=== PATIENT | male | born 1975 | race Two or more races ===

== ENCOUNTER 2019-06-16 17:48 | Inpatient (IN) | payer OTHER ==
[~2019-06-16] VITALS: Ht 182.9 cm; Wt 106.6 kg
--- NOTE | 2019-06-16 18:00 | NUR ---
RECEIVED PT IN ROOM ER #1, PT ELICEO FROM [facility] FOR [facility] , PT IS ALERT/ NONVERBAL, COFUSED, CONTINUE TO MONITOR
[2019-06-16] MEDS ORDERED: IV NS 0.9% 1,000 ML BAG IV ONE (18:30)
[2019-06-16 18:33] LABS: BASOPHILS % (AUTO) 0.1 % (0.0-2.0); EOSINOPHILS % (AUTO) 3.5 % (0.0-6.0); LYMPHOCYTES # (AUTO) 1.1 /CMM (0.8-4.8); LYMPHOCYTES % (AUTO) 26.6 % (20.0-44.0); MEAN CORPUSCULAR HGB CONC 35 g/dl (31.0-36.0); MEAN CORPUSCULAR VOLUME 85 fL (80-96); MONOCYTES # (AUTO) 0.4 /CMM (0.1-1.30); MONOCYTES % (AUTO) 9.8 % (2.0-12.0); NEUTROPHILS # (AUTO) 2.4 /CMM (1.8-8.9); PLATELET COUNT (AUTO) 92 /CMM (150-450); RED BLOOD CELL COUNT(AUTO) 2.03 MIL/uL (4.5-6.0)
[2019-06-16 18:35] LABS: HEMATOCRIT 17 % (39-51); HEMOGLOBIN 5.9 g/dL (13.5-17.5)
[2019-06-16 18:43] LABS: ALBUMIN 1.9 g/dL (3.4-5.0); BILIRUBIN,DIRECT 0.1 mg/dL (0.0-0.2); BILIRUBIN,TOTAL 0.4 mg/dL (0.2-1.0); CREATININE 3.7 mg/dL (0.6-1.3); POTASSIUM 4.5 mmol/L (3.5-5.1); TOTAL PROTEIN, SERUM 4.6 g/dL (6.4-8.2)
[2019-06-16 18:45] LABS: CALCIUM, SERUM 5.8 mg/dL (8.5-10.1)
[2019-06-16] MEDS ORDERED: BUSP5TAB3 PO (19:05)
[2019-06-16] MEDS ORDERED: CLON0.1T PO (19:05)
[2019-06-16] MEDS ORDERED: GLIM1TAB2 PO (19:06)
[2019-06-16] MEDS ORDERED: ASCO500T10 PO (19:06)
[2019-06-16] MEDS ORDERED: DOCU-141 PO (19:06)
[2019-06-16] MEDS ORDERED: GABA-534 PO (19:06)
[2019-06-16] MEDS ORDERED: MULT-24 PO (19:06)
[2019-06-16] MEDS ORDERED: QUET25TA PO (19:06)
[2019-06-16] MEDS ORDERED: INSU100V7 SQ (19:06)
[2019-06-16] MEDS ORDERED: TERA2CAP4 PO (19:06)
[2019-06-16] MEDS ORDERED: ATOR20TA PO (19:06)
[2019-06-16] MEDS ORDERED: FAMO20TA8 PO (19:06)
[2019-06-16] MEDS ORDERED: LACT1CAP61 PO (19:06)
[2019-06-16] MEDS ORDERED: ESCI5TAB PO (19:06)
[2019-06-16] MEDS ORDERED: LIDOCAINE PATCH (19:06)
[2019-06-16] MEDS ORDERED: TRAZ-182 PO (19:06)
--- NOTE | 2019-06-16 19:11 | NUR ---
REPORT GIVEN TO DANAE SAAVEDRA FOR CONTINUITY OF CARE .
[2019-06-16] MEDS ORDERED: CLONIDINE HCL 0.1 MG TABLET ONE (19:17)
--- NOTE | 2019-06-16 19:19 | NUR ---
PT IN BED AWAKE AND RESPONSIVE. NOTED W/ HIGH BP. MD MADE AWARE WITH NEW ORDER, NOTED AND CARRIED OUT. SWALLOEING TEST DONE PRIOR MED ADMINISTRATION W/ NO DIFFICULTY
--- NOTE | 2019-06-16 19:23 | NUR ---
END TIME FOR NS 1 LITER: 193
[2019-06-16 19:27] LABS: EOSINOPHILS % (MANUAL) 1 % (0-4); LYMPHOCYTES % (MANUAL) 32 % (16-48); MONOCYTES % (MANUAL) 9 % (0-11.0); NEUTROPHILS % (MANUAL) 58 (42-76)
[2019-06-16] MEDS ORDERED: CLONIDINE HCL 0.1 MG TABLET PO ONE (19:30)
[2019-06-16] MEDS ORDERED: MAGNESIUM HYDROXIDE 30 ML UDC PO PRN (20:00)
[2019-06-16] MEDS ORDERED: DEXTROSE 50%-WATER 50 ML DISP.SYRIN IV PRN (20:00)
[2019-06-16] MEDS ORDERED: MAG HYDROX/AL HYDROX/SIMETH 30 ML UDC PO PRN (20:00)
[2019-06-16] MEDS ORDERED: ACETAMINOPHEN 325 MG TABLET PO PRN (20:00)
[2019-06-16] MEDS ORDERED: ONDANSETRON HCL/PF 4 MG/2 ML VIAL IVP PRN (20:00)
--- NOTE | 2019-06-16 20:00 | NUR ---
CALLED [facility], PROCEDURES RN WAS PAGED.
--- NOTE | 2019-06-16 20:05 | NUR ---
PT GOING TO BED 119-2.
--- NOTE | 2019-06-16 20:15 | NUR ---
BLOOD TRANSFUSION PROCESS, RISK AND BENEFITS EXPLAINED TO THE PT. PT AGRRED W/ THE TRTANSFUSION. CONSENT WAS EXPLAINED TO THE PT AND PT SIGNED THE CONSENT. WITHNESSED W/ TWO RNs.
--- NOTE | 2019-06-16 20:55 | NUR ---
BLOOD TRANSFUSION STARTED. PT'S AND BLOOD UNIT INFORMATION WERE VERIFIED BY TWO RNs. VSS.
--- NOTE | 2019-06-16 21:03 | NUR ---
REPORT GIVEN TO LIU AT [facility]
--- NOTE | 2019-06-16 21:22 | NUR ---
PTWAS TRANSFERRED TO [facility] UNDER ACLS
--- NOTE | 2019-06-16 21:45 | NUR ---
AL ADMITTING NOTE, RECEIVED PATIENT FROM ED VIA GURNEY. PATIENT ALERT ORIENTED X2-3, FORGETFUL, DIAGNOSIS OF SEVER ANEMIA. PATIENT IS LEGALLY BLIND IN BOTH EYES. SKIL ASSESSMENT DONE, LEFT BKA, RIGHT TOES WOUND NOTED. PATIENT IS NPO EXCEPT FOR MEDICATION. LF 20 DAISY WITH ONGOING BLOOD TRANSFUSION STARTED FROM ED, NO INFILTRATION NOTED. BED IS IN LOW/ LOCKED POSITION. SIDE RAILS UP X3, CALL LIGHT WITHIN REACH. WAITING ADMITTING ORDERS. WILL CONTINUE MONITOR
[2019-06-16] MEDS: TRAZODONE 50 MG TABLET PO SCH ×3 (22:00→23:02)
[2019-06-16] MEDS: ATORVASTATIN 10 MG TABLET PO SCH ×2 (22:00→23:04)
[2019-06-16] MEDS: TERAZOSIN HCL 5 MG CAPSULE PO SCH ×3 (22:00→23:03)
[2019-06-16] MEDS: ESCITALOPRAM OXALATE (10 MG) 10 MG TABLET PO SCH ×3 (22:00→23:02)
[2019-06-16] MEDS: NEXIUM 40 MG VIAL IV SCH (22:05)
--- NOTE | 2019-06-16 23:30 | NUR ---
AL RN NOTES, MEDICATION WAS DOCUMENTED NOT ADMINISTERED BY MISTAKE, PATIENT IS NPO EXCEPT MEDICATION, CALLED PHARMACY AND WAS TOLD TO UNDO ACTION AND SCAN AND ADMINISTER THE MEDICATION TO THE PATIENT.
[2019-06-17] VITALS (10 sets, daily range): BP systolic 146–198; BP diastolic 88–109
--- NOTE | 2019-06-17 | NUR ---
AL RN NOTES 1ST UNIT PRBC INFUSED. NO ADVERSE REACTIONS NOTED. VSS.
[2019-06-17] MEDS: CLONIDINE HCL 0.1 MG TABLET PO PRN (00:03)
[2019-06-17] MEDS: BLOOD SUGAR DIAGNOSTIC 1 EACH STRIP IN SCH ×5 (00:26→21:48)
[2019-06-17] MEDS: INSULIN REGULAR, HUMAN 100 UNIT/ML 3 ML VIAL SQ PRN ×2 (00:30→06:35)
--- NOTE | 2019-06-17 00:45 | NUR ---
AL RN NOTES 2ND UNIT PRBC TRANSFUSION STARTED. CHECKED & VERIFIED W/ 2ND RN AMINA. WILL MONITOR FOR ANY ADVERSE REACTIONS.
--- NOTE | 2019-06-17 01:20 | NUR ---
FOOD BAGGING MACHINE OPERATOR NOTES INFORMED PRIYANKA GLOVER OF PATIENT'S CONSISTENT HIGH BP IN 180S DESPITE CLONIDINE 0.1MG. RECEIVED NEW ORDER FOR HYDRALAZINE 10MG IV PRN FOR SBP >160. NEW ORDER NOTED & CARRIED OUT.
[2019-06-17] MEDS: hydrALAZINE HCL IV 20 MG VIAL IV PRN (01:37)
--- NOTE | 2019-06-17 03:45 | NUR ---
GUINEA PIG BREEDER NOTES 2ND UNIT PRBC TRANSFUSED W/ NO ADVERSE REACTIONS NOTED. VSS.
--- NOTE | 2019-06-17 06:58 | NUR ---
AL RN CLOSING NOTES, PATIENT IN BED, SLEEPING BUT EASY TO WAKE UP, NO REPARATORY DISTRESS NOTED. LEFT FOREARM IV 20GAGE CLEAN AND DRY, NO INFILTRATION NOTED. 2 UNITS OF BLOOD TRANSFUSED DURING CARGO STATION WORKER. WILL ENDORSE TO UPCOMING SHIFT FOR CONTINUES CARE
--- NOTE | 2019-06-17 07:30 | NUR ---
RN NOTES RECEIVED PATIENT IN HIGH JOE'S POSITION. AWAKE, ALERT AND ORIENTED X2-3, ABLE TO RESPOND APPROPRIATELY AND AND MAKE NEEDS KNOWN. PATIENT IS LEGALLY BLIND IN BOTH EYES. ON ROOM AIR. BREATHING UNLABORED. NO SOB NOTED AT THIS TIME. PATIENT DENIES PAIN OF ANY KIND. "CAN I HAVE JUICE?"- REITERATED ON NPO EXCEPT MEDS STATUS AND INFORMED PATIENT THAT WILL F/U WITH THE MD IF DIET CAN BE ADVANCED. LF 20 G IV ACCESS SITE, IN PLACE AND PATENT: DRESSING IN PLACE AND INTACT. NO INFECTION/INFILTRATION NOTED. PATIENT ENCOURAGE TO CALL FOR HELP/ ASSISTANCE. CALL LIGHT PLACE WITHIN REACH. BED IN LOW AND LOCKED POSITION. SIDE RAILS UP X3, BED ALARM ON. WILL CONTINUE TO MONITOR AND ANTICIPATE PATIENT'S NEEDS
[2019-06-17 07:36] LABS: CALCIUM, SERUM 6.7 mg/dL (8.5-10.1); CREATININE 4.4 mg/dL (0.6-1.3); MAGNESIUM 1.6 mg/dL (1.8-2.4); PHOSPHORUS 4.7 mg/dL (2.5-4.9); POTASSIUM 5.6 mmol/L (3.5-5.1)
[2019-06-17 07:40] LABS: BASOPHILS % (AUTO) 0.4 % (0.0-2.0); EOSINOPHILS % (AUTO) 3.7 % (0.0-6.0); HEMATOCRIT 28 % (39-51); HEMOGLOBIN 9.3 g/dL (13.5-17.5); LYMPHOCYTES # (AUTO) 1.1 /CMM (0.8-4.8); LYMPHOCYTES % (AUTO) 24.9 % (20.0-44.0); MEAN CORPUSCULAR HGB CONC 34 g/dl (31.0-36.0); MEAN CORPUSCULAR VOLUME 85 fL (80-96); MONOCYTES # (AUTO) 0.4 /CMM (0.1-1.30); MONOCYTES % (AUTO) 9.5 % (2.0-12.0); NEUTROPHILS # (AUTO) 2.7 /CMM (1.8-8.9); NEUTROPHILS % (AUTO) 61.5 % (43.0-81.0); PLATELET COUNT (AUTO) 112 /CMM (150-450); RED BLOOD CELL COUNT(AUTO) 3.22 MIL/uL (4.5-6.0); WHITE BLOOD COUNT (AUTO) 4.3 K/uL (4.3-11.0)
[2019-06-17 07:42] LABS: THYROID STIMULATING HORMONE 3.074 uIU/mL (0.358-3.74)
--- NOTE | 2019-06-17 08:14 | NUR ---
WOUND CARE CONSULT: PT PRESENTS WITH SCARRING TO RT KNEE AND LEFT BELOW KNEE AMPUTATION STUMP, DRY WOUNDS TO RT FOOT, PRESENT ON ADMISSION. RECOMMEND DPM CONSULT. DR CORTEZ AWARE OF CONSULT REQUEST. RECOMMENDATIONS MADE FOR SKIN PROTECTION. DISCUSSED WITH NURSING STAFF. WILL SEE PRN. FLORES IN AGREEMENT WITH PLAN OF CARE. Addendum: 06/17/19 at 0816 by FRANK CLAUDIO WNDNU Amended: Links added.
[2019-06-17] MEDS: NEXIUM 40 MG VIAL IV SCH ×2 (08:48→21:00)
[2019-06-17] MEDS: busPIRone 5 MG TABLET PO SCH ×3 (08:48→18:42)
[2019-06-17] MEDS: ASCORBIC ACID 500 MG TABLET PO SCH (08:48)
[2019-06-17] MEDS: QUETIAPINE FUMARATE 25 MG TABLET PO SCH ×3 (08:48→18:42)
[2019-06-17] MEDS: AMLODIPINE BESYLATE 5 MG TABLET PO SCH (08:49)
[2019-06-17] MEDS: Z GUARD REMEDY 2 OZ OINT TP SCH (08:51)
[2019-06-17] MEDS ORDERED: FUROSEMIDE 20 MG/2 ML VIAL IV ONE (09:00)
[2019-06-17] MEDS ORDERED: SODIUM POLYSTYRENE SULFONATE 15 G/60 ML BOTTLE PO ONE (09:00)
[2019-06-17 09:49] LABS: IRON, SERUM 53 ug/dl (50-175); TOTAL IRON BINDING CAPACITY 192 ug/dl (250-450)
[2019-06-17 09:56] LABS: CALCIUM, SERUM 6.7 mg/dL (8.5-10.1); CREATININE 4.4 mg/dL (0.6-1.3); POTASSIUM 5.7 mmol/L (3.5-5.1)
[2019-06-17 10:02] LABS: FERRITIN 193 ng/mL (8-388)
--- NOTE | 2019-06-17 10:37 | NUR ---
RN NOTES PATIENT NOTED WITH EPISODES OF TALKING AND MACEDONIAN, POINTING AND POSTURING TO SOMETHING NOT VISIBLE AT THIS TIME. WHEN APPROACHED AND ASKE IF HE NEEDED SOMETHING. HE CLAIMED THAT HE FEELS OKAY AND IS COMFORTABLE AT THIS TIME.
[2019-06-17] MEDS ORDERED: Magnesium 1GM/D5W 100ML PREMIX 100 ML IV SCH (13:30)
[2019-06-17] MEDS ORDERED: Magnesium 1GM/D5W 100ML PREMIX PIGGYBACK IV ONE (13:30)
[2019-06-17] MEDS ORDERED: DEXTROSE 50%-WATER 50 ML DISP.SYRIN IV PRN (13:30)
[2019-06-17] MEDS ORDERED: IV NS 0.9% 250 ML IV ONE (15:00)
--- NOTE | 2019-06-17 19:00 | NUR ---
RN NOTES PATIENT RIPPED OFF DIAPER AND TELEMONITOR BOX " I DON'T WANT THIS ANYMORE" REFERRING TO THE MONITOR. EXPLAINED RISK AND BENEFITS TO THE PATIENT MULTIPLE TIME BUT PATIENT CONTINUE TO REFUSE. PAGED DR. JIANG THEN TO INFORM ABOUT THE SITUATION BUT TALKED TO GAMMA OPERATOR (DR. MCGUIRE) WHO ORDERED PATIENT TO BE PLACED ON MEDSURG STATUS. ORDER NOTED AND CARRIED OUT
--- NOTE | 2019-06-17 20:00 | NUR ---
TELE/MS/RN NOTES RECEIVED REPORT FOR AGAPITO
--- NOTE | 2019-06-17 21:18 | NUR ---
MS/TELE/RN NOTES NEXIUM ORDER FOR GERD NOT AVAILABLE , SUPERVISORT AND CHARGE NURSE FOLLOW UP AT THE [facility]. TO FOLLOW UP IN AM
[2019-06-18 02:49] VITALS: BP 150/88
[2019-06-18 04:00] VITALS: BP 159/93
[2019-06-18] MEDS: IV NS 0.9% 1,000 ML IV PRN (05:24)
[2019-06-18 06:34] LABS: BASOPHILS % (AUTO) 0.3 % (0.0-2.0); EOSINOPHILS % (AUTO) 3.3 % (0.0-6.0); HEMATOCRIT 29 % (39-51); HEMOGLOBIN 9.8 g/dL (13.5-17.5); LYMPHOCYTES # (AUTO) 1.1 /CMM (0.8-4.8); LYMPHOCYTES % (AUTO) 24.2 % (20.0-44.0); MEAN CORPUSCULAR HGB CONC 34 g/dl (31.0-36.0); MEAN CORPUSCULAR VOLUME 85 fL (80-96); MONOCYTES # (AUTO) 0.3 /CMM (0.1-1.30); MONOCYTES % (AUTO) 7.5 % (2.0-12.0); NEUTROPHILS % (AUTO) 64.7 % (43.0-81.0); PLATELET COUNT (AUTO) 135 /CMM (150-450); RED BLOOD CELL COUNT(AUTO) 3.38 MIL/uL (4.5-6.0); WHITE BLOOD COUNT (AUTO) 4.6 K/uL (4.3-11.0)
[2019-06-18 06:40] LABS: ALBUMIN 2.3 g/dL (3.4-5.0); BILIRUBIN,TOTAL 0.6 mg/dL (0.2-1.0); CREATININE 4.5 mg/dL (0.6-1.3); MAGNESIUM 1.7 mg/dL (1.8-2.4); PHOSPHORUS 5.4 mg/dL (2.5-4.9); POTASSIUM 5.2 mmol/L (3.5-5.1); TOTAL PROTEIN, SERUM 5.9 g/dL (6.4-8.2)
--- NOTE | 2019-06-18 06:56 | NUR ---
MS/RN NOTES' PATIENT RESTING COMFORTABLY IN BED, ABLE TO SLEEP DURING THE NICE, SNACK GIVEN AND OFFERED, IV FLUIDS ORDERED STARTED, BED LOCKED, WILL ENDORSE TO AM RN FOR AGAPITO. REPOSITONED FOR COMFORT. IV SITE ON RIGHT FHAND PATENT.
[2019-06-18 07:47] LABS: OCCULT BLOOD STOOL NEGATIVE (NEGATIVE)
--- NOTE | 2019-06-18 08:05 | NUR ---
MS RN RECEIVE DON BED, AWAKE,ALERT X2, FORGETFUL,NOT IN ANY FORM OF DITRESS, RESPIRATIONS EVEN AND UNLABORED, NO SOB NOED, LUNGS ARE CLEAR,ABDOMEN SOFT,POSITIVE BOWEL SOUNDS,DENIES PAIN AT THIS TIME.WILL MONITOR PATIENT'S CONDITION.
[2019-06-18] MEDS: BLOOD SUGAR DIAGNOSTIC 1 EACH STRIP IN SCH ×4 (08:29→21:48)
[2019-06-18] MEDS: ASCORBIC ACID 500 MG TABLET PO SCH (08:47)
[2019-06-18] MEDS: AMLODIPINE BESYLATE 5 MG TABLET PO SCH (08:47)
[2019-06-18] MEDS: QUETIAPINE FUMARATE 25 MG TABLET PO SCH ×3 (08:47→16:35)
[2019-06-18] MEDS: busPIRone 5 MG TABLET PO SCH ×3 (08:48→16:35)
[2019-06-18] MEDS: NEXIUM 40 MG VIAL IV SCH ×2 (09:00→21:08)
[2019-06-18] MEDS: Z GUARD REMEDY 2 OZ OINT TP SCH (09:00)
--- NOTE | 2019-06-18 09:35 | NUR ---
MS SAAVEDRA BREAKFAST SERVED,DUE MEDS GIVEN,TOLERATED WELL.
--- NOTE | 2019-06-18 10:00 | NUR ---
MS RN PATIENT HAS SOME HALLUCINATIONS, TALKING TO SOMEBODY,CALLED DEIDRE PAGAN FOR PSYCHE EVAL. WILL MONITOR PATIENT.
[2019-06-18 12:00] VITALS: BP 179/102
--- NOTE | 2019-06-18 12:00 | NUR ---
MS RN ACCIDENTALLY PULLED OUT IV, NEW IV SITE INSERTED AT LEFT HAND W/ GOOD VENOUS RETURN.
[2019-06-18] MEDS ORDERED: SODIUM POLYSTYRENE SULFONATE 15 G/60 ML BOTTLE PO ONE (15:30)
[2019-06-18] MEDS: Magnesium 1GM/D5W 100ML PREMIX 100 ML IV SCH ×2 (15:55→17:09)
[2019-06-18 16:00] VITALS: BP 185/100
--- NOTE | 2019-06-18 16:32 | NUR ---
MS RN B/P STILL HIGH AT 185/100. HYDRALAZINE IV GIVEN.
[2019-06-18] MEDS: hydrALAZINE HCL IV 20 MG VIAL IV PRN (16:37)
--- NOTE | 2019-06-18 17:57 | NUR ---
MS SAAVEDRA BS-87 ,NO COVERAGE GIVEN.
[2019-06-18 18:00] VITALS: BP 152/90
--- NOTE | 2019-06-18 18:06 | NUR ---
MS RN ON BED, NO DISTRESS NOTED.
--- NOTE | 2019-06-18 19:15 | NUR ---
MS RN OPENING NOTES RECEIVED BEDSIDE REPORT FROM AM RN. PATIENT RESTING COMFORTABLY IN BED, AWAKE, A/OX2. ON ROOM AIR, NO SOB OR RESPIRATORY AND CARDIAC DISTRESS NOTED. DENIES ANY PAIN. IV SITE LEFT HAND 22G, SITE C/D/I, FLUSHING AND PATENT, NO INFILTRATION NOTED, IV FLUIDS RUNNING ORDERED. URINAL AT BEDSIDE. SAFETY MEASURES IN PLACE; BED LOCKED AND IN LOWEST POSITION, CALL LIGHT WITHIN REACH, SIDE RAILS UP X2. WILL CONT TO MONITOR PT.
[2019-06-18 20:00] VITALS: BP_SYST 127; BP_SYST 144; BP_DIAS 80; BP_DIAS 88
[2019-06-18] MEDS: TRAZODONE 50 MG TABLET PO SCH (21:09)
[2019-06-18] MEDS: ESCITALOPRAM OXALATE (10 MG) 10 MG TABLET PO SCH (21:09)
[2019-06-18] MEDS: ATORVASTATIN 10 MG TABLET PO SCH (21:09)
[2019-06-18] MEDS: TERAZOSIN HCL 5 MG CAPSULE PO SCH (21:09)
[2019-06-19 04:00] VITALS: BP 158/96
[2019-06-19] MEDS: IV NS 0.9% 1,000 ML IV PRN (04:21)
[2019-06-19 06:37] LABS: BASOPHILS % (AUTO) 0.3 % (0.0-2.0); EOSINOPHILS % (AUTO) 3.1 % (0.0-6.0); HEMATOCRIT 29 % (39-51); HEMOGLOBIN 9.9 g/dL (13.5-17.5); LYMPHOCYTES # (AUTO) 1.2 /CMM (0.8-4.8); LYMPHOCYTES % (AUTO) 19.7 % (20.0-44.0); MEAN CORPUSCULAR HGB CONC 34 g/dl (31.0-36.0); MEAN CORPUSCULAR VOLUME 85 fL (80-96); MONOCYTES # (AUTO) 0.5 /CMM (0.1-1.30); MONOCYTES % (AUTO) 8.1 % (2.0-12.0); NEUTROPHILS # (AUTO) 4.2 /CMM (1.8-8.9); NEUTROPHILS % (AUTO) 68.8 % (43.0-81.0); PLATELET COUNT (AUTO) 139 /CMM (150-450); WHITE BLOOD COUNT (AUTO) 6.1 K/uL (4.3-11.0)
[2019-06-19 07:00] LABS: CREATININE, URINE 54.1 MG/DL (30.0-125.0)
--- NOTE | 2019-06-19 07:00 | NUR ---
MS RN CLOSING NOTES PATIENT RESTING COMFORTABLY IN BED, AWAKE, A/OX2-3, WITH EPISODES OF CONFUSION AND HALLUCINATION NOTED THROUGHOUT SHIFT, PSYCH CONSULT PENDING. ON ROOM AIR, NO SOB OR RESPIRATORY AND CARDIAC DISTRESS NOTED. DENIES ANY PAIN. IV SITE LEFT HAND 22G, SITE C/D/I, FLUSHING AND PATENT, NO INFILTRATION NOTED, IV FLUIDS RUNNING ORDERED. URINAL AT BEDSIDE. ALL MD ORDERS ATTENDED. SAFETY MEASURES IN PLACE; BED LOCKED AND IN LOWEST POSITION, CALL LIGHT WITHIN REACH, SIDE RAILS UP X2. WILL ENDORSE TO AM RN FOR AGAPITO.
[2019-06-19 07:06] LABS: ALBUMIN 2.3 g/dL (3.4-5.0); BILIRUBIN,TOTAL 0.5 mg/dL (0.2-1.0); CALCIUM, SERUM 6.8 mg/dL (8.5-10.1); CREATININE 4.4 mg/dL (0.6-1.3); PHOSPHORUS 4.9 mg/dL (2.5-4.9); POTASSIUM 4.7 mmol/L (3.5-5.1); TOTAL PROTEIN, SERUM 5.8 g/dL (6.4-8.2)
[2019-06-19 07:30] LABS: URINE TOTAL PROTEIN 718.9 mg/dL (0-11.9)
--- NOTE | 2019-06-19 07:30 | NUR ---
RN AM NOTE PATIENT IN BED RESPONSIVE BUT CONFUSED. VERY AGITATED AND APPEARS PARANOID. YELLING AND BARKING. IV PATENT AND INTACT. BED IN LOW POSITION, REORIENTATION DONE BY RN . AWATITING PSYCH CONSULT FROM MD TODAY. BED IN LOW POSITION, SIDE RAILS UP, CALL LIGHT WITHIN REACH IV PATENT AND FLUSHING WELL.
[2019-06-19 07:50] LABS: APPEARANCE,URINE CLEAR (CLEAR); COLOR,URINE YELLOW (YELLOW); PROTEIN,URINE 3+ mg/dl (NEGATIVE); UGLUCOSE TRACE mg/dL (NEGATIVE)
[2019-06-19 07:51] LABS: BILIRUBIN,URINE NEGATIVE (NEGATIVE); BLOOD, URINE 2+ Ery/uL (NEGATIVE); KETONES,URINE NEGATIVE (NEGATIVE); UROBILINOGEN,URINE 0.2 EU/dL (0.2)
[2019-06-19 07:52] LABS: LEUKOCYTE ESTERASE ,URINE NEGATIVE (NEGATIVE); NITRITE, URINE NEGATIVE (NEGATIVE)
[2019-06-19] MEDS: busPIRone 5 MG TABLET PO SCH (07:55)
[2019-06-19] MEDS: QUETIAPINE FUMARATE 25 MG TABLET PO SCH (07:56)
[2019-06-19] MEDS: ASCORBIC ACID 500 MG TABLET PO SCH (07:56)
[2019-06-19] MEDS: NEXIUM 40 MG VIAL IV SCH ×2 (07:57→21:07)
[2019-06-19] MEDS: BLOOD SUGAR DIAGNOSTIC 1 EACH STRIP IN SCH ×4 (08:03→21:14)
[2019-06-19] MEDS: Z GUARD REMEDY 2 OZ OINT TP SCH (08:03)
[2019-06-19 08:05] LABS: BACTERIA,URINE None seen /HPF (None Seen); RBC,URINE NONE SEEN /HPF (0-2); SQUAMOUS EPITHELIAL CELL,UR None Seen /HPF (None Seen); URINE AMORPHOUS URATE Rare /HPF (None Seen); WBC,URINE 0-2 /HPF (0-3)
[2019-06-19 08:06] LABS: EOSINOPHIL,URINE None Seen; SPERM,URINE Few /HPF (None Seen)
[2019-06-19] MEDS: AMLODIPINE BESYLATE 5 MG TABLET PO SCH (08:50)
[2019-06-19 11:07] LABS: *SPE A/G RATIO 1.1 (0.7-1.7); *SPE ALBUMIN 2.6 g/dL (2.9-4.4); *SPE ALPHA-1-GLOBULIN 0.2 g/dL (0.0-0.4); *SPE ALPHA-2-GLOBULIN 0.5 g/dL (0.4-1.0); *SPE BETA GLOBULIN 0.9 g/dL (0.7-1.3); *SPE GLOBULIN, TOTAL 2.4 g/dL (2.2-3.9); *SPE M-SPIKE Not Observed g/dL (Not Observed); *SPEGAMMA GLOBULIN 0.8 g/dL (0.4-1.8)
[2019-06-19 12:00] VITALS: BP 144/98
[2019-06-19] MEDS: HALOPERIDOL 5 MG TABLET PO SCH ×2 (12:58→16:27)
[2019-06-19] MEDS: DIVALPROEX SODIUM 250 MG TABLET.DR PO SCH ×2 (12:58→16:27)
[2019-06-19] MEDS: BENZTROPINE MESYLATE (1 MG) 1 MG TABLET PO SCH ×2 (12:58→16:27)
[2019-06-19] MEDS ORDERED: HALOPERIDOL LACTATE INJ 5 MG/ML VIAL IM PRN (13:00)
--- NOTE | 2019-06-19 14:00 | NUR ---
RN NOTE PSYCH CONSULT MD CAME TODAY. NEW ORDERS CARRIED OUT BY RN. PATIENT IS VERY AGGRESSIVE, HITTING HIMSELF IN THE HEAD, IS NOT ORIENTED TO REALITY. IS AGGRESSIVE TOWARDS STAFF, RANDOM BOUTS OF ATTEMPTING TO HIT YELLING CURSING BARKING AND SCREAMING. BED IN LOW POSITION, SIDE RAILS UP, CALL LIGHT WITHIN REACH IV PATENT AND FLUSHING WELL.
[2019-06-19 14:07] LABS: PTH, INTACT 165 pg/mL (15-65)
--- NOTE | 2019-06-19 15:00 | NUR ---
RN NOTE PATIENTS BLOOD PRESSURE WAS ELEVEVATED, RN GAVE PRN IV PUSH OF MEDICATION PER MD ORDER FOR BP >170.
--- NOTE | 2019-06-19 16:00 | NUR ---
RN NOTE PATIENT EXTREMEMLY AGGRESSIVE, HITTING AND KICKING RANDOMLY TO AIR STAFF AND SELF. NO INJURY NOTED, CONT TO MONITOR.BED IN LOW POSITION, SIDE RAILS UP, CALL LIGHT WITHIN REACH IV PATENT AND FLUSHING WELL.
[2019-06-19] MEDS: hydrALAZINE HCL IV 20 MG VIAL IV PRN (16:28)
--- NOTE | 2019-06-19 19:29 | NUR ---
MS RN NOTE: RECEIVED PT ON BED ASLEEP BUT AROUSES EASILY TO VERBAL AND TACTILE STIMULI. NO APPARENT DISTRESS NOTED. DENIES PAIN AND DISCOMFORT AT THIS TIME. ON ROOM AIR, NO SOB NOTED. IV ON LEFT HAND #22 INTACT AND PATENT, IVF INFUSING WELL. KEPT CLEAN, DRY AND COMFORTABLE. CALL LIGHT PLACED WITHIN REACH. ENCOURAGED TO VERBALIZE NEEDS AND CONCERNS AND TO CALL FOR ASSISTANCE IF NEEDED. SAFETY AND FALL PRECAUTIONS OBSERVED AND MAINTAINED. WILL CONTINUE TO MONITOR PT.
[2019-06-19 20:00] VITALS: BP 147/76
[2019-06-19] MEDS: TRAZODONE 50 MG TABLET PO SCH (21:06)
[2019-06-19] MEDS: ATORVASTATIN 10 MG TABLET PO SCH (21:07)
[2019-06-19] MEDS: TERAZOSIN HCL 5 MG CAPSULE PO SCH (21:14)
[2019-06-20 04:00] VITALS: BP 141/69
--- NOTE | 2019-06-20 04:41 | NUR ---
MS RN NOTE: PATIENT REFUSED IVF NS RUNNING AT 75ML/HR. EXPLAINED RISKS AND BENEFITS BUT PT STILL REFUSED, PT GETS AGITATED BECAUSE OF IT. DR. MCGUIRE MADE AWARE. WILL CONTINUE TO MONITOR PT.
--- NOTE | 2019-06-20 06:50 | NUR ---
MS RN NOTE: NO CHANGES NOTED THROUGHOUT THE SHIFT. NO APPARENT DISTRESS NOTED. DENIES PAIN AND DISCOMFORT AT THIS TIME. ON ROOM AIR, SATURATING WELL. NO SOB NOTED. IV ON LEFT HAND #22 INTACT AND FLUSHING WELL. KEPT CLEAN, DRY AND COMFORTABLE. SAFETY AND FALL PRECAUTIONS OBSERVED AND MAINTAINED. WILL ENDORSE TO DAY SHIFT RN FOR CONTINUITY OF CARE.
--- NOTE | 2019-06-20 07:20 | NUR ---
MS RN OPENING NOTES RECEIVED REPORT AT BEDSIDE. PATIENT RESTING COMFORTABLY IN BED. ON ROOM AIR, NO SOB OR RESPIRATORY AND CARDIAC DISTRESS NOTED. NO COMPLAIN OF PAIN AT THIS TIME. IV LEFT HAND SL 22G INTACT, PATENT AND FLUSHED WELL. PER CONTROL MANAGER NURSE PT HAD ORDER TO RUN NS@75 ML/HR BUT HE HAS REFUSED AND MADE AWARE. WILL ASK PT TO RUN THE NS AGAIN. URINAL AT BEDSIDE. SAFETY MEASURES AND FALL PRECAUTION IN PLACE; BED LOCKED AND IN LOWEST POSITION, CALL LIGHT WITHIN REACH, SIDE RAILS UP X2, BED ALARM ON. WILL CONT TO MONITOR PT CLOSELY.
[2019-06-20 08:00] VITALS: BP 151/69
[2019-06-20] MEDS: BLOOD SUGAR DIAGNOSTIC 1 EACH STRIP IN SCH ×4 (08:14→21:12)
[2019-06-20] MEDS: DIVALPROEX SODIUM 250 MG TABLET.DR PO SCH ×3 (09:50→17:13)
[2019-06-20] MEDS: BENZTROPINE MESYLATE (1 MG) 1 MG TABLET PO SCH ×3 (09:51→17:13)
[2019-06-20] MEDS: HALOPERIDOL 5 MG TABLET PO SCH ×3 (09:51→17:13)
[2019-06-20] MEDS: AMLODIPINE BESYLATE 5 MG TABLET PO SCH (09:53)
[2019-06-20] MEDS: ASCORBIC ACID 500 MG TABLET PO SCH (09:53)
[2019-06-20] MEDS: NEXIUM 40 MG VIAL IV SCH ×2 (09:58→21:03)
[2019-06-20] MEDS: Z GUARD REMEDY 2 OZ OINT TP PRN ×2 (10:35→10:46)
[2019-06-20] MEDS: Z GUARD REMEDY 2 OZ OINT TP SCH (10:50)
--- NOTE | 2019-06-20 12:00 | NUR ---
MS RN NOTE PT REFUSED TO START NS IV FLUID. WILL ASK LATER.
[2019-06-20 16:00] VITALS: BP_SYST 157; BP_SYST 169; BP_DIAS 69; BP_DIAS 96
--- NOTE | 2019-06-20 17:22 | NUR ---
RN NOTES PATIENT WAS COMPLAINING HE'S FEELING LIKE SOMETHING IS CRAWLING OVER HIS HEAD. ALSO, HE SAID HIS VISION ON HIS RIGHT EYE WAS BLURRY. CHECKED AND ASSESSED, PATIENT'S RIGHT EYE IS PERRLA. NO FEELING OF ANY PAIN. WILL MONITOR FOR ANY MORE CHANGES
--- NOTE | 2019-06-20 19:22 | NUR ---
MS RN NOTE: RECEIVED PT ON BED ASLEEP BUT AROUSES EASILY TO VERBAL AND TACTILE STIMULI. NO ACUTE DISTRESS NOTED. NO COMPLAINTS OF PAIN OR DISCOMFORT AT THIS TIME. ON ROOM AIR, NO SOB NOTED. IV ON LEFT HAND #22 INTACT AND PATENT, FLUSHING WELL. KEPT CLEAN, DRY AND COMFORTABLE. CALL LIGHT PLACED WITHIN REACH. ENCOURAGED TO VERBALIZE NEEDS AND CONCERNS AND TO CALL FOR ASSISTANCE IF NEEDED. SAFETY AND FALL PRECAUTIONS OBSERVED AND MAINTAINED. WILL CONTINUE TO MONITOR PT.
--- NOTE | 2019-06-20 19:26 | NUR ---
MS RN CLOSING NOTES PATIENT RESTING COMFORTABLY IN BED, AWAKE, A/OX3, WITH EPISODES OF CONFUSION AND HALLUCINATION. ON ROOM AIR, SATURATION WELL. NO SOB OR RESPIRATORY AND CARDIAC DISTRESS NOTED AT THIS TIME. DENIES ANY PAIN. IV SITE LEFT HAND 22G PATENT, INTACT AND FLUSHED WELL. NO INFILTRATION NOTED. CHECKED SEVERAL TIMES TO RUN THE IV FLUID BUT PT REFUSED. URINAL AT BEDSIDE. ALL MD ORDERS ATTENDED. SAFETY MEASURES IN PLACE; BED LOCKED AND IN LOWEST POSITION, CALL LIGHT WITHIN REACH, SIDE RAILS UP X2. BED ALARM ON. WILL ENDORSE TO THE DIRECTOR OPERATING NURSE FOR AGAPITO.
[2019-06-20 20:00] VITALS: BP 175/89
[2019-06-20] MEDS: TERAZOSIN HCL 5 MG CAPSULE PO SCH (21:03)
[2019-06-20] MEDS: TRAZODONE 50 MG TABLET PO SCH (21:03)
[2019-06-20] MEDS: ATORVASTATIN 10 MG TABLET PO SCH (21:03)
--- NOTE | 2019-06-20 22:00 | NUR ---
MS RN NOTE: PT HAS AN ORDER FOR NS TO RUN FOR 75ML/HR, HOWEVER, PT REFUSED IT. TRIED TO OFFER IT IN DIFFERENT TIMES AND EXPLAINED TO HIM THE RISKS AND BENEFITS BUT PT STILL REFUSED.
[2019-06-20] MEDS: hydrALAZINE HCL IV 20 MG VIAL IV PRN (22:20)
[2019-06-20 23:37] VITALS: BP 154/88
[2019-06-21 03:06] LABS: HEPATITIS Be AB Negative (Negative)
[2019-06-21 04:00] VITALS: BP 157/87
--- NOTE | 2019-06-21 07:20 | NUR ---
MS RN OPENING NOTES RECEIVED REPORT FROM PM NURSE AT BEDSIDE. PATIENT RESTING COMFORTABLY IN BED. ON ROOM AIR, NO SOB OR RESPIRATORY AND CARDIAC DISTRESS NOTED. NO COMPLAIN OF PAIN AT THIS TIME. IV LEFT HAND SL 22G INTACT, PATENT . REFUSING IVF.EXPLAINED RISK AND BENEFIT. SAFETY MEASURES AND FALL PRECAUTION IN PLACE; BED LOCKED AND IN LOWEST POSITION, CALL LIGHT WITHIN REACH, SIDE RAILS UPX3. BED ALARM ON. NPO FOR ABDOMINAL ULTRASOUND.WILL CONTINUE TO MONITOR.
[2019-06-21] MEDS: BLOOD SUGAR DIAGNOSTIC 1 EACH STRIP IN SCH ×4 (07:42→22:11)
[2019-06-21 08:00] VITALS: BP 167/84
[2019-06-21] MEDS: AMLODIPINE BESYLATE 5 MG TABLET PO SCH (08:15)
[2019-06-21] MEDS: NEXIUM 40 MG VIAL IV SCH ×2 (08:15→22:05)
[2019-06-21] MEDS: BENZTROPINE MESYLATE (1 MG) 1 MG TABLET PO SCH ×3 (08:15→16:39)
[2019-06-21] MEDS: ASCORBIC ACID 500 MG TABLET PO SCH (08:15)
[2019-06-21] MEDS: DIVALPROEX SODIUM 250 MG TABLET.DR PO SCH ×3 (08:16→16:39)
[2019-06-21] MEDS: HALOPERIDOL 5 MG TABLET PO SCH ×3 (08:16→16:39)
[2019-06-21] MEDS: Z GUARD REMEDY 2 OZ OINT TP SCH (08:16)
[2019-06-21] MEDS: NEOMY SULF/BACITRAC ZN/POLY 15 GM TUBE TP SCH (08:23)
--- NOTE | 2019-06-21 08:30 | NUR ---
MS RN NOTE SEEN BY ,UPDATED ABOUT PATIENT CONDITION,GOT NEW ORDER FOR LABS.NOT DECIDED ABOUT PROCEDURE.WILL CONTINUE TO MONITOR.
[2019-06-21 09:11] LABS: COMPLEMENT C3, SERUM 80 mg/dL (82-167); COMPLEMENT C4, SERUM 31 mg/dL (14-44)
[2019-06-21 10:30] VITALS: BP 156/73
--- NOTE | 2019-06-21 12:36 | NUR ---
MS RN NOTE SEEN BY SINAN SANCHES ,UPDATED ABOUT PATIENT CONDITION WITH US ABDOMEN RESULT.NNO.WILL CONTINUE TO MONITOR.F/U WITH .
[2019-06-21] MEDS: INSULIN REGULAR, HUMAN 100 UNIT/ML 3 ML VIAL SQ PRN ×2 (12:44→22:28)
[2019-06-21] MEDS: IV NS 0.9% 1,000 ML IV PRN (15:08)
[2019-06-21 16:00] VITALS: BP 157/77
--- NOTE | 2019-06-21 19:17 | NUR ---
MS RN RECEIVE PT IN BED A/O X 1, STABLE, RESPIRATIONS EVEN AND UNLABORED, SAFETY MEASURES IN PLACE. WILL CONTINUE TO MONITOR.
--- NOTE | 2019-06-21 19:31 | NUR ---
MS RN CLOSING NOTES PATIENT RESTING COMFORTABLY IN BED. ON ROOM AIR, NO SOB OR RESPIRATORY AND CARDIAC DISTRESS NOTED. NO COMPLAIN OF PAIN AT THIS TIME. IV R WRIST 22G INTACT, PATENT .ONGOING IVF.SAFETY MEASURES AND FALL PRECAUTION IN PLACE; BED LOCKED AND IN LOWEST POSITION, CALL LIGHT WITHIN REACH, SIDE RAILS UPX3. BED ALARM ON. ENDORSED TO PM NURSE FOR AGAPITO.
[2019-06-21 20:01] VITALS: BP 155/80
[2019-06-21] MEDS: TERAZOSIN HCL 5 MG CAPSULE PO SCH (22:05)
[2019-06-21] MEDS: TRAZODONE 50 MG TABLET PO SCH (22:05)
[2019-06-21] MEDS: ATORVASTATIN 10 MG TABLET PO SCH (22:06)
[2019-06-22 04:00] VITALS: BP 147/75
[2019-06-22] MEDS: IV NS 0.9% 1,000 ML IV PRN ×2 (05:05→20:00)
[2019-06-22 06:19] LABS: CREATININE 4.2 mg/dL (0.6-1.3); MAGNESIUM 1.8 mg/dL (1.8-2.4); PHOSPHORUS 4.6 mg/dL (2.5-4.9); POTASSIUM 4.2 mmol/L (3.5-5.1)
--- NOTE | 2019-06-22 06:19 | NUR ---
MS RN ASLEEP AND EASILY AWAKEN, RESPIRATIONS EVEN AND UNLABORED. KEPT CLEAN AND DRY AND COMFORTABLE. NEEDS ATTENDED AND ANTICIPATED. NURSING CARE RENDERED, OFFLOAD HEELS AND ELBOWS AT ALL TIMES. NO C/O OF PAIN. SAFETY MEASURES AT ALL TIMES. ENDORSE TO THE NEXT SHIFT.
[2019-06-22 06:22] LABS: CALCIUM, SERUM 5.8 mg/dL (8.5-10.1)
--- NOTE | 2019-06-22 06:30 | NUR ---
PAGED HOSPITALIST DR. MCGUIRE AND RELAYED LOW CALCIUM 5.8 AWAITING ORDERS
[2019-06-22 06:32] LABS: BASOPHILS % (AUTO) 0.3 % (0.0-2.0); EOSINOPHILS % (AUTO) 2.4 % (0.0-6.0); HEMATOCRIT 28 % (39-51); HEMOGLOBIN 9.5 g/dL (13.5-17.5); LYMPHOCYTES % (AUTO) 17.4 % (20.0-44.0); MEAN CORPUSCULAR HGB CONC 34 g/dl (31.0-36.0); MEAN CORPUSCULAR VOLUME 85 fL (80-96); MONOCYTES # (AUTO) 0.5 /CMM (0.1-1.30); MONOCYTES % (AUTO) 8.3 % (2.0-12.0); NEUTROPHILS # (AUTO) 4.1 /CMM (1.8-8.9); NEUTROPHILS % (AUTO) 71.6 % (43.0-81.0); PLATELET COUNT (AUTO) 146 /CMM (150-450); RED BLOOD CELL COUNT(AUTO) 3.25 MIL/uL (4.5-6.0); WHITE BLOOD COUNT (AUTO) 5.7 K/uL (4.3-11.0)
--- NOTE | 2019-06-22 06:44 | NUR ---
PER DR. MCGUIRE GIVE CALCIUM GLUCONATE 2 GM IV ONE TIME AND REPEAT AM LAB CALCIUM 06/23/2019 READ BACK AND VERIFIED ORDERS NOTED AND CARRIED OUT Addendum: 06/22/19 at 0701 by GAGAN CHEATHAM RN TO GIVE BOLUS WITH 250 ML NS TO RUN 1 HOUR
[2019-06-22] MEDS ORDERED: Calcium Gluconate 1GM/10ML 9.3 MEQ in IV NS 0.9% 250 ML IV ONE ×2 (07:00→08:00)
[2019-06-22] MEDS ORDERED: Calcium Gluconate 0.465 MEQ/ML VIAL IV ONE (07:00)
[2019-06-22 08:00] VITALS: BP_SYST 151; BP_SYST 168; BP_DIAS 82; BP_DIAS 92
[2019-06-22] MEDS: BLOOD SUGAR DIAGNOSTIC 1 EACH STRIP IN SCH ×4 (08:22→21:37)
--- NOTE | 2019-06-22 08:30 | NUR ---
MS/RN NOTES RECEIVED REPORT FOR KERI BARROS. PATIENT IN BED SLEEPING COMFORTABLY. EASILY AROUSABLE. PATIENT IS ALERT AND ORIENTED X1. ABLE TO MAKE NEEDS KNOWN. NO PAIN OR ACUTE DISTRESS AT THIS TIME. RESPIRATION EVEN AND UNLABORED. SKIN IS DRY WARM TO TOUCH. PATIENT NOTED WITH R WRIST #22G. INTACT AND PATENT. FLUSHING WELL. NO S/S OF INFECTION OR INFILTRATION. ALL NEEDS ANTICIPATED. CALL LIGHT WITHIN REACHED. SAFETY MAINTAINED. BED LOCKED AND IN LOWEST POSITION. WILL CONTINUE TO MONITOR CLOSELY.
[2019-06-22] MEDS: AMLODIPINE BESYLATE 5 MG TABLET PO SCH (08:39)
[2019-06-22] MEDS: DIVALPROEX SODIUM 250 MG TABLET.DR PO SCH ×3 (08:39→16:35)
[2019-06-22] MEDS: ASCORBIC ACID 500 MG TABLET PO SCH (08:39)
[2019-06-22] MEDS: BENZTROPINE MESYLATE (1 MG) 1 MG TABLET PO SCH ×3 (08:40→16:35)
[2019-06-22] MEDS: HALOPERIDOL 5 MG TABLET PO SCH ×3 (08:40→16:35)
[2019-06-22] MEDS: NEOMY SULF/BACITRAC ZN/POLY 15 GM TUBE TP SCH (08:41)
[2019-06-22] MEDS: Z GUARD REMEDY 2 OZ OINT TP SCH (08:42)
[2019-06-22] MEDS: NEXIUM 40 MG VIAL IV SCH (08:43)
[2019-06-22 16:00] VITALS: BP_SYST 142; BP_SYST 154; BP_DIAS 86; BP_DIAS 88
--- NOTE | 2019-06-22 18:41 | NUR ---
MS/RN CLOSING NOTES PATIENT CONTINUES TO REMAIN IN STABLE CONDITION. PROVIDED COMFORT AND SAFETY THROUGHOUT THE SHIFT. PATIENT ABLE TO MAKE NEEDS KNOWN. NO PAIN OR ACUTE DISTRESS AT THIS TIME. RESPIRATION EVEN AND UNLABORED. NOTED WITH R WRIST #22G. INTACT AND PATENT. FLUSHING WELL. PATIENT ABLE TO TOLERATE IVF WELL. NO S/S OF INFECTION OR INFILTRATION. ALL NEEDS ANTICIPATED. KEPT CLEAN AND DRY. CALL LIGHT WITHIN REACHED. SAFETY MAINTAINED. BED LOCKED AND IN LOWEST POSITION. ENDORSED TO PM NURSE FOR AGAPITO.
[2019-06-22] MEDS: hydrALAZINE HCL IV 20 MG VIAL IV PRN (19:51)
[2019-06-22 20:00] VITALS: BP 174/101
[2019-06-22] MEDS: TERAZOSIN HCL 5 MG CAPSULE PO SCH (21:34)
[2019-06-22] MEDS: ATORVASTATIN 10 MG TABLET PO SCH (21:35)
[2019-06-22] MEDS: TRAZODONE 50 MG TABLET PO SCH (21:35)
[2019-06-22] MEDS: INSULIN REGULAR, HUMAN 100 UNIT/ML 3 ML VIAL SQ PRN (21:37)
[2019-06-23 04:00] VITALS: BP 177/98
[2019-06-23 06:40] LABS: ALBUMIN 2.1 g/dL (3.4-5.0); BILIRUBIN,TOTAL 0.5 mg/dL (0.2-1.0); CALCIUM, SERUM 6.4 mg/dL (8.5-10.1); MAGNESIUM 1.6 mg/dL (1.8-2.4); PHOSPHORUS 4.8 mg/dL (2.5-4.9); POTASSIUM 4.1 mmol/L (3.5-5.1); TOTAL PROTEIN, SERUM 5.4 g/dL (6.4-8.2)
[2019-06-23 06:41] LABS: BASOPHILS % (AUTO) 0.2 % (0.0-2.0); EOSINOPHILS % (AUTO) 2.6 % (0.0-6.0); HEMATOCRIT 27 % (39-51); HEMOGLOBIN 9.2 g/dL (13.5-17.5); LYMPHOCYTES # (AUTO) 1.2 /CMM (0.8-4.8); LYMPHOCYTES % (AUTO) 21.6 % (20.0-44.0); MEAN CORPUSCULAR HGB CONC 34 g/dl (31.0-36.0); MEAN CORPUSCULAR VOLUME 85 fL (80-96); MONOCYTES # (AUTO) 0.5 /CMM (0.1-1.30); MONOCYTES % (AUTO) 9.3 % (2.0-12.0); NEUTROPHILS # (AUTO) 3.6 /CMM (1.8-8.9); NEUTROPHILS % (AUTO) 66.3 % (43.0-81.0); PLATELET COUNT (AUTO) 164 /CMM (150-450); RED BLOOD CELL COUNT(AUTO) 3.21 MIL/uL (4.5-6.0); WHITE BLOOD COUNT (AUTO) 5.4 K/uL (4.3-11.0)
[2019-06-23] MEDS: BLOOD SUGAR DIAGNOSTIC 1 EACH STRIP IN SCH ×4 (07:56→22:15)
[2019-06-23 08:00] VITALS: BP 166/84
[2019-06-23] MEDS: BENZTROPINE MESYLATE (1 MG) 1 MG TABLET PO SCH ×3 (08:50→17:20)
[2019-06-23] MEDS: HALOPERIDOL 5 MG TABLET PO SCH ×3 (08:50→17:20)
[2019-06-23] MEDS: ASCORBIC ACID 500 MG TABLET PO SCH (08:50)
[2019-06-23] MEDS: DIVALPROEX SODIUM 250 MG TABLET.DR PO SCH ×3 (08:50→17:20)
[2019-06-23] MEDS: IV NS 0.9% 1,000 ML IV PRN (08:53)
[2019-06-23] MEDS: PANTOPRAZOLE 40 MG TABLET.DR PO SCH (08:56)
[2019-06-23] MEDS: AMLODIPINE BESYLATE 5 MG TABLET PO SCH (08:58)
[2019-06-23] MEDS: NEOMY SULF/BACITRAC ZN/POLY 15 GM TUBE TP SCH (09:00)
[2019-06-23] MEDS: Z GUARD REMEDY 2 OZ OINT TP SCH (09:00)
[2019-06-23 12:00] VITALS: BP 166/84
[2019-06-23] MEDS: Magnesium 1GM/D5W 100ML PREMIX 100 ML IV SCH ×2 (12:31→13:26)
[2019-06-23 16:00] VITALS: BP 174/87
--- NOTE | 2019-06-23 19:05 | NUR ---
PATIENT RESTING COMFORTABLY IN BED. ON ROOM AIR, NO SOB OR RESPIRATORY AND CARDIAC DISTRESS NOTED. NO COMPLAIN OF PAIN AT THIS TIME. IV R WRIST 22G INTACT, PATENT .ONGOING IVF.SAFETY MEASURES AND FALL PRECAUTION IN PLACE; BED LOCKED AND IN LOWEST POSITION, CALL LIGHT WITHIN REACH, SIDE RAILS UPX3. BED ALARM ON. ENDORSED TO NEXT SHIFT FOR AGAPITO.
[2019-06-23 20:00] VITALS: BP_SYST 172; BP_SYST 182; BP_DIAS 92; BP_DIAS 95
--- NOTE | 2019-06-23 20:00 | NUR ---
RN NOTES PATIENT'S B/P 172/95 HR-72. WILL ADMINISTER HYDRALAZINE 10MG IVP PRN AND RECHECK B/P IN 20MIN. WILL CONTINUE TO MONITOR PATIENT CLOSELY.
--- NOTE | 2019-06-23 20:00 | NUR ---
AL RN NOTES RECEIVED BEDSIDE REPORT FOR AM RN. PATIENT IN BED RESTING COMFORTABLY. PATIENT IS ALERT AND ORIENTED X1. ABLE TO MAKE NEEDS KNOWN. NO PAIN OR ACUTE DISTRESS AT THIS TIME. RESPIRATION EVEN AND UNLABORED. SKIN IS DRY WARM TO TOUCH. PATIENT NOTED WITH R WRIST #22G. INTACT AND PATENT. FLUSHING WELL. NO S/S OF INFECTION OR INFILTRATION. ALL NEEDS ANTICIPATED. CALL LIGHT WITHIN REACHED. SAFETY MEASURES MAINTAINED. BED LOCKED AND IN LOWEST POSITION. WILL CONTINUE TO MONITOR PATIENT CLOSELY.
--- NOTE | 2019-06-23 20:30 | NUR ---
RN NOTES PATIENT'S B/P RECHECKED 148/72 HR 74. NO COMPLAINT OF PAIN OR ANY DISCOMFORT AT THIS TIME.WILL CONTINUE TO MONITOR PATIENT.
[2019-06-23] MEDS: TRAZODONE 50 MG TABLET PO SCH (21:32)
[2019-06-23] MEDS: ATORVASTATIN 10 MG TABLET PO SCH (21:32)
[2019-06-23] MEDS: TERAZOSIN HCL 5 MG CAPSULE PO SCH (21:32)
[2019-06-23] MEDS: hydrALAZINE HCL IV 20 MG VIAL IV PRN (21:32)
[2019-06-23] MEDS: INSULIN REGULAR, HUMAN 100 UNIT/ML 3 ML VIAL SQ PRN (21:51)
--- NOTE | 2019-06-24 01:30 | NUR ---
RN NOTES PATIENT RESTING COMFORTABLY IN BED. ON ROOM AIR, NO SOB OR RESPIRATORY AND CARDIAC DISTRESS NOTED. NO COMPLAIN OF PAIN AT THIS TIME. IV RITE WRIST 22G INTACT, PATENT .ONGOING IVF ORDERED.SAFETY MEASURES AND FALL PRECAUTION IN PLACE; BED LOCKED AND IN LOWEST POSITION, CALL LIGHT WITHIN REACH, SIDE RAILS UPX2. BED ALARM ON. ENDORSED TO KERI RODRIGUEZ FOR [employer].
[2019-06-24 04:00] VITALS: BP 172/89
[2019-06-24] MEDS: IV NS 0.9% 1,000 ML IV PRN (04:36)
[2019-06-24] MEDS: hydrALAZINE HCL IV 20 MG VIAL IV PRN ×2 (04:37→16:37)
[2019-06-24 05:00] VITALS: BP 152/74
--- NOTE | 2019-06-24 06:55 | NUR ---
RN NOTE NO DISTRESS NOTED, ALL SAFETY MEASURES TAKEN, ONGOING IV FLUIDS, TOLERATES WELL, NO DISTRESS NOTED, NO S/S OF BLEEDING NOTED, VITAL SIGNS WITHIN NORMAL LIMITS, WILL ENDORSE TO AM SHIFT TO CONTINUE CARE
--- NOTE | 2019-06-24 07:30 | NUR ---
MS RN OPENING NOTE RECEIVED REPORT FROM [facility] SHIFT NURSE. PT AWAKE IN BED, ORIENTED X 1, ON ROOM AIR, SATURATING WELL, RESPIRATIONS EASY AND UNLABORED, NO SIGNS OF RESPIRATORY DISTRESS NOTED. NS INFUSING INTO RIGHT WRIST G22 AT 75ML/HR, NO SIGNS OF INFILTRATION NOTED. BED IN LOW POSITION, LOCKED, CALL LIGHT WITHIN REACH.
[2019-06-24] MEDS: PANTOPRAZOLE 40 MG TABLET.DR PO SCH (07:38)
[2019-06-24 07:44] LABS: BASOPHILS % (AUTO) 0.4 % (0.0-2.0); EOSINOPHILS % (AUTO) 2.6 % (0.0-6.0); HEMATOCRIT 26 % (39-51); HEMOGLOBIN 8.8 g/dL (13.5-17.5); LYMPHOCYTES # (AUTO) 1.1 /CMM (0.8-4.8); LYMPHOCYTES % (AUTO) 20.1 % (20.0-44.0); MEAN CORPUSCULAR HGB CONC 34 g/dl (31.0-36.0); MEAN CORPUSCULAR VOLUME 85 fL (80-96); MONOCYTES # (AUTO) 0.5 /CMM (0.1-1.30); MONOCYTES % (AUTO) 8.3 % (2.0-12.0); NEUTROPHILS # (AUTO) 3.8 /CMM (1.8-8.9); NEUTROPHILS % (AUTO) 68.6 % (43.0-81.0); PLATELET COUNT (AUTO) 166 /CMM (150-450); RED BLOOD CELL COUNT(AUTO) 3.05 MIL/uL (4.5-6.0); WHITE BLOOD COUNT (AUTO) 5.5 K/uL (4.3-11.0)
[2019-06-24 08:00] VITALS: BP_SYST 157; BP_SYST 166; BP_DIAS 63; BP_DIAS 87
[2019-06-24] MEDS: BLOOD SUGAR DIAGNOSTIC 1 EACH STRIP IN SCH ×4 (08:16→22:02)
[2019-06-24] MEDS: HALOPERIDOL 5 MG TABLET PO SCH ×3 (08:17→16:43)
[2019-06-24] MEDS: BENZTROPINE MESYLATE (1 MG) 1 MG TABLET PO SCH ×3 (08:17→16:43)
[2019-06-24] MEDS: DIVALPROEX SODIUM 250 MG TABLET.DR PO SCH ×3 (08:17→16:43)
[2019-06-24] MEDS: ASCORBIC ACID 500 MG TABLET PO SCH (08:17)
[2019-06-24] MEDS: AMLODIPINE BESYLATE 5 MG TABLET PO SCH (08:18)
[2019-06-24 08:23] LABS: CALCIUM, SERUM 6.4 mg/dL (8.5-10.1); CREATININE 3.9 mg/dL (0.6-1.3); PHOSPHORUS 4.5 mg/dL (2.5-4.9); POTASSIUM 4.2 mmol/L (3.5-5.1)
[2019-06-24] MEDS: Z GUARD REMEDY 2 OZ OINT TP PRN (09:18)
[2019-06-24] MEDS: NEOMY SULF/BACITRAC ZN/POLY 15 GM TUBE TP SCH (09:18)
[2019-06-24] MEDS: Z GUARD REMEDY 2 OZ OINT TP SCH (09:21)
[2019-06-24] MEDS: INSULIN REGULAR, HUMAN 100 UNIT/ML 3 ML VIAL SQ PRN ×2 (12:25→22:02)
[2019-06-24 16:00] VITALS: BP 168/87
--- NOTE | 2019-06-24 17:38 | NUR ---
IV ON RIGHT WRIST NOT PATENT. REMOVED IV. INSERTED IV ON LEFT FOREARM, G22, FLUSHED, PATENT, SECURED WITH PATENT. SITE IS CLEAN AND DRY. Addendum: 06/24/19 at 1805 by PIO SWANN RN G20
--- NOTE | 2019-06-24 18:32 | NUR ---
MS CLOSING NOTE PT IN BED, ON ROOM AIR, SATURATING WELL, RESPIRATIONS EASY AND UNLABORED, NO SIGNS OF DISTRESS NOTED. NS INFUSING INTO LEFT FOREARM G20 AT 75ML/HR, LINE IS PATENT, BED IN LOW POSITION, LOCKED, CALL LIGHT WITHIN REACH. ALL DUE MEDS GIVEN, SAFETY AND COMFORT PROVIDED TO PT ALL SHIFT. PT STABLE THROUGHOUT ALL SHIFT. WILL ENDORSE TO NOC SHIFT NURSE.
--- NOTE | 2019-06-24 19:35 | NUR ---
MS RN NOTE, ENDORSED PATIENT FROM KERI LYONS FOR CONTINUATION OF CARE, PATIENT A IN BED SLEEPING AT THIS TIME, ON ROOM AIR WITH OPTIMAL O2 SAT, BREATHING EVEN AN UNLABORED, RESPIRATIONS EASY AND UNLABORED, NO SIGNS OF DISTRESS NOTED AT THIS TIME, IV ACCESS IN LEFT FOREARM G20 NORMAL SALINE 0.9% INFUSING WELL AND PATIENT TOLERATED WELL, PATENT AND INTACT, BED LOCKED AND IN LOW POSITION, CALL LIGHT WITHIN REACH, WILL CONTINUE TO MONITOR CLOSELY.
[2019-06-24 20:00] VITALS: BP 168/89
[2019-06-24] MEDS: CLONIDINE HCL 0.1 MG TABLET PO PRN (20:22)
--- NOTE | 2019-06-24 20:22 | NUR ---
RN NOTES, PATIENT NOTED WITH BP 168/89, HR 77, PATIENT SYMPTOMATIC, NO C/O DISCOMFORT, NO ABNORMAL S/S NOTED, CLONIDINE ADMINISTERED ORDERED, WILL CONTINUE TO MONITOR CLOSELY. Addendum: 06/25/19 at 0300 by JOSEPH MORRISON RN PATIENT ASYMPTOMATIC
[2019-06-24] MEDS: ATORVASTATIN 10 MG TABLET PO SCH (21:54)
[2019-06-24] MEDS: TRAZODONE 50 MG TABLET PO SCH (21:54)
[2019-06-24] MEDS: TERAZOSIN HCL 5 MG CAPSULE PO SCH (21:54)
--- NOTE | 2019-06-24 22:50 | NUR ---
RN NOTES, AFTER ASSESSED BLOOD PRESSURE AFTER MEDICATION FOR HIGH BLOOD PRESSURE ADMINISTERED, BLOOD PRESSURE NOTED 152/71, HR 70, WILL CONTINUE TO MONITOR CLOSELY.
[2019-06-25] MEDS: IV NS 0.9% 1,000 ML IV PRN (03:21)
[2019-06-25 04:00] VITALS: BP 161/84
[2019-06-25] MEDS: CLONIDINE HCL 0.1 MG TABLET PO PRN (04:51)
--- NOTE | 2019-06-25 07:00 | NUR ---
RN NOTES, PATIENT SLEEPING AT THIS TIME, BUT EASILY AROUSES TO VERBAL STIMULI, AT ROOM AIR , SATURATED WELL, NO SOB/ACUTE DISTRESS NOTED, WITH ELEVATED SBP DURING THE NIGHT, CLONIDINE GIVEN TWICE DURING THE SHIFT, , BED LOCKED AND IN LOW POSITION, WILL ENDORSE CONTINUITY OF CARE TO ONCOMING NURSE.
[2019-06-25 07:01] LABS: BASOPHILS % (AUTO) 0.5 % (0.0-2.0); EOSINOPHILS % (AUTO) 4.2 % (0.0-6.0); HEMATOCRIT 25 % (39-51); HEMOGLOBIN 8.3 g/dL (13.5-17.5); LYMPHOCYTES # (AUTO) 1.2 /CMM (0.8-4.8); LYMPHOCYTES % (AUTO) 27.8 % (20.0-44.0); MEAN CORPUSCULAR HGB CONC 34 g/dl (31.0-36.0); MEAN CORPUSCULAR VOLUME 85 fL (80-96); MONOCYTES # (AUTO) 0.4 /CMM (0.1-1.30); MONOCYTES % (AUTO) 9.5 % (2.0-12.0); NEUTROPHILS # (AUTO) 2.5 /CMM (1.8-8.9); PLATELET COUNT (AUTO) 160 /CMM (150-450); RED BLOOD CELL COUNT(AUTO) 2.89 MIL/uL (4.5-6.0); WHITE BLOOD COUNT (AUTO) 4.3 K/uL (4.3-11.0)
[2019-06-25 07:15] LABS: CALCIUM, SERUM 6.1 mg/dL (8.5-10.1); CREATININE 3.9 mg/dL (0.6-1.3); MAGNESIUM 1.9 mg/dL (1.8-2.4); PHOSPHORUS 4.6 mg/dL (2.5-4.9); POTASSIUM 4.2 mmol/L (3.5-5.1)
--- NOTE | 2019-06-25 07:21 | NUR ---
MS RN OPENING NOTE PT RECEIVED IN BED, ON ROOM AIR, SATURATING WELL, NO SOB OR ACUTE DISTRESS NOTED. NASAL G-TUBE INTACT AND PATENT INFUSING AT 35 ML/ HR. COY CATHETER INTACT AND PATENT DRAINING CLEAR YELLOW URINE, 1200CC OVERNIGHT. SAFETY MEASURES IN PLACE. BED IN LOW LOCKED POSITION, CALL LIGHT WITHIN REACH. NO SIGNIFICANT CHANGES OVERNIGHT. PATIENT CLEAN AND DRY. WILL CONTINUE TO MONITOR. Addendum: 06/25/19 at 0726 by MIRTA ARRIOLA RN DISREGARD PREVIOUS NOTES. WRONG PATIENT. Addendum: 06/25/19 at 1305 by MIRTA ARRIOLA RN DISREGARD ABOVE NOTE. WRONG PATIENT.
[2019-06-25 08:00] VITALS: BP 171/85
[2019-06-25] MEDS: PANTOPRAZOLE 40 MG TABLET.DR PO SCH (08:02)
[2019-06-25] MEDS: BLOOD SUGAR DIAGNOSTIC 1 EACH STRIP IN SCH ×4 (08:02→22:52)
--- NOTE | 2019-06-25 08:45 | NUR ---
MS RN OPENING NOTE, RECEIVED PATIENT A IN BED SLEEPING AT THIS TIME, A/O X 3, ON ROOM AIR NO SOB OR ACUTE DISTRESS NOTED. BREATHING EVEN AN UNLABORED. LFA #20 INTACT AND PATENT INFUSING NS 0.9% @ 75 ML/HR. SAFETY MEASURES IN PLACE, BED LOCKED AND IN LOW POSITION, CALL LIGHT WITHIN REACH, WILL CONTINUE TO MONITOR.
[2019-06-25] MEDS: BENZTROPINE MESYLATE (1 MG) 1 MG TABLET PO SCH ×3 (09:40→16:37)
[2019-06-25] MEDS: ASCORBIC ACID 500 MG TABLET PO SCH (09:40)
[2019-06-25] MEDS: DIVALPROEX SODIUM 250 MG TABLET.DR PO SCH ×3 (09:40→16:37)
[2019-06-25] MEDS: AMLODIPINE BESYLATE 5 MG TABLET PO SCH (09:40)
[2019-06-25] MEDS: HALOPERIDOL 5 MG TABLET PO SCH ×3 (09:40→16:37)
[2019-06-25] MEDS: hydrALAZINE HCL IV 20 MG VIAL IV PRN ×2 (09:42→15:26)
[2019-06-25] MEDS: NEOMY SULF/BACITRAC ZN/POLY 15 GM TUBE TP SCH (09:52)
[2019-06-25] MEDS: Z GUARD REMEDY 2 OZ OINT TP PRN ×2 (09:52→09:53)
[2019-06-25] MEDS: Z GUARD REMEDY 2 OZ OINT TP SCH (09:53)
--- NOTE | 2019-06-25 15:23 | NUR ---
MS RN NOTE PATIENT BP 170/90 @ 1520. PRN HYDRALAZINE TO BE GIVEN. WILL RECHECK BP AT 1600.
[2019-06-25 16:00] VITALS: BP 145/72
--- NOTE | 2019-06-25 19:39 | NUR ---
MS RN CLOSING NOTE, PATIENT IN BED AND AWAKE AT THIS TIME, A/O X 3, ON ROOM AIR NO SOB OR ACUTE DISTRESS NOTED. BREATHING EVEN AN UNLABORED. LFA #20 INTACT AND PATENT INFUSING NS 0.9% @ 75 ML/HR. NO SIGNIFICANT CHANGES THROUGHOUT SHIFT. SAFETY MEASURES IN PLACE, BED LOCKED AND IN LOW POSITION, CALL LIGHT WITHIN REACH, CARE ENDORSED TO FLOOR WORKER TRANSFER BAY RN. .
[2019-06-25 20:00] VITALS: BP_SYST 152; BP_SYST 160; BP_DIAS 82; BP_DIAS 84
--- NOTE | 2019-06-25 20:00 | NUR ---
AL RN NOTES RECEIVED BEDSIDE REPORT FOR AM RN. PATIENT IN BED RESTING COMFORTABLY. PATIENT IS ALERT AND ORIENTED X2. ABLE TO MAKE NEEDS KNOWN. NO PAIN OR ACUTE DISTRESS AT THIS TIME. ON RA WITH RESPIRATION EVEN AND UNLABORED. SKIN IS DRY WARM TO TOUCH. PATIENT NOTED WITH R WRIST #22G. INTACT AND PATENT. FLUSHING WELL. NO S/S OF INFECTION OR INFILTRATION. ALL NEEDS ANTICIPATED. CALL LIGHT WITHIN REACHED. SAFETY MEASURES MAINTAINED. BED LOCKED AND IN LOWEST POSITION. WILL CONTINUE TO MONITOR PATIENT CLOSELY.
--- NOTE | 2019-06-25 21:00 | NUR ---
RN NOTES PATIENT IS REFUSING IV FLUIDS BY SAYING IT BUDDERS HIM AND HE CAN'T SLEEP. HE ASKED ME TO DISCONNECT IT. ALL BENEFITS HAS BEEN EXPLAINED TO THE PATIENT. STILL REFUSING. WILL CONTINUE TO MONITOR PATIENT CLOSELY.
[2019-06-25] MEDS: TRAZODONE 50 MG TABLET PO SCH (22:49)
[2019-06-25] MEDS: ATORVASTATIN 10 MG TABLET PO SCH (22:51)
[2019-06-25] MEDS: TERAZOSIN HCL 5 MG CAPSULE PO SCH (22:51)
[2019-06-25] MEDS: INSULIN REGULAR, HUMAN 100 UNIT/ML 3 ML VIAL SQ PRN (22:55)
[2019-06-26 04:00] VITALS: BP 151/74
--- NOTE | 2019-06-26 04:14 | NUR ---
RN NOTES PATIENT IS REPORTING NOT BEING ABLE TO SEE ALREADY FOR ONE MONTH. PATIENT STATES THAT DOCTORS ARE AWARE OF IT . WILL ENDORCE THIS INFORMATION TO AM SHIFT RN TO FOLLOW UP WITH MD. WILL CONTINUE TO MONITOR PATIENT CLOSELY.
--- NOTE | 2019-06-26 07:35 | NUR ---
MS/RN NOTE THE PATIENT IS RECEIVED IN BED. ALERT AND ORIENTED X2. IN ROOM AIR AND DENIES SOB. RESPIRATION REGULAR AND UNLABORED. DENIES PAIN. THE PATIENT IN NO APPARENT DISTRESS. RIGHT WRIST G 22 PATENT AND SALINE LOCKED. BED LOW AND LOCKED. SIDE RAILS UP X3. CALL LIGHT WITHIN REACH. WILL CONTINUE TO MONITOR.
--- NOTE | 2019-06-26 07:47 | NUR ---
RN CLOSING NOTE PATIENT IS IN BED AND AWAKE AT THIS TIME, A/O X 3, ON ROOM AIR NO SOB OR ACUTE DISTRESS NOTED. BREATHING EVEN AN UNLABORED. LFA #20 INTACT AND PATENT . NO SIGNIFICANT CHANGES THROUGHOUT SHIFT. SAFETY MEASURES IN PLACE, BED LOCKED AND IN LOW POSITION, CALL LIGHT WITHIN REACH, CARE ENDORSED TO AM SHIFT RN FOR [employer].
[2019-06-26 08:00] VITALS: BP 170/68
[2019-06-26] MEDS: PANTOPRAZOLE 40 MG TABLET.DR PO SCH (08:12)
[2019-06-26] MEDS: DIVALPROEX SODIUM 250 MG TABLET.DR PO SCH ×2 (08:12→12:10)
[2019-06-26] MEDS: ASCORBIC ACID 500 MG TABLET PO SCH (08:12)
[2019-06-26] MEDS: BLOOD SUGAR DIAGNOSTIC 1 EACH STRIP IN SCH ×2 (08:12→12:23)
[2019-06-26] MEDS: HALOPERIDOL 5 MG TABLET PO SCH ×2 (08:13→12:10)
[2019-06-26] MEDS: AMLODIPINE BESYLATE 5 MG TABLET PO SCH (08:13)
[2019-06-26] MEDS: BENZTROPINE MESYLATE (1 MG) 1 MG TABLET PO SCH ×2 (08:13→12:10)
[2019-06-26] MEDS: NEOMY SULF/BACITRAC ZN/POLY 15 GM TUBE TP SCH (08:16)
[2019-06-26] MEDS: Z GUARD REMEDY 2 OZ OINT TP SCH (08:17)
[2019-06-26 09:05] VITALS: BP 145/70
[2019-06-26] MEDS ORDERED: AMLO5TAB9 PO (09:45)
[2019-06-26] MEDS ORDERED: BENZ1TAB7 PO (09:45)
[2019-06-26] MEDS ORDERED: HALO5TAB8 PO (09:45)
[2019-06-26] MEDS ORDERED: DIVA250T4 PO (09:45)
[2019-06-26] MEDS: INSULIN REGULAR, HUMAN 100 UNIT/ML 3 ML VIAL SQ PRN (12:25)
--- NOTE | 2019-06-26 13:00 | NUR ---
MS/RN NOTE THE PATIENT REFSUES IV FLUIDS DESPITE EXPALINING RISKS AND BENETFITS. DR ZELAYA AWARE.
--- NOTE | 2019-06-26 16:30 | NUR ---
MS/RN NOTE THE PATIENT ALERT AND ORIENTED X2. ABLE TO MAKE NEEDS KNOWN VERBALLY. DENIES PAIN. IN ROOM AIR AND SATURATION IS AT 97%. DENIES SOB. THE PATIENT IN NO APPARENT DISTRESS. THE PATIENT IS GIVEN DISCHARGE EDUCATION AND HE VERBALIZED UNDERSTANDING. THE PATIENT PICKED UP BY AMBULANCE. LEFT THE HOSPITAL IN STABLE CONDITION.
== END 2019-06-26 16:30 | DRG 470 ==
LOC: ER 17:48 → TELE-TD 20:11 → TELE1 06-17 14:51 → MEDSG1 06-17 19:26
PROVIDERS: ADMIT Nurse Practitioner Acute Care; ATTEND Nurse Practitioner Acute Care
PROC: 30233P1 Transfusion of Nonautologous Frozen Red Cells into Peripheral Vein, Percutaneous Approach (ICD-10-PCS; principal; 2019-06-16)
DX: I12.0 Hypertensive chronic kidney disease with stage 5 chronic kidney disease or end stage renal disease (principal); N17.0 Acute kidney failure with tubular necrosis; E43 Unspecified severe protein-calorie malnutrition; G93.41 Metabolic encephalopathy; E10.21 Type 1 diabetes mellitus with diabetic nephropathy; D69.6 Thrombocytopenia, unspecified; E10.22 Type 1 diabetes mellitus with diabetic chronic kidney disease; E10.41 Type 1 diabetes mellitus with diabetic mononeuropathy; D50.0 Iron deficiency anemia secondary to blood loss (chronic); F19.10 Other psychoactive substance abuse, uncomplicated; F29 Unspecified psychosis not due to a substance or known physiological condition; M62.81 Muscle weakness (generalized); E78.5 Hyperlipidemia, unspecified; F32.9 Major depressive disorder, single episode, unspecified; N40.0 Benign prostatic hyperplasia without lower urinary tract symptoms; M10.9 Gout, unspecified; E83.51 Hypocalcemia; K21.9 Gastro-esophageal reflux disease without esophagitis; Z89.512 Acquired absence of left leg below knee; Z68.31 Body mass index [BMI] 31.0-31.9, adult; D63.1 Anemia in chronic kidney disease; N18.5 Chronic kidney disease, stage 5; E10.621 Type 1 diabetes mellitus with foot ulcer; L97.519 Non-pressure chronic ulcer of other part of right foot with unspecified severity; E10.42 Type 1 diabetes mellitus with diabetic polyneuropathy; E10.319 Type 1 diabetes mellitus with unspecified diabetic retinopathy without macular edema; E10.51 Type 1 diabetes mellitus with diabetic peripheral angiopathy without gangrene; E10.65 Type 1 diabetes mellitus with hyperglycemia; H54.8 Legal blindness, as defined in USA; E87.5 Hyperkalemia; R59.0 Localized enlarged lymph nodes; F25.9 Schizoaffective disorder, unspecified
CPT/HCPCS: 36415; 70450-TC; 71045-TC; 71250-TC; 76700-TC; 76770-TC; 80048-TC; 80053-TC; 80061-TC; 80076-TC; 81000-TC; 82040-TC; 82164; 82232; 82272-TC; 82550-TC; 82570-TC; 82728-TC; 82962-TC; 83540-TC; 83615-TC; 83690-TC; 83735-TC; 83970; 84100-TC; 84155; 84155-TC; 84165; 84300-TC; 84443-TC; 85025-TC; 85652-TC; 86704; 86705; 86706; 86707; 86803; 86850-TC; 86921-TC; 87081-TC; 87340; 92526; 92611-TC; G0378; J0360; J0610; J1815; J1940; J3475; J7030; J7040; J7050; P9016-BL

== ENCOUNTER 2020-02-02 18:43 | Inpatient (IN) | payer OTHER ==
[~2020-02-02] VITALS: Ht 177.8 cm; Wt 73.0 kg
[~2020-02-02 18:43] MED LIST: AMLO5TAB9 PO; ASCO500T10 PO; ATOR20TA PO; BENZ1TAB7 PO; CLON0.1T PO; DIVA250T4 PO; DOCU-141 PO; FAMO20TA8 PO; GLIM1TAB18 PO; HALO5TAB8 PO; INSU100V7 SQ; LACT1CAP61 PO; LIDOCAINE PATCH; MULT-24 PO; TERA2CAP4 PO; TRAZ-182 PO
[2020-02-02] MEDS ORDERED: ONDANSETRON HCL/PF - ER 4 MG/2 ML VIAL IV ONE (19:00)
[2020-02-02 19:05] LABS: HEMOGLOBIN 9.4 g/dL (13.5-17.5); PLATELET COUNT (AUTO) 123 /CMM (150-450); WHITE BLOOD COUNT (AUTO) 10.2 K/uL (4.3-11.0)
[2020-02-02 19:08] LABS: BASOPHILS % (AUTO) 0.3 % (0.0-2.0); EOSINOPHILS % (AUTO) 0.6 % (0.0-6.0); HEMATOCRIT 28 % (39-51); LYMPHOCYTES # (AUTO) 0.5 /CMM (0.8-4.8); LYMPHOCYTES % (AUTO) 4.8 % (20.0-44.0); MEAN CORPUSCULAR HGB CONC 34 g/dl (31.0-36.0); MEAN CORPUSCULAR VOLUME 103 fL (80-96); MONOCYTES # (AUTO) 1.3 /CMM (0.1-1.30); MONOCYTES % (AUTO) 12.9 % (2.0-12.0); NEUTROPHILS # (AUTO) 8.3 /CMM (1.8-8.9); NEUTROPHILS % (AUTO) 81.4 % (43.0-81.0); RED BLOOD CELL COUNT(AUTO) 2.72 MIL/uL (4.5-6.0)
--- NOTE | 2020-02-02 19:08 | NUR ---
BIB ra c/o low blood pressure during dialysis. Patient awake and alert, no distress noted. On o2 at 4lpm via trache. needs attended. Kept comfortable. Iv line established.
[2020-02-02] MEDS ORDERED: ONDANSETRON HCL/PF 4 MG/2 ML VIAL ONE (19:10)
[2020-02-02 19:26] LABS: ALANINE AMINOTRANSFERASE 14 U/L (12-78); ALBUMIN 2.3 g/dL (3.4-5.0); ALKALINE PHOSPHATASE 138 U/L (46-116); ASPARTATE AMINOTRANSFERASE 27 U/L (15-37); BILIRUBIN,DIRECT 0.1 mg/dL (0.0-0.2); BILIRUBIN,TOTAL 0.4 mg/dL (0.2-1.0); CALCIUM, SERUM 8.9 mg/dL (8.5-10.1); CARBON DIOXIDE 21 mmol/L (21-32); CHLORIDE 101 mmol/L (98-107); CREATININE 4.6 mg/dL (0.6-1.3); GLUCOSE 200 mg/dL (74-106); POTASSIUM 3.5 mmol/L (3.5-5.1); SODIUM SERUM 135 mmol/L (136-145); TOTAL PROTEIN, SERUM 7.8 g/dL (6.4-8.2)
[2020-02-02 19:28] LABS: UREA NITROGEN, BLOOD 90 mg/dL (7-18)
[2020-02-02] MEDS ORDERED: PIPERACILLIN /TAZOBACTAM 2.25 G in IV D5W 50 ML IV ONE (20:00)
[2020-02-02] MEDS ORDERED: VANCOMYCIN 1 GM in IV D5W 250 ML IV ONE (20:00)
[2020-02-02] MEDS ORDERED: VANCOMYCIN 1 GM VIAL ONE (20:05)
[2020-02-02] MEDS ORDERED: ONDANSETRON HCL/PF 4 MG/2 ML VIAL IVP PRN (21:00)
[2020-02-02 21:29] LABS: ABG BASE EXCESS -1.1 mmol/L; ABG OXYGEN SATURATION 98.5 % (92.0-98.5); ABG PCO2 37.8 mmHg (35.0-45.0); ABG PH 7.408 (7.350-7.450); ABG PO2 171.6 mmHg (75.0-100.0); AaDO2 41.2 mmHg; COHb 0.1 % (0.5-1.5); MetHb 0.4 % (0.0-1.5); SITE, ABG Right Radial; VENT MODE, BG 4L T piece
--- NOTE | 2020-02-02 21:29 | NUR ---
REPORT GIVEN TO VIRIDIANA SAAVEDRA FOR [facility].
[2020-02-02] MEDS ORDERED: DEXTROSE 50%-WATER 50 ML DISP.SYRIN IV PRN (21:30)
--- NOTE | 2020-02-02 21:30 | NUR ---
Received report from Mayo SAAVEDRA for AGAPITO.
--- NOTE | 2020-02-02 21:50 | NUR ---
RN OPENING NOTES: Pt transferred to unit via gurney accompanied by ROUTE DELIVERY DRIVER and chemistry quality control technician to room 120. Pt transferred to bed, bathed and pictures taken of wounds. Pt on trach to T-piece w/ no respiratory distress noted at this time. On tele monitor reading SR. Has IV site on right hand #20 flushed and patent. Dressing c/d/i. Pt is a dialysis pt receives dialysis M/W/F w/ port on right upper chest wall. Has left above ankle amputation. Vital signs: BP 112/77, P 70, RR 18, O2 100, T 97.9. No pain or distress noted at this time. Gretta Wing NP aware pt in unit. Safety measures in place. Bed in lowest and locked position, side rails up x2, call light within reach. Will continue to monitor. Addendum: 02/03/20 at 0026 by VIRIDIANA MARTINS RN Has GT site.
[2020-02-02] MEDS: BLOOD SUGAR DIAGNOSTIC 1 EACH STRIP IN SCH (22:45)
[2020-02-02] MEDS: INSULIN REGULAR, HUMAN 100 UNIT/ML 3 ML VIAL SQ PRN (22:52)
--- NOTE | 2020-02-02 23:26 | NUR ---
RN NOTE: Spoke w/ Swapna from [facility] where pt resides to fax over POLST. Awaiting fax.
[2020-02-03] VITALS: BP 104/70
[2020-02-03] MEDS ORDERED: PIPERACILLIN /TAZOBACTAM 3.375 G in IV D5W 50 ML IV SCH ×2
[2020-02-03] MEDS ORDERED: CLONIDINE HCL 0.1 MG TABLET PO PRN
[2020-02-03] MEDS ORDERED: PIPERACILLIN /TAZOBACTAM 2.25 G VIAL IV ONE (01:56)
[2020-02-03] MEDS ORDERED: ZOSYN IVPB 2.25 G in IV D5W 50ml IV ONE (02:15)
[2020-02-03 04:00] VITALS: BP 93/65
[2020-02-03 06:28] LABS: BASOPHILS % (AUTO) 0.1 % (0.0-2.0); EOSINOPHILS % (AUTO) 0.1 % (0.0-6.0); HEMATOCRIT 32 % (39-51); HEMOGLOBIN 10.7 g/dL (13.5-17.5); LYMPHOCYTES # (AUTO) 0.7 /CMM (0.8-4.8); LYMPHOCYTES % (AUTO) 6.8 % (20.0-44.0); MEAN CORPUSCULAR HGB CONC 34 g/dl (31.0-36.0); MEAN CORPUSCULAR VOLUME 102 fL (80-96); MONOCYTES # (AUTO) 1.2 /CMM (0.1-1.30); MONOCYTES % (AUTO) 11.3 % (2.0-12.0); NEUTROPHILS # (AUTO) 8.5 /CMM (1.8-8.9); NEUTROPHILS % (AUTO) 81.7 % (43.0-81.0); PLATELET COUNT (AUTO) 135 /CMM (150-450); RED BLOOD CELL COUNT(AUTO) 3.09 MIL/uL (4.5-6.0); WHITE BLOOD COUNT (AUTO) 10.4 K/uL (4.3-11.0)
[2020-02-03] MEDS ORDERED: FEE PK DOSING 1 MIN EA MC ONE (06:57)
[2020-02-03] MEDS ORDERED: VANCOMYCIN 500 MG in IV D5W 100 ML IV PRN (07:00)
--- NOTE | 2020-02-03 07:02 | NUR ---
RN CLOSING NOTES: Pt resting in bed, A&Ox1-2. On trach to t-piece w/ 4L O2 no respiratory distress noted. No acute changes noted during shift. On tele monitor showing SR. Has IV site on the right hand #20, flushed and patent. Dressing c/d/i. Has dialysis cath on right upper chest wall. Has left above ankle amputation. All meds administered as ordered. Safety measures in place, bed in lowest and locked position, side rails up x2, call light within reach. Will endorse to AM nurse for AGAPITO.
[2020-02-03 07:07] LABS: ALBUMIN 2.1 g/dL (3.4-5.0); BILIRUBIN,TOTAL 0.5 mg/dL (0.2-1.0); CALCIUM, SERUM 8.6 mg/dL (8.5-10.1); CREATININE 6.2 mg/dL (0.6-1.3); MAGNESIUM 2.9 mg/dL (1.8-2.4); PHOSPHORUS 4.7 mg/dL (2.5-4.9); POTASSIUM 3.6 mmol/L (3.5-5.1); TOTAL PROTEIN, SERUM 7.2 g/dL (6.4-8.2)
[2020-02-03 07:08] LABS: THYROID STIMULATING HORMONE 0.809 uIU/mL (0.358-3.74)
--- NOTE | 2020-02-03 07:30 | NUR ---
GROUP SALES REPRESENTATIVE NOTES PT IN BED WITH O2 VIA T-PIECE 4LPM, TRACH IS INTACT AND PATENT. NO SOB. TOLERATING WELL. A/OX1. NON VERBAL. ON TELE MONITOR WITH SR. IV LINE ON R HAND PATENT, FLUSHES WELL, DIALYSIS CATH ON RIGHT CHEST COVERED WITH DRESSING. BEDFAST; INCONTINENT OF BM AND URINE WITH A DIAPER ON. REDNESS NOTED ON BUTTOCK AND PERINEAL AREA. BED LOCKED AND IN LOWEST POSITION. WILL CONT TO MONITOR
[2020-02-03 08:00] VITALS: BP 118/72
--- NOTE | 2020-02-03 08:00 | NUR ---
REGENERATOR OPERATOR NOTES INSULIN NON ADMINISTERED DUE TO PT NPO STATUS ORDERED. AL SAFETY MEASURED IN PLACE WILL CONT TO MONITOR
[2020-02-03] MEDS: BLOOD SUGAR DIAGNOSTIC 1 EACH STRIP IN SCH ×4 (08:51→21:47)
[2020-02-03] MEDS ORDERED: NEPRO 1,000 ML BOTTLE GT PRN (09:00)
[2020-02-03] MEDS: PANTOPRAZOLE 40 MG VIAL IV SCH (09:21)
[2020-02-03] MEDS: GLIMEPIRIDE 1 MG TABLET PO SCH (09:21)
[2020-02-03] MEDS: ASCORBIC ACID 500 MG TABLET PO SCH (09:22)
[2020-02-03] MEDS: DIVALPROEX SODIUM 250 MG TABLET.DR PO SCH ×3 (09:22→16:20)
[2020-02-03] MEDS: BENZTROPINE MESYLATE (1 MG) 1 MG TABLET PO SCH ×3 (09:22→16:21)
[2020-02-03] MEDS: MULTIVITAMINS,THERAGRAN 1 UDTAB TABLET PO SCH (09:22)
[2020-02-03] MEDS: LACTOBACILLUS RHAMNOSUS GG 1 EACH CAP.SPRINK PO SCH ×2 (09:22→16:20)
[2020-02-03] MEDS: HALOPERIDOL 5 MG TABLET PO SCH ×3 (09:23→16:21)
[2020-02-03] MEDS: FAMOTIDINE (20 MG) 20 MG TABLET PO SCH ×2 (09:27→16:20)
[2020-02-03] MEDS: AMLODIPINE BESYLATE 5 MG TABLET PO SCH (09:27)
[2020-02-03 12:00] VITALS: BP 126/80
[2020-02-03] MEDS: PIPERACILLIN /TAZOBACTAM 2.25 G in IV D5W 50 ML IV SCH ×3 (12:34→23:59)
[2020-02-03] MEDS: INSULIN REGULAR, HUMAN 100 UNIT/ML 3 ML VIAL SQ PRN ×3 (12:37→21:49)
[2020-02-03 16:00] VITALS: BP 130/76
[2020-02-03] MEDS ORDERED: VANCOMYCIN 1 GM in IV D5W 250ml IV ONE (17:00)
--- NOTE | 2020-02-03 19:21 | NUR ---
RN OPENING NOTES: Received pt resting in bed A&Ox1, nonverbal. On trach to t-piece w/ 4L O2. No respiratory distress noted. Pt received dialysis today with 0L removed. IV site on right hand #20 patent and flushed. Dressing c/d/i. Has right upper chest wall dialysis cath. GT site flushed and patent, no residual noted. On GT feeding of Nepro at 40cc/hr tolerating well. Safety measures in place. Bed in lowest and locked position, side rails up x3, call light within reach. Will continue to monitor.
[2020-02-03 20:00] VITALS: BP 86/54
--- NOTE | 2020-02-03 21:10 | NUR ---
RN NOTES: PT NOTED W/ LOW BP OF 86/54. Placed pt in trendelenburg position. Charge nurse aware. Will recheck BP Addendum: 02/03/20 at 2136 by VIRIDIANA MARTINS RN [id number]: Rechecked BP now at 95/64. Will continue to monitor.
[2020-02-03] MEDS ORDERED: TERAZOSIN HCL 5 MG CAPSULE PO SCH (22:00)
[2020-02-03] MEDS ORDERED: DOCUSATE SODIUM 100 MG CAPSULE PO SCH (22:00)
[2020-02-03] MEDS ORDERED: ATORVASTATIN 10 MG TABLET PO SCH (22:00)
[2020-02-04 04:00] VITALS: BP 90/61
[2020-02-04] MEDS: PIPERACILLIN /TAZOBACTAM 2.25 G in IV D5W 50 ML IV SCH ×2 (05:37→12:17)
--- NOTE | 2020-02-04 06:56 | NUR ---
RN CLOSING NOTES: Pt resting in bed, A&Ox1-2, nonverbal. On 4L NC on trach to t-piece tolerating well. No respiratory distress noted. No acute changes noted during shift. Pt needing frequent suctioning. GT site flushed and patent with no residual noted. On GT feeding of Nepro at 40cc/hr tolerating well. Has IV site on right hand #20, patent and flushed. Dressing c/d/i. Has right UCW dialysis cath. Safety measures in place. Bed in lowest and locked position, side rails up x3 call light within reach. Will endorse to AM nurse for AGAPITO.
--- NOTE | 2020-02-04 07:15 | NUR ---
RNOPENING NOTE PATIENT RECEIVED IN STABLE CONDITION, RESTING IN BED, A/O X1-2. NONVERBAL. ON TRACH WITH T PIECE ON 4L. PATIENT HAS A G TUBE, INTACT, PATENT AND FLUSHED. NEPRO RUNNING AT 40MLS/HR. SAFETY MEASURES IN PLACE. PATIENT CLEAN AND DRY. CALL LIGHT WITHIN REACH. WILL CONTINUE TO MONITOR.
[2020-02-04 08:00] VITALS: BP 90/60
[2020-02-04] MEDS: BLOOD SUGAR DIAGNOSTIC 1 EACH STRIP IN SCH ×2 (08:07→12:17)
[2020-02-04] MEDS: AMLODIPINE BESYLATE 5 MG TABLET PO SCH (09:00)
[2020-02-04] MEDS: INSULIN REGULAR, HUMAN 100 UNIT/ML 3 ML VIAL SQ PRN ×2 (09:21→12:28)
[2020-02-04] MEDS: PANTOPRAZOLE 40 MG VIAL IV SCH (09:22)
[2020-02-04] MEDS: GLIMEPIRIDE 1 MG TABLET PO SCH (09:23)
[2020-02-04] MEDS: FAMOTIDINE (20 MG) 20 MG TABLET PO SCH (09:23)
[2020-02-04] MEDS: LACTOBACILLUS RHAMNOSUS GG 1 EACH CAP.SPRINK PO SCH (09:23)
[2020-02-04] MEDS: HALOPERIDOL 5 MG TABLET PO SCH ×2 (09:23→12:17)
[2020-02-04] MEDS: MULTIVITAMINS,THERAGRAN 1 UDTAB TABLET PO SCH (09:24)
[2020-02-04] MEDS: DIVALPROEX SODIUM 250 MG TABLET.DR PO SCH ×2 (09:24→12:17)
[2020-02-04] MEDS: BENZTROPINE MESYLATE (1 MG) 1 MG TABLET PO SCH ×2 (09:24→12:17)
[2020-02-04] MEDS: ASCORBIC ACID 500 MG TABLET PO SCH (09:24)
--- NOTE | 2020-02-04 10:02 | NUR ---
WOUND CARE CONSULT: PT PRESENTS WITH SCARRING INCLUDING LEFT BELOW KNEE AMPUTATION AND SACRAL SCARRING, PRESENT ON ADMISSION. RECOMMENDATIONS MADE FOR SKIN PROTECTION. DISCUSSED WITH NURSING STAFF. PT IS INCONTINENT. WILL SEE PRN. FLORES IN AGREEMENT WITH PLAN OF CARE. Addendum: 02/04/20 at 1003 by FRANK CLAUDIO WNDNU Amended: Links added.
[2020-02-04] MEDS ORDERED: AMOX250S68 PO (10:26)
[2020-02-04] MEDS ORDERED: Z GUARD REMEDY 2 OZ OINT TP PRN (10:30)
[2020-02-04] MEDS ORDERED: Z GUARD REMEDY 2 OZ OINT TP SCH (10:30)
--- NOTE | 2020-02-04 11:59 | NUR ---
RN NOTE DISCHARGE PAPERWORK HAS BEEN COMPLETED. REPORT CALLED AND GIVEN TO RENAN AT [facility]. PATIENT IS IN STABLE CONDITION, SCHEDULED DIRECTOR SHOPPER MARKETING TIME AT 1300. PT IS CLEAN AND DRY, PICTURES TAKEN AND PLACED IN THE CHART. SAFETY MAINTAINED, CALL LIGHT WITHIN REACH, WILL CONTINUE TO MONITOR.
[2020-02-04 12:00] VITALS: BP 94/63
--- NOTE | 2020-02-04 13:46 | NUR ---
TRUST MAIL CLERK NOTES PATIENT WAS PICKED UP BY AMBULANCE. IN STABLE CONDITION, IV REMOVED, ID BAND REMOVED, VITAL SIGNS ARE STABLE. PATIENT COOPERATIVE. DISCHARGE PAPERWORK COMPLETE AND SIGNED. PT HAS NO BELONGINGS, BELONGING LIST NEVER DONE ON ADMISSION. ALL SCHEDULED MEDICATIONS WERE GIVEN ON TIME, PATIENT SAFETY WAS MAINTAINED. REPORT GIVEN TO THE FACILITY AND THE AMBULANCE. ALL PAPERWORK SENT WITH AMBULANCE.
== END 2020-02-04 13:27 | DRG 425 ==
LOC: ER 18:45 → TELE-TD 20:50 → TELE1 02-03 13:56 → MEDSG1 02-03 15:33
PROVIDERS: ADMIT Registered Nurse; ATTEND Student in an Organized Health Care Education/Training Program
PROC: 5A1D70Z Performance of Urinary Filtration, Intermittent, Less than 6 Hours Per Day (ICD-10-PCS; principal; 2020-02-03)
DX: E87.8 Other disorders of electrolyte and fluid balance, not elsewhere classified (principal); J96.20 Acute and chronic respiratory failure, unspecified whether with hypoxia or hypercapnia; D69.6 Thrombocytopenia, unspecified; I12.0 Hypertensive chronic kidney disease with stage 5 chronic kidney disease or end stage renal disease; E11.22 Type 2 diabetes mellitus with diabetic chronic kidney disease; E11.41 Type 2 diabetes mellitus with diabetic mononeuropathy; Z93.0 Tracheostomy status; R53.2 Functional quadriplegia; N18.6 End stage renal disease; E78.5 Hyperlipidemia, unspecified; K21.9 Gastro-esophageal reflux disease without esophagitis; N40.0 Benign prostatic hyperplasia without lower urinary tract symptoms; D63.1 Anemia in chronic kidney disease; M10.9 Gout, unspecified; M62.50 Muscle wasting and atrophy, not elsewhere classified, unspecified site; F29 Unspecified psychosis not due to a substance or known physiological condition; H54.8 Legal blindness, as defined in USA; Z99.2 Dependence on renal dialysis; F32.9 Major depressive disorder, single episode, unspecified
CPT/HCPCS: 36415; 36600; 71045-TC; 80048-TC; 80053-TC; 80061-TC; 80076-TC; 80164-TC; 80202-TC; 82803-TC; 82962-TC; 83605-TC; 83735-TC; 84100-TC; 84443-TC; 84484-TC; 85025-TC; 85730-TC; 86706; 87040-TC; 87340; 90935-TC; C9113; G0378; J1815; J2405; J2543; J3370; J7050; J7060

== ENCOUNTER 2020-12-29 18:13 | Inpatient (IN) | payer OTHER ==
[~2020-12-29] VITALS: Ht 165.1 cm; Wt 81.4 kg
[~2020-12-29 18:13] MED LIST changes: +AMLO-212 PO; -AMLO5TAB9 PO; +AMOX250S68 PO
--- NOTE | 2020-12-29 18:23 | NUR ---
BOB FROM [facility]. TO ER BED 5. AAOX4. NOT IN RESP DISTRESS, TRACH DEPENDENT BUT NOT ON VENT. BED BOUND. BROUGHT IN FOR HD CATH MALFUNCTION ON HIS RIGHT UPPER CHEST. PT WAS 2 HR IN HIS HD WHEN IT GOT CLOGGED. HD DAYS ARE M/W/F. PT NOTED L MEAGAN AMPUTEE. AWAITING MD FOR EVAL.
[2020-12-29 19:03] LABS: BASOPHILS % (AUTO) 0.2 % (0.0-2.0); EOSINOPHILS % (AUTO) 0.7 % (0.0-6.0); HEMATOCRIT 29 % (39-51); HEMOGLOBIN 9.9 g/dL (13.5-17.5); LYMPHOCYTES # (AUTO) 0.7 /CMM (0.8-4.8); LYMPHOCYTES % (AUTO) 8.4 % (20.0-44.0); MEAN CORPUSCULAR HGB CONC 35 g/dl (31.0-36.0); MEAN CORPUSCULAR VOLUME 96 fL (80-96); MONOCYTES # (AUTO) 0.5 /CMM (0.1-1.30); MONOCYTES % (AUTO) 5.8 % (2.0-12.0); NEUTROPHILS # (AUTO) 6.9 /CMM (1.8-8.9); NEUTROPHILS % (AUTO) 84.9 % (43.0-81.0); PLATELET COUNT (AUTO) 133 /CMM (150-450); RED BLOOD CELL COUNT(AUTO) 2.96 MIL/uL (4.5-6.0); WHITE BLOOD COUNT (AUTO) 8.1 K/uL (4.3-11.0)
[2020-12-29 19:22] LABS: CALCIUM, SERUM 8.7 mg/dL (8.5-10.1); CREATININE 4.8 mg/dL (0.6-1.3); POTASSIUM 3.1 mmol/L (3.5-5.1)
--- NOTE | 2020-12-29 21:24 | NUR ---
lab called regarding negative covid result.
[2020-12-29] MEDS ORDERED: INSULIN REGULAR, HUMAN 100 UNIT/ML 3 ML VIAL SQ PRN (21:30)
[2020-12-29] MEDS ORDERED: CLONIDINE HCL 0.1 MG TABLET PO PRN (21:30)
[2020-12-29] MEDS ORDERED: ACETAMINOPHEN 325 MG TABLET PO PRN (21:30)
[2020-12-29] MEDS ORDERED: HYDROCODONE/APAP 5/325MG TABLET PO PRN (21:30)
[2020-12-29] MEDS ORDERED: ONDANSETRON HCL/PF 4 MG/2 ML VIAL IVP PRN (21:30)
[2020-12-29] MEDS ORDERED: DEXTROSE 50%-WATER 50 ML DISP.SYRIN IV PRN (21:30)
[2020-12-29] MEDS ORDERED: MAGNESIUM HYDROXIDE 30 ML UDC PO PRN (21:30)
[2020-12-29] MEDS ORDERED: Z GUARD REMEDY 2 OZ OINT TP PRN (21:30)
[2020-12-29] MEDS ORDERED: *INSULIN REGULAR(HUMULIN R)HUM 100 UNIT/ML VIAL SQ PRN (21:30)
[2020-12-29] MEDS ORDERED: MAG HYDROX/AL HYDROX/SIMETH 30 ML UDC PO PRN (21:30)
--- NOTE | 2020-12-29 23:40 | NUR ---
TOOK OVER PT CARE. PT PALCED ON ASSOCIATE DENTIST AND PULSE OX. REPORT RECIEVED FROM AMINA SAAVEDRA FOR AGAPITO.
[2020-12-30] MEDS: BLOOD SUGAR DIAGNOSTIC 1 EACH STRIP VI SCH ×5 (01:02→23:03)
[2020-12-30] MEDS ORDERED: DOCUSATE SODIUM 100 MG CAPSULE PO ONE (01:09)
[2020-12-30] MEDS: DOCUSATE SODIUM 100 MG CAPSULE PO SCH ×2 (01:10→23:02)
--- NOTE | 2020-12-30 02:32 | NUR ---
PT PROVIDED WITH MORE BLANKETS, VSS.
[2020-12-30 04:41] LABS: BASOPHILS % (AUTO) 0.2 % (0.0-2.0); EOSINOPHILS % (AUTO) 2.3 % (0.0-6.0); HEMATOCRIT 27 % (39-51); HEMOGLOBIN 9.3 g/dL (13.5-17.5); LYMPHOCYTES % (AUTO) 14.9 % (20.0-44.0); MEAN CORPUSCULAR HGB CONC 35 g/dl (31.0-36.0); MEAN CORPUSCULAR VOLUME 96 fL (80-96); MONOCYTES # (AUTO) 0.4 /CMM (0.1-1.30); MONOCYTES % (AUTO) 6.5 % (2.0-12.0); NEUTROPHILS % (AUTO) 76.1 % (43.0-81.0); PLATELET COUNT (AUTO) 112 /CMM (150-450); RED BLOOD CELL COUNT(AUTO) 2.76 MIL/uL (4.5-6.0); WHITE BLOOD COUNT (AUTO) 6.5 K/uL (4.3-11.0)
--- NOTE | 2020-12-30 06:49 | NUR ---
PT IN BED AWAKE, NON VERBAL. BREATHING EVENLY. TRACH IN PLACE ON O2 AT 4LPM VIA TRACH MASK. NO S/S OF PAIN OR DISCOMFORT NOTED. VSS. WILL CONT TO MONITOR ,
[2020-12-30 07:05] LABS: CALCIUM, SERUM 8.8 mg/dL (8.5-10.1); CREATININE 5.8 mg/dL (0.6-1.3); MAGNESIUM 2.4 mg/dL (1.8-2.4); PHOSPHORUS 2.5 mg/dL (2.5-4.9); POTASSIUM 3.9 mmol/L (3.5-5.1)
--- NOTE | 2020-12-30 07:21 | NUR ---
attemped to give report to the floor nurse, nurse not available
--- NOTE | 2020-12-30 07:34 | NUR ---
ASSESSED PT ON BED ASLEEP EASILY AROUSABLE, NOT IN RESPIRATORY DISTRESS, V/S STABLE, KEPT RESTED AND COMFORTABLE. WILL CONTINUE TO MONITOR.
--- NOTE | 2020-12-30 07:45 | NUR ---
REPORT GIVEN TO KERI WONG FOR AGAPITO.
--- NOTE | 2020-12-30 08:00 | NUR ---
PATIENT RECEIVED FROM ER AT 0800. PATIENT ON TRACH COLLAR VIA T-PIECE AT 3 LP SATTING 100%. G-TUBE PRESENT AND INTACT. LEFT BKA NOTED, RIGHT UPPER CHEST HD CATHETER NOTED, AND RIGHT HAND #22 G NOTED INTACT AND FLUSHING WELL. PATIENT NPO. PORTEX 7. SAFETY PRECAUTIONS IMPLEMENTED, BED LOCKED IN LOWEST POSITION, SIDE RAILS UP X2, CALL LIGHT WITHIN REACH. WILL CONTINUE TO MONITOR CLIENT AND PROVIDE CARE THROUGHOUT SHIFT.
[2020-12-30 09:00] VITALS: BP 155/84
[2020-12-30] MEDS: MULTIVITAMINS,THERAGRAN 1 UDTAB TABLET PO SCH (09:50)
[2020-12-30] MEDS: HALOPERIDOL 5 MG TABLET PO SCH ×3 (09:51→17:27)
[2020-12-30] MEDS: AMLODIPINE BESYLATE 5 MG TABLET PO SCH (09:51)
[2020-12-30] MEDS: DIVALPROEX SODIUM 250 MG TABLET.DR PO SCH ×3 (09:51→17:27)
[2020-12-30] MEDS: FAMOTIDINE (20 MG) 20 MG TABLET PO SCH ×2 (09:52→17:28)
[2020-12-30] MEDS: BENZTROPINE MESYLATE (1 MG) 1 MG TABLET PO SCH ×3 (09:52→17:27)
[2020-12-30] MEDS: ASCORBIC ACID 500 MG TABLET PO SCH (09:52)
[2020-12-30] MEDS ORDERED: ALTEPLASE CATHFLO 2 MG/VIAL XX ONE ×2 (11:30)
[2020-12-30 12:00] VITALS: BP 147/89
[2020-12-30 13:00] VITALS: BP 147/89
[2020-12-30 17:00] VITALS: BP 140/88
[2020-12-30] MEDS ORDERED: NEPRO 1,000 ML BOTTLE GT PRN ×2 (17:00→18:00)
--- NOTE | 2020-12-30 18:58 | NUR ---
RN CLOSING NOTE PATIENT RESTING COMFORTABLY IN SEMI-FOWLERS POSITION. PATIENT ON TRACH COLLAR VIA T-PIECE AT 3 LP SATTING 100%. PATIENT TOLERATING WELL. G-TUBE PRESENT AND INTACT. ONLY 15 ML OF RESIDUAL NOTED. TUBE FEEDING STARTED AT 25 ML/HR AT 6:00 PM. PATIENT WILL BE NPO FOR HD CATHETER REPLACEMENT TOMORROW AT 0700. LEFT BKA NOTED, RIGHT UPPER CHEST HD CATHETER NOTED, AND RIGHT HAND #22 G NOTED INTACT AND FLUSHING WELL. PATIENT NPO. PORTEX 7. SAFETY PRECAUTIONS IMPLEMENTED, BED LOCKED IN LOWEST POSITION, SIDE RAILS UP X2, CALL LIGHT WITHIN REACH. WILL ENDORSE CARE TO UPCOMING SHIFT FOR CONTINUATION OF CARE.
--- NOTE | 2020-12-30 19:43 | NUR ---
MS RN OPENING NOTES PATIENT RESTING IN BED A/OX4; ABLE TO MAKE NEEDS KNOWN. ON O2 3LPM VIA TRACH COLLAR PORTEX 7, TACH TO T PIECE; TOLERATING WELL. NO C/O PAIN OR S/S OF DISTRESS AT THIS TIME. IV TO RIGHT WRIST #22G; PATENT AND INTACT. R UPPER CHEST HD PORTACATH PATENT AND INTACT. GTUBE PEG PATENT AND INTACT; NEPHRO @ 25 ML/HR; TOLERATING WELL. ALL NEEDS MET AT THIS TIME. SAFETY MEASURES IN PLACE; BED IN LOWEST LOCKED POSITION; SIDE RAILS UP X2, BED ALARM ON, CALL LIGHT WITHIN EASY REACH. WILL CONTINUE PLAN OF CARE.
[2020-12-30 20:00] VITALS: BP 142/84
[2020-12-30 21:00] VITALS: BP 142/84
[2020-12-30] MEDS: ATORVASTATIN 10 MG TABLET PO SCH (23:03)
[2020-12-30] MEDS: TERAZOSIN HCL 5 MG CAPSULE PO SCH (23:03)
[2020-12-31] VITALS: BP 129/78
--- NOTE | 2020-12-31 05:51 | NUR ---
MS RN CLOSING NOTES PATIENT RESTING IN BED A/OX2; ABLE TO FOLLOW DIRECTIONS. ON O2 3LPM VIA TRACH COLLAR PORTEX 7, TACH TO T PIECE; TOLERATING WELL. IV TO RIGHT WRIST #22G; PATENT AND INTACT. R UPPER CHEST HD PORTACATH PATENT AND INTACT. GTUBE PEG PATENT AND INTACT; GTUBE FEEDINGS ON HOLD SINCE 12/31/2020 AT 0000 FOR HD CATH REPLACEMENT PROCEDURE. ALL NEEDS MET AT THIS TIME. SAFETY MEASURES IN PLACE; BED IN LOWEST LOCKED POSITION; SIDE RAILS UP X2, BED ALARM ON, CALL LIGHT WITHIN EASY REACH. WILL CONTINUE PLAN OF CARE.
--- NOTE | 2020-12-31 06:35 | NUR ---
MS NOTES PATIENT NPO AND GT FEEDINGS HELD. CHECKED BLOOD SUGAR - 1ST READING WAS 66. RECHECKED - 2ND READING WAS 62. NOTIFIED CHARGE NURSE. NO S/S OF HYPOGLYCEMIA NOTED. ADMINISTERED D50 AND WILL RECHECK BLOOD SUGAR ACCORDINGLY.
[2020-12-31] MEDS: BLOOD SUGAR DIAGNOSTIC 1 EACH STRIP VI SCH ×4 (06:36→22:28)
[2020-12-31] MEDS ORDERED: FAMOTIDINE/PF INJ 20 MG/2 ML VIAL IV ONE (06:40)
[2020-12-31] MEDS ORDERED: FENTANYL PF 250MCG/5ML AMPUL ONE (06:40)
[2020-12-31 07:04] LABS: BASOPHILS % (AUTO) 0.4 % (0.0-2.0); HEMATOCRIT 25 % (39-51); HEMOGLOBIN 8.7 g/dL (13.5-17.5); LYMPHOCYTES # (AUTO) 1.1 /CMM (0.8-4.8); LYMPHOCYTES % (AUTO) 18.1 % (20.0-44.0); MEAN CORPUSCULAR HGB CONC 35 g/dl (31.0-36.0); MEAN CORPUSCULAR VOLUME 96 fL (80-96); MONOCYTES # (AUTO) 0.5 /CMM (0.1-1.30); MONOCYTES % (AUTO) 7.9 % (2.0-12.0); NEUTROPHILS # (AUTO) 4.1 /CMM (1.8-8.9); NEUTROPHILS % (AUTO) 68.6 % (43.0-81.0); PLATELET COUNT (AUTO) 117 /CMM (150-450); RED BLOOD CELL COUNT(AUTO) 2.59 MIL/uL (4.5-6.0)
[2020-12-31 07:19] LABS: CALCIUM, SERUM 8.3 mg/dL (8.5-10.1); POTASSIUM 3.6 mmol/L (3.5-5.1)
[2020-12-31 07:22] LABS: CREATININE 7.8 mg/dL (0.6-1.3)
[2020-12-31] MEDS ORDERED: ANESTHESIA TRAY IN PYXIS 1 EA TRAY MC ONE (09:06)
[2020-12-31] MEDS ORDERED: LIDOCAINE HCL/MPF 1% 30 ML VIAL IJ ONE (10:18)
[2020-12-31] MEDS ORDERED: HEPARIN SODIUM, PORCINE 1,000 UNIT/ML VIAL ONE (10:19)
[2020-12-31] MEDS ORDERED: IOHEXOL 240MG/ML 0 ML IV ONE (11:28)
--- NOTE | 2020-12-31 11:46 | NUR ---
OPENING NOTE PATIENT RESTING WITH NO S/S OF DISTRESS OR DISCOMFORT. PATIENT A/O X 2 PATIENT CURRENTLY NPO WITH GT FEEDING ON FOR PROCEDURE SCHEDULED FOR TODAY. PT CURRENTLY ON ROOM AIR WITH NO S/S OF LABORED BREATHING. BED LOCKED AND IN LOWEST POSITION. CALL LIGHT WITHIN REACH OF PATIENT IV LINES PATENT AND INSERTION SIGHT WITHOUT ANY S/S INFILTRATION. END OPENING NOTE. BN Addendum: 12/31/20 at 1158 by KEITH GOMEZ RN NOTE TIME OF 0402
[2020-12-31] MEDS ORDERED: DEXTROSE 50%-WATER 50 ML DISP.SYRIN ONE (12:24)
[2020-12-31] MEDS: HALOPERIDOL 5 MG TABLET PO SCH ×3 (13:00→17:17)
[2020-12-31] MEDS: BENZTROPINE MESYLATE (1 MG) 1 MG TABLET PO SCH ×3 (13:00→17:17)
[2020-12-31] MEDS: DIVALPROEX SODIUM 250 MG TABLET.DR PO SCH ×3 (13:00→17:16)
[2020-12-31] MEDS: MULTIVITAMINS,THERAGRAN 1 UDTAB TABLET PO SCH (13:23)
[2020-12-31] MEDS: ASCORBIC ACID 500 MG TABLET PO SCH (13:24)
[2020-12-31] MEDS: AMLODIPINE BESYLATE 5 MG TABLET PO SCH (13:25)
[2020-12-31] MEDS: FAMOTIDINE (20 MG) 20 MG TABLET PO SCH ×2 (13:28→17:17)
--- NOTE | 2020-12-31 13:40 | NUR ---
BRASS CUTTER NOTE RESUMED PATIENT'S AM MEDS POST SURGERY. NON ADMINISTERED DUPLICATE MEDICATIONS 0900/1300.
[2020-12-31] MEDS: MUPIROCIN OINT 2% 22 GM TUBE NS SCH (16:22)
--- NOTE | 2020-12-31 16:40 | NUR ---
PORTAL DEVELOPER NOTE GAVE REPORT TO KERI RUIZ FOR CONTINUUM OF CARE. PATIENT IS STABLE ON 3L VIA TPIECE. GTUBE IS IN PLACE. CHEST WALL PERMACATH IS IN PLACE. ENDORSED FOR CONTINUUM OF CARE.
--- NOTE | 2020-12-31 16:51 | NUR ---
RECEIVED PT FROM AL TRANSFER.ON O2 AT 3LPM WITH T PIECE. PT SLEEPING BUT AROUSABLE. O2 SAT 100%. WITH LT BKA RT KNEE AND ANKLE DISCOLORATION. ON NEPRO AT 25 ML/HR WITH ASPIRATION PRECAUTIONS.HOB ELEVATED. WITH RT WRIST HEPLOCK AND RT UPPER CHEST WALL HD PORT A CATH.BS CHECKED AT 1514 :86.FOR HD TODAY.WILL CONTINUE TO MONITOR.
[2020-12-31] MEDS ORDERED: LIDOCAINE HCL/PF 2 % 5ML SDV 5 ML VIAL IV ONE (17:40)
[2020-12-31] MEDS ORDERED: ONDANSETRON HCL/PF 4 MG/2 ML VIAL IVP ONE (17:40)
[2020-12-31] MEDS ORDERED: PROPOFOL 200 MG/20 ML VIAL IV ONE (17:40)
[2020-12-31] MEDS ORDERED: CEFAZOLIN 1 GM VIAL IV ONE (17:40)
--- NOTE | 2020-12-31 18:00 | NUR ---
PT RESTING IN BED DENYING ANY SOB,PAIN OR DISTRESS.WITH ONGOING HEMODIALYSIS PROCEDURE AT THIS TIME. ABLE TO TURN BY HIMSELF IN BED. CALL LIGHT PLACED WITHIN REACH.
--- NOTE | 2020-12-31 19:30 | NUR ---
TELE/RN OPENING NOTE S RECEIVED PATIENT IN BED RESTING. PATIENT IS ALERT AND ORIENTED X 2. PATIENT BREATHING IS EVEN AND UNLABORED. PATIENT IN NO SIGNS OF RESPIRATORY DISTRESS OR SOB NOTED. PATIENT HAS IV ACCESS INTACT FLUSHING WELL. PATIENT IN NO ACUTE DISTRESS. PATIENT CURRENTLY RECEIVING HD AT THIS TIME. SAFETY MEASURES ARE IN PLACE, BED IS LOCKED AND PLACED IN THE LOW POSITION, SIDE RAILS UP X 2, CALL LIGHT WITHIN REACH. WILL CONTINUE TO MONITOR.
[2020-12-31 20:00] VITALS: BP 106/78
[2020-12-31] MEDS: TERAZOSIN HCL 5 MG CAPSULE PO SCH (22:00)
[2020-12-31] MEDS: ATORVASTATIN 10 MG TABLET PO SCH (22:12)
[2020-12-31] MEDS: DOCUSATE SODIUM 100 MG CAPSULE PO SCH (22:12)
[2021-01-01] VITALS: BP 157/88
[2021-01-01 04:00] VITALS: BP 137/79
[2021-01-01] MEDS: BLOOD SUGAR DIAGNOSTIC 1 EACH STRIP VI SCH ×3 (06:27→17:48)
--- NOTE | 2021-01-01 06:55 | NUR ---
TELE/RN CLOSING NOTES PATIENT IN BED RESTING. PATIENT IS ALERT AND ORIENTED X 2. PATIENT BREATHING IS EVEN AND UNLABORED. PATIENT IN NO SIGNS OF RESPIRATORY DISTRESS OR SOB NOTED, T PIECE IN PLACE 3LPM. PATIENT HAS IV ACCESS INTACT FLUSHING WELL. PATIENT IN NO ACUTE DISTRESS. SAFETY MEASURES ARE IN PLACE, BED IS LOCKED AND PLACED IN THE LOW POSITION, SIDE RAILS UP X 2, CALL LIGHT WITHIN REACH. WILL ENDORSE TO DAY SHIFT NURSE.
[2021-01-01 07:04] LABS: BASOPHILS % (AUTO) 0.2 % (0.0-2.0); EOSINOPHILS % (AUTO) 2.9 % (0.0-6.0); HEMATOCRIT 26 % (39-51); HEMOGLOBIN 9.1 g/dL (13.5-17.5); LYMPHOCYTES # (AUTO) 0.4 /CMM (0.8-4.8); LYMPHOCYTES % (AUTO) 7.2 % (20.0-44.0); MEAN CORPUSCULAR HGB CONC 35 g/dl (31.0-36.0); MEAN CORPUSCULAR VOLUME 96 fL (80-96); MONOCYTES # (AUTO) 0.5 /CMM (0.1-1.30); MONOCYTES % (AUTO) 8.6 % (2.0-12.0); NEUTROPHILS # (AUTO) 4.7 /CMM (1.8-8.9); NEUTROPHILS % (AUTO) 81.1 % (43.0-81.0); PLATELET COUNT (AUTO) 121 /CMM (150-450); RED BLOOD CELL COUNT(AUTO) 2.73 MIL/uL (4.5-6.0); WHITE BLOOD COUNT (AUTO) 5.8 K/uL (4.3-11.0)
[2021-01-01 08:00] VITALS: BP 124/78
--- NOTE | 2021-01-01 08:00 | NUR ---
TELE/RN AM NOTES PATIENT IN BED RESTING. PATIENT IS ALERT AND ORIENTED X 2. PATIENT BREATHING IS EVEN AND UNLABORED. PATIENT IN NO SIGNS OF RESPIRATORY DISTRESS OR SOB NOTED, T PIECE IN PLACE 3LPM. O2 SAT 100%. PATIENT HAS IV ACCESS INTACT FLUSHING WELL. PATIENT IN NO ACUTE DISTRESS. SAFETY MEASURES ARE IN PLACE, BED IS LOCKED AND PLACED IN THE LOW POSITION, SIDE RAILS UP X 2, CALL LIGHT WITHIN REACH.
[2021-01-01 08:19] LABS: CREATININE 6.2 mg/dL (0.6-1.3); POTASSIUM 3.9 mmol/L (3.5-5.1)
[2021-01-01 09:33] VITALS: BP 124/78
[2021-01-01] MEDS: DIVALPROEX SODIUM 250 MG TABLET.DR PO SCH ×3 (09:33→17:48)
[2021-01-01] MEDS: ASCORBIC ACID 500 MG TABLET PO SCH (09:33)
[2021-01-01] MEDS: BENZTROPINE MESYLATE (1 MG) 1 MG TABLET PO SCH ×3 (09:33→17:48)
[2021-01-01] MEDS: AMLODIPINE BESYLATE 5 MG TABLET PO SCH (09:33)
[2021-01-01] MEDS: MULTIVITAMINS,THERAGRAN 1 UDTAB TABLET PO SCH (09:33)
[2021-01-01] MEDS: HALOPERIDOL 5 MG TABLET PO SCH ×3 (09:33→17:48)
[2021-01-01] MEDS: FAMOTIDINE (20 MG) 20 MG TABLET PO SCH ×2 (09:33→17:48)
[2021-01-01] MEDS: MUPIROCIN OINT 2% 22 GM TUBE NS SCH (10:05)
--- NOTE | 2021-01-01 19:00 | NUR ---
DISCHARGED TO [facility] VIA AMBULANCE WITH STABLE V/S.NO SOB.ON T PIECE WITH O2 AT 3LITERS/MIN WITH O2 SAT 100%. NO SOB. IV H/L REMOVED TO RT WRIST WITH NO BLEEDING NOTED. RT UPPER CHEST WALL PERMA CATH REMAINS INTACT.DRESSINGS CLEAN AND DRY.REPORT CALLED IN TO RADHA OF [facility].
--- NOTE | 2021-01-01 19:10 | NUR ---
DISCHARGE INSTRUCTIONS AND TEACHING MATERIALS PROVIDED.
== END 2021-01-01 18:58 | DRG 466 ==
LOC: ER 18:21 → TRANSITION 12-30 00:30 → MEDSG1 12-30 06:34 → TELE 12-31 16:38 → MED 01-01 08:37
PROVIDERS: ADMIT Internal Medicine; ATTEND Nurse Practitioner Family
PROC: 0J2SXYZ Change Other Device in Head and Neck Subcutaneous Tissue and Fascia, External Approach (ICD-10-PCS; principal; 2020-12-31)
PROC: 5A1D70Z Performance of Urinary Filtration, Intermittent, Less than 6 Hours Per Day (ICD-10-PCS; 2020-12-31)
DX: T82.41XA Breakdown (mechanical) of vascular dialysis catheter, initial encounter (principal); Y71.2 Prosthetic and other implants, materials and accessory cardiovascular devices associated with adverse incidents; Z99.2 Dependence on renal dialysis; I12.0 Hypertensive chronic kidney disease with stage 5 chronic kidney disease or end stage renal disease; N18.6 End stage renal disease; H54.8 Legal blindness, as defined in USA; E11.41 Type 2 diabetes mellitus with diabetic mononeuropathy; E11.22 Type 2 diabetes mellitus with diabetic chronic kidney disease; E78.5 Hyperlipidemia, unspecified; E87.6 Hypokalemia; Y92.129 Unspecified place in nursing home as the place of occurrence of the external cause; D68.59 Other primary thrombophilia; D63.1 Anemia in chronic kidney disease; J96.20 Acute and chronic respiratory failure, unspecified whether with hypoxia or hypercapnia; F29 Unspecified psychosis not due to a substance or known physiological condition; R13.10 Dysphagia, unspecified; N40.0 Benign prostatic hyperplasia without lower urinary tract symptoms; M10.9 Gout, unspecified; Z79.4 Long term (current) use of insulin; Z79.899 Other long term (current) drug therapy; R53.2 Functional quadriplegia; Z89.512 Acquired absence of left leg below knee; Z74.09 Other reduced mobility; K21.9 Gastro-esophageal reflux disease without esophagitis
CPT/HCPCS: 31720; 36415; 71045-TC; 80048-TC; 82962-TC; 83735-TC; 84100-TC; 85025-TC; 85730-TC; 87081-TC; 90935-TC; 94799-TC; A4623; C9803; G0378; J0690; J1644; J1815; J2405; J2704; J2765; J2997; J3010; J3490; Q9966; U0003

== ENCOUNTER 2021-03-18 14:39 | Inpatient (IN) | payer OTHER ==
[~2021-03-18] VITALS: Ht 170.2 cm; Wt 86.2 kg
[~2021-03-18 14:39] MED LIST changes: -AMOX250S68 PO; +ATOR20TA GT; -ATOR20TA PO; +CLON0.1T GT; -CLON0.1T PO; +DOCU-141 GT; -DOCU-141 PO; +FAMO20TA8 GT; -FAMO20TA8 PO; +GLIM1TAB18 GT; -GLIM1TAB18 PO; +LACT1CAP61 GT; -LACT1CAP61 PO; -LIDOCAINE PATCH; +LIDOCAINE PATCH TD; +TERA2CAP4 GT; -TERA2CAP4 PO; +TRAZ-182 GT; -TRAZ-182 PO
--- NOTE | 2021-03-18 14:55 | NUR ---
ELICEO Jo From [facility] Was supposed to go to dialysis but started to throw up. Has not been dialzied for 1 week. The patient is alert to his name. The patient has trach, GT, right upper chest HD cath and left lower knee amputation. The patient is attached on a monitor. Warm blanket provided for comfort. Will continue to monitor the patient.
[2021-03-18] MEDS ORDERED: ONDANSETRON HCL/PF 4 MG/2 ML VIAL ONE (14:59)
[2021-03-18] MEDS ORDERED: ONDANSETRON HCL/PF 4 MG/2 ML VIAL IVP ONE (15:00)
[2021-03-18] MEDS: IV NS 0.9% 1,000 ML BAG IV ONE ×2 (15:04→15:41)
[2021-03-18 15:25] LABS: BASOPHILS % (AUTO) 0.2 % (0.0-2.0); EOSINOPHILS % (AUTO) 3.2 % (0.0-6.0); HEMATOCRIT 38 % (39-51); HEMOGLOBIN 12.8 g/dL (13.5-17.5); LYMPHOCYTES # (AUTO) 0.8 /CMM (0.8-4.8); LYMPHOCYTES % (AUTO) 11.7 % (20.0-44.0); MEAN CORPUSCULAR HGB CONC 34 g/dl (31.0-36.0); MEAN CORPUSCULAR VOLUME 97 fL (80-96); MONOCYTES # (AUTO) 0.4 /CMM (0.1-1.30); MONOCYTES % (AUTO) 5.7 % (2.0-12.0); NEUTROPHILS # (AUTO) 5.2 /CMM (1.8-8.9); NEUTROPHILS % (AUTO) 79.2 % (43.0-81.0); PLATELET COUNT (AUTO) 102 /CMM (150-450); RED BLOOD CELL COUNT(AUTO) 3.92 MIL/uL (4.5-6.0); WHITE BLOOD COUNT (AUTO) 6.5 K/uL (4.3-11.0)
[2021-03-18 15:46] LABS: ALANINE AMINOTRANSFERASE 40 U/L (12-78); ALBUMIN 3.7 g/dL (3.4-5.0); ALKALINE PHOSPHATASE 124 U/L (46-116); ASPARTATE AMINOTRANSFERASE 21 U/L (15-37); BILIRUBIN,DIRECT 0.1 mg/dL (0.0-0.2); BILIRUBIN,TOTAL 0.4 mg/dL (0.2-1.0); CALCIUM, SERUM 9.6 mg/dL (8.5-10.1); CARBON DIOXIDE 22 mmol/L (21-32); CHLORIDE 99 mmol/L (98-107); GLUCOSE 150 mg/dL (74-106); LIPASE 87 U/L (73-393); POTASSIUM 4.9 mmol/L (3.5-5.1); SODIUM SERUM 135 mmol/L (136-145); TOTAL PROTEIN, SERUM 7.8 g/dL (6.4-8.2)
[2021-03-18 15:48] LABS: CREATININE 12.1 mg/dL (0.6-1.3); UREA NITROGEN, BLOOD 137 mg/dL (7-18)
[2021-03-18] MEDS ORDERED: ACET325T53 GT (15:55)
[2021-03-18] MEDS ORDERED: VALP250S4 GT (15:55)
[2021-03-18] MEDS ORDERED: AMLO5TAB4 GT (15:55)
[2021-03-18] MEDS ORDERED: NUT.237L67 GT (15:55)
[2021-03-18] MEDS ORDERED: BENZ1TAB7 GT (15:55)
[2021-03-18] MEDS ORDERED: INSU100I34 SQ (15:55)
[2021-03-18] MEDS ORDERED: AMIN887L GT (15:55)
[2021-03-18] MEDS ORDERED: VIT1TABL46 GT (15:55)
[2021-03-18] MEDS ORDERED: HALO5TAB GT (15:55)
--- NOTE | 2021-03-18 15:56 | NUR ---
PAGED [facility].
[2021-03-18] MEDS ORDERED: IOHEXOL-300 100 ML VIAL IV ONE (16:25)
[2021-03-18] MEDS ORDERED: CT SWABBABLE VALVE TRANS SET 1 EA INFUS.SET MC ONE (16:26)
[2021-03-18] MEDS ORDERED: IV NS 0.9% 250 ML IV ONE (16:26)
--- NOTE | 2021-03-18 17:15 | NUR ---
PANEL ON-CALL PAGED
--- NOTE | 2021-03-18 17:18 | NUR ---
THE PATIENT RECEIVED CONTAST 03/18/21
--- NOTE | 2021-03-18 18:17 | NUR ---
Report given to KERI Beckford, made aware that the patient had contrast 03/18/21 and Metformin should be hold per policy. Patient is transfered in stable condition and per ACLS policy to [facility].
[2021-03-18 18:30] VITALS: BP 136/90
--- NOTE | 2021-03-18 18:30 | NUR ---
RN NOTE PT REPORT RECEIVED BY KERI BEDOLLA, AT BEDSIDE. PT IN STABLE CONDITION. PER REPORT, PT HAS NOT RECEIVED HEMODIALYSIS IN [address] WITH CONTRAST OF ABD/PELVIS DONE, NO METFORMIN FOR 2 DAYS. PT HAS LT WRIST #18 FLUSHED INTACT AND PATENT, NO SIGNS OF INFILTRATION OR INFECTION. PT G-TUBE CLAMPED, NO SIGNS OF INFECTION. PT HAS LT LEG BKA. PT TRACH T-PIECE ON O2 3LPM, SPO2 100%. PT VITALS WNL. PT DENIES PAIN, ALL PT SAFETY PRECAUTIONS IN PLACE. WILL CONT TO MONITOR
[2021-03-18] MEDS ORDERED: MAG HYDROX/AL HYDROX/SIMETH 30 ML UDC PO PRN (19:00)
[2021-03-18] MEDS ORDERED: ZOLPIDEM TARTRATE 5 MG TABLET PO PRN (19:00)
[2021-03-18] MEDS ORDERED: HYDROCODONE/APAP 5/325MG TABLET PO PRN (19:00)
[2021-03-18] MEDS ORDERED: MAGNESIUM HYDROXIDE 30 ML UDC PO PRN (19:00)
[2021-03-18] MEDS ORDERED: Z GUARD REMEDY 2 OZ OINT TP PRN (19:00)
[2021-03-18] MEDS ORDERED: ONDANSETRON HCL/PF 4 MG/2 ML VIAL IVP PRN (19:00)
[2021-03-18] MEDS ORDERED: ACETAMINOPHEN 325 MG TABLET PO PRN ×2 (19:00)
[2021-03-18] MEDS ORDERED: NEPRO VAN 237 ML CAN GT SCH (19:00)
--- NOTE | 2021-03-18 19:00 | NUR ---
RN CLOSING NOTE PT STABLE, SPO2 100%. PT CT WITH CONTRAST OF ABD/PELVIS DONE, NO METFORMIN FOR 2 DAYS AND PT AGAPITO ENDORSED TO ONCOMING RN. ALL PT SAFETY PRECAUTIONS IN PLACE
--- NOTE | 2021-03-18 19:30 | NUR ---
MANGLE ROLL OPERATOR OPENING / ADMISSION NOTE RECEIVED PATIENT IN BED. PATIENT IS UNABLE TO TALK D/T TRACH. HE UNDERSTANDS MALTESE AND NODS HEAD. RECEIVING OXYGEN 3L/MIN VIA TRACH COLLAR. RESPIRATIONS ARE EVEN AND UNLABORED. NO S/S SOB NOTED. NO C/O PAIN AT THIS TIME. EXTERNAL TELE MONITOR READS SINUS RHYTHM HR 75. IN NO APPARENT DISTRESS. IV ACCESS IN LEFT WRIST #18 PATENT AND SALINE LOCKED. GTUBE IS PRESENT, NO RESIDUAL, POSITIVE PLACEMENT, CLAMPED AT THIS TIME. BED IS LOW AND LOCKED, HOB ELEVATED IN SEMI FOWLERS, SIDE RAILS UP X2 CALL LIGHT WITHIN REACH. WILL CONTINUE TO MONITOR THROUGHOUT SHIFT.
[2021-03-18 20:00] VITALS: BP 171/91
[2021-03-18 21:30] VITALS: BP 161/100
[2021-03-18] MEDS: TRAZODONE 50 MG TABLET GT SCH (21:31)
[2021-03-18] MEDS: ATORVASTATIN 10 MG TABLET GT SCH (21:32)
[2021-03-18] MEDS: TERAZOSIN HCL 5 MG CAPSULE GT SCH (21:34)
[2021-03-19] VITALS: BP 184/98
[2021-03-19] MEDS: CLONIDINE HCL 0.1 MG TABLET GT PRN ×2 (00:25→20:06)
[2021-03-19 04:00] VITALS: BP 166/93
--- NOTE | 2021-03-19 05:20 | NUR ---
METER INSPECTOR NOTE INFORMED BUILDING MAINTENANCE CUSTODIAN ИВАН PASTOR NP THAT PATIENT BP AT 0000 WAS 181/98, CATAPRESS 0.1MG WAS GIVEN AT 0025. PATIENT BP NOW IS 166/93. BUT CATARESS IS ORDERED FOR Q6HR AND I ALSO INFORMED HER PATIENT HAS NT RECEIVED HD IN ONE WEEK. TELEPHONE NO NEW ORDERS AT THIS TIME, PATIENT NEEDS HD.
[2021-03-19 06:46] LABS: BASOPHILS % (AUTO) 0.1 % (0.0-2.0); EOSINOPHILS % (AUTO) 2.2 % (0.0-6.0); HEMATOCRIT 36 % (39-51); HEMOGLOBIN 12.2 g/dL (13.5-17.5); LYMPHOCYTES # (AUTO) 1.1 /CMM (0.8-4.8); LYMPHOCYTES % (AUTO) 19.9 % (20.0-44.0); MEAN CORPUSCULAR HGB CONC 34 g/dl (31.0-36.0); MEAN CORPUSCULAR VOLUME 97 fL (80-96); MONOCYTES # (AUTO) 0.5 /CMM (0.1-1.30); MONOCYTES % (AUTO) 8.4 % (2.0-12.0); NEUTROPHILS # (AUTO) 3.8 /CMM (1.8-8.9); NEUTROPHILS % (AUTO) 69.4 % (43.0-81.0); PLATELET COUNT (AUTO) 91 /CMM (150-450); WHITE BLOOD COUNT (AUTO) 5.5 K/uL (4.3-11.0)
--- NOTE | 2021-03-19 07:28 | NUR ---
PUBLIC INFORMATION RELATIONS MANAGER CLOSING NOTE PATIENT RESTING IN BED. STILL RECEIVING OXYGEN 3L/MIN VIA TRACH COLLAR. NO RESP DISTRESS. NO PAIN. TELE MONITOR READS SINUS RHYTHM. NO DISTRESS. IV ACCESS MAINTAINED IN LEFT WRIST #18. GTUBE IS MAINTAINED RUNNING NEPRO @60ML/HR. BED REMAINS LOW AND LOCKED, HOB ELEVATED IN SEMI FOWLERS, SIDE RAILS UP X2 CALL LIGHT WITHIN REACH. WILL ENDORSE TO ONCOMING SHIFT.
--- NOTE | 2021-03-19 07:30 | NUR ---
RN OPENING NOTE Received patient asleep in bed appears calm and relaxed no signs of distress. On trach collar 3L non verbal but understands kazakh but only nods. Tele monitor reading 76. Left BKA, dry skin and has BLE scabs. On GT feeding Nepro @60ml/hr to be turned off at 1630. Has L wrist #18 flushes well. Safety measures reinforced. Call light within reach. Will continue to monitor.
[2021-03-19 07:32] LABS: MAGNESIUM 3.5 mg/dL (1.8-2.4); PHOSPHORUS 4.7 mg/dL (2.5-4.9); POTASSIUM 4.5 mmol/L (3.5-5.1)
[2021-03-19 08:06] LABS: CREATININE 12.9 mg/dL (0.6-1.3)
[2021-03-19] MEDS ORDERED: DOCUSATE SODIUM 100 MG CAPSULE PO SCH (09:00)
[2021-03-19] MEDS ORDERED: INSULIN LISPRO/ASPART 100 UNIT/ML CARTRIDGE SQ SCH ×2 (09:00→17:00)
[2021-03-19] MEDS: ACIDOPHILUS/BULGARICUS 1 EACH GRAN.PACK GT SCH ×2 (09:00→17:49)
[2021-03-19] MEDS: FAMOTIDINE (20 MG) 20 MG TABLET GT SCH ×2 (09:32→17:49)
[2021-03-19] MEDS: GLIMEPIRIDE 1 MG TABLET GT SCH (09:32)
[2021-03-19] MEDS: VALPROIC ACID 250 MG/5 ML UDC GT SCH ×3 (09:32→17:49)
[2021-03-19] MEDS: AMLODIPINE BESYLATE 5 MG TABLET GT SCH (09:33)
[2021-03-19] MEDS: BENZTROPINE MESYLATE (1 MG) 1 MG TABLET GT SCH ×3 (09:33→17:49)
[2021-03-19] MEDS: VIT B CMPLX 3/FA/VIT C/BIOTIN 1 TAB TABLET GT SCH (09:36)
[2021-03-19] MEDS: PROSOURCE / PROSTAT (PYXIS) 30 ML UDC GT SCH ×2 (09:49→17:50)
[2021-03-19] MEDS: LIDOCAINE 5% (PATCH) 1 EA PATCH TP SCH (09:50)
[2021-03-19] MEDS: HALOPERIDOL 5 MG TABLET GT SCH ×2 (09:50→17:49)
[2021-03-19] MEDS ORDERED: DEXTROSE 50%-WATER 50 ML DISP.SYRIN IV PRN (10:00)
[2021-03-19] MEDS: BLOOD SUGAR DIAGNOSTIC 1 EACH STRIP IN SCH ×3 (11:53→23:39)
[2021-03-19] MEDS: INSULIN REGULAR, HUMAN 100 UNIT/ML 3 ML VIAL SQ PRN (11:55)
--- NOTE | 2021-03-19 14:00 | NUR ---
Dialysis done 2L taken out.
[2021-03-19] MEDS ORDERED: NEPRO 1,000 ML BOTTLE GT PRN (15:00)
--- NOTE | 2021-03-19 19:20 | NUR ---
RN CLOSING NOTE Patient in bed awake appears calm and relaxed. GT feeding paused until 2230. No residual. Flushed water and checked placement before medication. All due meds given. Vital signs within normal limits. Safety measures reinforced. Endorsed to fast food shift supervisor nurse for zachariah.
--- NOTE | 2021-03-19 19:30 | NUR ---
MS RN OPENING NOTE RECEIVED PATIENT IN BED. NONVERBAL, UNDERSTANDS PORTUGUESE. HAS PORTEX#8 RECEIVED OXYGEN VIA TRACH COLLAR 5L/MIN. RESPIRATIONS ARE EVEN AND UNLABORED. INFORMED RT PATIENT WOULD LIKE TO BE SUCTIONED, RT SET UP TRACH SUCTION. NO S/S PAIN, NO C/O PAIN. IN NO APPARENT DISTRESS. IV ACCESS IN LEFT WRIST #18 PATENT AND SALINE LOCKED. GTUBE PRESENT, NO RESIDUAL, CURRENTLY CLAMPED, WILL BEGIN FEEDING AT 2230. HOB ELEVATED IN SEMI FOWLERS, SIDE RAILS UP X3, CALL LIGHT WITHIN REACH. WILL CONTINUE TO MONITOR THROUGHOUT SHIFT.
[2021-03-19 20:00] VITALS: BP 182/89
[2021-03-19 21:54] VITALS: BP 154/87
[2021-03-19] MEDS: ATORVASTATIN 10 MG TABLET GT SCH (21:58)
[2021-03-19] MEDS: TERAZOSIN HCL 5 MG CAPSULE GT SCH (21:58)
[2021-03-19] MEDS: TRAZODONE 50 MG TABLET GT SCH (21:58)
[2021-03-19] MEDS: NEPRO 1,000 ML BOTTLE GT PRN (22:52)
[2021-03-20 04:00] VITALS: BP 147/70
[2021-03-20] MEDS: BLOOD SUGAR DIAGNOSTIC 1 EACH STRIP IN SCH ×3 (06:32→17:47)
--- NOTE | 2021-03-20 07:01 | NUR ---
MS RN CLOSING NOTE PATIENT RESTING IN BED. ON OXYGEN 3L/MIN VIA TPIECE. NO RESP DISTRESS. NO PAIN. NO DISTRESS. IV ACCESS MAINTAINED IN LEFT WRIST #18. GTUBE IS MAINTAINED RUNNING NEPRO @60ML/HR. BED REMAINS LOW AND LOCKED, HOB ELEVATED IN SEMI FOWLERS, SIDE RAILS UP X2 CALL LIGHT WITHIN REACH. WILL ENDORSE TO ONCOMING SHIFT.
--- NOTE | 2021-03-20 07:30 | NUR ---
RN OPENING NOTES Patient is alert and responsive to verbal and physical stimuli. Patient is breathing even and unlabored. No c/o pain or discomfort. On nepro 60 cc/hour running well, patent. Patient will be monitored call light with in reach. HOB elevated to prevent aspiration. Patient will be monitored. Call light within reach.
[2021-03-20 08:00] VITALS: BP 152/86
[2021-03-20 08:15] LABS: BASOPHILS % (AUTO) 0.2 % (0.0-2.0); HEMATOCRIT 33 % (39-51); HEMOGLOBIN 11.2 g/dL (13.5-17.5); LYMPHOCYTES # (AUTO) 1.6 /CMM (0.8-4.8); LYMPHOCYTES % (AUTO) 26.6 % (20.0-44.0); MEAN CORPUSCULAR HGB CONC 34 g/dl (31.0-36.0); MEAN CORPUSCULAR VOLUME 98 fL (80-96); MONOCYTES # (AUTO) 0.6 /CMM (0.1-1.30); MONOCYTES % (AUTO) 9.6 % (2.0-12.0); NEUTROPHILS # (AUTO) 3.6 /CMM (1.8-8.9); NEUTROPHILS % (AUTO) 60.6 % (43.0-81.0); PLATELET COUNT (AUTO) 91 /CMM (150-450); RED BLOOD CELL COUNT(AUTO) 3.39 MIL/uL (4.5-6.0); WHITE BLOOD COUNT (AUTO) 5.9 K/uL (4.3-11.0)
[2021-03-20 08:22] LABS: CALCIUM, SERUM 9.4 mg/dL (8.5-10.1); POTASSIUM 4.2 mmol/L (3.5-5.1)
[2021-03-20 08:24] LABS: CREATININE 10.9 mg/dL (0.6-1.3)
[2021-03-20] MEDS: LIDOCAINE 5% (PATCH) 1 EA PATCH TP SCH ×2 (09:00→09:11)
[2021-03-20] MEDS: ACIDOPHILUS/BULGARICUS 1 EACH GRAN.PACK GT SCH (09:10)
[2021-03-20] MEDS: HALOPERIDOL 5 MG TABLET GT SCH ×2 (09:10→17:34)
[2021-03-20] MEDS: GLIMEPIRIDE 1 MG TABLET GT SCH (09:10)
[2021-03-20] MEDS: BENZTROPINE MESYLATE (1 MG) 1 MG TABLET GT SCH ×3 (09:10→17:34)
[2021-03-20] MEDS: VIT B CMPLX 3/FA/VIT C/BIOTIN 1 TAB TABLET GT SCH (09:10)
[2021-03-20] MEDS: AMLODIPINE BESYLATE 5 MG TABLET GT SCH (09:11)
[2021-03-20] MEDS: FAMOTIDINE (20 MG) 20 MG TABLET GT SCH ×2 (09:11→17:35)
[2021-03-20] MEDS: VALPROIC ACID 250 MG/5 ML UDC GT SCH ×3 (09:12→17:34)
[2021-03-20] MEDS ORDERED: ZOLPIDEM TARTRATE 5 MG TABLET GT PRN (09:15)
[2021-03-20] MEDS ORDERED: MAG HYDROX/AL HYDROX/SIMETH 30 ML UDC GT PRN (09:15)
[2021-03-20] MEDS ORDERED: MAGNESIUM HYDROXIDE 30 ML UDC GT PRN (09:16)
[2021-03-20] MEDS ORDERED: G GT PRN (09:30)
[2021-03-20] MEDS: PROSOURCE / PROSTAT (PYXIS) 30 ML UDC GT SCH ×2 (10:13→17:46)
[2021-03-20] MEDS: DOCUSATE SODIUM LIQ 100 MG/10 ML UDC GT SCH (10:14)
[2021-03-20] MEDS: INSULIN REGULAR, HUMAN 100 UNIT/ML 3 ML VIAL SQ PRN ×2 (12:17→17:47)
[2021-03-20] MEDS: NEPRO 1,000 ML BOTTLE GT PRN (13:58)
[2021-03-20 16:00] VITALS: BP 128/70
[2021-03-20] MEDS: ACIDOPHILUS/BULGARICUS 1 EACH TAB.CHEW GT SCH (17:35)
--- NOTE | 2021-03-20 19:13 | NUR ---
RN CLOSING NOTES Patient is alert and responsive to verbal and physical stimuli. Patient is breathing even and unlabored. No c/o pain or discomfort. On nepro 60 cc/hour running well, patent. Patient will be monitored call light with in reach. HOB elevated to prevent aspiration. Patient had HD done with output of 1000 ml. Endorsed to next shift for AGAPITO.
[2021-03-20 20:00] VITALS: BP 151/81
--- NOTE | 2021-03-20 20:00 | NUR ---
RN NOTE RECEIVED PT IN BED , PT IS NON VERBAL BUT IS ABLE TO COMMUNICATE HIS NEEDS, PT IS ON 3L VIA TRACH SATING 98%. WILL CONTINUE WITH PLAN OF CARE.
[2021-03-20] MEDS: TRAZODONE 50 MG TABLET GT SCH (21:42)
[2021-03-20] MEDS: ATORVASTATIN 10 MG TABLET GT SCH (21:42)
[2021-03-20] MEDS: TERAZOSIN HCL 5 MG CAPSULE GT SCH (21:43)
[2021-03-21] MEDS: BLOOD SUGAR DIAGNOSTIC 1 EACH STRIP IN SCH ×4 (00:07→17:51)
[2021-03-21 04:00] VITALS: BP 158/72
[2021-03-21 06:33] LABS: BASOPHILS % (AUTO) 0.4 % (0.0-2.0); EOSINOPHILS % (AUTO) 3.4 % (0.0-6.0); HEMATOCRIT 31 % (39-51); HEMOGLOBIN 10.8 g/dL (13.5-17.5); LYMPHOCYTES # (AUTO) 1.5 /CMM (0.8-4.8); LYMPHOCYTES % (AUTO) 25.3 % (20.0-44.0); MEAN CORPUSCULAR HGB CONC 34 g/dl (31.0-36.0); MEAN CORPUSCULAR VOLUME 98 fL (80-96); MONOCYTES # (AUTO) 0.6 /CMM (0.1-1.30); MONOCYTES % (AUTO) 10.7 % (2.0-12.0); NEUTROPHILS # (AUTO) 3.5 /CMM (1.8-8.9); NEUTROPHILS % (AUTO) 60.2 % (43.0-81.0); PLATELET COUNT (AUTO) 89 /CMM (150-450); RED BLOOD CELL COUNT(AUTO) 3.21 MIL/uL (4.5-6.0); WHITE BLOOD COUNT (AUTO) 5.8 K/uL (4.3-11.0)
[2021-03-21 07:11] LABS: POTASSIUM 4.2 mmol/L (3.5-5.1)
[2021-03-21 07:16] LABS: CREATININE 9.8 mg/dL (0.6-1.3)
--- NOTE | 2021-03-21 07:16 | NUR ---
RN NOTE REPORT GIVEN TO ONCOMING SHIDFT FOR AGAPITO.
--- NOTE | 2021-03-21 07:55 | NUR ---
RN OPENING NOTE PATIENT IS IN BED WITH HOB AT SEMI FOWLERS POSITION. PATIENT IS ON 3L VIA TPIECE WITH NO SIGNS OF LABORED BREATHING. GTUBE IS IN PLACE. LWRIST #18 IS PATENT AND INTACT. BED IS LOCKED IN THE LOWEST POSITION, 3 GUARD RAILS RAISED, CALL SANCHEZ WITHIN REACH, AND ALL HOSPITAL SAFETY PRECAUTIONS ARE BEING FOLLOWED. WILL CONTINUE TO MONITOR THROUGHOUT SHIFT.
--- NOTE | 2021-03-21 07:57 | NUR ---
RT Pt received trached on T-piece with adequate SpO2. Spare trach and BVM by bedside. No SOB or respiratory distress noted. Addendum: 03/21/21 at 0844 by JASPER CHAPMAN RT Amended: Links added.
[2021-03-21 08:00] VITALS: BP 113/59
[2021-03-21] MEDS: LIDOCAINE 5% (PATCH) 1 EA PATCH TP SCH (08:53)
[2021-03-21] MEDS: VALPROIC ACID 250 MG/5 ML UDC GT SCH ×3 (08:54→16:07)
[2021-03-21] MEDS: VIT B CMPLX 3/FA/VIT C/BIOTIN 1 TAB TABLET GT SCH (08:54)
[2021-03-21] MEDS: GLIMEPIRIDE 1 MG TABLET GT SCH (08:54)
[2021-03-21] MEDS: BENZTROPINE MESYLATE (1 MG) 1 MG TABLET GT SCH ×3 (08:54→16:07)
[2021-03-21] MEDS: ACIDOPHILUS/BULGARICUS 1 EACH TAB.CHEW GT SCH ×2 (08:54→16:07)
[2021-03-21] MEDS: FAMOTIDINE (20 MG) 20 MG TABLET GT SCH ×2 (08:54→16:07)
[2021-03-21] MEDS: AMLODIPINE BESYLATE 5 MG TABLET GT SCH (08:54)
[2021-03-21] MEDS: HALOPERIDOL 5 MG TABLET GT SCH ×2 (08:54→16:07)
[2021-03-21] MEDS: DOCUSATE SODIUM LIQ 100 MG/10 ML UDC GT SCH (08:54)
[2021-03-21] MEDS: PROSOURCE / PROSTAT (PYXIS) 30 ML UDC GT SCH ×2 (09:19→16:08)
--- NOTE | 2021-03-21 10:17 | NUR ---
RN NOTE NOTIFIED DR. MANE OF NEGATIVE PCR RESULT. PATIENT OKAY FOR DC.
[2021-03-21] MEDS: NEPRO 1,000 ML BOTTLE GT PRN (14:13)
[2021-03-21 16:00] VITALS: BP 140/82
--- NOTE | 2021-03-21 18:24 | NUR ---
RN NOTE REPORT GIVEN TO EMT FOR AGAPITO. IV REMOVED. PATIENT IN STABLE CONDITION AT TIME OF DC.
== END 2021-03-21 18:38 | DRG 470 ==
LOC: ER 14:45 → TELE1 17:56 → MEDSG1 03-19 10:07
PROVIDERS: ADMIT Family Medicine; ATTEND Family Medicine
PROC: 5A1D70Z Performance of Urinary Filtration, Intermittent, Less than 6 Hours Per Day (ICD-10-PCS; principal; 2021-03-19)
DX: I12.0 Hypertensive chronic kidney disease with stage 5 chronic kidney disease or end stage renal disease (principal); J96.10 Chronic respiratory failure, unspecified whether with hypoxia or hypercapnia; E11.22 Type 2 diabetes mellitus with diabetic chronic kidney disease; Z93.0 Tracheostomy status; E11.42 Type 2 diabetes mellitus with diabetic polyneuropathy; R13.10 Dysphagia, unspecified; N25.0 Renal osteodystrophy; N18.6 End stage renal disease; Z20.822 Contact with and (suspected) exposure to COVID-19; D63.1 Anemia in chronic kidney disease; J98.11 Atelectasis; K21.9 Gastro-esophageal reflux disease without esophagitis; E11.41 Type 2 diabetes mellitus with diabetic mononeuropathy; H54.8 Legal blindness, as defined in USA; E78.5 Hyperlipidemia, unspecified; E11.65 Type 2 diabetes mellitus with hyperglycemia; Z79.4 Long term (current) use of insulin; Z99.2 Dependence on renal dialysis; Z89.512 Acquired absence of left leg below knee; Z93.1 Gastrostomy status; M62.562 Muscle wasting and atrophy, not elsewhere classified, left lower leg; M62.561 Muscle wasting and atrophy, not elsewhere classified, right lower leg; M10.9 Gout, unspecified; N40.0 Benign prostatic hyperplasia without lower urinary tract symptoms; M51.36 Other intervertebral disc degeneration, lumbar region; Z79.899 Other long term (current) drug therapy; Z91.15 Patient's noncompliance with renal dialysis; R74.8 Abnormal levels of other serum enzymes
CPT/HCPCS: 31720; 36415; 71045-TC; 80048-TC; 80061-TC; 80076-TC; 82962-TC; 83605-TC; 83690-TC; 83735-TC; 84100-TC; 84484-TC; 85025-TC; 85730-TC; 87040-TC; 87081-TC; 90935-TC; 94640-TC; 94664-TC; 94799-TC; A4623; C9803; G0378; J1815; J2405; J7030; J7050; Q9967; U0003

== ENCOUNTER 2021-04-29 17:55 | Emergency (ER) | payer OTHER ==
[~2021-04-29] VITALS: Ht 170.2 cm; Wt 83.9 kg
[~2021-04-29 17:55] MED LIST changes: +ACET325T53 GT; +AMIN887L GT; -AMLO-212 PO; +AMLO5TAB4 GT; -ASCO500T10 PO; +BENZ1TAB7 GT; -BENZ1TAB7 PO; -DIVA250T4 PO; +HALO5TAB GT; -HALO5TAB8 PO; +INSU100I34 SQ; -INSU100V7 SQ; -MULT-24 PO; +NUT.237L67 GT; +VALP250S4 GT; +VIT1TABL46 GT
--- NOTE | 2021-04-29 18:15 | NUR ---
BOB, FOR LOW BP 80/42 S/P HEMODIALYSIS, 800CC FLUID REMOVED. PATIENT A/OX3, BREATHING EVEN AND UNLABORED, DENIES ANY PAIN OR DISCOMFORT. BP UPON ARRIVAL HAS NORMALIZED. 108/68. DR. REZA AT BEDSIDE FOR EVAL.
--- NOTE | 2021-04-29 18:22 | NUR ---
BP IMPROVED, PER MD, CONTINUE TO MONITOR AT THIS TIME. BP 115/73
--- NOTE | 2021-04-29 18:50 | NUR ---
CALLED [facility] FOR TRANSPORT BACK TO FACILITY. ETA IS 90 MIN.
--- NOTE | 2021-04-29 19:27 | NUR ---
RECEIVED REPORT FOR AGAPITO, PATIENT IN BED RESTING, VSS.
--- NOTE | 2021-04-29 19:36 | NUR ---
AWAITING NUCLEAR FUEL PROCESSING TECHNICIAN.
--- NOTE | 2021-04-29 19:44 | NUR ---
REPORT GIVEN TO DAGOBERTO MONSON AT [facility]
--- NOTE | 2021-04-29 21:30 | NUR ---
Patient discharged to facility in stable condition. Written and verbal after care instructions given. Patient verbalizes understanding of instruction. Ambulance transporting patient.
[2021-04-29 21:31] VITALS: BP 118/76
== END 2021-04-29 21:32 | disposition home or self-care (01) ==
LOC: ER 17:57
DX: I95.9 Hypotension, unspecified (principal); I12.0 Hypertensive chronic kidney disease with stage 5 chronic kidney disease or end stage renal disease; E11.22 Type 2 diabetes mellitus with diabetic chronic kidney disease; N18.6 End stage renal disease; Z99.2 Dependence on renal dialysis; E78.5 Hyperlipidemia, unspecified; M10.9 Gout, unspecified; Z79.899 Other long term (current) drug therapy

== ENCOUNTER 2021-05-29 07:52 | Inpatient (IN) | payer OTHER ==
[~2021-05-29] VITALS: Ht 167.6 cm; Wt 81.2 kg
--- NOTE | 2021-05-29 07:52 | NUR ---
PT BOB FROM [facility] FOR G TUBE REPLACEMENT. PT IS AAOX3 NON VERBAL, NOT IN RESPIRATORY DISTRESS, V/S STABLE, KEPT RESTED AND COMFORTABLE. WILL CONTINUE TO MONITOR.
--- NOTE | 2021-05-29 09:04 | NUR ---
CALLED [employer] MULTIPLE TIMES TO BRING UP G TUBE
[2021-05-29] MEDS ORDERED: LIDO30AD10 TP (09:25)
[2021-05-29] MEDS ORDERED: LANS30CA56 GT (09:25)
[2021-05-29] MEDS ORDERED: ERYT400S8 GT (09:25)
[2021-05-29] MEDS ORDERED: ALBU8.5H8 IH ×2 (09:25)
[2021-05-29] MEDS ORDERED: GLUC1KIT IM (09:25)
--- NOTE | 2021-05-29 10:00 | NUR ---
AT BEDSIDE FOR G TUBE REPLACEMENT.
--- NOTE | 2021-05-29 10:16 | NUR ---
LEFT VM FOR GI LICENSED MORTGAGE LOAN OFFICER
--- NOTE | 2021-05-29 10:30 | NUR ---
IV LINE ESTABLISHED BLOOD DRAWN AND SENT TO LAB.
[2021-05-29 10:41] LABS: BASOPHILS % (AUTO) 0.4 % (0.0-2.0); EOSINOPHILS % (AUTO) 3.9 % (0.0-6.0); HEMATOCRIT 42 % (39-51); HEMOGLOBIN 14.1 g/dL (13.5-17.5); LYMPHOCYTES % (AUTO) 18.7 % (20.0-44.0); MEAN CORPUSCULAR HGB CONC 34 g/dl (31.0-36.0); MEAN CORPUSCULAR VOLUME 98 fL (80-96); MONOCYTES # (AUTO) 0.6 K/uL (0.1-1.30); MONOCYTES % (AUTO) 10.9 % (2.0-12.0); NEUTROPHILS # (AUTO) 3.7 K/uL (1.8-8.9); NEUTROPHILS % (AUTO) 66.1 % (43.0-81.0); PLATELET COUNT (AUTO) 174 K/uL (150-450); WHITE BLOOD COUNT (AUTO) 5.6 K/uL (4.3-11.0)
--- NOTE | 2021-05-29 10:50 | NUR ---
CONCRETE VIBRATOR OPERATOR AT BEDSIDE FOR XRAY.
[2021-05-29 10:52] LABS: CALCIUM, SERUM 8.7 mg/dL (8.5-10.1); CREATININE 7.2 mg/dL (0.6-1.3); POTASSIUM 3.7 mmol/L (3.5-5.1)
--- NOTE | 2021-05-29 10:52 | NUR ---
CALLED NURSING SUP
[2021-05-29 10:57] LABS: BILIRUBIN,TOTAL 0.7 mg/dL (0.2-1.0)
[2021-05-29 10:58] LABS: ALBUMIN 3.6 g/dL (3.4-5.0); TOTAL PROTEIN, SERUM 7.5 g/dL (6.4-8.2)
--- NOTE | 2021-05-29 11:38 | NUR ---
LEFT VM FOR GI SUPERVISOR CONTINGENTS
--- NOTE | 2021-05-29 11:45 | NUR ---
GI OCEAN RESCUE LIEUTENANT AND ER MD CONSULT
--- NOTE | 2021-05-29 11:50 | NUR ---
LVM FOR GI CONSULT
--- NOTE | 2021-05-29 12:00 | NUR ---
LVM FOR GI ON CONSULT
[2021-05-29] MEDS ORDERED: DIATR MEGLU/DIATRIZOATE SODIUM 30 ML BOTTLE (GASTROGRAPHIN) ONE (12:09)
[2021-05-29] MEDS ORDERED: Z GUARD REMEDY 2 OZ OINT TP PRN (13:00)
[2021-05-29] MEDS ORDERED: ACETAMINOPHEN 325 MG TABLET PO PRN (13:00)
[2021-05-29] MEDS ORDERED: MAGNESIUM HYDROXIDE 30 ML UDC PO PRN (13:00)
[2021-05-29] MEDS ORDERED: CLONIDINE HCL 0.1 MG TABLET GT PRN (13:00)
[2021-05-29] MEDS ORDERED: HYDROCODONE/APAP 5/325MG TABLET PO PRN (13:00)
[2021-05-29] MEDS ORDERED: MAG HYDROX/AL HYDROX/SIMETH 30 ML UDC PO PRN (13:00)
[2021-05-29] MEDS ORDERED: ONDANSETRON HCL/PF 4 MG/2 ML VIAL IVP PRN (13:00)
[2021-05-29] MEDS ORDERED: VALPROIC ACID 250 MG/5 ML UDC ONE ×2 (13:21→17:03)
[2021-05-29] MEDS ORDERED: BENZTROPINE MESYLATE (1 MG) 1 MG TABLET ONE ×2 (13:21→17:04)
[2021-05-29] MEDS ORDERED: ALBUTEROL FS 2.5 MG/3 ML VIAL.NEB NEB PRN (13:30)
[2021-05-29] MEDS ORDERED: ALBUTEROL FS 2.5 MG/3 ML VIAL.NEB ONE ×2 (13:48→20:19)
[2021-05-29] MEDS: ALBUTEROL FS 2.5 MG/3 ML VIAL.NEB NEB SCH ×2 (13:52→20:35)
--- NOTE | 2021-05-29 13:55 | NUR ---
RT AT BEDSIDE FOR BREATHING TX.
[2021-05-29] MEDS: ERYTHROMYCIN ETHYLSUCCINATE 200 MG/5 ML SUSPENSION PO SCH ×2 (13:57→21:00)
[2021-05-29] MEDS: VALPROIC ACID 250 MG/5 ML UDC GT SCH ×2 (13:57→17:13)
[2021-05-29] MEDS: BENZTROPINE MESYLATE (1 MG) 1 MG TABLET GT SCH ×2 (13:57→17:13)
[2021-05-29] MEDS ORDERED: FAMOTIDINE (20 MG) 20 MG TABLET ONE (17:04)
[2021-05-29] MEDS: FAMOTIDINE (20 MG) 20 MG TABLET GT SCH (17:13)
--- NOTE | 2021-05-29 20:11 | NUR ---
RT AT BEDSIDE FOR SUCTIONING. PT ON MONITOR AND PULSE OX. VSS. PT RESTING COMFORTABLY.
[2021-05-29] MEDS: ATORVASTATIN 10 MG TABLET PO SCH (22:00)
[2021-05-29] MEDS: TRAZODONE 50 MG TABLET GT SCH (22:00)
[2021-05-29] MEDS: TERAZOSIN HCL 1 MG CAPSULE PO SCH (22:00)
--- NOTE | 2021-05-29 22:32 | NUR ---
AWAITING G TUBE INSERTION. UNABLE TO GIVE MEDS.
[2021-05-30] MEDS ORDERED: ALBUTEROL FS 2.5 MG/3 ML VIAL.NEB ONE (02:17)
[2021-05-30] MEDS: ALBUTEROL FS 2.5 MG/3 ML VIAL.NEB NEB SCH ×4 (02:25→20:19)
[2021-05-30 04:53] LABS: BASOPHILS % (AUTO) 0.3 % (0.0-2.0); EOSINOPHILS % (AUTO) 1.8 % (0.0-6.0); HEMATOCRIT 41 % (39-51); HEMOGLOBIN 13.6 g/dL (13.5-17.5); LYMPHOCYTES # (AUTO) 0.9 K/uL (0.8-4.8); LYMPHOCYTES % (AUTO) 15.3 % (20.0-44.0); MEAN CORPUSCULAR HGB CONC 33 g/dl (31.0-36.0); MEAN CORPUSCULAR VOLUME 98 fL (80-96); MONOCYTES # (AUTO) 0.6 K/uL (0.1-1.30); MONOCYTES % (AUTO) 10.1 % (2.0-12.0); NEUTROPHILS # (AUTO) 4.4 K/uL (1.8-8.9); NEUTROPHILS % (AUTO) 72.5 % (43.0-81.0); PLATELET COUNT (AUTO) 180 K/uL (150-450); RED BLOOD CELL COUNT(AUTO) 4.17 MIL/uL (4.5-6.0)
[2021-05-30] MEDS: ERYTHROMYCIN ETHYLSUCCINATE 200 MG/5 ML SUSPENSION PO SCH ×3 (05:00→21:25)
[2021-05-30 05:07] LABS: CALCIUM, SERUM 8.8 mg/dL (8.5-10.1); PHOSPHORUS 5.8 mg/dL (2.5-4.9); POTASSIUM 3.4 mmol/L (3.5-5.1)
[2021-05-30 05:15] LABS: THYROID STIMULATING HORMONE 0.941 uIU/mL (0.358-3.74)
[2021-05-30 05:31] LABS: CREATININE 8.8 mg/dL (0.6-1.3)
--- NOTE | 2021-05-30 06:07 | NUR ---
M/S [id number]
--- NOTE | 2021-05-30 06:37 | NUR ---
PT REPOSITIONED IN BED
--- NOTE | 2021-05-30 07:24 | NUR ---
RECEIVED REPORT FROM KERI TELLO FOR AGAPITO. PT IS ASLEEP ON BED EASILY AROUSABLE, NOT IN RESPIRATORY DISTRESS, V/S STABLE, KEPT RESTED AND COMFORTABLE. WILL CONTINUE TO MONITOR.
--- NOTE | 2021-05-30 07:29 | NUR ---
REPORT GIVEN TO KERI ALY FOR AGAPITO.
[2021-05-30] MEDS ORDERED: IV D5/ 0.9% NACL 1,000 ML IV ONE (07:30)
[2021-05-30 08:15] VITALS: BP 130/75
[2021-05-30 08:20] VITALS: BP 130/70
[2021-05-30] MEDS: FAMOTIDINE (20 MG) 20 MG TABLET GT SCH ×2 (08:57→16:22)
[2021-05-30] MEDS: VALPROIC ACID 250 MG/5 ML UDC GT SCH ×3 (08:57→16:23)
[2021-05-30] MEDS: LIDOCAINE 5% (PATCH) 1 EA PATCH TP SCH (08:59)
[2021-05-30] MEDS: VIT B CMPLX 3/FA/VIT C/BIOTIN 1 TAB TABLET GT SCH (08:59)
[2021-05-30] MEDS: BENZTROPINE MESYLATE (1 MG) 1 MG TABLET GT SCH ×3 (08:59→16:22)
[2021-05-30] MEDS: AMLODIPINE BESYLATE 5 MG TABLET GT SCH (08:59)
[2021-05-30] MEDS ORDERED: DOCUSATE SODIUM 100 MG CAPSULE PO SCH (09:00)
--- NOTE | 2021-05-30 09:31 | NUR ---
MS RN ADMITTING NOTES ADMITTED PT TO UNIT AT 0815 VIA GURNEY ACCOMPANIED BY RN ARIC MACARIO. PT IS AWAKE. ALERT, NON-VERBAL BUT USES GESTURES TO ANSWERS QUESTIONS. PT ORIENTED TO STAFF AND ROOM. PT WITH TRACH PORTEX #7 ON TRACH MASK AT 5LPM, TOLERATING WELL WITH SP02 OF 97% NOTED. PT WITH PIV'S NOTED ON RIGHT WRIST G#22 AND LFA G#20, BOTH INTACT, PATENT AND FLUSHES WELL, IVF OF D5 NS @ 65ML/HR STARTED. G-TUBE IN PLACE FR #20, NO DRAINAGE OR LEAKING NOTED AT G-TUBE STOMA WITH DRESSING C/D/I. ABDOMEN SOFT, NON-TENDER AND NON-DISTENDED. B/L LUNGS CLEAR ON AUSCULTATION. PERMA CATH ON R-UPPER CHEST WALL IN PLACE FOR HEMODIALYSIS. SAFETY MEASURES INITIATED: BED PLACED IN LOWEST LOCKED POSITION WITH SIDE-RAILS UP X2. CALL LIGHT PLACED W/IN REACH. WILL CONTINUE TO MONITOR PT.
--- NOTE | 2021-05-30 09:57 | NUR ---
RN NOTES HEMODIALYSIS VIA UPPER RCW HD CATH JUST STARTED BY HD NURSE TETE.
[2021-05-30] MEDS: NEPRO 1,000 ML BOTTLE GT PRN (11:30)
--- NOTE | 2021-05-30 13:04 | NUR ---
RN NOTES HEMODIALYSIS JUST FINISHED AND TOLERATED PROCEDURE. HD OUTPUT WAS 1,500ML. PERMA CATH DRESSING ON UPPER RCW CHANGED BY HD NURSE BILL, NO ACTIVE BLEEDING NOTED AT SITE. WILL CONTINUE TO MONITOR.
--- NOTE | 2021-05-30 14:18 | NUR ---
RN NOTES PT PLACED ON RESPIRATORY THERAPIST ON COOL AEROSOL T-PIECE AT 5LPM, PT TOLERATING WELL AT THIS TIME WITH SP02 >92%. NO SOB NOTED. WILL CONTINUE TO MONITOR.
[2021-05-30 15:54] VITALS: BP 155/93
[2021-05-30] MEDS: PROSOURCE / PROSTAT (PYXIS) 30 ML UDC GT SCH (16:23)
--- NOTE | 2021-05-30 18:49 | NUR ---
MS RN CLOSING NOTES PT IN BED AWAKE AT THIS TIME AND LYING AT MODERATE HIGH BACKREST POSITION. ALERT, NON-VERBAL BUT USES GESTURES TO ANSWERS QUESTIONS. PT IS LEGALLY BLIND AND FOLLOWS VERBAL COMMANDS. ON COOL AEROSOL T-PIECE PORTEX #7 AT 5LPM, TOLERATING WELL WITH NO SOB NOTED. PIV'S ON RIGHT WRIST G#22 AND LFA G#20 BOTH INTACT, PATENT AND FLUSHES WELL, IVF OF D5 NS @ 65ML/HR INFUSING WELL, NO S/S OF INFILTRATIONS NOTED. G-TUBE IN PLACE AND PATENT, NEPRO FEEDING AT 45ML/HR IN PROGRESS AND TOLERATING WELL. ASPIRATION PRECAUTIONS MAINTAINED. PERMA CATH ON R-UPPER CHEST WALL IN PLACE WITH DRESSING C/D/I. PT ABLE TO TURN FROM SIDE TO SIDE IN BED. ALL NEEDS AND CARE PROVIDED WELL. SAFETY MEASURES MAINTAINED: BED IN LOWEST LOCKED POSITION WITH SIDE-RAILS UP X2. CALL LIGHT W/IN REACH. WILL ENDORSE AGAPITO TO EXERCISE MANAGER NURSE.
--- NOTE | 2021-05-30 19:45 | NUR ---
MS RN NOTES PT IN BED AWAKE AT THIS TIME AND LYING AT MODERATE HIGH BACKREST POSITION. ALERT, NON-VERBAL BUT USES GESTURES TO ANSWERS QUESTIONS. PT IS LEGALLY BLIND AND FOLLOWS VERBAL COMMANDS. ON COOL AEROSOL T-PIECE PORTEX #7 AT 5LPM, TOLERATING WELL WITH NO SOB NOTED. IV'S ON RIGHT WRIST G#22 AND LFA G#20 BOTH INTACT, PATENT AND FLUSHES WELL, IVF OF D5 NS @ 65ML/HR INFUSING WELL, NO S/S OF INFILTRATIONS NOTED. G-TUBE IN PLACE AND PATENT, NEPRO FEEDING AT 45ML/HR IN PROGRESS AND TOLERATING WELL. ASPIRATION PRECAUTIONS MAINTAINED. PERMA CATH ON R-UPPER CHEST WALL IN PLACE WITH DRESSING . PT ABLE TO TURN FROM SIDE TO SIDE IN BED. ALL NEEDS AND CARE PROVIDED WELL. SAFETY MEASURES MAINTAINED: BED IN LOWEST LOCKED POSITION WITH SIDE-RAILS UP X2. CALL LIGHT WITHIN REACH. WILL CONTINUE TO MONITOR.
[2021-05-30 20:00] VITALS: BP 156/90
[2021-05-30] MEDS: TRAZODONE 50 MG TABLET GT SCH (21:22)
[2021-05-30] MEDS: TERAZOSIN HCL 1 MG CAPSULE PO SCH (21:22)
[2021-05-30] MEDS: ATORVASTATIN 10 MG TABLET PO SCH (21:23)
[2021-05-31] MEDS: ALBUTEROL FS 2.5 MG/3 ML VIAL.NEB NEB SCH ×4 (01:55→19:55)
[2021-05-31] MEDS: ERYTHROMYCIN ETHYLSUCCINATE 200 MG/5 ML SUSPENSION PO SCH (05:05)
[2021-05-31 06:19] LABS: BASOPHILS % (AUTO) 0.4 % (0.0-2.0); EOSINOPHILS % (AUTO) 2.5 % (0.0-6.0); HEMATOCRIT 40 % (39-51); HEMOGLOBIN 13.3 g/dL (13.5-17.5); LYMPHOCYTES % (AUTO) 19.4 % (20.0-44.0); MEAN CORPUSCULAR HGB CONC 33 g/dl (31.0-36.0); MEAN CORPUSCULAR VOLUME 98 fL (80-96); MONOCYTES # (AUTO) 0.7 K/uL (0.1-1.30); MONOCYTES % (AUTO) 12.3 % (2.0-12.0); NEUTROPHILS # (AUTO) 3.5 K/uL (1.8-8.9); NEUTROPHILS % (AUTO) 65.4 % (43.0-81.0); PLATELET COUNT (AUTO) 164 K/uL (150-450); RED BLOOD CELL COUNT(AUTO) 4.06 MIL/uL (4.5-6.0); WHITE BLOOD COUNT (AUTO) 5.3 K/uL (4.3-11.0)
--- NOTE | 2021-05-31 06:42 | NUR ---
MS RN NOTES PT IN BED AWAKE AT THIS TIME AND LYING AT MODERATE HIGH BACKREST POSITION. ALERT, NON-VERBAL BUT USES GESTURES TO ANSWERS QUESTIONS. PT IS LEGALLY BLIND AND FOLLOWS VERBAL COMMANDS. ON COOL AEROSOL T-PIECE PORTEX #7 AT 5LPM, TOLERATING WELL WITH NO SOB NOTED. IV'S ON RIGHT WRIST G#22 AND LFA G#20 BOTH INTACT, PATENT AND FLUSHES WELL, G-TUBE IN PLACE AND PATENT, NEPRO FEEDING AT 45ML/HR IN PROGRESS AND TOLERATING WELL. ASPIRATION PRECAUTIONS MAINTAINED. ALL NEEDS AND CARE PROVIDED WELL. SAFETY MEASURES MAINTAINED: BED IN LOWEST LOCKED POSITION WITH SIDE-RAILS UP X2. CALL LIGHT WITHIN REACH. WILL ENDORSE CARE TO DAY SHIFT NURSE.
[2021-05-31 06:49] LABS: ALBUMIN 3.3 g/dL (3.4-5.0); BILIRUBIN,TOTAL 0.9 mg/dL (0.2-1.0); CALCIUM, SERUM 8.6 mg/dL (8.5-10.1); MAGNESIUM 2.7 mg/dL (1.8-2.4); POTASSIUM 3.3 mmol/L (3.5-5.1); TOTAL PROTEIN, SERUM 7.2 g/dL (6.4-8.2)
[2021-05-31 06:56] LABS: CREATININE 7.7 mg/dL (0.6-1.3)
--- NOTE | 2021-05-31 07:47 | NUR ---
MS/RN OPENING NOTES RECEIVED PT IN BED AWAKE AT THIS TIME AND LYING AT MODERATE HIGH BACKREST POSITION. ALERT, NON-VERBAL BUT USES GESTURES TO ANSWERS QUESTIONS. PT IS LEGALLY BLIND AND FOLLOWS VERBAL COMMANDS. ON COOL AEROSOL T-PIECE PORTEX #7 AT 5LPM, TOLERATING WELL WITH NO SOB NOTED. IV'S ON RIGHT WRIST G#22 AND LFA G#20 BOTH INTACT, PATENT AND FLUSHES WELL, G-TUBE IN PLACE AND PATENT, NEPRO FEEDING AT 45ML/HR IN PROGRESS AND TOLERATING WELL. ASPIRATION PRECAUTIONS MAINTAINED. SAFETY PRECAUTIONS IN PLACED: BED IN LOWEST LOCKED POSITION WITH SIDE-RAILS UP X2. CALL LIGHT WITHIN REACH. WILL CONTINUE TO MONITOR PATIENT.
[2021-05-31 08:00] VITALS: BP 145/82
[2021-05-31] MEDS ORDERED: POTASSIUM CHLORIDE 20 MEQ POWDER PACKET GT ONE (08:30)
[2021-05-31] MEDS ORDERED: TERAZOSIN HCL 1 MG CAPSULE GT SCH (08:39)
--- NOTE | 2021-05-31 08:39 | NUR ---
MS/RN NOTES- DOCUSATE SODIUM CALLED PHARMACY AND REQUESTED FOR THEM TO CHANGE DOCUSATE SODIUM 100MG FROM GEL CAPSULE TO LIQUID FORM DUE TO PATIENT ON G-TUBE. PHARMACIST AGREED.
[2021-05-31] MEDS ORDERED: ATORVASTATIN 10 MG TABLET GT SCH (08:40)
[2021-05-31] MEDS ORDERED: ERYTHROMYCIN ETHYLSUCCINATE 200 MG/5 ML SUSPENSION GT SCH (08:40)
[2021-05-31] MEDS ORDERED: MAG HYDROX/AL HYDROX/SIMETH 30 ML UDC GT PRN (08:40)
[2021-05-31] MEDS ORDERED: HYDROCODONE/APAP 5/325MG TABLET GT PRN (08:41)
[2021-05-31] MEDS: VALPROIC ACID 250 MG/5 ML UDC GT SCH ×3 (08:44→16:15)
[2021-05-31] MEDS: DOCUSATE SODIUM LIQ 100 MG/10 ML UDC GT SCH (08:44)
[2021-05-31] MEDS: VIT B CMPLX 3/FA/VIT C/BIOTIN 1 TAB TABLET GT SCH (08:44)
[2021-05-31] MEDS: BENZTROPINE MESYLATE (1 MG) 1 MG TABLET GT SCH ×3 (08:44→16:15)
[2021-05-31] MEDS: AMLODIPINE BESYLATE 5 MG TABLET GT SCH (08:44)
[2021-05-31] MEDS: LIDOCAINE 5% (PATCH) 1 EA PATCH TP SCH (08:45)
[2021-05-31] MEDS: FAMOTIDINE (20 MG) 20 MG TABLET GT SCH ×2 (08:45→16:16)
[2021-05-31] MEDS: PROSOURCE / PROSTAT (PYXIS) 30 ML UDC GT SCH ×3 (08:45→16:16)
[2021-05-31] MEDS: ERYTHROMYCIN ETHYLSUCCINATE 200 MG/5 ML SUSPENSION GT SCH ×2 (14:08→22:05)
[2021-05-31] MEDS ORDERED: DIATR MEGLU/DIATRIZOATE SODIUM 30 ML BOTTLE (GASTROGRAPHIN) ONE (15:27)
--- NOTE | 2021-05-31 15:40 | NUR ---
MS/RN NOTES- J-TUBE PLACEMENT J-TUBE PLACEMENT DONE BY SINAN SOLORIO AT PATIENT'S BEDSIDE.
[2021-05-31 16:04] VITALS: BP 124/89
--- NOTE | 2021-05-31 19:27 | NUR ---
MS RN NOTES RECEIVED PT IN BED AWAKE AT THIS TIME AND LYING AT MODERATE HIGH BACKREST POSITION. ALERT, NON-VERBAL BUT USES GESTURES TO ANSWERS QUESTIONS. PT IS LEGALLY BLIND AND FOLLOWS VERBAL COMMANDS. ON COOL AEROSOL T-PIECE PORTEX #7 AT 5LPM, TOLERATING WELL WITH NO SOB NOTED. IV'S ON RIGHT WRIST G#22 AND LFA G#20 BOTH INTACT, PATENT AND FLUSHES WELL, J-TUBE IN PLACE AND PATENT, NEPRO FEEDING AT 45ML/HR IN PROGRESS AND TOLERATING WELL. ASPIRATION PRECAUTIONS MAINTAINED. SAFETY PRECAUTIONS IN PLACED: BED IN LOWEST LOCKED POSITION WITH SIDE-RAILS UP X2. CALL LIGHT WITHIN REACH. WILL CONTINUE TO MONITOR.
--- NOTE | 2021-05-31 19:31 | NUR ---
MS/RN CLOSING NOTES PT IN BED AWAKE AT THIS TIME AND LYING AT MODERATE HIGH BACKREST POSITION. ALERT, NON-VERBAL BUT USES GESTURES TO ANSWERS QUESTIONS. PT IS LEGALLY BLIND AND FOLLOWS VERBAL COMMANDS. ON COOL AEROSOL T-PIECE PORTEX #7 AT 5LPM, TOLERATING WELL WITH NO SOB NOTED. IV'S ON RIGHT WRIST G#22 AND LFA G#20 BOTH INTACT, PATENT AND FLUSHES WELL, G-TUBE IN PLACE AND PATENT, NEPRO FEEDING AT 45ML/HR IN PROGRESS AND TOLERATING WELL. ASPIRATION PRECAUTIONS MAINTAINED. SAFETY PRECAUTIONS IN PLACED: BED IN LOWEST LOCKED POSITION WITH SIDE-RAILS UP X2. CALL LIGHT WITHIN REACH. WILL ENDORSE TO THE NEXT SHIFT
[2021-05-31 20:00] VITALS: BP 148/86
[2021-05-31] MEDS: TRAZODONE 50 MG TABLET GT SCH (22:03)
[2021-06-01] MEDS: ALBUTEROL FS 2.5 MG/3 ML VIAL.NEB NEB SCH ×4 (01:56→19:20)
[2021-06-01] MEDS: NEPRO 1,000 ML BOTTLE GT PRN (03:11)
[2021-06-01] MEDS: ERYTHROMYCIN ETHYLSUCCINATE 200 MG/5 ML SUSPENSION GT SCH ×2 (05:05→14:58)
[2021-06-01 06:29] LABS: BASOPHILS % (AUTO) 0.5 % (0.0-2.0); EOSINOPHILS % (AUTO) 4.1 % (0.0-6.0); HEMATOCRIT 39 % (39-51); LYMPHOCYTES # (AUTO) 1.2 K/uL (0.8-4.8); LYMPHOCYTES % (AUTO) 24.8 % (20.0-44.0); MEAN CORPUSCULAR HGB CONC 33 g/dl (31.0-36.0); MEAN CORPUSCULAR VOLUME 98 fL (80-96); MONOCYTES # (AUTO) 0.5 K/uL (0.1-1.30); MONOCYTES % (AUTO) 10.4 % (2.0-12.0); NEUTROPHILS # (AUTO) 2.9 K/uL (1.8-8.9); NEUTROPHILS % (AUTO) 60.2 % (43.0-81.0); PLATELET COUNT (AUTO) 157 K/uL (150-450); RED BLOOD CELL COUNT(AUTO) 4.01 MIL/uL (4.5-6.0); WHITE BLOOD COUNT (AUTO) 4.7 K/uL (4.3-11.0)
--- NOTE | 2021-06-01 06:52 | NUR ---
MS RN NOTES PT IN BED AWAKE AT THIS TIME AND LYING AT MODERATE HIGH BACKREST POSITION. ALERT, NON-VERBAL BUT USES GESTURES TO ANSWERS QUESTIONS. PT IS LEGALLY BLIND AND FOLLOWS VERBAL COMMANDS. ON COOL AEROSOL T-PIECE PORTEX #7 AT 5LPM, TOLERATING WELL WITH NO SOB NOTED. NEPRO FEEDING AT 45ML/HR IN PROGRESS AND TOLERATING WELL. ASPIRATION PRECAUTIONS MAINTAINED. ALL NURSING NEEDS MET. ALL DUE MEDS GIVEN AND TOLERATED WELL. SAFETY PRECAUTIONS IN PLACED: BED IN LOWEST LOCKED POSITION WITH SIDE-RAILS UP X2. CALL LIGHT WITHIN REACH. WILL ENDORSE CARE.
[2021-06-01 07:24] LABS: CALCIUM, SERUM 8.6 mg/dL (8.5-10.1); POTASSIUM 3.6 mmol/L (3.5-5.1)
--- NOTE | 2021-06-01 07:25 | NUR ---
WOUND CARE CONSULT: PT PRESENTS WITH RT GREAT TOE WOUND, PRESENT ON ADMISSION. PT ALSO NOTED TO HAVE LEFT BELOW KNEE AMPUTATION AND SACRAL SCARRING, PRESENT ON ADMISSION. DPM CONSULT TO BE MADE TO DR QUINN. RECOMMENDATIONS MADE FOR SKIN PROTECTION. DISCUSSED WITH NURSING STAFF. MD IN AGREEMENT WITH PLAN OF CARE.
[2021-06-01 07:30] LABS: CREATININE 9.1 mg/dL (0.6-1.3)
[2021-06-01 08:00] VITALS: BP 145/88
[2021-06-01] MEDS: LIDOCAINE 5% (PATCH) 1 EA PATCH TP SCH (08:38)
[2021-06-01] MEDS: VALPROIC ACID 250 MG/5 ML UDC GT SCH ×3 (08:39→17:07)
[2021-06-01] MEDS: VIT B CMPLX 3/FA/VIT C/BIOTIN 1 TAB TABLET GT SCH (08:39)
[2021-06-01] MEDS: AMLODIPINE BESYLATE 5 MG TABLET GT SCH (08:39)
[2021-06-01] MEDS: BENZTROPINE MESYLATE (1 MG) 1 MG TABLET GT SCH ×3 (08:39→17:07)
[2021-06-01] MEDS: FAMOTIDINE (20 MG) 20 MG TABLET GT SCH ×2 (08:39→17:08)
[2021-06-01] MEDS: DOCUSATE SODIUM LIQ 100 MG/10 ML UDC GT SCH (08:40)
[2021-06-01] MEDS: PROSOURCE / PROSTAT (PYXIS) 30 ML UDC GT SCH ×3 (08:40→17:08)
--- NOTE | 2021-06-01 09:30 | NUR ---
MS/RN NOTES- DIALYSIS DIALYSIS NURSE CAME AND STARTED HEMODIALYSIS WITH THE PATIENT.
--- NOTE | 2021-06-01 14:06 | NUR ---
MS/RN NOTES-ERYTHROMYCIN ETHYLSUCCINATE CALLED AND FOLLOWED UP WITH THE PHARMACY REGARDING ERYTHROMYCIN ETHYLSUCCINATE MEDICATION. PER PHARMACIST THEY ARE MIXING THE MEDS RIGHT NOW. WILL SEND IT UP WHEN IT'S READY.
[2021-06-01 16:00] VITALS: BP 145/91
--- NOTE | 2021-06-01 19:13 | NUR ---
MS/RN CLOSING NOTES PATIENT IS MEDICALLY STABLE AND MD ORDERED DISCHARGE BACK TO SNF. ALL DISCHARGE INSTRUCTIONS GIVEN TO KERI URRUTIA AT [facility]. INSIDE PLANT SUPERVISOR TIME WILL BE AT 1930. PATIENT IN BED AWAKE AT THIS TIME AND LYING AT MODERATE HIGH BACKREST POSITION. ALERT, NON-VERBAL BUT USES GESTURES TO ANSWERS QUESTIONS. PT IS LEGALLY BLIND AND FOLLOWS VERBAL COMMANDS. ON COOL AEROSOL T-PIECE PORTEX #7 AT 5LPM, TOLERATING WELL WITH NO SOB NOTED. IV'S ON RIGHT WRIST G#22 AND LFA G#20 BOTH INTACT, PATENT AND FLUSHES WELL, G-TUBE IN PLACE AND PATENT, NEPRO FEEDING AT 45ML/HR IN PROGRESS AND TOLERATING WELL. ASPIRATION PRECAUTIONS MAINTAINED. SAFETY PRECAUTIONS IN PLACED: BED IN LOWEST LOCKED POSITION WITH SIDE-RAILS UP X2. CALL LIGHT WITHIN REACH. PATIENT ENDORSED TO THE NEXT SHIFT. INSIDE PLANT SUPERVISOR TRANSPORTATION ARRIVING SOON.
--- NOTE | 2021-06-01 20:00 | NUR ---
MS RN OPENING /DISCHARGE NOTE NOTES: RECEIVED PATIENT IN BED A/OX1 NO COMPLAIN OF PAIN AND DISCOMFORT, BED IN LOW POSITION, CALL LIGHTS WITHIN REACH, PATIENT WAS DUE FOR D/C TO FACILITY AWAITING FOR TRANSPORTATION, V/S ARE WNR, ON G TUBE FEEDING INFUSING WELL, ON TRACHEOSTOMY TUBE, NO SOB NOTED, O2 SAT 96-97, TRANSPORTATION CAME IN, ALL NEEDS MET, KEPT CLEAN AND DRY, REMOVED ID BADGE, ENDORSE DOCUMENT PATIENT LEFT AT 1955 ON STABLE CONDITION VIA [facility].
== END 2021-06-01 19:55 | DRG 252 ==
LOC: ER 07:57 → TRANSITION 14:09 → MED 05-30 06:14
PROVIDERS: ATTEND Hospitalist
PROC: 5A1D70Z Performance of Urinary Filtration, Intermittent, Less than 6 Hours Per Day (ICD-10-PCS; 2021-05-30)
PROC: 0D2DXUZ Change Feeding Device in Lower Intestinal Tract, External Approach (ICD-10-PCS; principal; 2021-05-31)
PROC: 5A1D70Z Performance of Urinary Filtration, Intermittent, Less than 6 Hours Per Day (ICD-10-PCS; 2021-06-01)
DX: K94.13 Enterostomy malfunction (principal); G93.1 Anoxic brain damage, not elsewhere classified; G93.49 Other encephalopathy; J96.10 Chronic respiratory failure, unspecified whether with hypoxia or hypercapnia; Z93.0 Tracheostomy status; E11.22 Type 2 diabetes mellitus with diabetic chronic kidney disease; R13.10 Dysphagia, unspecified; E11.41 Type 2 diabetes mellitus with diabetic mononeuropathy; I12.0 Hypertensive chronic kidney disease with stage 5 chronic kidney disease or end stage renal disease; D63.8 Anemia in other chronic diseases classified elsewhere; K21.9 Gastro-esophageal reflux disease without esophagitis; Z20.822 Contact with and (suspected) exposure to COVID-19; Z99.2 Dependence on renal dialysis; N18.6 End stage renal disease; Z89.512 Acquired absence of left leg below knee; E11.621 Type 2 diabetes mellitus with foot ulcer; L97.519 Non-pressure chronic ulcer of other part of right foot with unspecified severity; H54.8 Legal blindness, as defined in USA; E78.5 Hyperlipidemia, unspecified; E87.6 Hypokalemia; M20.41 Other hammer toe(s) (acquired), right foot; M10.9 Gout, unspecified; N40.0 Benign prostatic hyperplasia without lower urinary tract symptoms; Z79.899 Other long term (current) drug therapy; M19.90 Unspecified osteoarthritis, unspecified site; Z91.018 Allergy to other foods
CPT/HCPCS: 31720; 36415; 71045-TC; 74018; 80048-TC; 80053-TC; 80061-TC; 80164-TC; 83735-TC; 84100-TC; 84443-TC; 85025-TC; 85730-TC; 86706; 87081-TC; 87340; 90935-TC; 94640-TC; 94664-TC; 94761-TC; 94799-TC; A4623; C9803; G0378; J7042; Q9963

== ENCOUNTER 2021-10-26 18:17 | Emergency (ER) | payer OTHER ==
[~2021-10-26] VITALS: Ht 167.6 cm; Wt 67.1 kg
[~2021-10-26 18:17] MED LIST changes: -ACET325T53 GT; +ALBU8.5H8 IH; +ERYT400S8 GT; -GLIM1TAB18 GT; +GLUC1KIT IM; -HALO5TAB GT; -INSU100I34 SQ; +LANS30CA56 GT; +LIDO30AD10 TP; -LIDOCAINE PATCH TD
--- NOTE | 2021-10-26 18:43 | NUR ---
To ER bed 2, mirlande [facility] center for noted high blood pressure systolic over 200, non verbal, connected to monitor, awaiting md orders
[2021-10-26] MEDS ORDERED: hydrALAZINE HCL IV 20 MG VIAL ONE ×2 (19:14→20:30)
--- NOTE | 2021-10-26 19:23 | NUR ---
RFA #20G S/L; PATENT AND INTACT. BLOOD COLLECTED AND GIVEN TO LAB
[2021-10-26] MEDS: hydrALAZINE HCL IV 20 MG VIAL IV ONE ×2 (19:28→20:51)
[2021-10-26 19:43] LABS: CALCIUM, SERUM 8.8 mg/dL (8.5-10.1); CARBON DIOXIDE 25 mmol/L (21-32); CHLORIDE 99 mmol/L (98-107); CREATININE 4.2 mg/dL (0.6-1.3); GLUCOSE 115 mg/dL (74-106); POTASSIUM 3.4 mmol/L (3.5-5.1); SODIUM SERUM 134 mmol/L (136-145); UREA NITROGEN, BLOOD 29 mg/dL (7-18)
[2021-10-26 20:11] LABS: BASOPHILS % (AUTO) 0.5 % (0.0-2.0); EOSINOPHILS % (AUTO) 3.6 % (0.0-6.0); HEMATOCRIT 41 % (39-51); HEMOGLOBIN 13.8 g/dL (13.5-17.5); LYMPHOCYTES # (AUTO) 0.5 K/uL (0.8-4.8); LYMPHOCYTES % (AUTO) 10.3 % (20.0-44.0); MEAN CORPUSCULAR HGB CONC 34 g/dl (31.0-36.0); MEAN CORPUSCULAR VOLUME 96 fL (80-96); MONOCYTES # (AUTO) 0.3 K/uL (0.1-1.30); MONOCYTES % (AUTO) 6.7 % (2.0-12.0); NEUTROPHILS # (AUTO) 3.9 K/uL (1.8-8.9); NEUTROPHILS % (AUTO) 78.9 % (43.0-81.0); PLATELET COUNT (AUTO) 112 K/uL (150-450); RED BLOOD CELL COUNT(AUTO) 4.24 MIL/uL (4.5-6.0)
--- NOTE | 2021-10-26 21:28 | NUR ---
CALLED KARIN AT [facility] AT [phone] AND GAVE REPORT TO KARIN DORANTES, PT'S D/C. [facility] ETA: 90-120MIN
--- NOTE | 2021-10-26 23:24 | NUR ---
[facility] [address] AT BEDSIDE FOR PICKUP. ALL V/S STABLE BREATJING EVEN AND UNLABORED.
--- NOTE | 2021-10-26 23:45 | NUR ---
PT TRANSPORTED BY [facility] WITHOUT INCIDENT. ALL V/S STABLE AT TIME OF TRANSFER.
[2021-10-26 23:51] VITALS: BP 160/87
== END 2021-10-26 23:52 ==
LOC: ER 18:19
DX: I12.0 Hypertensive chronic kidney disease with stage 5 chronic kidney disease or end stage renal disease (principal); N18.6 End stage renal disease; Z99.2 Dependence on renal dialysis; Z91.018 Allergy to other foods; Z79.899 Other long term (current) drug therapy
CPT/HCPCS: 36415; 71045; 80048; 84484; 85025; 93005; 96374; 96376; 99285; J0360 ×2

== ENCOUNTER 2021-11-11 20:52 | Emergency (ER) | payer OTHER ==
[~2021-11-11] VITALS: Ht 182.9 cm; Wt 83.5 kg
--- NOTE | 2021-11-11 21:00 | NUR ---
PT BIBPA C/O HIGH BLOOD PRESSURE S/P COMPLETED DIALYSIS TODAY. PT NONVERBAL, PER EMS, PT AT BASELINE. PT ATTACHED TO MONITOR AND POX. UPON ASSESSMENT, PT HAS T COLLAR AT 3L O2 AND LT BKA. FLORES AT BEDSIDE. PT GIVEN BLANKET AND CALL LIGHT WITHIN REACH
[2021-11-11] MEDS ORDERED: AMLODIPINE BESYLATE 5 MG TABLET ONE (21:23)
[2021-11-11] MEDS ORDERED: CLONIDINE HCL 0.1 MG TABLET ONE (21:24)
[2021-11-11] MEDS ORDERED: CLONIDINE HCL 0.1 MG TABLET PO ONE (21:30)
[2021-11-11] MEDS ORDERED: AMLODIPINE BESYLATE 5 MG TABLET PO ONE (21:30)
--- NOTE | 2021-11-11 22:53 | NUR ---
CALLED [facility] FOR BLS TRANSPORT. ETA 2.5 HOURS
--- NOTE | 2021-11-12 00:11 | NUR ---
GAVE REPORT TO EMS
--- NOTE | 2021-11-12 00:11 | NUR ---
Patient discharged to home in stable condition. Written and verbal after care instructions given. Patient verbalizes understanding of instruction. Pt awaiting ride from em[facility]
--- NOTE | 2021-11-12 00:12 | NUR ---
ATTEMPTED TO GIVE REPORT TO [facility], KEPT ON HOLD
--- NOTE | 2021-11-12 00:12 | NUR ---
Laurie chan in [facility] - 11/12/21 at 0032 by RUT ATTEMPTED TO GIVE REPORT, KEPT ON HOLD
--- NOTE | 2021-11-12 00:31 | NUR ---
ATTEMPTED TO GIVE REPORT TO [facility]
[2021-11-12 01:03] VITALS: BP 190/99
== END 2021-11-12 00:30 | disposition home or self-care (01) ==
LOC: ER 20:56
DX: I12.0 Hypertensive chronic kidney disease with stage 5 chronic kidney disease or end stage renal disease (principal); E11.22 Type 2 diabetes mellitus with diabetic chronic kidney disease; N18.6 End stage renal disease; D63.1 Anemia in chronic kidney disease; J96.10 Chronic respiratory failure, unspecified whether with hypoxia or hypercapnia; Z93.0 Tracheostomy status; E78.5 Hyperlipidemia, unspecified; M19.90 Unspecified osteoarthritis, unspecified site; M10.9 Gout, unspecified; F32.9 Major depressive disorder, single episode, unspecified; F25.9 Schizoaffective disorder, unspecified; Z98.890 Other specified postprocedural states; Z99.2 Dependence on renal dialysis; Z91.018 Allergy to other foods; Z79.899 Other long term (current) drug therapy

== ENCOUNTER 2021-12-02 18:20 | Emergency (ER) | payer OTHER ==
[~2021-12-02] VITALS: Ht 182.9 cm; Wt 81.6 kg
--- NOTE | 2021-12-02 19:40 | NUR ---
PT BIBPA [facility] C/O HIGH BP S/P HD Tx NOTED TO BE 202/107. PATIENT IS A/O, RR EVEN UNLABORED, NO SOB NOTED. PATIENT CONNECTED TO CARDIAC AND POX MONITORS. VSS.
--- NOTE | 2021-12-02 19:43 | NUR ---
V/S BP: 169/67 RR18 02: 99% 5L
--- NOTE | 2021-12-02 19:52 | NUR ---
CALLED [facility] ETA [phone]
--- NOTE | 2021-12-02 20:26 | NUR ---
CLONIDINE 0.2 MG MD VERBAL ORDER
[2021-12-02] MEDS ORDERED: CLONIDINE HCL 0.1 MG TABLET ONE (20:28)
[2021-12-02] MEDS ORDERED: CLONIDINE HCL 0.1 MG TABLET GT ONE (21:00)
--- NOTE | 2021-12-02 21:15 | NUR ---
CALLED FACILITY FOR REPORT. NO FULL STACK WEB DEVELOPER.
--- NOTE | 2021-12-02 21:17 | NUR ---
REPORT GIVEN TO [facility] FOR TRANSPORT BACK TO FACILITY
[2021-12-03] MEDS ORDERED: LORAZEPAM INJ 2 MG/ML VIAL ONE (05:41)
[2021-12-03] MEDS ORDERED: LORAZEPAM INJ 2 MG/ML VIAL IM ONE (06:00)
--- NOTE | 2021-12-03 09:07 | NUR ---
CALLED [facility] ETA IS 60 MINS.
[2021-12-03] MEDS ORDERED: CLONIDINE HCL 0.1 MG TABLET ONE (10:26)
[2021-12-03] MEDS ORDERED: CLONIDINE HCL 0.1 MG TABLET PO ONE (10:30)
--- NOTE | 2021-12-03 10:40 | NUR ---
REPORT GIVEN TO EMT FOR PT TRANSFER BACK TO FACILITY.
[2021-12-03] MEDS ORDERED: NITROGLYCERIN PACKET 1 GM PACKET ONE (11:58)
[2021-12-03] MEDS ORDERED: NITROGLYCERIN PACKET 1 GM PACKET TOP ONE (12:00)
--- NOTE | 2021-12-03 12:10 | NUR ---
CALLED [facility] FOR TRANSPORT AGAIN. ETA 45 MINS PER GERALD.
[2021-12-03 12:43] VITALS: BP 167/86
--- NOTE | 2021-12-03 12:46 | NUR ---
REPORT GIVEN TO EMT FOR PT TRANSFER BACK TO FACILITY.
[2021-12-03] MEDS ORDERED: GLIM1TAB18 GT (16:15)
[2021-12-03] MEDS ORDERED: INSU100V36 SQ (16:15)
== END 2021-12-03 12:53 | disposition hospice, inpatient (51) ==
LOC: ER 18:45
DX: I12.0 Hypertensive chronic kidney disease with stage 5 chronic kidney disease or end stage renal disease (principal); E11.22 Type 2 diabetes mellitus with diabetic chronic kidney disease; N18.6 End stage renal disease; D63.1 Anemia in chronic kidney disease; E78.5 Hyperlipidemia, unspecified; M19.90 Unspecified osteoarthritis, unspecified site; M10.9 Gout, unspecified; F32.9 Major depressive disorder, single episode, unspecified; F25.9 Schizoaffective disorder, unspecified; Z99.2 Dependence on renal dialysis; Z98.890 Other specified postprocedural states; Z91.018 Allergy to other foods; Z79.899 Other long term (current) drug therapy
CPT/HCPCS: 96372; 99285; J2060

== ENCOUNTER 2021-12-03 14:33 | Inpatient (IN) | payer OTHER ==
[~2021-12-03] VITALS: Ht 182.9 cm; Wt 72.6 kg
--- NOTE | 2021-12-03 14:36 | NUR ---
TO ER BED 11, BOB FROM [facility] C/O HIGH BP 210 SYSTOLIC, WAS SENT TWICE BACK TO FACILITY BUT SENT BACK TWICE TO ER FOR SAME REASONS, CONNECTED TO MONITOR, SYSTOLIC BP 188, MADE COMFORTABLE, AWAITING MD ORDERS
[2021-12-03] MEDS ORDERED: LABETALOL 20 MG/4 ML VIAL IV ONE (15:00)
[2021-12-03] MEDS ORDERED: LABETALOL HCL IV 100MG VIAL ONE (15:04)
[2021-12-03 15:20] LABS: BASOPHILS # (AUTO) 0.1 K/uL (0.0-0.2); BASOPHILS % (AUTO) 1.1 % (0.0-2.0); EOSINOPHILS % (AUTO) 0.4 % (0.0-6.0); HEMATOCRIT 32 % (39-51); HEMOGLOBIN 10.7 g/dL (13.5-17.5); LYMPHOCYTES # (AUTO) 0.7 K/uL (0.8-4.8); LYMPHOCYTES % (AUTO) 13.9 % (20.0-44.0); MEAN CORPUSCULAR HGB CONC 34 g/dl (31.0-36.0); MEAN CORPUSCULAR VOLUME 93 fL (80-96); MONOCYTES # (AUTO) 0.4 K/uL (0.1-1.30); MONOCYTES % (AUTO) 7.3 % (2.0-12.0); NEUTROPHILS # (AUTO) 3.9 K/uL (1.8-8.9); NEUTROPHILS % (AUTO) 77.3 % (43.0-81.0); PLATELET COUNT (AUTO) 328 K/uL (150-450); RED BLOOD CELL COUNT(AUTO) 3.43 MIL/uL (4.5-6.0); WHITE BLOOD COUNT (AUTO) 5.1 K/uL (4.3-11.0)
[2021-12-03 15:30] LABS: CALCIUM, SERUM 9.6 mg/dL (8.5-10.1); CREATININE 5.7 mg/dL (0.6-1.3); POTASSIUM 3.8 mmol/L (3.5-5.1)
--- NOTE | 2021-12-03 15:44 | NUR ---
DR. RODRIGUEZ ON PHONE CALL WITH DR. QUINTERO
[2021-12-03] MEDS ORDERED: GLIM1TAB18 GT (16:15)
[2021-12-03] MEDS ORDERED: INSU100V36 SQ (16:15)
--- NOTE | 2021-12-03 18:50 | NUR ---
BED ASSIGNED, 119-2, AFTER 1999
--- NOTE | 2021-12-03 19:02 | NUR ---
MIRTA BLANCAS [facility] NURSE AT PT'S BEDSIDE
[2021-12-03] MEDS ORDERED: NEPRO VAN 237 ML CAN GT SCH (19:30)
[2021-12-03] MEDS ORDERED: ALBUTEROL FS 2.5 MG/3 ML VIAL.NEB IH PRN (20:00)
--- NOTE | 2021-12-03 20:01 | NUR ---
REPORT GIVEN TO KELLE
[2021-12-03] MEDS ORDERED: CLONIDINE HCL 0.1 MG TABLET ONE (20:25)
[2021-12-03] MEDS: CLONIDINE HCL 0.1 MG TABLET GT PRN (20:30)
--- NOTE | 2021-12-03 20:47 | NUR ---
PT TRANSPORTED TO ROOM 119-2 ON GYM TEACHER PER ACLS PROTOCOL WITHOUT INCIDENT.
[2021-12-03 20:50] VITALS: BP 188/106
--- NOTE | 2021-12-03 21:00 | NUR ---
RN NOTES: AT AROUND 2029 RECEIVED ENDORSEMENT FROM BLADIMIR/RN/ER PATIENT WAS BROUGHT YESTERDAY AFTER DIALYSIS, HE WAS DISCHARGE 2X DUE TO UNCONTROLLED BP, PATIENT IS KNOWN CASE OF ESRD ON HD Q --, HE HAS TRACH-TO T-PIECE WITH O2 AT 5L/MIN, HE HAS LEFT BELOW KNEE AMPUTATION, LEGALLY BLIND, A/OX0, NON VERBAL, AGITATED AND RESTLESS, HE CAME FROM [facility], SKIN IS INTACT, HE RECEIVED LABETALOL 20 MG IV IN ER, IV SITE:[facility] G#20 HD SITE:C.
--- NOTE | 2021-12-03 21:05 | NUR ---
RN NOTES: -NEW ADMIT 46 Y.O., MALE FROM [facility], BROUGHT IN VIA GURNEY, ACCOMPANIED BY 2 ER STAFF NURSE ON BAND MASTER WITH DX:UNCONTROLLED HTN JNY=338, ALSO KNOWN CASE OF HTN, HYPERLIPIDEMIA, RESPIRATORY FAILURE, ON TRACT T-PIECE WITH O2 AT 5L/MIN, DYSPHAGIA-ON NPO,HE HAS PEG TUBE, DRESSING IS INTACT, HD SITE: RUC-QUANTUM CATH(23CM), HD Q --, HE HAS BPH, DM, MAJOR DEPRESSIVE DISORDER, SCHIZOAFFECTIVE OA, GOUT ANEMIA, MUSCLE WASTING ATROPHY.NO SOB , NOTED WITH ON AND OFF COUGH. - V/S CHECKED BP -188/106, A LITTLE BIT LOWER THAN IN ER SBP-210, ORIENTED TO UNIT AND STAFF, HE IS LISTENING TO INSTRUCTION AND FOLLOWING ONCE COMPLETE INSTRUCTION IS GIVEN. -BODY ASSESSMENT DONE: 1)LEFT BELOW THE KNEE AMPUTATION 2)IV SITE: RFA G#20 3)PEG SITE PATENT AND DRESSING CHANGE 4)QUANTUM CATH DRESSING IN RUC --DRESSING CHANGE. 5)SACRAL AREA HAS PRESSURE SORE SCAR- SKIN IS INTACT NO OPENING 6)RIGHT FOOT DRYNESS WITH SKIN DESQUAMATION. Addendum: 12/04/21 at 0315 by KELLE OCONNELL RN ADDITIONAL NOTES: -PATIENT HAS NO RELATIVE OR ANY FRIEND CONTACT.
[2021-12-03] MEDS: ATORVASTATIN 10 MG TABLET GT SCH (22:07)
[2021-12-03] MEDS: TRAZODONE 50 MG TABLET GT SCH (22:07)
[2021-12-03] MEDS: TERAZOSIN HCL 5 MG CAPSULE GT SCH (22:07)
--- NOTE | 2021-12-03 22:44 | NUR ---
RN NOTES: -AROUND 2229 PATIENT VOMITED ONCE AFTER ROUTINE MEDICATION GIVEN VIA PEG-TUBE, HE VOMITED FLUIDS ONLY COLORLESS,BP REMAINS 180/100, CALLED DR. QUINTERO, NOTIFIED REGARDING PATIENT PROJECTILE VOMITING AND BP, HE RECEIVED CATAPRES FROM ER, HE SAID JUST CONTINUE WITH THE PRN MEDICATION FOR BP AND ADDED ZOFRAN PRN FOR VOMITING.
[2021-12-03] MEDS: ALBUTEROL FS 2.5 MG/3 ML VIAL.NEB IH SCH (23:00)
[2021-12-03] MEDS ORDERED: ONDANSETRON HCL/PF 4 MG/2 ML VIAL IV PRN (23:00)
[2021-12-03] MEDS ORDERED: ALBUTEROL SULFATE INH 18 GM HFA.AER.AD ONE (23:42)
--- NOTE | 2021-12-03 23:59 | NUR ---
RN NOTES: -AROUND 2230 F/U WITH [facility] REHABILITATION CLERK IF ALBUTEROL INHALER IS AVAILABLE,SHE WILL BRING TO AL. -INHALER HANDED TO RN, CALLED [facility] AND REQUESTED TO BRING ADAPTOR, PATIENT GIVEN INHALATION WITH THE HELP OF RT.
[2021-12-04] VITALS: BP 168/100
--- NOTE | 2021-12-04 00:04 | NUR ---
RN NOTES: -STILL WITH ON AND OFF COUGH, BUT THIS TIME HE WAS ABLE TO SLEEP AND REST, HE LOOKS MORE RELAX AND NOT RESTLESS IN BED, HE WAS ABLE TO TAKE A NAP, NO SOB OR SIGN OF RESPIRATORY DISTRESS ON CLOSE WATCH.
[2021-12-04] MEDS: CLONIDINE HCL 0.1 MG TABLET GT PRN (01:24)
--- NOTE | 2021-12-04 01:24 | NUR ---
KERI NOTES: LATEST BP-168/100,RG FRANKLIN GIVEN. Addendum: 12/04/21 at 0453 by KELLE OCONNELL RN ADDED NOTES: AT 0230 BP RECHECKED BP-160/98
[2021-12-04 04:00] VITALS: BP 161/103
[2021-12-04] MEDS ORDERED: NEPRO 1,000 ML BOTTLE GT PRN (04:00)
--- NOTE | 2021-12-04 07:00 | NUR ---
RN NOTES: AWAKE IN BETWEEN, NO SIGN OF SOB, HE LOOKS MORE RELAX, HE IS STARTING TO GET RESTLESS IF BP IS CHECKED, NEED TO EXPLAIN IT TO HIM THOROUGHLY SO THAT HE WILL NOT GET ANXIOUS, FOR BLOOD TEST THIS MORNING, REMAINS IN SINUS RHYTHM- RATE=90, NEPHRO IS NOT AVAILABLE LAST NIGHT, TO BE FOLLOWED UP THIS MORNING,TO F/U BLOOD SUGAR CHECK AND SLIDING SCALE WITH ATTENDING DOCTOR, FOR HD TODAY. ENDORSED FOR CONTINUITY OF CARE.
[2021-12-04 07:34] LABS: BASOPHILS % (AUTO) 0.3 % (0.0-2.0); EOSINOPHILS % (AUTO) 1.7 % (0.0-6.0); HEMATOCRIT 28 % (39-51); HEMOGLOBIN 9.2 g/dL (13.5-17.5); LYMPHOCYTES # (AUTO) 0.6 K/uL (0.8-4.8); LYMPHOCYTES % (AUTO) 12.5 % (20.0-44.0); MEAN CORPUSCULAR HGB CONC 33 g/dl (31.0-36.0); MEAN CORPUSCULAR VOLUME 94 fL (80-96); MONOCYTES # (AUTO) 0.5 K/uL (0.1-1.30); MONOCYTES % (AUTO) 11.2 % (2.0-12.0); NEUTROPHILS # (AUTO) 3.3 K/uL (1.8-8.9); NEUTROPHILS % (AUTO) 74.3 % (43.0-81.0); PLATELET COUNT (AUTO) 152 K/uL (150-450); RED BLOOD CELL COUNT(AUTO) 2.99 MIL/uL (4.5-6.0); WHITE BLOOD COUNT (AUTO) 4.4 K/uL (4.3-11.0)
[2021-12-04 07:56] LABS: CALCIUM, SERUM 8.6 mg/dL (8.5-10.1); CREATININE 6.4 mg/dL (0.6-1.3); MAGNESIUM 2.8 mg/dL (1.8-2.4); PHOSPHORUS 4.5 mg/dL (2.5-4.9); POTASSIUM 3.8 mmol/L (3.5-5.1)
[2021-12-04 08:00] VITALS: BP 194/95
[2021-12-04] MEDS: LIDOCAINE 5% (PATCH) 1 EA PATCH TP SCH (08:48)
[2021-12-04] MEDS: AMLODIPINE BESYLATE 5 MG TABLET GT SCH (08:49)
[2021-12-04] MEDS: LACTOBACILLUS RHAMNOSUS GG 1 EACH CAP.SPRINK GT SCH (08:49)
[2021-12-04] MEDS: VALPROIC ACID 250 MG/5 ML UDC GT SCH ×3 (08:49→17:10)
[2021-12-04] MEDS: LOSARTAN POTASSIUM 50 MG TABLET PO SCH (08:49)
[2021-12-04] MEDS: DOCUSATE SODIUM 100 MG CAPSULE PO SCH (08:49)
[2021-12-04] MEDS: BENZTROPINE MESYLATE (1 MG) 1 MG TABLET GT SCH ×3 (08:50→17:10)
[2021-12-04] MEDS: FAMOTIDINE (20 MG) 20 MG TABLET GT SCH ×2 (08:50→23:26)
[2021-12-04] MEDS ORDERED: AMLODIPINE BESYLATE 5 MG TABLET GT SCH (09:00)
[2021-12-04] MEDS: GLIMEPIRIDE 1 MG TABLET GT SCH (09:25)
[2021-12-04] MEDS: ALBUTEROL FS 2.5 MG/3 ML VIAL.NEB IH SCH ×3 (09:25→17:10)
[2021-12-04 12:00] VITALS: BP 194/95
[2021-12-04] MEDS ORDERED: EPOETIN ALFA-EPBX 10,000 UNIT/ML VIAL IV ONE (15:00)
[2021-12-04 16:00] VITALS: BP 174/83
--- NOTE | 2021-12-04 17:39 | NUR ---
telecommunications switch technician note agitated and not allowed to do tx not has broken nail on rt d foot and bleeding , called to dr galaviz with order Ativan 1 mg ivp q6 hour , order carried out
[2021-12-04] MEDS ORDERED: LORAZEPAM INJ 2 MG/ML VIAL IV PRN (18:00)
--- NOTE | 2021-12-04 19:20 | NUR ---
RN NOTE PT AWAKE IN BED, VERBAL WITH CONFUSION. REORIENTATION PROVIDED. RESPIRATIONS EVEN/UNLABORED. ON O2 @5LPM VIA T-PIECE. IV SITE: RFA #20G INTACT/PATENT/FLUSHES WELL. HD ACCESS: R-SUBCLAVIAN INTACT, DRESSING C/D/I. PT STARTING DIALYSIS NOW WITH HD NURSE AT BEDSIDE. GT IN PLACE/PATENT, 5CC RESIDUAL. GTF NEPRO @30ML/HR AND PAPI WELL. PT IN NO ACUTE DISTRESS. SAFETY MEASURES IN PLACE. WILL CONT TO MONITOR.
--- NOTE | 2021-12-04 19:47 | NUR ---
RN CLOSING NOTES PT ON 4L T-PIECE ASLEEP. RUNNING NEPHRO 30CC WITH GOAL OF 60CC. PT RESTLESS AND THRASHING. ATIVAN GIVEN. DUE TO TRASHING PT KICKED BED AND R TOE NAIL BED CAME OFF. PICTURES TAKEN. PRESSURE WOUND PLACED. PT CURRENTLY GETTING HD. Addendum: 12/04/21 at 1957 by SRI DAVILA RN BILATERAL LEG AND WRIST RESTRAINTS PLACED.
--- NOTE | 2021-12-04 20:00 | NUR ---
RN NOTE CLARIFIED RESTRAINTS ORDER FOR YELENA.SOFT WRIST RESTRAINTS ONLY. PT THRASHING, PULLING ON LINES/TUBES. WILL CONT FREQUENT VISUAL CHECK Q15MIN.
--- NOTE | 2021-12-04 21:52 | NUR ---
RN NOTE ONGOING DIALYSIS AT THIS TIME. WILL GIVE MEDS AFTER DIALYSIS
[2021-12-04 22:00] VITALS: BP 147/89
--- NOTE | 2021-12-04 22:15 | NUR ---
RN NOTE PT QUIET/RELAXED. RELEASED YELENA.SOFT WRIST RESTRAINTS. WILL CONT TO MONITOR
--- NOTE | 2021-12-04 23:14 | NUR ---
RN NOTE DIALYSIS DONE. REPORT PER HD NURSECARISSA, TOTAL OUTPUT 3L Addendum: 12/05/21 at 0040 by GARY SORTO RN PT QUIET AND RELAXED. RELEASED SOFT WRIST RESTRAINTS. WILL CONT FREQUENT VISUAL CHECK
[2021-12-04] MEDS: TRAZODONE 50 MG TABLET GT SCH (23:26)
[2021-12-04] MEDS: ATORVASTATIN 10 MG TABLET GT SCH (23:26)
[2021-12-04] MEDS: TERAZOSIN HCL 5 MG CAPSULE GT SCH (23:28)
[2021-12-05] VITALS (7 sets, daily range): BP systolic 143–180; BP diastolic 85–99
[2021-12-05] MEDS: ALBUTEROL FS 2.5 MG/3 ML VIAL.NEB IH SCH ×5 (00:47→21:00)
[2021-12-05] MEDS: CLONIDINE HCL 0.1 MG TABLET GT PRN (06:29)
--- NOTE | 2021-12-05 06:30 | NUR ---
RN NOTE PT RESTING IN BED, EASILY AROUSABLE, PT IS VERBAL BUT WITH CONFUSION. REORIENTATION PROVIDED. PT TOLERATING GTF WELL WITH NO N/V NOTED. INCREASED GTF TO 40ML/HR. PT HAS BEEN CALM AND QUIET. WRIST RESTRAINTS NOT APPLIED. SAFETY MEASURES MAINTAINED.
[2021-12-05 07:23] LABS: BASOPHILS % (AUTO) 0.3 % (0.0-2.0); EOSINOPHILS % (AUTO) 2.3 % (0.0-6.0); HEMATOCRIT 30 % (39-51); HEMOGLOBIN 10.4 g/dL (13.5-17.5); LYMPHOCYTES # (AUTO) 0.7 K/uL (0.8-4.8); LYMPHOCYTES % (AUTO) 12.2 % (20.0-44.0); MEAN CORPUSCULAR HGB CONC 34 g/dl (31.0-36.0); MEAN CORPUSCULAR VOLUME 92 fL (80-96); MONOCYTES # (AUTO) 0.5 K/uL (0.1-1.30); MONOCYTES % (AUTO) 8.8 % (2.0-12.0); NEUTROPHILS # (AUTO) 4.2 K/uL (1.8-8.9); NEUTROPHILS % (AUTO) 76.4 % (43.0-81.0); PLATELET COUNT (AUTO) 162 K/uL (150-450); WHITE BLOOD COUNT (AUTO) 5.5 K/uL (4.3-11.0)
[2021-12-05 07:43] LABS: CREATININE 4.7 mg/dL (0.6-1.3); MAGNESIUM 2.5 mg/dL (1.8-2.4); POTASSIUM 3.8 mmol/L (3.5-5.1)
--- NOTE | 2021-12-05 07:46 | NUR ---
RN NOTES RECEIVED PATIENT AWAKE IN BED AO X1 WITH PERIOD OF CONFUSION, LEGALLY BLIND, NO COMPLAINTS OF PAIN, WITH T-PIECE @ 5LMP, GT WITH NEPRO RUNNING AT 40CC/HR NOT IN RESPIRATORY DISTRESS KEPT HOB ELEVATED. IV ACCESS RIGHT FOREARM G20 SALINE LOCK, HAD HD LAST NIGHT WITH 3L OUTPUT RIGHT SUBCLAVIAN. WOUND CONSULT FOR RIGHT TOENAIL. BED TO LOWEST POSITION AND LOCKED, CALL LIGHT WITHIN REACH
[2021-12-05] MEDS ORDERED: EPOETIN ALFA (10,000 UNIT) 10,000 UNIT/ML VIAL IV ONE (08:00)
[2021-12-05] MEDS: DOCUSATE SODIUM 100 MG CAPSULE PO SCH (09:04)
[2021-12-05] MEDS: FAMOTIDINE (20 MG) 20 MG TABLET GT SCH ×2 (09:04→21:53)
[2021-12-05] MEDS: LACTOBACILLUS RHAMNOSUS GG 1 EACH CAP.SPRINK GT SCH (09:04)
[2021-12-05] MEDS: VALPROIC ACID 250 MG/5 ML UDC GT SCH ×3 (09:04→17:30)
[2021-12-05] MEDS: GLIMEPIRIDE 1 MG TABLET GT SCH (09:04)
[2021-12-05] MEDS: LIDOCAINE 5% (PATCH) 1 EA PATCH TP SCH (09:05)
[2021-12-05] MEDS: AMLODIPINE BESYLATE 5 MG TABLET GT SCH (09:05)
[2021-12-05] MEDS: LOSARTAN POTASSIUM 50 MG TABLET PO SCH (09:06)
[2021-12-05] MEDS: BENZTROPINE MESYLATE (1 MG) 1 MG TABLET GT SCH ×3 (09:06→17:30)
--- NOTE | 2021-12-05 09:07 | NUR ---
WOUND CARE CONSULT: REVIEWED CHART, NURSING DOCUMENTATION AND PHOTOS WHICH INDICATE TOENAIL AVULSIONS. DR QUINN NOTIFIED OF DPM CONSULT REQUEST. PER NURSING STAFF, PT WAS PREVIOUSLY AGITATED. RECOMMENDATIONS MADE FOR SKIN PROTECTION. DISCUSSED WITH NURSING STAFF. MD IN AGREEMENT WITH PLAN OF CARE.
--- NOTE | 2021-12-05 09:19 | NUR ---
TREATMENT NOT GIVEN DUE TO PENDING COVID RESULT. KERI AWARED. Addendum: 12/05/21 at 0922 by JUDE AMAYA RT Amended: Links added.
[2021-12-05] MEDS ORDERED: DOXAZOSIN MESYLATE (4 MG) 4 MG TABLET PO SCH (11:00)
[2021-12-05] MEDS ORDERED: LABETALOL HCL (100MG) 100 MG TABLET PO SCH (11:00)
[2021-12-05] MEDS ORDERED: PHARMACY TO CHANGE PO MEDS TO GT/NG XX PRN (11:30)
[2021-12-05] MEDS: VITAMINS A AND D 56.7 GM TUBE TP SCH (17:30)
[2021-12-05] MEDS: DOXAZOSIN MESYLATE (4 MG) 4 MG TABLET GT SCH (17:30)
--- NOTE | 2021-12-05 18:54 | NUR ---
RN CLOSING NOTE PATIENT AWAKE IN BED AO X1 LEGALLY BLIND, NO COMPLAINTS OF PAIN, WITH T-PIECE @ 5LMP, GT WITH NEPRO RUNNING AT 50 CC/HR NOT IN RESPIRATORY DISTRESS KEPT HOB ELEVATED. IV ACCESS RIGHT FOREARM G20 SALINE LOCK, HAD HD LAST NIGHT WITH 3L OUTPUT RIGHT SUBCLAVIAN. SAFETY MEASURE IN PLACE . BED TO LOWEST POSITION AND LOCKED, CALL LIGHT WITHIN REACH WILL ENDORSE TO NIGHT NURSE FOR AGAPITO
--- NOTE | 2021-12-05 19:50 | NUR ---
RN NOTES RECEIVED PATIENT AWAKE IN BED AO X1, CONFUSED AT TIME. LEGALLY BLIND, NO COMPLAINTS OF PAIN, WITH T-PIECE @ 5LMP, GT WITH NEPRO RUNNING AT 50CC/HR NOT IN RESPIRATORY DISTRESS KEPT HOB ELEVATED. IV ACCESS RIGHT FOREARM G20 SALINE LOCK. PATIENT ON TELE MONITOR HR 74 SINUS RYTHM. BED TO LOWEST POSITION AND LOCKED, CALL LIGHT WITHIN REACH
--- NOTE | 2021-12-05 21:10 | NUR ---
TREATMENT NOT GIVEN DUE TO PENDING PCR RESULT. Addendum: 12/05/21 at 2111 by JUDE AMAYA RT Amended: Links added.
[2021-12-05] MEDS: TERAZOSIN HCL 5 MG CAPSULE GT SCH (21:52)
[2021-12-05] MEDS: LABETALOL HCL (100MG) 100 MG TABLET GT SCH (21:55)
[2021-12-05] MEDS: TRAZODONE 50 MG TABLET GT SCH (21:56)
[2021-12-05] MEDS: ATORVASTATIN 10 MG TABLET GT SCH (21:56)
[2021-12-06] VITALS: BP 140/89
[2021-12-06 04:00] VITALS: BP 131/81
--- NOTE | 2021-12-06 07:15 | NUR ---
RANCH HAND LIVESTOCK OPENING NOTES RECEIVED PATIENT AWAKE IN BED AO X1, CONFUSED AT TIME. LEGALLY BLIND, NO COMPLAINTS OF PAIN, WITH T-PIECE @ 5LMP, GT WITH NEPRO RUNNING AT 50CC/HR NOT IN RESPIRATORY DISTRESS KEPT HOB ELEVATED. IV ACCESS RIGHT FOREARM G20 SALINE LOCK. PATIENT ON TELE MONITOR HR 74 SINUS RYTHM. BED TO LOWEST POSITION AND LOCKED, CALL LIGHT WITHIN REACH. WILL CONTINUE TO MONITOR.
--- NOTE | 2021-12-06 07:31 | NUR ---
RN CLOSING NOTE NO CHANGES THROUGHOUT THE NIGHT, PATIENT REMAINS ON 5L T- PIECE SAT 100%. RESTING IN BED. WILL ENDORSE PLAN OF CARE TO AM NURSE.
[2021-12-06 08:00] VITALS: BP 124/81
[2021-12-06] MEDS: ALBUTEROL FS 2.5 MG/3 ML VIAL.NEB IH SCH ×4 (08:10→21:35)
[2021-12-06] MEDS: LACTOBACILLUS RHAMNOSUS GG 1 EACH CAP.SPRINK GT SCH (09:38)
[2021-12-06] MEDS: VALPROIC ACID 250 MG/5 ML UDC GT SCH ×3 (09:38→17:06)
[2021-12-06] MEDS: BENZTROPINE MESYLATE (1 MG) 1 MG TABLET GT SCH ×3 (09:38→17:06)
[2021-12-06] MEDS: AMLODIPINE BESYLATE 5 MG TABLET GT SCH (09:40)
[2021-12-06] MEDS: LOSARTAN POTASSIUM 50 MG TABLET GT SCH (09:40)
[2021-12-06] MEDS: LABETALOL HCL (100MG) 100 MG TABLET GT SCH ×2 (09:40→21:00)
[2021-12-06] MEDS: GLIMEPIRIDE 1 MG TABLET GT SCH (09:41)
[2021-12-06] MEDS: FAMOTIDINE (20 MG) 20 MG TABLET GT SCH ×2 (09:41→21:33)
[2021-12-06] MEDS: DOCUSATE SODIUM LIQ 100 MG/10 ML UDC GT SCH (09:42)
[2021-12-06] MEDS: LIDOCAINE 5% (PATCH) 1 EA PATCH TP SCH (09:43)
[2021-12-06] MEDS: VITAMINS A AND D 56.7 GM TUBE TP SCH ×2 (09:50→17:07)
[2021-12-06] MEDS: DOXAZOSIN MESYLATE (4 MG) 4 MG TABLET GT SCH ×2 (09:50→17:06)
[2021-12-06 12:00] VITALS: BP 134/78
[2021-12-06 16:00] VITALS: BP 106/68
--- NOTE | 2021-12-06 18:48 | NUR ---
RN NOTES REMAIN PT AWAKE IN BED AO X1, CONFUSED , NO COMPLAINTS OF PAIN, WITH T-PIECE @ 5LMP, HOB ELEVATED NO SOB AND DISTRESS NOTED. GT WITH NEPRO RUNNING AT 50CC/HR. IV ACCESS RIGHT FOREARM #20 SALINE LOCK. CHANGED THE WOUND DRESSING ON R FOOT PER ORDER. BED TO LOWEST POSITION AND LOCKED, CALL LIGHT WITHIN REACH. WILL CONTINUE TO MONITOR AND ENDORSE TO NOC SHIFT.
--- NOTE | 2021-12-06 19:52 | NUR ---
RN NOTES PT AWAKE IN BED AO X1, CONFUSED , NO COMPLAINTS OF PAIN, WITH T-PIECE @ 5LMP, HOB ELEVATED NO SOB AND DISTRESS NOTED. GT WITH NEPRO RUNNING AT 50CC/HR. IV ACCESS RIGHT FOREARM #20 SALINE LOCK. CHANGED THE WOUND DRESSING ON R FOOT PER ORDER. BED TO LOWEST POSITION AND LOCKED, CALL LIGHT WITHIN REACH. WILL CONTINUE TO MONITOR TO MONITOR.
[2021-12-06 20:00] VITALS: BP 100/70
[2021-12-06] MEDS: TRAZODONE 50 MG TABLET GT SCH (21:33)
[2021-12-06] MEDS: ATORVASTATIN 10 MG TABLET GT SCH (21:33)
[2021-12-06] MEDS: TERAZOSIN HCL 5 MG CAPSULE GT SCH (21:34)
[2021-12-07 01:04] VITALS: BP 112/71
[2021-12-07 04:00] VITALS: BP 135/80
--- NOTE | 2021-12-07 06:46 | NUR ---
RN NOTES PT AWAKE IN BED AO X1, CONFUSED , NO COMPLAINTS OF PAIN, WITH T-PIECE @ 4LMP, HOB ELEVATED NO SOB AND DISTRESS NOTED. GT WITH NEPRO RUNNING AT 50CC/HR. IV ACCESS RIGHT FOREARM #20 SALINE LOCK. BED TO LOWEST POSITION AND LOCKED, CALL LIGHT WITHIN REACH. WILL ENDORSE CARE TO DAY SHIFT NURSE.
[2021-12-07 07:37] LABS: BASOPHILS % (AUTO) 0.4 % (0.0-2.0); EOSINOPHILS % (AUTO) 6.2 % (0.0-6.0); HEMATOCRIT 35 % (39-51); HEMOGLOBIN 11.4 g/dL (13.5-17.5); LYMPHOCYTES # (AUTO) 0.9 K/uL (0.8-4.8); LYMPHOCYTES % (AUTO) 14.5 % (20.0-44.0); MEAN CORPUSCULAR HGB CONC 33 g/dl (31.0-36.0); MEAN CORPUSCULAR VOLUME 93 fL (80-96); MONOCYTES # (AUTO) 0.5 K/uL (0.1-1.30); MONOCYTES % (AUTO) 8.6 % (2.0-12.0); NEUTROPHILS # (AUTO) 4.1 K/uL (1.8-8.9); NEUTROPHILS % (AUTO) 70.3 % (43.0-81.0); PLATELET COUNT (AUTO) 204 K/uL (150-450); RED BLOOD CELL COUNT(AUTO) 3.78 MIL/uL (4.5-6.0); WHITE BLOOD COUNT (AUTO) 5.9 K/uL (4.3-11.0)
[2021-12-07 08:35] LABS: CALCIUM, SERUM 9.6 mg/dL (8.5-10.1); CREATININE 6.6 mg/dL (0.6-1.3); MAGNESIUM 2.8 mg/dL (1.8-2.4); PHOSPHORUS 4.1 mg/dL (2.5-4.9); POTASSIUM 4.1 mmol/L (3.5-5.1)
[2021-12-07] MEDS: LOSARTAN POTASSIUM 50 MG TABLET GT SCH (09:00)
[2021-12-07] MEDS: DOXAZOSIN MESYLATE (4 MG) 4 MG TABLET GT SCH (09:00)
[2021-12-07] MEDS: VITAMINS A AND D 56.7 GM TUBE TP SCH (09:07)
[2021-12-07] MEDS: LIDOCAINE 5% (PATCH) 1 EA PATCH TP SCH (09:07)
[2021-12-07] MEDS: GLIMEPIRIDE 1 MG TABLET GT SCH (09:09)
[2021-12-07] MEDS: ALBUTEROL FS 2.5 MG/3 ML VIAL.NEB IH SCH ×2 (09:09→12:55)
[2021-12-07] MEDS: BENZTROPINE MESYLATE (1 MG) 1 MG TABLET GT SCH ×2 (09:09→12:55)
[2021-12-07] MEDS: LABETALOL HCL (100MG) 100 MG TABLET GT SCH (09:09)
[2021-12-07] MEDS: DOCUSATE SODIUM LIQ 100 MG/10 ML UDC GT SCH (09:10)
[2021-12-07] MEDS: AMLODIPINE BESYLATE 5 MG TABLET GT SCH (09:11)
[2021-12-07] MEDS: FAMOTIDINE (20 MG) 20 MG TABLET GT SCH (09:11)
[2021-12-07] MEDS: VALPROIC ACID 250 MG/5 ML UDC GT SCH ×2 (09:11→12:55)
[2021-12-07] MEDS: LACTOBACILLUS RHAMNOSUS GG 1 EACH CAP.SPRINK GT SCH (09:11)
[2021-12-07 10:44] VITALS: BP 111/73
--- NOTE | 2021-12-07 11:06 | NUR ---
TRAY LINE WORKER OPENING NOTES RECEIVED PATIENT IN BED, AWAKE, A/O X1, CONFUSED. PATIENT WITH T-PIECE AT 5 LPM SATURATING WELL. TELE MONITOR WITH A CURRENT READING OF SR 75. IV ACCESS RFA G # 20 PRESENT AND INTACT. HD CATH AT R SUBCLAVIAN. NO COMPLAINS OF PAIN. G-TUBE PRESENT RUNNING NEPRO @ 50 MLS/HR. SAFETY PRECAUTIONS IN PLACE; BED IN LOW POSITION AND LOCKED, RAILS UP X2, CALL LIGHT WITHIN REACH. WILL CONTINUE TO MONITOR PATIENT.
[2021-12-07 12:10] VITALS: BP 120/70
--- NOTE | 2021-12-07 16:20 | NUR ---
ESTATE PLANNER NOTES HD FINISHED. VS WITHIN NORMAL LIMITS. BP 101/63 HR 78 900 MLS REMOVED
--- NOTE | 2021-12-07 16:40 | NUR ---
PLANNING AIDESWITCH TECHNICIAN NOTES PATIENT DISCHARGED BACK TO FACILITY. PATIENT A/O X1, CONFUSED. ALL PAPERWORK READY AND SIGNED BY 2 RNs; PATIENT UNABLE TO SIGN. PATIENT HAD NO BELONGINGS. PRIOR TO LEAVING THE UNIT IV LINE WAS REMOVED. PICTURE TAKEN. FACILITY CALLED AND REPORT GIVEN TO CLIFF. PATIENT LEFT THE UNIT VIA GURNEY ACCOMPANIED BY 2 floor coverer apprentice AT [id number]
== END 2021-12-07 16:48 | DRG 470 ==
LOC: ER 14:37 → TELE1 19:36
PROVIDERS: ADMIT Internal Medicine Nephrology; ATTEND Internal Medicine Nephrology
PROC: 5A1D70Z Performance of Urinary Filtration, Intermittent, Less than 6 Hours Per Day (ICD-10-PCS; principal; 2021-12-03)
DX: I12.0 Hypertensive chronic kidney disease with stage 5 chronic kidney disease or end stage renal disease (principal); G93.49 Other encephalopathy; J96.10 Chronic respiratory failure, unspecified whether with hypoxia or hypercapnia; E11.41 Type 2 diabetes mellitus with diabetic mononeuropathy; E87.1 Hypo-osmolality and hyponatremia; E11.22 Type 2 diabetes mellitus with diabetic chronic kidney disease; D64.9 Anemia, unspecified; I16.1 Hypertensive emergency; E87.70 Fluid overload, unspecified; E78.5 Hyperlipidemia, unspecified; N18.6 End stage renal disease; Z20.822 Contact with and (suspected) exposure to COVID-19; R56.9 Unspecified convulsions; R13.10 Dysphagia, unspecified; Z93.1 Gastrostomy status; N40.0 Benign prostatic hyperplasia without lower urinary tract symptoms; M19.90 Unspecified osteoarthritis, unspecified site; Z99.2 Dependence on renal dialysis; M10.9 Gout, unspecified; M62.50 Muscle wasting and atrophy, not elsewhere classified, unspecified site; F32.9 Major depressive disorder, single episode, unspecified; F25.9 Schizoaffective disorder, unspecified; H54.8 Legal blindness, as defined in USA; Z91.018 Allergy to other foods; Z79.51 Long term (current) use of inhaled steroids; Z79.899 Other long term (current) drug therapy; Z79.4 Long term (current) use of insulin; E11.51 Type 2 diabetes mellitus with diabetic peripheral angiopathy without gangrene; L85.3 Xerosis cutis; M20.42 Other hammer toe(s) (acquired), left foot; M20.41 Other hammer toe(s) (acquired), right foot
CPT/HCPCS: 31720; 36415; 80048-TC; 83735-TC; 84100-TC; 85025-TC; 86706; 87081-TC; 87340; 90935-TC; 94640-TC; 94760-TC; 94799-TC; A4623; C9803; G0378; J0885; J2060; J2405; J3490; J7030; U0003

== ENCOUNTER 2022-02-15 13:42 | Inpatient (IN) | payer OTHER ==
[~2022-02-15] VITALS: Ht 182.9 cm; Wt 87.5 kg
[~2022-02-15 13:42] MED LIST changes: -ERYT400S8 GT; +GLIM1TAB18 GT; +INSU100V36 SQ; -LANS30CA56 GT
--- NOTE | 2022-02-15 13:45 | NUR ---
[facility] [phone] XAVI MALAVE.
--- NOTE | 2022-02-15 13:46 | NUR ---
SALINE LOCK ESTABLISHED, BLOOD DRAWN AND SENT TO LAB
--- NOTE | 2022-02-15 13:46 | NUR ---
[facility] MORE ALTERED THAN USUAL. UNKNOWN LKW TIME, MISSED DIALYSIS, NON VERBAL, TRACH COLLAR CONNECTED TO 2LPM, CONNECTED TO MONITOR
--- NOTE | 2022-02-15 14:03 | NUR ---
MOVE SHEET SUBMITTED AND CALLED FOR TELE BED.
[2022-02-15 14:06] LABS: BASOPHILS % (AUTO) 0.5 % (0.0-2.0); EOSINOPHILS % (AUTO) 4.7 % (0.0-6.0); HEMATOCRIT 33 % (39-51); HEMOGLOBIN 10.5 g/dL (13.5-17.5); LYMPHOCYTES # (AUTO) 0.6 K/uL (0.8-4.8); LYMPHOCYTES % (AUTO) 10.9 % (20.0-44.0); MEAN CORPUSCULAR HGB CONC 32 g/dl (31.0-36.0); MEAN CORPUSCULAR VOLUME 96 fL (80-96); MONOCYTES # (AUTO) 0.6 K/uL (0.1-1.30); NEUTROPHILS # (AUTO) 4.1 K/uL (1.8-8.9); NEUTROPHILS % (AUTO) 72.9 % (43.0-81.0); PLATELET COUNT (AUTO) 141 K/uL (150-450); RED BLOOD CELL COUNT(AUTO) 3.39 MIL/uL (4.5-6.0); WHITE BLOOD COUNT (AUTO) 5.6 K/uL (4.3-11.0)
--- NOTE | 2022-02-15 14:11 | NUR ---
COVID SWAB DONE AND SENT TO LAB
--- NOTE | 2022-02-15 14:12 | NUR ---
TAKEN TO CT
[2022-02-15 14:31] LABS: ALANINE AMINOTRANSFERASE 24 U/L (12-78); ALBUMIN 3.6 g/dL (3.4-5.0); ALKALINE PHOSPHATASE 111 U/L (46-116); ASPARTATE AMINOTRANSFERASE 26 U/L (15-37); BILIRUBIN,DIRECT 0.2 mg/dL (0.0-0.2); BILIRUBIN,TOTAL 0.6 mg/dL (0.2-1.0); CALCIUM, SERUM 8.9 mg/dL (8.5-10.1); CARBON DIOXIDE 25 mmol/L (21-32); CHLORIDE 101 mmol/L (98-107); POTASSIUM 5.2 mmol/L (3.5-5.1); SODIUM SERUM 137 mmol/L (136-145); TOTAL PROTEIN, SERUM 6.8 g/dL (6.4-8.2); UREA NITROGEN, BLOOD 58 mg/dL (7-18)
[2022-02-15 14:34] LABS: GLUCOSE 24 mg/dL (74-106)
[2022-02-15] MEDS ORDERED: DEXTROSE 50%-WATER 50 ML DISP.SYRIN ONE (14:35)
[2022-02-15] MEDS ORDERED: LABE100T5 GT (14:37)
[2022-02-15] MEDS ORDERED: DOXA4TAB19 GT (14:37)
[2022-02-15] MEDS ORDERED: LOSA100T31 GT (14:37)
[2022-02-15] MEDS ORDERED: ONDA4TAB5 GT (14:37)
[2022-02-15] MEDS ORDERED: CHLO473M5 MM (14:37)
--- NOTE | 2022-02-15 14:47 | NUR ---
BUILD AND RELEASE MANAGER AT BEDSIDE
--- NOTE | 2022-02-15 15:09 | NUR ---
BLOOD SUGAR 83, DR COLEY AWARE
--- NOTE | 2022-02-15 15:10 | NUR ---
PATIENT MORE AWAKE NOW AFTER D50 INJ
--- NOTE | 2022-02-15 15:49 | NUR ---
[facility] CALLED ELEMENTARY SUBSTITUTE TEACHER PAGED.
[2022-02-15] MEDS ORDERED: MAGNESIUM HYDROXIDE 30 ML UDC PO PRN (17:00)
[2022-02-15] MEDS ORDERED: ACETAMINOPHEN 325 MG TABLET PO PRN (17:00)
[2022-02-15] MEDS ORDERED: MAG HYDROX/AL HYDROX/SIMETH 30 ML UDC PO PRN (17:00)
[2022-02-15] MEDS ORDERED: ONDANSETRON HCL/PF 4 MG/2 ML VIAL IVP PRN (17:00)
[2022-02-15] MEDS ORDERED: Z GUARD REMEDY 4 OZ OINT TP PRN (17:00)
--- NOTE | 2022-02-15 17:23 | NUR ---
GOT BED 310-1
[2022-02-15] MEDS: BLOOD SUGAR DIAGNOSTIC 1 EACH STRIP VI SCH ×2 (17:30→22:15)
[2022-02-15] MEDS ORDERED: DEXTROSE 50%-WATER 50 ML DISP.SYRIN IVP ONE (17:30)
--- NOTE | 2022-02-15 17:30 | NUR ---
REPORT GIVEN TO MAVIS SAAVEDRA FOR AGAPITO
[2022-02-15] MEDS: DOXAZOSIN MESYLATE (4 MG) 4 MG TABLET GT SCH (17:50)
[2022-02-15] MEDS ORDERED: VALPROIC ACID 250 MG/5 ML UDC ONE (17:54)
[2022-02-15] MEDS ORDERED: BENZTROPINE MESYLATE (1 MG) 1 MG TABLET ONE (17:54)
[2022-02-15] MEDS: BENZTROPINE MESYLATE (1 MG) 1 MG TABLET GT SCH (17:55)
[2022-02-15] MEDS: VALPROIC ACID 250 MG/5 ML UDC GT SCH (17:55)
[2022-02-15] MEDS ORDERED: NEPRO 1,000 ML BOTTLE GT PRN (18:00)
[2022-02-15] MEDS ORDERED: ONDANSETRON 4 MG TAB.RAPDIS GT PRN (18:00)
[2022-02-15] MEDS ORDERED: ALBUTEROL FS 2.5 MG/0.5 ML VIAL.NEB HHN PRN (18:00)
--- NOTE | 2022-02-15 18:20 | NUR ---
RN NOTES RECEIVED PATIENT FROM ER ENDORSED BY KERI DAVIS VIA RIGO. PATIENT IS AWAKE AND A/O X3. ON O2 AT 2LPM VIA TRACH TOLERATING WELL. NO SOB NOTED. NOT IN DISTRESS. WITH NO COMPLAINTS OF PAIN OR DISCOMFORT AT THIS TIME. WITH IV ACCESS AT LEFT AC G20 AND AT RIGHT AC G20 SALINE LOCKED, PATENT AND INTACT. ON TELE MONITOR CURRENTLY READING SINUS RHYTHM AT 70BPM. SAFETY MEASURES IN PLACED. CALL LIGHT WITHIN REACH. BED ON LOWEST LOCKED POSITION, SIDE RAILS UP X2. WILL ENDORSE TO NEXT SHIFT FOR AGAPITO.
[2022-02-15 19:30] VITALS: BP 142/73
--- NOTE | 2022-02-15 19:30 | NUR ---
RN NOTES RECEIVED PATIENT SLEEPING BUT AROUSABLE, TRACH PATIENT, SR ON TELE MONITOR, ADMISSION ASSESSMENT DONE, A/OX1, SKIN ASSESSMENT DONE, SIDERAILSUPX2, WILL CONTINUE TO MONITOR
[2022-02-15 20:00] VITALS: BP 156/85
--- NOTE | 2022-02-15 20:10 | NUR ---
VIDEO MACHINES MECHANIC NOTES CALLED [facility] AND SPOKE WITH RN MANAGER ENTERPRISE CONTENT MANAGEMENT. SHE WAS UNABLE TO PROVIDE VACCINATION STATUS, N/A IN CHART. I WAS ADVISED TO FOLLOW-UP IN THE AM TO SPEAK WITH MEDICAL RECORDS.
[2022-02-15] MEDS: DEXTROSE 50%-WATER 50 ML DISP.SYRIN IV PRN ×2 (21:38→23:24)
[2022-02-15] MEDS: CHLORHEXIDINE GLUCONATE 15 ML UDC MM SCH (21:52)
[2022-02-15] MEDS: FAMOTIDINE (20 MG) 20 MG TABLET GT SCH (21:53)
[2022-02-15] MEDS: LABETALOL HCL (100MG) 100 MG TABLET GT SCH (21:53)
[2022-02-15] MEDS: TERAZOSIN HCL 5 MG CAPSULE GT SCH (22:15)
[2022-02-15] MEDS: ATORVASTATIN 10 MG TABLET GT SCH (22:15)
[2022-02-15] MEDS: NEPRO 1,000 ML BOTTLE GT PRN (22:36)
[2022-02-15 23:09] LABS: THYROID STIMULATING HORMONE 1.923 uIU/mL (0.358-3.74)
--- NOTE | 2022-02-15 23:15 | NUR ---
RN NOTES AFTER GIVING D50 BLOOD SUGAR IS -51, INFORMED VERÓNICA NORRIS-SINAN AND GOT AN ORDER TO GIVEN ANOTHER D50, ORDER NOTED AND CARRIED OUT
[2022-02-16] VITALS: BP 169/89
--- NOTE | 2022-02-16 01:05 | NUR ---
RN NOTES INFORMED VERÓNICA NORRIS-RIBBON CLEANER THAT PATIENT BLOOD SUGAR IS 46, AFTER GIVING 2ND DOSE OF D50, GOT AN ORDER TO START IV FLUID OF D5 1/2 NS @ 60ML/HR, ORDER NOTED AND CARRIED OUT
[2022-02-16] MEDS ORDERED: IV D5/0.45 NACL 1,000 ML IV PRN (01:30)
[2022-02-16 05:00] VITALS: BP 107/84
[2022-02-16] MEDS ORDERED: DEXTROSE 50%-WATER 50 ML DISP.SYRIN ONE (05:45)
[2022-02-16] MEDS: DEXTROSE 50%-WATER 50 ML DISP.SYRIN IV PRN ×2 (06:16→12:17)
--- NOTE | 2022-02-16 06:18 | NUR ---
RN NOTES CALLED VERÓNICA BENOIT AND INFORMED HIM THAT PATIENT BLOOD SUGAR IS 19, VERÓNICA BENOIT ORDERED TO START D10 IV, ORDER NOTED AND CARRIED OUT
[2022-02-16] MEDS: BLOOD SUGAR DIAGNOSTIC 1 EACH STRIP VI SCH ×4 (06:22→21:58)
[2022-02-16] MEDS: Sodium Chloride 154 MEQ in IV 10% DEXTROSE 1,000 ML IV PRN ×2 (06:22→21:36)
[2022-02-16 06:23] LABS: CREATININE 6.8 mg/dL (0.6-1.3); MAGNESIUM 2.8 mg/dL (1.8-2.4); POTASSIUM 5.3 mmol/L (3.5-5.1)
[2022-02-16 06:32] LABS: BASOPHILS % (AUTO) 0.4 % (0.0-2.0); EOSINOPHILS % (AUTO) 2.5 % (0.0-6.0); HEMATOCRIT 33 % (39-51); HEMOGLOBIN 10.7 g/dL (13.5-17.5); LYMPHOCYTES # (AUTO) 0.4 K/uL (0.8-4.8); LYMPHOCYTES % (AUTO) 8.5 % (20.0-44.0); MEAN CORPUSCULAR HGB CONC 33 g/dl (31.0-36.0); MEAN CORPUSCULAR VOLUME 96 fL (80-96); MONOCYTES # (AUTO) 0.4 K/uL (0.1-1.30); MONOCYTES % (AUTO) 7.3 % (2.0-12.0); NEUTROPHILS # (AUTO) 4.2 K/uL (1.8-8.9); NEUTROPHILS % (AUTO) 81.3 % (43.0-81.0); PLATELET COUNT (AUTO) 140 K/uL (150-450); RED BLOOD CELL COUNT(AUTO) 3.43 MIL/uL (4.5-6.0); WHITE BLOOD COUNT (AUTO) 5.2 K/uL (4.3-11.0)
--- NOTE | 2022-02-16 06:55 | NUR ---
RN NOTES AFTER GIVING D50 AND PATIENT IS ALREADY IN D10 IV FLUID, LATEST BLOOD SUGAR-73, MORNING CARE RENDERED, PT. NEEDS ATTENDED
--- NOTE | 2022-02-16 07:58 | NUR ---
MS RN OPENING NOTE RECEIVED PATIENT AWAKE IN BED. A/O X 1- 2. S/SX OF DISTRESS NOTED. NO SOB. NO C/O PAIN. BREATHING IS EVEN AND UNLABORED. PT ON 02 5L COOL AEROSOL MIST VIA TRACH COLLAR SATURATING AT 97%. IV ACCESS LFA#20 PATENT AND INTACT WITH D10 RUNNING AT 75MLS/HR. PT WITH SOFT BILATERAL WRIST RESTRAINTS; SKIN AND CIRCULATION CHECK DONE. SAFETY MEASURES IN PLACE WITH BED LOCKED IN LOW POSITION. SIDE RAILS UP X2. CALL LIGHT IS WITHIN REACH. WILL CONTINUE TO MONITOR PATIENT THROUGHOUT SHIFT.
[2022-02-16 08:00] VITALS: BP 185/90
[2022-02-16] MEDS: DOXAZOSIN MESYLATE (4 MG) 4 MG TABLET GT SCH ×2 (08:21→17:05)
[2022-02-16] MEDS: ACIDOPHILUS/BULGARICUS 1 EACH TAB.CHEW GT SCH (08:21)
[2022-02-16] MEDS: CHLORHEXIDINE GLUCONATE 15 ML UDC MM SCH ×2 (08:21→21:34)
[2022-02-16] MEDS: VALPROIC ACID 250 MG/5 ML UDC GT SCH ×3 (08:21→17:05)
[2022-02-16] MEDS: FAMOTIDINE (20 MG) 20 MG TABLET GT SCH ×2 (08:22→21:33)
[2022-02-16] MEDS: DOCUSATE SODIUM 100 MG CAPSULE PO SCH (08:22)
[2022-02-16] MEDS: BENZTROPINE MESYLATE (1 MG) 1 MG TABLET GT SCH ×3 (08:22→17:05)
[2022-02-16] MEDS: AMLODIPINE BESYLATE 5 MG TABLET GT SCH (08:23)
[2022-02-16] MEDS: LOSARTAN POTASSIUM 50 MG TABLET GT SCH (08:23)
[2022-02-16] MEDS: LIDOCAINE 5% (PATCH) 1 EA PATCH TP SCH (08:24)
[2022-02-16] MEDS: LABETALOL HCL (100MG) 100 MG TABLET GT SCH ×2 (08:28→21:34)
--- NOTE | 2022-02-16 09:39 | NUR ---
RN NOTE PT AGITATED AND RESTLESS. PT REFUSING SUCTIONING. OBIEE REPORT DEVELOPER CALLED TO HELP SUCTION PATIENT. CALLED DR. QUINTERO'S OFFICE TO INFORM. SPOKE WITH JENNI.
--- NOTE | 2022-02-16 10:28 | NUR ---
RN NOTE RECEIVED ORDERS DR. FIORELLA QUINTERO ATIVAN 1MG IV PRN ONCE AND SEROQUEL 12.5MG TID G-TUBE; ORDERS READ BACK AND CARRIED OUT.
[2022-02-16] MEDS ORDERED: LORAZEPAM INJ 2 MG/ML VIAL IV ONE (10:30)
[2022-02-16] MEDS ORDERED: LEVOFLOXACIN 250 MG /D5W 50 ML 250 MG in PREMIX 1 EA IV SCH (10:30)
[2022-02-16 10:54] VITALS: BP 166/85
[2022-02-16] MEDS: QUETIAPINE FUMARATE 25 MG TABLET GT SCH ×3 (11:06→17:05)
[2022-02-16] MEDS ORDERED: ALBUTEROL FS 2.5 MG/0.5 ML VIAL.NEB HHN PRN (11:21)
[2022-02-16] MEDS: ACETYLCYSTEINE 10% SOLN 400 MG/4 ML VIAL NEB SCH ×3 (11:42→23:52)
[2022-02-16] MEDS: IPRATROPIUM NEB FS 0.5 MG/2.5 ML AMPUL.NEB NEB SCH ×4 (11:42→23:53)
[2022-02-16] MEDS: ALBUTEROL HALF STRENGTH 1.25 MG/3 ML VIAL.NEB NEB SCH ×4 (11:43→23:52)
[2022-02-16] MEDS: CEFEPIME 1 GM in IV D5W 50 ML IV SCH (11:53)
--- NOTE | 2022-02-16 12:24 | NUR ---
RN NOTE PT BS CHECK 45 WITH REPEAT BS CHECK 40. ADMINISTERED D50 IV PRN; WILL RECHECK BS IN 30 MINS.
[2022-02-16] MEDS: CLONIDINE HCL 0.1 MG TABLET GT PRN ×2 (14:08→18:30)
--- NOTE | 2022-02-16 14:32 | NUR ---
RN NOTE BS 56 AFTER D50. ADMINISTERED ORANGE JUICE AND SUGAR PACKET. WILL RECHECK BS IN 1 HOUR.
--- NOTE | 2022-02-16 15:17 | NUR ---
RN NOTE CALLED AND LEFT MESSAGE WITH DR. FIORELLA QUINTERO TO CALL ME BACK REGARDING TRENDING LOW BLOOD SUGARS.
[2022-02-16] MEDS ORDERED: methylPREDNISolone SOD SUCC 125 MG/2ML VIAL IV ONE (15:30)
[2022-02-16] MEDS ORDERED: GLUCAGON,HUMAN RECOMBINANT 1 MG/VIAL VIAL IV ONE (15:30)
--- NOTE | 2022-02-16 15:30 | NUR ---
RN NOTE DR. QUINTERO HERE ON FLOOR AT THIS TIME. INFORMED DR. AUGUTS IS 65 AT THIS TIME WITH NEW ORDERS FOR SOLU-MEDROL. ORDERS READ BACK AND CARRIED OUT.
[2022-02-16 16:00] VITALS: BP 187/92
--- NOTE | 2022-02-16 17:48 | NUR ---
RN NOTE PATIENT EXTREMELY AGITATED, PULLED IV LINE, BROKE ARM RESTRAINT, MD NOTIFIED GAVE NEW ORDERS SEROQUEL 25MG TID AND HALDOL 2MG Q6HRS IV OR IM.
[2022-02-16] MEDS ORDERED: HALOPERIDOL LACTATE INJ 5 MG/ML VIAL IM PRN (18:00)
[2022-02-16] MEDS ORDERED: HALOPERIDOL LACTATE INJ 5 MG/ML VIAL IV PRN (18:00)
--- NOTE | 2022-02-16 18:00 | NUR ---
RN NOTE ADMINISTERED HALDOL 2MG PM PRN FOR AGITATION
[2022-02-16] MEDS: NEPRO 1,000 ML BOTTLE GT PRN (18:14)
--- NOTE | 2022-02-16 18:55 | NUR ---
RN NOTE PT BS 67 AT 1800. ADMINISTERED 8 oz APPLE JUICE WITH 2 PACKETS OF SUGAR. WILL ENDORSE TO NEXT SHIFT FOR RECHECK.
--- NOTE | 2022-02-16 18:57 | NUR ---
MS RN OPENING NOTE PATIENT AWAKE IN BED. A/O X 1- 2. S/SX OF DISTRESS NOTED. NO SOB. NO C/O PAIN. BREATHING IS EVEN AND UNLABORED. PT ON 02 5L COOL AEROSOL MIST VIA TRACH COLLAR SATURATING AT 97%. IV ACCESS LFA#20 PATENT AND INTACT WITH D10 RUNNING AT 75MLS/HR. PT WITH SOFT BILATERAL WRIST RESTRAINTS; SKIN AND CIRCULATION CHECK DONE. SAFETY MEASURES IN PLACE WITH BED LOCKED IN LOW POSITION. SIDE RAILS UP X2. CALL LIGHT IS WITHIN REACH. WILL ENDORSE CONTINUITY OF CARE TO ONCOMING SHIFT. Addendum: 02/16/22 at 1858 by MARIO ALBERTO BECKFORD RN ERROR
--- NOTE | 2022-02-16 19:30 | NUR ---
MS RN OPENING NOTES RECEIVED PATIENT LYING IN BED, EYES CLOSED. EASY TO AROUSE. A/O X2. NO ACUTE DISTRESS NOTED. ON O2 AT 5 LPM COOL AEROSOL MIST VIA TRACH COLLAR. HAS LEFT FOREARM IV ACCESS #20G WITH D10 RUNNING AT 75 ML/HR. DRESSING INTACT, NO LEAKING NOTED. ON NEPRO G-TUBE FEEDING AT 70 ML/HR. BILATERAL WRIST SOFT RESTRAINTS ON. SKIN COLOR WNL. SAFETY MEASURES IN PLACE. WILL CONTINUE PLAN OF CARE.
[2022-02-16 20:00] VITALS: BP 143/87
[2022-02-16] MEDS: ATORVASTATIN 10 MG TABLET GT SCH (21:33)
[2022-02-16] MEDS: TERAZOSIN HCL 5 MG CAPSULE GT SCH (21:33)
[2022-02-16] MEDS: MUPIROCIN OINT 2% 22 GM TUBE NS SCH (21:50)
--- NOTE | 2022-02-16 22:00 | NUR ---
MS RN NOTES NO INSULIN COVERAGE GIVEN SINCE PATIENT HAS BEEN HYPOGLYCEMIC EVEN AFTER ADMINISTERING D50 AND D10 IVF. WILL MONITOR TREND.
[2022-02-17] MEDS: ALBUTEROL HALF STRENGTH 1.25 MG/3 ML VIAL.NEB NEB SCH ×6 (03:28→23:52)
[2022-02-17] MEDS: IPRATROPIUM NEB FS 0.5 MG/2.5 ML AMPUL.NEB NEB SCH ×6 (03:28→23:50)
--- NOTE | 2022-02-17 06:10 | NUR ---
MS RN NOTES CALLED [facility] TWICE, STILL AWAITING FOR MD ORDER. PATIENT BS 454.
--- NOTE | 2022-02-17 06:13 | NUR ---
MS RN CLOSING NOTES PATIENT LYING IN BED, ASLEEP. A/O X2. RESPONSIVE TO VERBAL AND TACTILE STIMULI. BREATHING EVEN AND UNLABORED. ON O2 AT 5 LPM COOL AEROSOL MIST VIA TRACH COLLAR. HAS LEFT FOREARM IV ACCESS #20G PATENT, INTACT AND FLUSHING. HOLD D10 RUNNING AT 75 ML/HR SINCE BLOOD SUGAR IS 454, AWAITING FOR MD ORDER. ON NEPRO G-TUBE FEEDING AT 70 ML/HR. G-TUBE IN PLACE AND FLUSHING WELL. BILATERAL SOFT WRIST RESTRAINTS ON. ATTEMPTED TO RELEASE RESTRAINTS BUT PATIENT TRIED TO REMOVE HIS TRACH COLLAR AGAIN. SKIN COLOR AND CIRCULATION WNL. ALL MEDS GIVEN AND NEEDS ATTENDED. OCCASIONAL BACK ITCHING NOTED. SPONGE BATH RENDERED. SAFETY MEASURES IN PLACE: BED LOCKED, LOW AND ALARM ON, SIDE RAILS UP X3, CALL LIGHT WITHIN REACH.
[2022-02-17] MEDS: BLOOD SUGAR DIAGNOSTIC 1 EACH STRIP VI SCH ×4 (06:22→22:02)
[2022-02-17] MEDS: INSULIN REGULAR, HUMAN 100 UNIT/ML 3 ML VIAL SQ PRN ×2 (06:26→12:46)
[2022-02-17 06:48] LABS: BASOPHILS % (AUTO) 0.1 % (0.0-2.0); HEMATOCRIT 35 % (39-51); HEMOGLOBIN 11.1 g/dL (13.5-17.5); LYMPHOCYTES # (AUTO) 0.2 K/uL (0.8-4.8); LYMPHOCYTES % (AUTO) 3.4 % (20.0-44.0); MEAN CORPUSCULAR HGB CONC 32 g/dl (31.0-36.0); MEAN CORPUSCULAR VOLUME 97 fL (80-96); MONOCYTES # (AUTO) 0.2 K/uL (0.1-1.30); MONOCYTES % (AUTO) 3.7 % (2.0-12.0); NEUTROPHILS # (AUTO) 4.5 K/uL (1.8-8.9); NEUTROPHILS % (AUTO) 92.8 % (43.0-81.0); PLATELET COUNT (AUTO) 135 K/uL (150-450); RED BLOOD CELL COUNT(AUTO) 3.56 MIL/uL (4.5-6.0); WHITE BLOOD COUNT (AUTO) 4.9 K/uL (4.3-11.0)
--- NOTE | 2022-02-17 07:02 | NUR ---
MS RN NOTES AWAITING CALLBACK FROM [facility]. ADMINISTERED COVERAGE 15 UNITS OF REGULAR INSULIN. WILL ENDORSE TO NEXT SHIFT RN.
--- NOTE | 2022-02-17 07:15 | NUR ---
MS RN OPENING NOTES PATIENT LYING IN BED,ALERT ORIENTED X2. RESPONSIVE TO VERBAL AND TACTILE STIMULI. BREATHING EVEN AND UNLABORED. ON O2 AT 5 LPM COOL AEROSOL MIST VIA TRACH COLLAR. IV ACCESS #20G PATENT, INTACT, NO REDNESS, NO SWELLING NOTED. ON NEPRO G-TUBE FEEDING AT 70 ML/HR. G-TUBE IN PLACE AND FLUSHING WELL. BILATERAL SOFT WRIST RESTRAINTS ON. ATTEMPTED TO RELEASE RESTRAINTS BUT PATIENT TRIED TO REMOVE HIS TRACH COLLAR AGAIN. SKIN COLOR AND CIRCULATION WITHIN NORMAL LIMITS. SAFETY MEASURES IN PLACE. BED LOCKED, LOW AND ALARM ON, SIDE RAILS UP X3, CALL LIGHT WITHIN REACH.WILL CONTINUE TO MONITOR ACCORDINGLY
[2022-02-17 07:21] LABS: CALCIUM, SERUM 9.5 mg/dL (8.5-10.1); CREATININE 5.5 mg/dL (0.6-1.3); MAGNESIUM 2.6 mg/dL (1.8-2.4); PHOSPHORUS 3.1 mg/dL (2.5-4.9); POTASSIUM 5.7 mmol/L (3.5-5.1)
--- NOTE | 2022-02-17 07:45 | NUR ---
MS RN NOTES PATIENT SEEN AND EVALUATED BY DR DAGMAR LUCAS MADE AWARE OF BLOOD SURE ELEVATED, INSULIN GIVEN BY CORPORATE LAWYER NURSE EARLIER, NO NEW ORDER MADE AT THIS ANDREINA, WILL CONTINUE TO MONITOR PATIENT. PATIENT ASYMPTOMATIC
[2022-02-17 08:00] VITALS: BP 195/106
--- NOTE | 2022-02-17 08:01 | NUR ---
WOUND CARE CONSULT: PT PRESENTS WITH DRY WOUNDS TO RT TOES WELL SACRAL SCAR, PRESENT ON ADMISSION. PT MOVES HIS LEGS IN THE BED FREQUENTLY. DR QUINN NOTIFIED OF DPM CONSULT REQUEST. DISCUSSED SKIN PROTECTION WITH NURSING STAFF. IN AGREEMENT WITH PLAN OF CARE.
[2022-02-17] MEDS: ACETYLCYSTEINE 10% SOLN 400 MG/4 ML VIAL NEB SCH ×2 (08:05→15:02)
[2022-02-17] MEDS: LIDOCAINE 5% (PATCH) 1 EA PATCH TP SCH (08:18)
[2022-02-17] MEDS: VALPROIC ACID 250 MG/5 ML UDC GT SCH ×3 (08:18→16:45)
[2022-02-17] MEDS: BENZTROPINE MESYLATE (1 MG) 1 MG TABLET GT SCH ×3 (08:19→16:45)
[2022-02-17] MEDS: CHLORHEXIDINE GLUCONATE 15 ML UDC MM SCH ×2 (08:19→21:15)
[2022-02-17] MEDS: FAMOTIDINE (20 MG) 20 MG TABLET GT SCH ×2 (08:19→21:16)
[2022-02-17] MEDS: ACIDOPHILUS/BULGARICUS 1 EACH TAB.CHEW GT SCH (08:19)
[2022-02-17] MEDS: QUETIAPINE FUMARATE 25 MG TABLET GT SCH ×3 (08:19→16:45)
[2022-02-17] MEDS: MUPIROCIN OINT 2% 22 GM TUBE NS SCH ×2 (08:21→21:17)
[2022-02-17] MEDS: LABETALOL HCL (100MG) 100 MG TABLET GT SCH ×2 (08:22→21:16)
[2022-02-17] MEDS: LOSARTAN POTASSIUM 50 MG TABLET GT SCH (08:23)
[2022-02-17] MEDS: DOXAZOSIN MESYLATE (4 MG) 4 MG TABLET GT SCH ×2 (08:23→16:45)
[2022-02-17] MEDS: AMLODIPINE BESYLATE 5 MG TABLET GT SCH (08:26)
[2022-02-17] MEDS: DOCUSATE SODIUM 100 MG CAPSULE PO SCH (08:31)
[2022-02-17 09:30] VITALS: BP 154/86
[2022-02-17] MEDS: CEFEPIME 1 GM in IV D5W 50 ML IV SCH (11:54)
[2022-02-17] MEDS: NEPRO 1,000 ML BOTTLE GT PRN (15:01)
[2022-02-17 16:00] VITALS: BP 180/89
[2022-02-17] MEDS: CLONIDINE HCL 0.1 MG TABLET GT PRN (16:45)
[2022-02-17] MEDS: *INSULIN REGULAR(HUMULIN R)HUM 100 UNIT/ML VIAL SQ PRN ×2 (17:36→22:04)
[2022-02-17 17:45] VITALS: BP 150/82
--- NOTE | 2022-02-17 18:46 | NUR ---
MS RN CLOSING NOTES PATIENT LYING IN BED,ALERT ORIENTED X2. RESPONSIVE TO VERBAL AND TACTILE STIMULI. BREATHING EVEN AND UNLABORED. ON O2 AT 5 LPM COOL AEROSOL MIST VIA TRACH COLLAR. IV ACCESS #20G PATENT, INTACT, NO REDNESS, NO SWELLING NOTED. ON NEPRO G-TUBE FEEDING AT 70 ML/HR. G-TUBE IN PLACE AND FLUSHING WELL. BILATERAL SOFT WRIST RESTRAINTS ON. ATTEMPTED TO RELEASE RESTRAINTS BUT PATIENT TRIED TO REMOVE HIS TRACH COLLAR AGAIN. SKIN COLOR AND CIRCULATION WITHIN NORMAL LIMITS. NEEDS ATTENDED AND ANTICIPATED. TURNED AND REPOSITION EVERY 2 HOURS AND NEEDED. SAFETY MEASURES IN PLACE. BED LOCKED, LOW AND ALARM ON, SIDE RAILS UP X3, CALL LIGHT WITHIN REACH.WILL ENDORSE TO NIGHT NURSE FOR CONTINUITY OF CARE.
--- NOTE | 2022-02-17 20:17 | NUR ---
RN OPENING NOTES RECEIVED PT IN BED, AWAKE. AOx2. ON AEROSOLIZED TRACH @ 5LPM AND TOLERATING WELL. NO SOB NOTED. NO S/SX OF RESPIRATORY DISTRESS NOTED. IV ACCESS IN L FA #20G AND R CHEST WALL PORTACATH. SAFETY PRECAUTIONS IN PLACE: BED IN LOWEST, LOCKED POSITION, SIDERAILS UPx2, AND BRAKES ON. TABLE AND CALL LIGHT WITHIN REACH. WILL CONTINUE TO MONITOR.
[2022-02-17] MEDS: TERAZOSIN HCL 5 MG CAPSULE GT SCH (21:16)
[2022-02-17] MEDS: ATORVASTATIN 10 MG TABLET GT SCH (21:16)
[2022-02-18] MEDS: ACETYLCYSTEINE 10% SOLN 400 MG/4 ML VIAL NEB SCH ×3 (00:03→14:51)
[2022-02-18] MEDS: IPRATROPIUM NEB FS 0.5 MG/2.5 ML AMPUL.NEB NEB SCH ×4 (03:17→14:51)
[2022-02-18] MEDS: ALBUTEROL HALF STRENGTH 1.25 MG/3 ML VIAL.NEB NEB SCH ×4 (03:17→14:51)
[2022-02-18] MEDS: CLONIDINE HCL 0.1 MG TABLET GT PRN ×2 (03:48→16:19)
--- NOTE | 2022-02-18 03:49 | NUR ---
ADMINISTERED CLONIDINE FOR BP OF 174/90. WILL CONTINUE TO MONITOR.
[2022-02-18 06:14] LABS: BASOPHILS % (AUTO) 0.6 % (0.0-2.0); EOSINOPHILS % (AUTO) 2.8 % (0.0-6.0); HEMATOCRIT 32 % (39-51); HEMOGLOBIN 10.6 g/dL (13.5-17.5); LYMPHOCYTES # (AUTO) 0.9 K/uL (0.8-4.8); LYMPHOCYTES % (AUTO) 15.5 % (20.0-44.0); MEAN CORPUSCULAR HGB CONC 33 g/dl (31.0-36.0); MEAN CORPUSCULAR VOLUME 96 fL (80-96); MONOCYTES # (AUTO) 0.6 K/uL (0.1-1.30); MONOCYTES % (AUTO) 10.6 % (2.0-12.0); NEUTROPHILS # (AUTO) 3.9 K/uL (1.8-8.9); NEUTROPHILS % (AUTO) 70.5 % (43.0-81.0); PLATELET COUNT (AUTO) 133 K/uL (150-450); RED BLOOD CELL COUNT(AUTO) 3.37 MIL/uL (4.5-6.0); WHITE BLOOD COUNT (AUTO) 5.5 K/uL (4.3-11.0)
[2022-02-18] MEDS: BLOOD SUGAR DIAGNOSTIC 1 EACH STRIP VI SCH ×2 (06:32→12:57)
[2022-02-18] MEDS: INSULIN REGULAR, HUMAN 100 UNIT/ML 3 ML VIAL SQ PRN (06:33)
--- NOTE | 2022-02-18 06:33 | NUR ---
HELD INSULIN BECAUSE BLOOD SUGAR IS WNL (102 MG/DL) PER SLIDING SCALE.
--- NOTE | 2022-02-18 06:37 | NUR ---
RN CLOSING NOTES PT IN BED, AWAKE. AOx2. ON AEROSOLIZED TRACH @ 5LPM AND TOLERATING WELL. NO SOB NOTED. NO S/SX OF RESPIRATORY DISTRESS NOTED. IV ACCESS IN L WRIST #20G AND R CHEST WALL PORTACATH. ALL NEEDS MET. PT KEPT CLEAN AND DRY. SAFETY PRECAUTIONS IN PLACE: BED IN LOWEST, LOCKED POSITION, SIDERAILS UPx2, AND BRAKES ON. TABLE AND CALL LIGHT WITHIN REACH. WILL ENDORSE TO ONCOMING SHIFT FOR AGAPITO.
[2022-02-18 07:09] LABS: CALCIUM, SERUM 9.1 mg/dL (8.5-10.1); CREATININE 6.6 mg/dL (0.6-1.3); MAGNESIUM 2.8 mg/dL (1.8-2.4); PHOSPHORUS 3.4 mg/dL (2.5-4.9); POTASSIUM 5.6 mmol/L (3.5-5.1)
--- NOTE | 2022-02-18 07:20 | NUR ---
ms rn received on bed,awake,non verbal patient, w/ trach connected to aerosol, bilateral soft wrist restraint,g tube intact w/ feeding on at 70ml/hour, tolerating well w/o residual, will monitor patient.
[2022-02-18 08:00] VITALS: BP 177/91
[2022-02-18] MEDS: DOCUSATE SODIUM 100 MG CAPSULE PO SCH (09:00)
--- NOTE | 2022-02-18 09:20 | NUR ---
ms rn due meds given,tolerated well.
[2022-02-18] MEDS: VALPROIC ACID 250 MG/5 ML UDC GT SCH ×3 (09:57→16:18)
[2022-02-18] MEDS ORDERED: *INS REG SQ (09:57)
[2022-02-18] MEDS: LOSARTAN POTASSIUM 50 MG TABLET GT SCH (09:58)
[2022-02-18] MEDS: BENZTROPINE MESYLATE (1 MG) 1 MG TABLET GT SCH ×3 (09:58→16:18)
[2022-02-18] MEDS: LABETALOL HCL (100MG) 100 MG TABLET GT SCH (09:58)
[2022-02-18] MEDS: AMLODIPINE BESYLATE 5 MG TABLET GT SCH (09:58)
[2022-02-18] MEDS: ACIDOPHILUS/BULGARICUS 1 EACH TAB.CHEW GT SCH (09:58)
[2022-02-18] MEDS: QUETIAPINE FUMARATE 25 MG TABLET GT SCH ×3 (09:59→16:19)
[2022-02-18] MEDS: FAMOTIDINE (20 MG) 20 MG TABLET GT SCH (09:59)
[2022-02-18] MEDS: LIDOCAINE 5% (PATCH) 1 EA PATCH TP SCH (09:59)
[2022-02-18] MEDS: DOXAZOSIN MESYLATE (4 MG) 4 MG TABLET GT SCH ×2 (09:59→16:19)
--- NOTE | 2022-02-18 13:00 | NUR ---
ms sainz hd done w/ 2 liters out.tolerated well.
[2022-02-18] MEDS: MUPIROCIN OINT 2% 22 GM TUBE NS SCH (13:08)
[2022-02-18] MEDS: CHLORHEXIDINE GLUCONATE 15 ML UDC MM SCH (13:08)
[2022-02-18] MEDS: CEFEPIME 1 GM in IV D5W 50 ML IV SCH (13:08)
[2022-02-18 16:00] VITALS: BP 138/77
--- NOTE | 2022-02-18 16:00 | NUR ---
ms rn patient transferred to snf, report given to benjamin sainz,all needs attended.
[2022-02-18 16:19] VITALS: BP 187/92
== END 2022-02-18 17:00 | DRG 380 ==
LOC: ER 13:49 → TRANSITION 17:22 → TELE 17:40 → MED 02-16 06:51
PROVIDERS: ADMIT Internal Medicine Nephrology; ATTEND Internal Medicine
PROC: 5A1D70Z Performance of Urinary Filtration, Intermittent, Less than 6 Hours Per Day (ICD-10-PCS; principal; 2022-02-16)
DX: E11.649 Type 2 diabetes mellitus with hypoglycemia without coma (principal); L97.519 Non-pressure chronic ulcer of other part of right foot with unspecified severity; G92.8 Other toxic encephalopathy; I13.2 Hypertensive heart and chronic kidney disease with heart failure and with stage 5 chronic kidney disease, or end stage renal disease; J96.10 Chronic respiratory failure, unspecified whether with hypoxia or hypercapnia; F29 Unspecified psychosis not due to a substance or known physiological condition; E11.22 Type 2 diabetes mellitus with diabetic chronic kidney disease; D64.9 Anemia, unspecified; N18.6 End stage renal disease; Z93.0 Tracheostomy status; E11.41 Type 2 diabetes mellitus with diabetic mononeuropathy; E78.5 Hyperlipidemia, unspecified; H54.8 Legal blindness, as defined in USA; N40.0 Benign prostatic hyperplasia without lower urinary tract symptoms; I50.9 Heart failure, unspecified; E11.51 Type 2 diabetes mellitus with diabetic peripheral angiopathy without gangrene; R13.10 Dysphagia, unspecified; M19.90 Unspecified osteoarthritis, unspecified site; M62.562 Muscle wasting and atrophy, not elsewhere classified, left lower leg; F32.9 Major depressive disorder, single episode, unspecified; M20.41 Other hammer toe(s) (acquired), right foot; Z89.512 Acquired absence of left leg below knee; Z93.1 Gastrostomy status; Z91.018 Allergy to other foods; Z79.84 Long term (current) use of oral hypoglycemic drugs; Z79.51 Long term (current) use of inhaled steroids; E11.43 Type 2 diabetes mellitus with diabetic autonomic (poly)neuropathy; K31.84 Gastroparesis; Z79.899 Other long term (current) drug therapy; Z99.2 Dependence on renal dialysis; E11.621 Type 2 diabetes mellitus with foot ulcer
CPT/HCPCS: 31720; 36415; 70450-TC; 71045-TC; 80048-TC; 80076-TC; 82962-TC; 83605-TC; 83735-TC; 83880; 84100-TC; 84443-TC; 84484-TC; 85025-TC; 85730-TC; 87040-TC; 87081-TC; 90935-TC; 94640-TC; 94799-TC; A4623; C9803; G0378; J0692; J1610; J1630; J1815; J2060; J2930; J3490; J7060

== ENCOUNTER 2022-07-24 19:15 | Emergency (ER) | payer OTHER ==
[~2022-07-24] VITALS: Ht 172.7 cm; Wt 72.6 kg
[~2022-07-24 19:15] MED LIST changes: +*INS REG SQ; +CHLO473M5 MM; +DOXA4TAB19 GT; -GLIM1TAB18 GT; -INSU100V36 SQ; +LABE100T5 GT; +LOSA100T31 GT; +ONDA4TAB5 GT
--- NOTE | 2022-07-24 19:45 | NUR ---
TO ER BED 13. BIBPA FROM [facility] FOR HIGH BP AFTER HD. PT IS ALERT. NON AMBULATORY. RR EVEN AND NON LABORED. CONNECTED TO MONITOR. AWAITING MD ORDERS
[2022-07-24] MEDS ORDERED: hydrALAZINE HCL IV 20 MG VIAL ONE (20:15)
--- NOTE | 2022-07-24 20:30 | NUR ---
ACCUCHECK 65
[2022-07-24] MEDS: hydrALAZINE HCL IV 20 MG VIAL IV ONE ×4 (20:32→23:09)
[2022-07-24 20:47] LABS: BASOPHILS % (AUTO) 0.3 % (0.0-2.0); EOSINOPHILS % (AUTO) 7.4 % (0.0-6.0); HEMATOCRIT 34 % (39-51); HEMOGLOBIN 11.2 g/dL (13.5-17.5); LYMPHOCYTES # (AUTO) 0.5 K/uL (0.8-4.8); LYMPHOCYTES % (AUTO) 11.7 % (20.0-44.0); MEAN CORPUSCULAR HGB CONC 33 g/dl (31.0-36.0); MEAN CORPUSCULAR VOLUME 95 fL (80-96); MONOCYTES # (AUTO) 0.3 K/uL (0.1-1.30); MONOCYTES % (AUTO) 6.7 % (2.0-12.0); NEUTROPHILS # (AUTO) 2.9 K/uL (1.8-8.9); NEUTROPHILS % (AUTO) 73.9 % (43.0-81.0); PLATELET COUNT (AUTO) 153 K/uL (150-450); RED BLOOD CELL COUNT(AUTO) 3.63 MIL/uL (4.5-6.0); WHITE BLOOD COUNT (AUTO) 3.9 K/uL (4.3-11.0)
[2022-07-24 21:10] LABS: CALCIUM, SERUM 9.2 mg/dL (8.5-10.1); CREATININE 3.6 mg/dL (0.6-1.3); POTASSIUM 3.2 mmol/L (3.5-5.1)
--- NOTE | 2022-07-24 21:38 | NUR ---
FOOD AND DRINK PROVIDED
--- NOTE | 2022-07-24 21:49 | NUR ---
JACKIE Pena MD AWARE
[2022-07-24] MEDS ORDERED: DEXTROSE 50%-WATER 50 ML DISP.SYRIN ONE (21:54)
--- NOTE | 2022-07-24 22:00 | NUR ---
RECEIVED VERBAL ORDER FOR DEXTROSE 50% 25ML VIA IV
[2022-07-24] MEDS ORDERED: DEXTROSE 50%-WATER 50 ML DISP.SYRIN IVP ONE (22:30)
--- NOTE | 2022-07-24 22:51 | NUR ---
JACKIE Stauffer MD AWARE
--- NOTE | 2022-07-24 23:10 | NUR ---
[facility] WILL TRANSPORT PT BACK TO FACILITY IN 5 MINUTES.
--- NOTE | 2022-07-24 23:21 | NUR ---
S/W [facility] [phone] TO NOTIFY OF PT RETURNING TO FACILITY
--- NOTE | 2022-07-25 00:41 | NUR ---
[facility] ETA WITHIN 1 HOUR
--- NOTE | 2022-07-25 01:00 | NUR ---
[facility] AT BEDSIDE FOR REPORT AND TRANSPORTATION
--- NOTE | 2022-07-25 01:30 | NUR ---
S/W [facility] FROM [facility], THEY UNABLE TO RECIEVE PT BACK TO FACILITY DUE TO ELEVATED BP
[2022-07-25] MEDS ORDERED: AMLODIPINE BESYLATE 5 MG TABLET ONE (08:47)
--- NOTE | 2022-07-25 08:55 | NUR ---
[facility] CALLED FOR TRANSPORT ASKED FOR ETA OF 1000
[2022-07-25] MEDS ORDERED: AMLODIPINE BESYLATE 5 MG TABLET GT ONE (09:00)
[2022-07-25] MEDS ORDERED: CLONIDINE HCL 0.1 MG TABLET ONE (09:47)
[2022-07-25] MEDS ORDERED: CLONIDINE HCL 0.1 MG TABLET GT ONE (10:00)
--- NOTE | 2022-07-25 10:30 | NUR ---
Transportation arrived, report given. Patient discharged to home in stable condition. Written and verbal after care instructions given. Patient verbalizes understanding of instruction. IV removed. Catheter intact and site benign. Pressure and 4x4 applied to site. No bleeding noted.
[2022-07-25 10:31] VITALS: BP 163/91
== END 2022-07-25 10:31 | disposition home or self-care (01) ==
LOC: ER 19:18
DX: E11.22 Type 2 diabetes mellitus with diabetic chronic kidney disease (principal); I12.0 Hypertensive chronic kidney disease with stage 5 chronic kidney disease or end stage renal disease; N18.6 End stage renal disease; E16.2 Hypoglycemia, unspecified; Z99.2 Dependence on renal dialysis; Z91.018 Allergy to other foods; Z79.899 Other long term (current) drug therapy
CPT/HCPCS: 99284; 96374; 96375; 93005; 96376; 85025; 80048; 36415; 82962 ×2; J0360

== ENCOUNTER 2022-10-25 13:26 | Inpatient (IN) | payer OTHER ==
[~2022-10-25] VITALS: Ht 177.8 cm; Wt 64.9 kg
--- NOTE | 2022-10-25 13:30 | NUR ---
RECEIVED PT 47 YRS MALE TRANSFER FROM [facility] FOR LOW BP BP 77/44MMHG WITH TRACH CONECTED FIO2 TACH MASK
--- NOTE | 2022-10-25 13:55 | NUR ---
C XRAY DONE AT BED SIDE
--- NOTE | 2022-10-25 14:00 | NUR ---
INSERTED ANGO CATHETER G 18 ON RT HAND BLOOD DROW AND BL X 2 SENT TO LAB
[2022-10-25 15:00] LABS: BASOPHILS % (AUTO) 0.2 % (0.0-2.0); EOSINOPHILS % (AUTO) 0.8 % (0.0-6.0); HEMATOCRIT 27 % (39-51); HEMOGLOBIN 8.4 g/dL (13.5-17.5); LYMPHOCYTES # (AUTO) 0.2 K/uL (0.8-4.8); MEAN CORPUSCULAR HGB CONC 31 g/dl (31.0-36.0); MEAN CORPUSCULAR VOLUME 105 fL (80-96); MONOCYTES # (AUTO) 0.8 K/uL (0.1-1.30); NEUTROPHILS # (AUTO) 6.6 K/uL (1.8-8.9); PLATELET COUNT (AUTO) 230 K/uL (150-450); RED BLOOD CELL COUNT(AUTO) 2.53 MIL/uL (4.5-6.0); WHITE BLOOD COUNT (AUTO) 7.7 K/uL (4.3-11.0)
[2022-10-25 15:12] LABS: CALCIUM, SERUM 8.2 mg/dL (8.5-10.1); CARBON DIOXIDE 28 mmol/L (21-32); CHLORIDE 101 mmol/L (98-107); CREATININE 3.6 mg/dL (0.6-1.3); GLUCOSE 177 mg/dL (74-106); POTASSIUM 3.3 mmol/L (3.5-5.1); SODIUM SERUM 131 mmol/L (136-145); UREA NITROGEN, BLOOD 62 mg/dL (7-18)
--- NOTE | 2022-10-25 16:10 | NUR ---
BRITNI DOVER SENT TO LAB
--- NOTE | 2022-10-25 17:09 | NUR ---
RESTING AND ASLEEPY CONTENUE MONITER BP
--- NOTE | 2022-10-25 18:10 | NUR ---
AWAITING DIPOSITION OF PATIENT BY .
--- NOTE | 2022-10-25 19:11 | NUR ---
CONTENUE AND MONITER BP AND VS
--- NOTE | 2022-10-25 19:45 | NUR ---
HAND OFF ADAM SAAVEDRA
--- NOTE | 2022-10-25 20:55 | NUR ---
TRACH COLLAR DISLODGED BY PT. RT AT PT'S BEDSIDE & INSERTED SHILEY 8 AND INTACT. SUCTIONED. PT SATTING 98% ON 5LPM TRACH COLLAR
--- NOTE | 2022-10-25 21:02 | NUR ---
RT NOTE RT called to ER bed #9 and pt trach decannulated. Emergency spare trach tube Shiley XLT distal sz #8 placed. Trach tube insertion successful and pt able to maintain adequate O2 saturation. Clear bilateral breath sounds heard on auscultation. Slight bleeding noted from trach tube insertion. Trach is patent and secured. RN at bedside. Pt sx'd post trach tube insertion for small amount of blood tinged secretions. Ambu bag at bedside. Addendum: 10/25/22 at 2117 by JENNA DAWN RT Amended: Links added.
--- NOTE | 2022-10-25 21:16 | NUR ---
ENTERPRISE MANAGER AT PT'S BEDSIDE
[2022-10-25] MEDS ORDERED: ALBUTEROL FS 2.5 MG/3 ML VIAL.NEB NEB PRN (21:30)
[2022-10-25] MEDS ORDERED: IPRATROPIUM NEB FS 0.5 MG/2.5 ML AMPUL.NEB NEB PRN (21:30)
[2022-10-25] MEDS ORDERED: NEPRO VAN 237 ML CAN GT SCH (21:30)
[2022-10-25] MEDS ORDERED: ONDANSETRON HCL/PF 4 MG/2 ML VIAL IVP PRN (21:30)
--- NOTE | 2022-10-25 21:38 | NUR ---
REPORT GIVEN TO FABIOLA Sy RN FOR AGAPITO
--- NOTE | 2022-10-25 21:39 | NUR ---
US TECH AT PT'S BEDSIDE FOR ECG
[2022-10-25 21:56] LABS: BAND % (MANUAL) 7 % (0.0-5.0); EOSINOPHILS % (MANUAL) 1 % (0-4); LYMPHOCYTES % (MANUAL) 6 % (16-48); MONOCYTES % (MANUAL) 6 % (0-11.0); NEUTROPHILS % (MANUAL) 80 (42-76)
[2022-10-25] MEDS ORDERED: TERAZOSIN HCL 5 MG CAPSULE GT SCH (22:00)
--- NOTE | 2022-10-25 22:16 | NUR ---
PT TRANSFERRED TO [facility]-2 VIA ACLS PROTOCOL. VSS.
[2022-10-25 22:30] VITALS: BP 93/48
[2022-10-25] MEDS ORDERED: CEFEPIME 1 GM in IV D5W 50 ML IV ONE (22:30)
--- NOTE | 2022-10-25 22:30 | NUR ---
RN NOTE pt received a/o x1-2 pt able to mouth out words he is able to make his needs know. pt not on any distress or pain. pt noted with trach on to cool aerosol fio2 28% tolerating well. pt noted with generalized scratches and scabs all over body and a sacrum wound wound consult ordered and photos taken. pt noted with permacath to the right chests wall. iv access on the lac # 18g s/l. pt on nepro @70ml/hr x18hrs through gtube tolerating well. aspiration precautions maintained. hob elevated bed in low locked position. bed alarm on.
--- NOTE | 2022-10-25 23:00 | NUR ---
RN NOTE PT COMBATIVE TRYING TO TAKE OFF TRACH AND HIT NURSING STAFF PT WAS PLACE DON BILATERAL SOFT WRIST RESTRAINT.
[2022-10-25] MEDS: TRAZODONE 50 MG TABLET GT SCH (23:16)
[2022-10-25] MEDS ORDERED: CEFEPIME 1 GM VIAL ONE (23:29)
--- NOTE | 2022-10-25 23:44 | NUR ---
PLACED PT ON COOL AEROSOL 28% 5L. NO RESPIRATORY DISTRESS NOTED AT THIS TIME. WILL CONTINUE TO MONITOR T/O SHIFT
[2022-10-26] VITALS: BP 101/59
[2022-10-26] MEDS: NEPRO 1,000 ML BOTTLE GT PRN (00:42)
[2022-10-26 04:00] VITALS: BP 100/66
[2022-10-26 06:27] LABS: BASOPHILS % (AUTO) 0.1 % (0.0-2.0); EOSINOPHILS % (AUTO) 0.2 % (0.0-6.0); HEMATOCRIT 28 % (39-51); HEMOGLOBIN 8.7 g/dL (13.5-17.5); LYMPHOCYTES # (AUTO) 0.2 K/uL (0.8-4.8); LYMPHOCYTES % (AUTO) 2.5 % (20.0-44.0); MEAN CORPUSCULAR HGB CONC 31 g/dl (31.0-36.0); MEAN CORPUSCULAR VOLUME 106 fL (80-96); MONOCYTES # (AUTO) 0.8 K/uL (0.1-1.30); MONOCYTES % (AUTO) 8.5 % (2.0-12.0); NEUTROPHILS # (AUTO) 8.3 K/uL (1.8-8.9); NEUTROPHILS % (AUTO) 88.7 % (43.0-81.0); PLATELET COUNT (AUTO) 247 K/uL (150-450); RED BLOOD CELL COUNT(AUTO) 2.61 MIL/uL (4.5-6.0); WHITE BLOOD COUNT (AUTO) 9.3 K/uL (4.3-11.0)
[2022-10-26 06:32] LABS: CALCIUM, SERUM 8.7 mg/dL (8.5-10.1); CREATININE 3.9 mg/dL (0.6-1.3); MAGNESIUM 2.5 mg/dL (1.8-2.4); PHOSPHORUS 2.4 mg/dL (2.5-4.9); POTASSIUM 3.3 mmol/L (3.5-5.1)
--- NOTE | 2022-10-26 06:40 | NUR ---
CLOSING NOTE RN NOTE pt a/o x1-2 pt able to mouth out words he is able to make his needs know. pt not on any distress or pain. pt noted with trach on to cool aerosol 5L fio2 28% tolerating well.pt noted with permacath to the right chests wall. iv access on the lac #18g s/l. pt on nepro @70ml/hr x18hrs through gtube tolerating well. aspiration precautions maintained. hob elevated bed in low locked position. bed alarm on.will endorse zachariah to day shift nurse.
--- NOTE | 2022-10-26 07:20 | NUR ---
MS RN RECEIVED ON BED, AWAKE,ALERT,ORIENTED X1,TRACH PATIENT CONNECTED TO AIROSOL, W/ ADEQUATE SATURATION,G TUBE INTACT AT 70ML/HOUR TOLERATED WELL W/O RESIDUAL,ALL NEEDS ATTENDED.
[2022-10-26 08:00] VITALS: BP 140/72
--- NOTE | 2022-10-26 09:20 | NUR ---
WOUND CARE CONSULT: PT PRESENTS WITH SACRAL STAGE 3 ULCER AND WOUND TO RT ANKLE, GENERALIZED SKIN CONDITION WITH DRY SCABS AND SCRATCH GAO AND LEFT BELOW KNEE AMPUTATION STUMP, ALL PRESENT ON ADMISSION. DEFER TO PMD FOR GENERALIZED SKIN CONDITION. RECOMMENDATIONS MADE FOR SKIN PROTECTION AND SACRAL WOUND CARE. DISCUSSED WITH NURSING STAFF. SURGICAL AND DPM CONSULTS CALLED TO DR SALEH AND DR SCHACHTER. FLORES IN AGREEMENT WITH PLAN OF CARE. PT IS ON SALEM ISOFLEX LOW AIRLOSS BED. PT IS COMBATIVE AND UNCOOPERATIVE AT TIMES. TRACH NOTED. Addendum: 10/26/22 at 0922 by FRANK CLAUDIO WNDNU Amended: Links added.
[2022-10-26] MEDS: VALPROIC ACID 250 MG/5 ML UDC GT SCH ×3 (09:48→17:14)
[2022-10-26] MEDS: CHLORHEXIDINE GLUCONATE 15 ML UDC MM SCH ×2 (09:48→21:10)
[2022-10-26] MEDS: VIT B CMPLX 3/FA/VIT C/BIOTIN 1 TAB TABLET GT SCH (09:49)
[2022-10-26] MEDS: BENZTROPINE MESYLATE (1 MG) 1 MG TABLET GT SCH ×3 (09:49→17:15)
[2022-10-26] MEDS: FAMOTIDINE (20 MG) 20 MG TABLET GT SCH (09:49)
[2022-10-26] MEDS: DOXAZOSIN MESYLATE (4 MG) 4 MG TABLET GT SCH ×2 (09:49→17:15)
[2022-10-26] MEDS: DOCUSATE SODIUM 100 MG CAPSULE PO SCH (09:49)
[2022-10-26] MEDS: ACIDOPHILUS/BULGARICUS 1 EACH TAB.CHEW GT SCH (09:49)
[2022-10-26] MEDS: LIDOCAINE 5% (PATCH) 1 EA PATCH TP SCH (09:50)
[2022-10-26] MEDS: PROSOURCE / PROSTAT (PYXIS) 30 ML UDC GT SCH (09:50)
[2022-10-26] MEDS: CEFEPIME 1 GM in IV D5W 50 ML IV SCH ×2 (09:56→21:10)
[2022-10-26 12:00] VITALS: BP 130/99
--- NOTE | 2022-10-26 12:00 | NUR ---
ms rn due meds given.tolerated well via g tube, repositioned for comfort.
[2022-10-26 16:00] VITALS: BP 140/67
[2022-10-26] MEDS: THERAHONEY GEL 1.5 OZ TUBE TP SCH (17:57)
--- NOTE | 2022-10-26 18:12 | NUR ---
ms rn on bed, all needs attended.
--- NOTE | 2022-10-26 20:02 | NUR ---
DIGITAL PRINTER OPENING NOTE PATIENT SLEEPING IN BED, EASILY AWAKENED, ALERT/ORIENTED X 1-2, PT ABLE TO MOUTH WORDS. PT WITH TRACH ON COOL AEROSOL ON 5 L. PATIENT ON EXTERNAL CHAPTER RELATIONS ADMINISTRATOR READING SINUS RHYTHM, HR: 80. PATIENT NOTED WITH BILATERAL SOFT WRIST RESTRAINTS. IV ON LAC #18G INTACT AND SALINE LOCKED. PATIENT NOTED WITH LEFT HD PERMACATH, DRESSING CLEAN, DRY AND INTACT. SAFETY MEASURES IN PLACE: CALL LIGHT WITHIN REACH, SIDE RAILS UP X 3, BED LOCKED IN LOWEST POSITION, HOB ELEVATED, BED ALARM ON. WILL CONTINUE TO MONITOR PATIENT
[2022-10-26 21:00] VITALS: BP 117/68
[2022-10-26] MEDS: TRAZODONE 50 MG TABLET GT SCH (21:11)
[2022-10-26] MEDS: ATORVASTATIN 10 MG TABLET GT SCH (21:11)
--- NOTE | 2022-10-26 23:50 | NUR ---
SENIOR LINUX UNIX ENGINEER NOTE PATIENT DIABETIC AND ON GTF, NO ORDERS FOR ACCU CHECK OR SLIDING SCALE INSULIN. PAGED DR. QUINTERO REGARDING THIS, PER MD NOT AN URGENT MATTER AND WAIT TO ADDRESS TILL AM. NO NEW ORDERS AT THIS TIME
[2022-10-27 01:11] VITALS: BP 149/67
[2022-10-27 05:51] VITALS: BP 118/55
[2022-10-27 06:19] LABS: BASOPHILS % (AUTO) 0.4 % (0.0-2.0); EOSINOPHILS % (AUTO) 1.5 % (0.0-6.0); HEMATOCRIT 25 % (39-51); HEMOGLOBIN 7.9 g/dL (13.5-17.5); LYMPHOCYTES # (AUTO) 0.5 K/uL (0.8-4.8); LYMPHOCYTES % (AUTO) 5.9 % (20.0-44.0); MEAN CORPUSCULAR HGB CONC 32 g/dl (31.0-36.0); MEAN CORPUSCULAR VOLUME 105 fL (80-96); MONOCYTES % (AUTO) 11.2 % (2.0-12.0); NEUTROPHILS # (AUTO) 7.3 K/uL (1.8-8.9); PLATELET COUNT (AUTO) 216 K/uL (150-450); RED BLOOD CELL COUNT(AUTO) 2.37 MIL/uL (4.5-6.0)
[2022-10-27 06:43] LABS: CALCIUM, SERUM 8.9 mg/dL (8.5-10.1); CREATININE 4.6 mg/dL (0.6-1.3); POTASSIUM 3.3 mmol/L (3.5-5.1)
--- NOTE | 2022-10-27 06:58 | NUR ---
CUPOLA MELTER HELPER CLOSING NOTE PATIENT SLEEPING IN BED, EASILY AWAKENED, ALERT/ORIENTED X 1, PT ATTEMPTS TO MOUTH WORDS. PT WITH TRACH AND T PIECE ON COOL AEROSOL 5 L. PATIENT ON EXTERNAL SAND OPERATOR READING SINUS RHYTHM, HR: 73. PATIENT WITH BILATERAL SOFT WRIST RESTRAINTS D/T SCRATCHING AND PULLING OF LINES. IV ON LAC #18G INTACT AND SALINE LOCKED. MEDICATIONS GIVEN ORDERED, PT NEEDS MET THROUGHOUT SHIFT, PT TURNED AND REPOSITIONED Q2H. PATIENT ON GT FEEDING NEPRO @ 70 ML/HR X 18 HR, TURNED OFF FROM MIDNIGHT TO 6 AM[address] S[address]ETY MEASURES IN PLACE: CALL LIGHT WITHIN REACH, SIDE RAILS UP X 3, BED LOCKED IN LOWEST POSITION, HOB ELEVATED, BED ALARM ON. WILL ENDORSE TO DAYSHIFT RN FOR CONTINUITY OF CARE
--- NOTE | 2022-10-27 07:15 | NUR ---
MS RN RECEIVED ON BED, AWAKE,ALERT,ORIENTED X 3,NOT IN ANY FORM OF DISTRESS, RESPIRATIONS EVEN AND UNLABORED, GTUBE INTACT W/ FEEDING AT 70ML/HOUR, TOLERATING WELL W/O RESIDUAL, TRACH CONNECTED TO AIROSOL,SATURATING 96%, DENIES PAIN AT THIS TIME,BKA AT LEFT LEG,NOTED TO HAVE SACRAL WOUND W/ DRESSING,ALL NEEDS ATTENDED.
[2022-10-27 08:25] VITALS: BP 134/79
--- NOTE | 2022-10-27 09:10 | NUR ---
ms rn due meds given, via g tube, tolerated well w/o residual.
[2022-10-27] MEDS ORDERED: EPOETIN ALFA (10,000 UNIT) 10,000 UNIT/ML VIAL IV ONE (10:00)
[2022-10-27] MEDS: DOCUSATE SODIUM 100 MG CAPSULE PO SCH (10:06)
[2022-10-27] MEDS: DOXAZOSIN MESYLATE (4 MG) 4 MG TABLET GT SCH ×2 (10:06→18:58)
[2022-10-27] MEDS: VALPROIC ACID 250 MG/5 ML UDC GT SCH ×3 (10:06→18:57)
[2022-10-27] MEDS: CHLORHEXIDINE GLUCONATE 15 ML UDC MM SCH ×2 (10:06→21:03)
[2022-10-27] MEDS: VIT B CMPLX 3/FA/VIT C/BIOTIN 1 TAB TABLET GT SCH (10:07)
[2022-10-27] MEDS: ACIDOPHILUS/BULGARICUS 1 EACH TAB.CHEW GT SCH (10:07)
[2022-10-27] MEDS: BENZTROPINE MESYLATE (1 MG) 1 MG TABLET GT SCH ×3 (10:07→18:58)
[2022-10-27] MEDS: LIDOCAINE 5% (PATCH) 1 EA PATCH TP SCH (10:07)
[2022-10-27] MEDS: PROSOURCE / PROSTAT (PYXIS) 30 ML UDC GT SCH (10:17)
[2022-10-27] MEDS: CEFEPIME 1 GM in IV D5W 50 ML IV SCH ×2 (10:17→21:00)
[2022-10-27 11:58] VITALS: BP 147/69
[2022-10-27] MEDS ORDERED: LORAZEPAM INJ 2 MG/ML VIAL IV ONE (13:30)
--- NOTE | 2022-10-27 14:00 | NUR ---
ms rn u/s guided thoracentesis done w/ 2100ml output, specimen sent to lab for pathology studies.
[2022-10-27 15:52] VITALS: BP 108/61
--- NOTE | 2022-10-27 17:30 | NUR ---
ms furnace combustion tester just started,tolerating well, all needs attended.
[2022-10-27] MEDS ORDERED: EPOETIN ALFA-EPBX 10,000 UNIT/ML VIAL IV ONE (18:00)
[2022-10-27] MEDS: THERAHONEY GEL 1.5 OZ TUBE TP SCH (19:09)
--- NOTE | 2022-10-27 20:24 | NUR ---
CONFIDENTIAL INVESTIGATOR OPENING NOTE PATIENT SLEEPING IN BED, EASILY AWAKENED, ALERT/ORIENTED X 1-2, PT ATTEMPTS TO MOUTH WORDS. PT WITH TRACH AND T PIECE ON COOL AEROSOL 5 L. PATIENT ON EXTERNAL OFFICE ASSISTANT READING SINUS RHYTHM PATIENT WITH BILATERAL SOFT WRIST RESTRAINTS D/T SCRATCHING AND PULLING OF LINES. IV ON LAC #18G INTACT AND SALINE LOCKED. PATIENT ON GT FEEDING NEPRO @ 70 ML/HR X 18 HR, TURNED OFF AT THIS TIME. SAFETY MEASURES IN PLACE: CALL LIGHT WITHIN REACH, SIDE RAILS UP X 3, BED LOCKED IN LOWEST POSITION, HOB ELEVATED, BED ALARM ON. PT S/P HD 2L OUT AND THORACENTESES 2L OUTPUT
[2022-10-27] MEDS: TRAZODONE 50 MG TABLET GT SCH (21:02)
[2022-10-27] MEDS: ATORVASTATIN 10 MG TABLET GT SCH (21:02)
[2022-10-28 00:03] VITALS: BP 163/79
[2022-10-28 04:14] VITALS: BP 135/63
--- NOTE | 2022-10-28 06:58 | NUR ---
FISH HOUSEKEEPER CLOSING NOTE PATIENT SLEEPING IN BED, EASILY AWAKENED, ALERT/ORIENTED X 1-2, PT ATTEMPTS TO MOUTH WORDS. PT WITH TRACH AND T PIECE ON COOL AEROSOL 5 L. PATIENT ON EXTERNAL PAPER SALES REPRESENTATIVE READING SINUS RHYTHM PATIENT WITH BILATERAL SOFT WRIST RESTRAINTS D/T SCRATCHING AND PULLING OF LINES. IV ON LAC #18G INTACT AND SALINE LOCKED. PATIENT ON GT FEEDING NEPRO @ 70 ML/HR X 18 HR, TURNED OFF AT THIS TIME. SAFETY MEASURES IN PLACE: CALL LIGHT WITHIN REACH, SIDE RAILS UP X 3, BED LOCKED IN LOWEST POSITION, HOB ELEVATED, BED ALARM ON. WILL ENDORSE CARE TO DAY SHIFT NURSE.
[2022-10-28 07:08] LABS: BASOPHILS # (AUTO) 0.2 K/uL (0.0-0.2); BASOPHILS % (AUTO) 1.7 % (0.0-2.0); EOSINOPHILS % (AUTO) 0.6 % (0.0-6.0); HEMATOCRIT 26 % (39-51); HEMOGLOBIN 8.8 g/dL (13.5-17.5); LYMPHOCYTES # (AUTO) 0.4 K/uL (0.8-4.8); LYMPHOCYTES % (AUTO) 3.8 % (20.0-44.0); MEAN CORPUSCULAR HGB CONC 34 g/dl (31.0-36.0); MEAN CORPUSCULAR VOLUME 103 fL (80-96); MONOCYTES # (AUTO) 0.9 K/uL (0.1-1.30); MONOCYTES % (AUTO) 9.2 % (2.0-12.0); NEUTROPHILS # (AUTO) 7.9 K/uL (1.8-8.9); NEUTROPHILS % (AUTO) 84.7 % (43.0-81.0); PLATELET COUNT (AUTO) 139 K/uL (150-450); RED BLOOD CELL COUNT(AUTO) 2.53 MIL/uL (4.5-6.0); WHITE BLOOD COUNT (AUTO) 9.3 K/uL (4.3-11.0)
--- NOTE | 2022-10-28 07:25 | NUR ---
ms rn received on bed, sleeping, not in any form of distress, respirations even and unlabored,no sob noted, trach connected to aerosol, w/ adequate saturation, g tube intact at 70ml/ hour, tolerated well, w/o residual,will monitor patient.
[2022-10-28 07:26] LABS: CALCIUM, SERUM 8.8 mg/dL (8.5-10.1); CREATININE 3.5 mg/dL (0.6-1.3); MAGNESIUM 2.8 mg/dL (1.8-2.4); PHOSPHORUS 1.3 mg/dL (2.5-4.9); POTASSIUM 3.6 mmol/L (3.5-5.1)
[2022-10-28 08:00] VITALS: BP 136/63
[2022-10-28] MEDS: VIT B CMPLX 3/FA/VIT C/BIOTIN 1 TAB TABLET GT SCH (09:00)
[2022-10-28] MEDS: BENZTROPINE MESYLATE (1 MG) 1 MG TABLET GT SCH ×3 (09:00→18:21)
[2022-10-28] MEDS: ACIDOPHILUS/BULGARICUS 1 EACH TAB.CHEW GT SCH (09:02)
[2022-10-28] MEDS: CHLORHEXIDINE GLUCONATE 15 ML UDC MM SCH ×2 (09:02→21:21)
[2022-10-28] MEDS: DOCUSATE SODIUM 100 MG CAPSULE PO SCH (09:02)
[2022-10-28] MEDS: VALPROIC ACID 250 MG/5 ML UDC GT SCH ×3 (09:02→18:21)
[2022-10-28] MEDS: FAMOTIDINE (20 MG) 20 MG TABLET GT SCH (09:02)
[2022-10-28] MEDS: LIDOCAINE 5% (PATCH) 1 EA PATCH TP SCH (09:02)
[2022-10-28] MEDS: DOXAZOSIN MESYLATE (4 MG) 4 MG TABLET GT SCH ×2 (09:03→18:22)
[2022-10-28] MEDS: PROSOURCE / PROSTAT (PYXIS) 30 ML UDC GT SCH (09:05)
[2022-10-28] MEDS: THERAHONEY GEL 1.5 OZ TUBE TP SCH (09:06)
[2022-10-28] MEDS: CEFEPIME 1 GM in IV D5W 50 ML IV SCH ×2 (09:12→21:21)
--- NOTE | 2022-10-28 09:45 | NUR ---
ms rn was seen by dr. galaviz, was aware w/ lab result, no order at this time.
[2022-10-28 12:00] VITALS: BP 165/73
[2022-10-28] MEDS ORDERED: K PHOS NEUTRAL 250 MG TABLET GT ONE (12:00)
[2022-10-28] MEDS: CLONIDINE HCL 0.1 MG TABLET GT PRN ×2 (13:13→18:22)
--- NOTE | 2022-10-28 14:00 | NUR ---
ms rn pm care done, sacral dressing done w/ rate analyst, repositioned patient,all needs attended.
[2022-10-28 16:00] VITALS: BP 165/76
--- NOTE | 2022-10-28 19:14 | NUR ---
ms rn on bed, awake, no distress noted,all needs attended.
[2022-10-28 20:00] VITALS: BP 168/76
--- NOTE | 2022-10-28 20:05 | NUR ---
FLOOR FRAMER OPENING NOTE PATIENT SLEEPING IN BED, EASILY AWAKENED, ALERT/ORIENTED X 2-3, PT MOUTHS WORDS. PT WITH TRACH AND T PIECE ON COOL AEROSOL 5 L. PATIENT ON EXTERNAL CURING MACHINE OPERATOR READING SINUS RHYTHM PATIENT WITH BILATERAL SOFT WRIST RESTRAINTS D/T SCRATCHING AND PULLING OF LINES. IV ON LAC #18G INTACT AND SALINE LOCKED. PATIENT ON GT FEEDING NEPRO@ 70 ML/HR X 18 HR,TURNED OFF AT THIS TIME. SAFETY MEASURES IN PLACE: CALL LIGHT WITHIN REACH, SIDE RAILS UP X 3, BED LOCKED IN LOWEST POSITION, HOB ELEVATED, BED ALARM ON.
[2022-10-28] MEDS: ATORVASTATIN 10 MG TABLET GT SCH (21:20)
[2022-10-28] MEDS: TRAZODONE 50 MG TABLET GT SCH (21:20)
[2022-10-29] VITALS: BP 159/71
[2022-10-29 04:00] VITALS: BP 147/93
[2022-10-29 06:27] LABS: BASOPHILS % (AUTO) 0.1 % (0.0-2.0); EOSINOPHILS % (AUTO) 1.4 % (0.0-6.0); HEMATOCRIT 23 % (39-51); HEMOGLOBIN 7.7 g/dL (13.5-17.5); LYMPHOCYTES # (AUTO) 0.5 K/uL (0.8-4.8); LYMPHOCYTES % (AUTO) 4.6 % (20.0-44.0); MEAN CORPUSCULAR HGB CONC 33 g/dl (31.0-36.0); MEAN CORPUSCULAR VOLUME 102 fL (80-96); MONOCYTES # (AUTO) 1.3 K/uL (0.1-1.30); MONOCYTES % (AUTO) 12.9 % (2.0-12.0); NEUTROPHILS # (AUTO) 8.1 K/uL (1.8-8.9); PLATELET COUNT (AUTO) 197 K/uL (150-450); RED BLOOD CELL COUNT(AUTO) 2.28 MIL/uL (4.5-6.0)
[2022-10-29 06:43] LABS: CALCIUM, SERUM 8.8 mg/dL (8.5-10.1); CREATININE 4.2 mg/dL (0.6-1.3); MAGNESIUM 2.7 mg/dL (1.8-2.4); PHOSPHORUS 1.2 mg/dL (2.5-4.9); POTASSIUM 3.4 mmol/L (3.5-5.1)
--- NOTE | 2022-10-29 06:58 | NUR ---
OXYACETYLENE TORCH OPERATOR CLOSING NOTE PATIENT SLEEPING IN BED, EASILY AWAKENED, ALERT/ORIENTED X 2-3, PT MOUTHS WORDS. PT WITH TRACH AND T PIECE ON COOL AEROSOL 5 L. PATIENT ON EXTERNAL ARABIC LINGUIST READING SINUS RHYTHM PATIENT WITH BILATERAL SOFT WRIST RESTRAINTS D/T SCRATCHING AND PULLING OF LINES. IV ON LAC #18G INTACT AND SALINE LOCKED. PATIENT ON GT FEEDING NEPRO@ 70 ML/HR X 18 HR,TURNED ON AT THIS TIME. SAFETY MEASURES IN PLACE: CALL LIGHT WITHIN REACH, SIDE RAILS UP X 3, BED LOCKED IN LOWEST POSITION, HOB ELEVATED, BED ALARM ON. WILL ENDORSE AGAPITO TO DAY SHIFT.
--- NOTE | 2022-10-29 07:45 | NUR ---
RN OPENING NOTE PATIENT AWAKE IN BED RESTING AT THE MOMENT A/O X 2-3. NO S/S OF PAIN NOTED AT THIS TIME. ON TRACH T-PIECE, NO DISTRESS OR SHORTNESS OF BREATH NOTED. IV ACCESS LAC #18G, INTACT, PATENT AND FLUSHING WELL. PATIENT WITH EXTERNAL HOOP DRIVING MACHINE OPERATOR HELPER WITH CURRENT READING OF SR AND HR OF 74, NO CARDIAC DISTRESS NOTED. FALL AND SAFETY MEASURES IN PLACE, BED ALARM ON, BED IN LOW AND LOCK POSITION, CALL LIGHT AND TABLE WITHIN EASY REACH, SIDE RAILS UP X2. WILL CONTINUE TO MONITOR.
[2022-10-29] MEDS: CEFEPIME 1 GM in IV D5W 50 ML IV SCH ×2 (09:45→21:05)
[2022-10-29] MEDS: DOXAZOSIN MESYLATE (4 MG) 4 MG TABLET GT SCH ×2 (09:46→16:51)
[2022-10-29] MEDS: DOCUSATE SODIUM 100 MG CAPSULE PO SCH (09:46)
[2022-10-29] MEDS: VALPROIC ACID 250 MG/5 ML UDC GT SCH ×3 (09:46→16:51)
[2022-10-29] MEDS: ACIDOPHILUS/BULGARICUS 1 EACH TAB.CHEW GT SCH (09:46)
[2022-10-29] MEDS: PROSOURCE / PROSTAT (PYXIS) 30 ML UDC GT SCH (09:46)
[2022-10-29] MEDS: BENZTROPINE MESYLATE (1 MG) 1 MG TABLET GT SCH ×3 (09:47→16:52)
[2022-10-29] MEDS: LIDOCAINE 5% (PATCH) 1 EA PATCH TP SCH (09:47)
[2022-10-29] MEDS: CHLORHEXIDINE GLUCONATE 15 ML UDC MM SCH ×2 (09:48→21:05)
[2022-10-29] MEDS: VIT B CMPLX 3/FA/VIT C/BIOTIN 1 TAB TABLET GT SCH (09:48)
[2022-10-29] MEDS: THERAHONEY GEL 1.5 OZ TUBE TP SCH (09:50)
--- NOTE | 2022-10-29 18:57 | NUR ---
RN CLOSING NOTE PATIENT AWAKE IN BED RESTING AT THE MOMENT A/O X 2-3. NO S/S OF PAIN NOTED AT THIS TIME. ON TRACH T-PIECE, NO DISTRESS OR SHORTNESS OF BREATH NOTED. IV ACCESS LAC #18G, INTACT, PATENT AND FLUSHING WELL. PATIENT WITH EXTERNAL BLOW MOLD OPERATOR WITH CURRENT READING OF SR AND HR OF 74, NO CARDIAC DISTRESS NOTED. SCHEDULE MEDICATIONS ADMINISTERED. WOUND CARE IMPLEMENTED. PATIENT WAS TURNED AND REPOSITIONED PER PROTOCOL. FALL AND SAFETY MEASURES IN PLACE, BED ALARM ON, BED IN LOW AND LOCK POSITION, CALL LIGHT AND TABLE WITHIN EASY REACH, SIDE RAILS UP X2. WILL ENDORSE TO FIRER LOCOMOTIVE.
--- NOTE | 2022-10-29 20:13 | NUR ---
RESTAURANT HOSPITALITY MANAGER OPENING NOTE PATIENT AWAKE IN BED RESTING AT THE MOMENT A/O X 2-3. NO S/S OF PAIN NOTED AT THIS TIME. ON TRACH T-PIECE, NO DISTRESS OR SHORTNESS OF BREATH NOTED. IV ACCESS LAC #18G, INTACT, PATENT AND FLUSHING WELL. PATIENT WITH EXTERNAL TAX MAP TECHNICIAN WITH CURRENT READING OF SR AND HR OF 74, NO CARDIAC DISTRESS NOTED. ON SOFT RESTRAINTS AT BILATERAL HAND. CIRCULATION CHECKED. FALL AND SAFETY MEASURES IN PLACE, BED ALARM ON, BED IN LOW AND LOCK POSITION, CALL LIGHT AND TABLE WITHIN EASY REACH, SIDE RAILS UP X2. WILL CONTINUE TO MONITOR.
[2022-10-29 20:48] VITALS: BP 163/77
[2022-10-29] MEDS: ATORVASTATIN 10 MG TABLET GT SCH (21:06)
[2022-10-29] MEDS: TRAZODONE 50 MG TABLET GT SCH (21:06)
[2022-10-29] MEDS: CLONIDINE HCL 0.1 MG TABLET GT PRN (21:06)
[2022-10-30 00:46] VITALS: BP 166/76
[2022-10-30 06:05] LABS: BASOPHILS % (AUTO) 0.3 % (0.0-2.0); HEMATOCRIT 24 % (39-51); HEMOGLOBIN 7.7 g/dL (13.5-17.5); LYMPHOCYTES # (AUTO) 0.5 K/uL (0.8-4.8); LYMPHOCYTES % (AUTO) 4.4 % (20.0-44.0); MEAN CORPUSCULAR HGB CONC 32 g/dl (31.0-36.0); MEAN CORPUSCULAR VOLUME 101 fL (80-96); MONOCYTES # (AUTO) 1.5 K/uL (0.1-1.30); MONOCYTES % (AUTO) 12.6 % (2.0-12.0); NEUTROPHILS # (AUTO) 9.4 K/uL (1.8-8.9); NEUTROPHILS % (AUTO) 81.7 % (43.0-81.0); PLATELET COUNT (AUTO) 165 K/uL (150-450); RED BLOOD CELL COUNT(AUTO) 2.33 MIL/uL (4.5-6.0); WHITE BLOOD COUNT (AUTO) 11.5 K/uL (4.3-11.0)
[2022-10-30 06:42] LABS: MAGNESIUM 2.8 mg/dL (1.8-2.4); PHOSPHORUS 1.7 mg/dL (2.5-4.9)
[2022-10-30 08:00] VITALS: BP 164/84
--- NOTE | 2022-10-30 08:04 | NUR ---
RN OPENING NOTE- PT ASLEEP, EASILY AWAKENED. NO S/S OF PAIN NOTED AT THIS TIME. ON TRACH T-PIECE, REPOSITIONED IT CAME LOOSE, NO DISTRESS OR SHORTNESS OF BREATH NOTED. IV ACCESS LAC #18G, INTACT, PATENT AND FLUSHING WELL. PATIENT WITH TELE READING OF SR / 72, NO CARDIAC DISTRESS NOTED. FALL AND SAFETY MEASURES IN PLACE, BED ALARM ON, BED IN LOW AND LOCK POSITION, CALL LIGHT AND TABLE WITHIN EASY REACH, SIDE RAILS UP X2. WILL CONTINUE TO MONITOR / ASSIST
[2022-10-30] MEDS: DOCUSATE SODIUM 100 MG CAPSULE PO SCH (08:40)
[2022-10-30] MEDS: CHLORHEXIDINE GLUCONATE 15 ML UDC MM SCH ×2 (08:40→20:59)
[2022-10-30] MEDS: VIT B CMPLX 3/FA/VIT C/BIOTIN 1 TAB TABLET GT SCH (08:40)
[2022-10-30] MEDS: ACIDOPHILUS/BULGARICUS 1 EACH TAB.CHEW GT SCH (08:40)
[2022-10-30] MEDS: VALPROIC ACID 250 MG/5 ML UDC GT SCH ×3 (08:42→17:21)
[2022-10-30] MEDS: FAMOTIDINE (20 MG) 20 MG TABLET GT SCH (08:42)
[2022-10-30] MEDS: BENZTROPINE MESYLATE (1 MG) 1 MG TABLET GT SCH ×3 (08:42→17:21)
[2022-10-30] MEDS: DOXAZOSIN MESYLATE (4 MG) 4 MG TABLET GT SCH ×2 (08:43→17:21)
[2022-10-30] MEDS: PROSOURCE / PROSTAT (PYXIS) 30 ML UDC GT SCH (08:47)
[2022-10-30] MEDS: Z GUARD REMEDY 4 OZ OINT TP PRN (08:48)
[2022-10-30] MEDS: CEFEPIME 1 GM in IV D5W 50 ML IV SCH (08:50)
[2022-10-30 08:53] LABS: CALCIUM, SERUM 9.2 mg/dL (8.5-10.1); CREATININE 5.1 mg/dL (0.6-1.3); POTASSIUM 3.7 mmol/L (3.5-5.1)
[2022-10-30] MEDS: LIDOCAINE 5% (PATCH) 1 EA PATCH TP SCH (08:53)
[2022-10-30] MEDS: THERAHONEY GEL 1.5 OZ TUBE TP SCH (08:54)
[2022-10-30 09:29] LABS: BAND % (MANUAL) 4 % (0.0-5.0); EOSINOPHILS % (MANUAL) 2 % (0-4); LYMPHOCYTES % (MANUAL) 4 % (16-48); MONOCYTES % (MANUAL) 8 % (0-11.0); MYELOCYTES % 1 % (0-0); NEUTROPHILS % (MANUAL) 81 (42-76)
[2022-10-30] MEDS ORDERED: K PHOS NEUTRAL 250 MG TABLET PO ONE (10:00)
[2022-10-30 12:00] VITALS: BP 130/76
[2022-10-30 16:00] VITALS: BP 144/84
[2022-10-30] MEDS: MEROPENEM 500 MG in IV NS 0.9% 50 ML IV SCH (17:11)
[2022-10-30] MEDS ORDERED: VANCOMYCIN 1 GM in IV D5W 250ml IV ONE (18:00)
--- NOTE | 2022-10-30 18:49 | NUR ---
RN CLOSING NOTE- PT AWAKE IN BED, NO S/S OF PAIN NOTED AT THIS TIME. NO DISTRESS OR SHORTNESS OF BREATH NOTED. IV ACCESS LAC #18G, INTACT, PATENT AND FLUSHING WELL. PATIENT WITH TELE READING OF SR , NO CARDIAC DISTRESS NOTED. FALL AND SAFETY MEASURES IN PLACE, BED ALARM ON, BED IN LOW AND LOCK POSITION, CALL LIGHT AND TABLE WITHIN EASY REACH, SIDE RAILS UP X2. WILL CONTINUE TO MONITOR / ASSIST
[2022-10-30 20:00] VITALS: BP 163/92
[2022-10-30] MEDS: NEPRO 1,000 ML BOTTLE GT PRN (20:41)
[2022-10-30] MEDS: TRAZODONE 50 MG TABLET GT SCH (21:40)
[2022-10-30] MEDS: ATORVASTATIN 10 MG TABLET GT SCH (21:41)
--- NOTE | 2022-10-30 22:00 | NUR ---
Patient in bed noted restraints on mitten on the right hand removed and PEG TUBE out placed a #16 rodriges tube to keep the opening open taped to the ABD Placed a call to MD Benito Montague [phone] orders for GI CONSULT to replace the peg tube and start D5NS at 50 ml hr
[2022-10-30] MEDS: IV D5/ 0.9% NACL 1,000 ML IV PRN (23:58)
[2022-10-31] VITALS: BP 187/82
[2022-10-31 04:00] VITALS: BP 150/71
[2022-10-31] MEDS: MEROPENEM 500 MG in IV NS 0.9% 50 ML IV SCH ×2 (04:37→16:20)
--- NOTE | 2022-10-31 05:07 | NUR ---
closing notes: alert and orientated X@ spit on the wall and the floor removed his PEG MD made aware and ordered GI consult to replace the peg Alanis cath #!^ placed in the opening and the MD made aware manda wrist restraints an and mittens asp precautions thru the night
[2022-10-31 05:38] LABS: BASOPHILS % (AUTO) 0.1 % (0.0-2.0); EOSINOPHILS % (AUTO) 1.2 % (0.0-6.0); HEMATOCRIT 25 % (39-51); HEMOGLOBIN 7.9 g/dL (13.5-17.5); LYMPHOCYTES # (AUTO) 0.4 K/uL (0.8-4.8); LYMPHOCYTES % (AUTO) 4.4 % (20.0-44.0); MEAN CORPUSCULAR HGB CONC 32 g/dl (31.0-36.0); MEAN CORPUSCULAR VOLUME 103 fL (80-96); MONOCYTES # (AUTO) 1.1 K/uL (0.1-1.30); MONOCYTES % (AUTO) 10.8 % (2.0-12.0); NEUTROPHILS # (AUTO) 8.4 K/uL (1.8-8.9); NEUTROPHILS % (AUTO) 83.5 % (43.0-81.0); PLATELET COUNT (AUTO) 146 K/uL (150-450)
[2022-10-31 05:55] LABS: CALCIUM, SERUM 9.5 mg/dL (8.5-10.1); CREATININE 3.5 mg/dL (0.6-1.3); MAGNESIUM 2.4 mg/dL (1.8-2.4); PHOSPHORUS 1.5 mg/dL (2.5-4.9); POTASSIUM 3.3 mmol/L (3.5-5.1)
[2022-10-31 08:00] VITALS: BP 164/74
[2022-10-31] MEDS: DOCUSATE SODIUM 100 MG CAPSULE PO SCH (08:01)
[2022-10-31] MEDS: BENZTROPINE MESYLATE (1 MG) 1 MG TABLET GT SCH ×3 (08:01→16:21)
[2022-10-31] MEDS: VIT B CMPLX 3/FA/VIT C/BIOTIN 1 TAB TABLET GT SCH (08:01)
[2022-10-31] MEDS: PROSOURCE / PROSTAT (PYXIS) 30 ML UDC GT SCH (08:01)
[2022-10-31] MEDS: DOXAZOSIN MESYLATE (4 MG) 4 MG TABLET GT SCH ×2 (08:01→16:23)
[2022-10-31] MEDS: VALPROIC ACID 250 MG/5 ML UDC GT SCH ×3 (08:01→16:21)
[2022-10-31] MEDS: ACIDOPHILUS/BULGARICUS 1 EACH TAB.CHEW GT SCH (08:01)
--- NOTE | 2022-10-31 08:02 | NUR ---
RN NOTE PT PULLED OUT G TUBE LAST NIGHT. MEDS HELD. GI WAS CONSULTED
[2022-10-31] MEDS: LIDOCAINE 5% (PATCH) 1 EA PATCH TP SCH (08:32)
[2022-10-31] MEDS: THERAHONEY GEL 1.5 OZ TUBE TP SCH (08:32)
[2022-10-31] MEDS: CHLORHEXIDINE GLUCONATE 15 ML UDC MM SCH ×2 (08:32→20:25)
[2022-10-31] MEDS ORDERED: DIATR MEGLU/DIATRIZOATE SODIUM 30 ML BOTTLE (GASTROGRAPHIN) ONE (12:23)
[2022-10-31 12:37] VITALS: BP 163/72
--- NOTE | 2022-10-31 12:37 | NUR ---
OLIVER ZELAYA INFORMED ABOUT LOW PHOS AND POTASSIUM
[2022-10-31 16:00] VITALS: BP 168/77
[2022-10-31] MEDS ORDERED: VANCOMYCIN POST DIALYSIS 500MG IV PRN ×2 (16:00)
[2022-10-31] MEDS: IV D5/ 0.9% NACL 1,000 ML IV PRN (16:23)
--- NOTE | 2022-10-31 17:48 | NUR ---
END OF SHIFT SUMMARY PATIENT IS A/O X1, ON TRACH AT 5 LPM. FREQUENT SUCTIONING NEEDED. SR ON TELEMONITOR. IV ACCESS ON L WRIST #22G, D5NS RUNNING AT 50 ML/HR. LEFT CHEST WALL PERMACATH, DRESSING C/D/I. NEW G TUBE INSERTED BY OLIVER ZELAYA, ABD X RAY SHOWED G TUBE IS IN PLACE. NEPRO RESTARTED AT 70 ML/HR, TOLERATING FEEDING WELL. YELENA SOFT WRIST RESTRAINTS ON, ASSESSED PER PROTOCOL. INCONTINENCE CARE PROVIDED. SAFETY MEASURES MAINTAINED. BED IN LOWEST POSITION, BRAKES LOCKED. SIDE RAILS UP X2. CALL LIGHT WITHIN REACH. WILL ENDORSE CONTINUITY OF CARE TO ONCOMING SHIFT.
[2022-10-31 20:00] VITALS: BP 170/92
--- NOTE | 2022-10-31 20:13 | NUR ---
RECEIVED ALERT AND ORIENTATED x1 GOOD EYE CONTACT PEG FLUSHED W/O DIFFICULTY ASP PRECAUTIONS ORDERED PEG FEEDING AT 70ML HR WRIST RESTRAINTS ON D/T WHEN RELEASED I OBSERVED HIM REACH FOR HIS TRACH MASK BED ALARM ON
[2022-10-31] MEDS: CLONIDINE HCL 0.1 MG TABLET GT PRN (20:28)
[2022-10-31] MEDS: ATORVASTATIN 10 MG TABLET GT SCH (21:39)
[2022-10-31] MEDS: TRAZODONE 50 MG TABLET GT SCH (21:39)
[2022-11-01] VITALS: BP 179/86
[2022-11-01] MEDS: CLONIDINE HCL 0.1 MG TABLET GT PRN ×3 (00:14→21:19)
--- NOTE | 2022-11-01 00:22 | NUR ---
Blood pressure 179/86 right arm PRN catapres ordered for b/p grt than 160 GIVEN VIA PEG
[2022-11-01 04:00] VITALS: BP_SYST 144; BP_SYST 176; BP_DIAS 76; BP_DIAS 83
[2022-11-01] MEDS: MEROPENEM 500 MG in IV NS 0.9% 50 ML IV SCH ×2 (04:38→17:18)
--- NOTE | 2022-11-01 04:51 | NUR ---
CLOSING NOTES; ALERT ORIENTATED X2 ABLE TO MAKE HIS SIMPLE NEEDS KNOWN WRIST RESTRAINT AND MITTENS d/t HE PULLS OUT TRACH THE TRACH MASK AND 10/31 HE REMOVED HIS PEG . IT WAS REPLACED AND IS WORKING. HE IS TO HAVE HDTODAY ORDERED AND A VANCO TROUGH AT 0600 HE WAS CALM AND SLEPT THRU MOST OF THE NIGHT BED ALARM ON FOR SAFETY NOTED 8pm b/p 170/92 CATAPRERS 0.1 MG GIVEN OPRDERED 2400 B/P 179/86 CATAPRS 0.1 MG GIVEN ORDERED q 4 HRS PRN 04:00 B/P 176/83 CATAPRES 0.1MG GIVEN HE IS EASILY AGITATED WHEN REPOSITIONED OR CLEANED D/T INCONTINENCE
[2022-11-01 06:26] LABS: BASOPHILS % (AUTO) 0.3 % (0.0-2.0); EOSINOPHILS % (AUTO) 2.4 % (0.0-6.0); HEMATOCRIT 23 % (39-51); HEMOGLOBIN 7.3 g/dL (13.5-17.5); LYMPHOCYTES # (AUTO) 0.6 K/uL (0.8-4.8); LYMPHOCYTES % (AUTO) 6.4 % (20.0-44.0); MEAN CORPUSCULAR HGB CONC 32 g/dl (31.0-36.0); MEAN CORPUSCULAR VOLUME 103 fL (80-96); MONOCYTES # (AUTO) 0.9 K/uL (0.1-1.30); MONOCYTES % (AUTO) 9.7 % (2.0-12.0); NEUTROPHILS # (AUTO) 7.3 K/uL (1.8-8.9); NEUTROPHILS % (AUTO) 81.2 % (43.0-81.0); PLATELET COUNT (AUTO) 138 K/uL (150-450); RED BLOOD CELL COUNT(AUTO) 2.19 MIL/uL (4.5-6.0)
[2022-11-01 07:03] LABS: CREATININE 4.1 mg/dL (0.6-1.3); MAGNESIUM 2.5 mg/dL (1.8-2.4); PHOSPHORUS 1.8 mg/dL (2.5-4.9); POTASSIUM 3.7 mmol/L (3.5-5.1)
--- NOTE | 2022-11-01 07:30 | NUR ---
RN Opening Note Patient AOx3, not able to express his concerns. PAtient able to mumble some words and signal needs. Patient signals that he is comfortable. No signs of distress or discomfort, no signs of respiratory distress. All safety precautions taken, call light and table within reach. Discussed plan of care with patient, patient signals agreement.
[2022-11-01] MEDS: LIDOCAINE 5% (PATCH) 1 EA PATCH TP SCH (08:16)
[2022-11-01] MEDS: DOXAZOSIN MESYLATE (4 MG) 4 MG TABLET GT SCH ×2 (08:16→17:19)
[2022-11-01] MEDS: CHLORHEXIDINE GLUCONATE 15 ML UDC MM SCH ×2 (08:16→21:18)
[2022-11-01] MEDS: VALPROIC ACID 250 MG/5 ML UDC GT SCH ×3 (08:16→17:19)
[2022-11-01] MEDS: DOCUSATE SODIUM 100 MG CAPSULE PO SCH (08:16)
[2022-11-01] MEDS: PROSOURCE / PROSTAT (PYXIS) 30 ML UDC GT SCH (08:17)
[2022-11-01] MEDS: BENZTROPINE MESYLATE (1 MG) 1 MG TABLET GT SCH ×3 (08:17→17:19)
[2022-11-01] MEDS: THERAHONEY GEL 1.5 OZ TUBE TP SCH (08:17)
[2022-11-01] MEDS: VIT B CMPLX 3/FA/VIT C/BIOTIN 1 TAB TABLET GT SCH (08:17)
[2022-11-01] MEDS: FAMOTIDINE (20 MG) 20 MG TABLET GT SCH (08:17)
[2022-11-01] MEDS: ACIDOPHILUS/BULGARICUS 1 EACH TAB.CHEW GT SCH (08:17)
[2022-11-01] MEDS ORDERED: NEUTRA PHOS 1 POWD.PACKET GT ONE (10:00)
[2022-11-01] MEDS: DOCUSATE SODIUM LIQ 100 MG/10 ML UDC GT SCH (10:43)
[2022-11-01] MEDS ORDERED: VANCOMYCIN 1 GM in IV D5W 250 ML IV ONE (12:00)
[2022-11-01] MEDS ORDERED: MERO500V23 IV (13:24)
[2022-11-01] MEDS ORDERED: COLL30OI TP (13:24)
[2022-11-01] MEDS ORDERED: VANC500F2 IV (13:24)
[2022-11-01] MEDS: Z GUARD REMEDY 4 OZ OINT TP SCH ×2 (13:31→21:19)
--- NOTE | 2022-11-01 19:43 | NUR ---
RN OPENING NOTES RECEIVED PT IN BED, ASLEEP, AWAKENS TO VERBAL STIMULI. AOx3. ON COOL AEROSOLIZED TRACH AND TOLERATING WELL. NO SOB NOTED. NO S/SX OF RESPIRATORY DISTRESS NOTED. TELE MONITOR DETECTS SINUS RHYTHM WITH RATE OF 83. IV ACCESS IN CHRISTA #20G. IV IS INTACT, PATENT, AND FLUSHING WELL. SAFETY PRECAUTIONS IN PLACE: BED IN LOWEST, LOCKED POSITION, SIDERAILS UPx2, AND BRAKES ON. TABLE AND CALL LIGHT WITHIN REACH. ALL NEEDS MET AT THIS TIME.
[2022-11-01 20:00] VITALS: BP 178/104
--- NOTE | 2022-11-01 20:30 | NUR ---
RT Pt recvd awake on 28% CA via trach mask. trach is patent and secured. pt refused suction, there was blood on what i was able to initial suction from trach. I changed inner cannula at this time. No SOB or respiratory distress noted at this time. Spare trach and ambu bag at bedside. RN informed of suction refusal by pt.
--- NOTE | 2022-11-01 21:10 | NUR ---
RN NOTES PATIENT HAVING EPISODES OF HEMOPTYSIS. REFUSES TO BE SUCTIONED. ALSO HAD EPISODE OF FEVER. PLACED ICE PACKS. HAD EPISODE OF HYPERTENSION 178/104. ADMINISTERED CLONIDINE VIA G-TUBE.
[2022-11-01] MEDS: ATORVASTATIN 10 MG TABLET GT SCH (21:18)
[2022-11-01] MEDS: TRAZODONE 50 MG TABLET GT SCH (21:19)
[2022-11-02] VITALS: BP 161/78
[2022-11-02 04:00] VITALS: BP 106/78
[2022-11-02] MEDS: MEROPENEM 500 MG in IV NS 0.9% 50 ML IV SCH ×2 (04:00→16:18)
--- NOTE | 2022-11-02 06:05 | NUR ---
Attempted to suction pt with cold saline and patient refused and began to thrash around. Inner cannula, trach dressing and trach mask changed. Bloody secretions noted. RN is aware.
--- NOTE | 2022-11-02 06:50 | NUR ---
RN CLOSING NOTES PT IN BED, ASLEEP, AWAKENS TO VERBAL STIMULI. AOx3. ON COOL AEROSOLIZED TRACH AND TOLERATING WELL. NO SOB NOTED. NO S/SX OF RESPIRATORY DISTRESS NOTED. TELE MONITOR DETECTS SINUS RHYTHM WITH RATE OF 83. IV ACCESS IN CHRISTA #20G. IV IS INTACT, PATENT, AND FLUSHING WELL. ALL ORDERS CARRIED OUT. ALL NEEDS MET. PT KEPT CLEAN AND DRY. SAFETY PRECAUTIONS IN PLACE: BED IN LOWEST, LOCKED POSITION, SIDERAILS UPx2, AND BRAKES ON. TABLE AND CALL LIGHT WITHIN REACH. WILL ENDORSE TO ONCOMING SHIFT FOR AGAPITO.
[2022-11-02 07:33] LABS: BASOPHILS % (AUTO) 0.1 % (0.0-2.0); EOSINOPHILS % (AUTO) 1.4 % (0.0-6.0); HEMATOCRIT 23 % (39-51); HEMOGLOBIN 7.4 g/dL (13.5-17.5); LYMPHOCYTES # (AUTO) 0.7 K/uL (0.8-4.8); LYMPHOCYTES % (AUTO) 6.2 % (20.0-44.0); MEAN CORPUSCULAR HGB CONC 32 g/dl (31.0-36.0); MEAN CORPUSCULAR VOLUME 103 fL (80-96); MONOCYTES # (AUTO) 1.1 K/uL (0.1-1.30); MONOCYTES % (AUTO) 9.6 % (2.0-12.0); NEUTROPHILS # (AUTO) 9.2 K/uL (1.8-8.9); NEUTROPHILS % (AUTO) 82.7 % (43.0-81.0); PLATELET COUNT (AUTO) 151 K/uL (150-450); RED BLOOD CELL COUNT(AUTO) 2.27 MIL/uL (4.5-6.0); WHITE BLOOD COUNT (AUTO) 11.1 K/uL (4.3-11.0)
[2022-11-02 07:50] LABS: CALCIUM, SERUM 9.4 mg/dL (8.5-10.1); CREATININE 3.7 mg/dL (0.6-1.3); MAGNESIUM 2.3 mg/dL (1.8-2.4); PHOSPHORUS 1.2 mg/dL (2.5-4.9); POTASSIUM 4.1 mmol/L (3.5-5.1)
--- NOTE | 2022-11-02 07:55 | NUR ---
RN Opening Note Patient AOx3, not able to express his concerns. Patient able to mumble some words and signal needs. Patient is restless pulling on restraints loosening dressing on HD permacath. Applied new sterile dressing to HD catheter to left upper chest wall. Coughing up profuse amounts of blood from his tracheostomy. Respiratory therapist consulted. Patient has slight fever of 100.9 F oral. Phone call paging primary MD manager relationship made to request PRNs for agitation, pruritis, and fever and to inquire about order for CXR. Soft wrist restraints secured more tightly to prevent patient from removing tubes / self injury. Patient is very itchy and tends to scratch himself. All safety precautions taken, call light and table within reach. Discussed plan of care with patient, patient signals agreement.
[2022-11-02 08:00] VITALS: BP 170/87
[2022-11-02] MEDS: PROSOURCE / PROSTAT (PYXIS) 30 ML UDC GT SCH (08:20)
[2022-11-02] MEDS: LIDOCAINE 5% (PATCH) 1 EA PATCH TP SCH (08:21)
[2022-11-02] MEDS: Z GUARD REMEDY 4 OZ OINT TP SCH ×2 (08:21→21:04)
[2022-11-02] MEDS: ACIDOPHILUS/BULGARICUS 1 EACH TAB.CHEW GT SCH (08:22)
[2022-11-02] MEDS: DOXAZOSIN MESYLATE (4 MG) 4 MG TABLET GT SCH ×2 (08:24→16:18)
[2022-11-02] MEDS: DOCUSATE SODIUM LIQ 100 MG/10 ML UDC GT SCH (08:25)
[2022-11-02] MEDS: VIT B CMPLX 3/FA/VIT C/BIOTIN 1 TAB TABLET GT SCH (08:25)
[2022-11-02] MEDS: VALPROIC ACID 250 MG/5 ML UDC GT SCH ×3 (08:25→16:17)
[2022-11-02] MEDS: BENZTROPINE MESYLATE (1 MG) 1 MG TABLET GT SCH ×3 (08:25→16:17)
[2022-11-02] MEDS: CHLORHEXIDINE GLUCONATE 15 ML UDC MM SCH ×2 (08:26→21:06)
[2022-11-02] MEDS: THERAHONEY GEL 1.5 OZ TUBE TP SCH (09:00)
--- NOTE | 2022-11-02 09:42 | NUR ---
RN NOTE- DR QUINTERO OFFICE PHONED BACK. REQUESTED CXR, TYLENOL, LABS. DR ORDERED PROCALCITONIN, LACTIC ACID, CXR, TYLENOL 650 X ONE DOSE STAT. COMPLIED
[2022-11-02] MEDS ORDERED: Sodium Phosphate 30 MMOL in IV NS 0.9% 250 ML IV SCH (10:00)
[2022-11-02] MEDS: ACETAMINOPHEN 650 MG/20.3 ML UDC GT PRN (10:07)
[2022-11-02 12:00] VITALS: BP 158/76
--- NOTE | 2022-11-02 12:00 | NUR ---
RN NOTE- PROCALCITONIN 2.61. DR OLIVER ZELAYA NOTIFIED. HOLDING UP DC AT THIS TIME
[2022-11-02] MEDS: NEPRO 1,000 ML BOTTLE GT PRN (13:00)
[2022-11-02 16:00] VITALS: BP 168/82
--- NOTE | 2022-11-02 17:33 | NUR ---
RN NOTE -RIGHT FOOT OUTER MALLEOLUS OBSERVED TO HAVE ABRASION WITH MINIMAL BLEEDING . PHOTO TAKEN AND PLACED IN PATIENT'S CHART. OPTIFOAM DRESSING APPLIED TO ABRASION.
--- NOTE | 2022-11-02 18:47 | NUR ---
TRANSPORTATION SOLUTIONS MANAGER CLOSING NOTE PT IN BED, ASLEEP, AWAKENS TO VERBAL STIMULI. A & O x 3. ON COOL AEROSOLIZED TRACH AND TOLERATING WELL. NO SOB NOTED. NO S/SX OF RESPIRATORY DISTRESS NOTED. TELE MONITOR DETECTS SINUS RHYTHM WITH RATE OF 67 BPM. IV ACCESS IN CHRISTA #20G. IV IS INTACT, PATENT, AND FLUSHING WELL. ALL ORDERS CARRIED OUT. ALL NEEDS MET. PT KEPT CLEAN AND DRY. SAFETY PRECAUTIONS IN PLACE: BED IN LOWEST, LOCKED POSITION, SIDERAILS UPx2, AND BRAKES ON. TABLE AND CALL LIGHT WITHIN REACH. WILL ENDORSE TO ONCOMING SHIFT FOR AGAPITO.
--- NOTE | 2022-11-02 19:57 | NUR ---
ERADICATOR OPENING NOTE PT IN BED, ASLEEP, AWAKENS TO VERBAL STIMULI. A & O x 3. ON COOL AEROSOLIZED TRACH AND TOLERATING WELL. NO SOB NOTED. NO S/SX OF RESPIRATORY DISTRESS NOTED. TELE MONITOR DETECTS SINUS RHYTHM WITH RATE OF 67 BPM. IV ACCESS IN CHRISTA #20G. IV IS INTACT, PATENT, AND FLUSHING WELL. ALL NEEDS MET. ON BILATERAL SOFT WRIST RESTRAINTS WILL CHECK CIRCULATION Q2HRS. PT KEPT CLEAN AND DRY. SAFETY PRECAUTIONS IN PLACE: BED IN LOWEST, LOCKED POSITION, SIDERAILS UPx2, AND BRAKES ON. TABLE AND CALL LIGHT WITHIN REACH.
[2022-11-02 20:01] VITALS: BP 164/82
[2022-11-02] MEDS: ATORVASTATIN 10 MG TABLET GT SCH (21:05)
[2022-11-02] MEDS: TRAZODONE 50 MG TABLET GT SCH (21:05)
[2022-11-03] VITALS: BP 161/82
[2022-11-03 04:00] VITALS: BP 176/80
[2022-11-03] MEDS: MEROPENEM 500 MG in IV NS 0.9% 50 ML IV SCH ×2 (04:54→16:58)
[2022-11-03] MEDS: CLONIDINE HCL 0.1 MG TABLET GT PRN ×3 (04:55→16:55)
[2022-11-03 06:03] LABS: BASOPHILS % (AUTO) 0.1 % (0.0-2.0); EOSINOPHILS % (AUTO) 2.5 % (0.0-6.0); HEMATOCRIT 22 % (39-51); LYMPHOCYTES # (AUTO) 0.6 K/uL (0.8-4.8); LYMPHOCYTES % (AUTO) 5.2 % (20.0-44.0); MEAN CORPUSCULAR HGB CONC 32 g/dl (31.0-36.0); MEAN CORPUSCULAR VOLUME 102 fL (80-96); MONOCYTES # (AUTO) 0.6 K/uL (0.1-1.30); MONOCYTES % (AUTO) 5.4 % (2.0-12.0); NEUTROPHILS # (AUTO) 9.6 K/uL (1.8-8.9); NEUTROPHILS % (AUTO) 86.8 % (43.0-81.0); PLATELET COUNT (AUTO) 142 K/uL (150-450); RED BLOOD CELL COUNT(AUTO) 2.17 MIL/uL (4.5-6.0)
[2022-11-03 06:15] LABS: CALCIUM, SERUM 7.7 mg/dL (8.5-10.1); CREATININE 3.8 mg/dL (0.6-1.3); PHOSPHORUS 2.6 mg/dL (2.5-4.9); POTASSIUM 3.9 mmol/L (3.5-5.1)
--- NOTE | 2022-11-03 06:37 | NUR ---
NURSE RECRUITER CLOSING NOTE PT IN BED, ASLEEP, AWAKENS TO VERBAL STIMULI. A & O x 3. ON COOL AEROSOLIZED TRACH AND TOLERATING WELL. NO SOB NOTED. NO S/SX OF RESPIRATORY DISTRESS NOTED. TELE MONITOR DETECTS SINUS RHYTHM. IV ACCESS IN CHRISTA #20G. IV IS INTACT, PATENT, AND FLUSHING WELL. ALL NEEDS MET. ON BILATERAL SOFT WRIST RESTRAINTS WILL CHECK CIRCULATION Q2HRS. PT KEPT CLEAN AND DRY. SAFETY PRECAUTIONS IN PLACE: BED IN LOWEST, LOCKED POSITION, SIDERAILS UPx2, AND BRAKES ON. TABLE AND CALL LIGHT WITHIN REACH. ALL DUE MEDS GIVEN WILL ENDORSE CARE TO DAY SHIFT NURSE.
--- NOTE | 2022-11-03 06:57 | NUR ---
RN NOTE PER CHARGE NURSE RECEIVED A CALL FOR HGB OF 7.0 WILL ENDORSE TO DAY SHIFT NURSE.
--- NOTE | 2022-11-03 08:11 | NUR ---
RN Opening Note Patient AOx3. Patient able to mumble some words and signal needs. Patient is calm, sleeping peacefully and easily aroused without distress. No signs of pain. Sterile dressing to HD catheter to left upper chest wall is intact No coughing, breathing even and regular,. Lung sounds clear to auscultation. Afebrile. Systolic BP elevated will medicate with PRN anti-hypertensive as MD ordered. Soft wrist restraints secure. Positive bilateral radial pulses. Positive pedal pulse to right foot. All safety precautions taken, call light and table within reach. Will contoinue to monitor.
--- NOTE | 2022-11-03 08:15 | NUR ---
RN NOTE- PT TF HELD AT THIS TIME. NPO STATUS FOR PERMACATH REPLACEMENT
[2022-11-03] MEDS: ACIDOPHILUS/BULGARICUS 1 EACH TAB.CHEW GT SCH (08:37)
[2022-11-03 08:38] VITALS: BP 183/87
[2022-11-03] MEDS: DOCUSATE SODIUM LIQ 100 MG/10 ML UDC GT SCH (08:38)
[2022-11-03] MEDS: BENZTROPINE MESYLATE (1 MG) 1 MG TABLET GT SCH ×3 (08:38→16:54)
[2022-11-03] MEDS: VALPROIC ACID 250 MG/5 ML UDC GT SCH ×3 (08:38→16:55)
[2022-11-03] MEDS: VIT B CMPLX 3/FA/VIT C/BIOTIN 1 TAB TABLET GT SCH (08:38)
[2022-11-03] MEDS: CHLORHEXIDINE GLUCONATE 15 ML UDC MM SCH ×2 (08:39→21:31)
[2022-11-03] MEDS: LIDOCAINE 5% (PATCH) 1 EA PATCH TP SCH (08:39)
[2022-11-03] MEDS: DOXAZOSIN MESYLATE (4 MG) 4 MG TABLET GT SCH ×2 (08:39→16:54)
[2022-11-03] MEDS: Z GUARD REMEDY 4 OZ OINT TP SCH ×2 (08:40→21:32)
[2022-11-03] MEDS: PROSOURCE / PROSTAT (PYXIS) 30 ML UDC GT SCH (08:42)
[2022-11-03] MEDS: FAMOTIDINE (20 MG) 20 MG TABLET GT SCH (08:46)
[2022-11-03] MEDS: THERAHONEY GEL 1.5 OZ TUBE TP SCH (09:23)
[2022-11-03] MEDS ORDERED: LIDOCAINE HCL/MPF 1% 30 ML VIAL IJ ONE (11:00)
[2022-11-03] MEDS ORDERED: IOHEXOL 240MG/ML 0 ML IV ONE (11:00)
[2022-11-03] MEDS ORDERED: HEPARIN SODIUM, PORCINE 1,000 UNIT/ML VIAL ONE (11:01)
[2022-11-03] MEDS ORDERED: BUPIVACAINE 0.5 % PF 150 MG/30 ML VIAL ONE (11:01)
--- NOTE | 2022-11-03 14:42 | NUR ---
RT NOTE: PATIENT'S TRACH INNER CANNULA REPLACED DUE TO DARK BLOODY MUCUS PLUG. PATIENT DEEP SUCTIONED AND REMAINS ON COOL AEROSOL 28% @5LPM. PATIENT'S HB93=094% AND RESPIRATION ARE EVEN AND UNLABORED.
--- NOTE | 2022-11-03 14:45 | NUR ---
RN NOTE- PT RETURNED FROM SURGICAL SUITE FROM PERMACATH REMOVAL. NO NEW ACCESS PLACED. VS- BP- 153/82, HR- 82, RR-20, T- 98.0 TRACH/O2/ PT CALM, COMFORTABLE, STABLE
[2022-11-03 16:37] VITALS: BP 167/83
--- NOTE | 2022-11-03 17:15 | NUR ---
RN NOTE- PT REPOSITIONED IN BED, MADE COMFORTABLE, ADJUSTED TRACH AND TUBING, DRESSING TO LCW / OPSITE INTACT W SEROUS DRAINAGE NOTED TO OLD PERMACATH SITE.
--- NOTE | 2022-11-03 18:42 | NUR ---
RN CLOSING NOTE- PT IN BED, A & O x 3. ON COOL AEROSOLIZED TRACH AND TOLERATING WELL. NO SOB NOTED. NO S/SX OF RESPIRATORY DISTRESS NOTED. TELE MONITOR DETECTS SINUS RHYTHM WITH RATE OF 70 BPM. IV ACCESS IN CHRISTA #20G. IV IS INTACT, PATENT, AND FLUSHING WELL. DRESSING INTACT LCW W SEROUS DRAINAGE, ALL NEEDS MET. ON BILATERAL SOFT WRIST RESTRAINTS WILL CHECK CIRCULATION Q2HRS. PT KEPT CLEAN AND DRY. SAFETY PRECAUTIONS IN PLACE: BED IN LOWEST, LOCKED POSITION, SIDERAILS UPx2, AND BRAKES ON. TABLE AND CALL LIGHT WITHIN REACH.
--- NOTE | 2022-11-03 19:40 | NUR ---
PRODUCTION TECHNOLOGIST OPENING NOTE PATIENT SLEEPING IN BED, EASILY AWAKENED, PT NON-VERBAL BUT ATTEMPTS TO MOUTH WORDS IN [place]. PT STABLE ON 5 LPM 02 VIA T-PIECE, COOL AEROSOL, NO S/S OF DISTRESS OR SOB NOTED, BREATHING EVEN AND UNLABORED, SPO2: 100%. PATIENT ON TELE MONITORING READING SINUS RHYTHM, HR: 73. PATIENT NOTED WITH GT FEEDING INFUSING NEPRO @ 70 ML/HR X 18 HRS, TO BE TURNED OFF AT 2200 AND BACK ON AT 4 AM. PATIENT WITH BILATERAL SOFT WRIST RESTRAINTS D/T PULLING OF LINES AND TRACH. IV ACCESS ON CHRISTA #20G INTACT AND SALINE LOCKED. SAFETY MEASURES IN PLACE: CALL LIGHT WITHIN REACH, SIDE RAILS UP X 2, BED LOCKED IN LOWEST POSITION, HOB ELEVATED, BED ALARM ON. WILL CONTINUE TO MONITOR PATIENT
[2022-11-03 20:00] VITALS: BP 165/85
[2022-11-03] MEDS: TRAZODONE 50 MG TABLET GT SCH (21:33)
[2022-11-03] MEDS: ATORVASTATIN 10 MG TABLET GT SCH (21:33)
[2022-11-04] MEDS: hydrALAZINE HCL 50 MG TABLET GT PRN ×2 (02:42→21:28)
--- NOTE | 2022-11-04 02:50 | NUR ---
CHIEF CATALYST OPERATOR NOTE PATIENT NOTED WITH BP 190/91, HR: 73 AT THIS TIME. PRN HYDRALAZINE 50 MG TABLET FOR SBP > 165 GIVEN VIA GTUBE. WILL CONTINUE TO MONITOR
[2022-11-04] MEDS: NEPRO 1,000 ML BOTTLE GT PRN (03:59)
[2022-11-04] MEDS: MEROPENEM 500 MG in IV NS 0.9% 50 ML IV SCH ×2 (05:31→16:42)
--- NOTE | 2022-11-04 06:23 | NUR ---
FACULTY PHYSICIAN CLOSING NOTE PATIENT SLEEPING IN BED, EASILY AWAKENED, PT NON-VERBAL BUT ATTEMPTS TO MOUTH WORDS IN CITIZEN OF [place]. PT STABLE ON 5 LPM 02 VIA T-PIECE, COOL AEROSOL, NO S/S OF DISTRESS OR SOB NOTED, BREATHING EVEN AND UNLABORED, SPO2: 99%. PATIENT ON TELE MONITORING READING SINUS RHYTHM, HR: 74. PATIENT WITH GT FEEDING INFUSING NEPRO @ 70 ML/HR X 18 HRS, TURNED OFF AT 2200 AND BACK ON AT 4 AM. PATIENT WITH BILATERAL SOFT WRIST RESTRAINTS D/T PULLING OF LINES AND TRACH. IV ACCESS ON CHRISTA #20G INTACT AND SALINE LOCKED. MEDICATIONS GIVEN ORDERED, PT NEEDS MET THROUGHOUT SHIFT, PATIENT TURNED AND RESTRAINTS RELEASED Q2H. SAFETY MEASURES IN PLACE: CALL LIGHT WITHIN REACH, SIDE RAILS UP X 2, BED LOCKED IN LOWEST POSITION, HOB ELEVATED, BED ALARM ON. WILL ENDORSE TO DAYSHIFT RN FOR CONTINUITY OF CARE
[2022-11-04 06:57] LABS: CALCIUM, SERUM 8.7 mg/dL (8.5-10.1); CREATININE 5.1 mg/dL (0.6-1.3); MAGNESIUM 2.7 mg/dL (1.8-2.4); PHOSPHORUS 4.1 mg/dL (2.5-4.9)
[2022-11-04 07:00] VITALS: BP 170/85
[2022-11-04 07:00] LABS: BASOPHILS % (AUTO) 0.3 % (0.0-2.0); EOSINOPHILS % (AUTO) 3.9 % (0.0-6.0); HEMATOCRIT 22 % (39-51); HEMOGLOBIN 7.2 g/dL (13.5-17.5); LYMPHOCYTES # (AUTO) 0.6 K/uL (0.8-4.8); LYMPHOCYTES % (AUTO) 5.6 % (20.0-44.0); MEAN CORPUSCULAR HGB CONC 33 g/dl (31.0-36.0); MEAN CORPUSCULAR VOLUME 102 fL (80-96); MONOCYTES # (AUTO) 0.6 K/uL (0.1-1.30); MONOCYTES % (AUTO) 5.3 % (2.0-12.0); NEUTROPHILS # (AUTO) 9.2 K/uL (1.8-8.9); NEUTROPHILS % (AUTO) 84.9 % (43.0-81.0); PLATELET COUNT (AUTO) 165 K/uL (150-450); RED BLOOD CELL COUNT(AUTO) 2.15 MIL/uL (4.5-6.0); WHITE BLOOD COUNT (AUTO) 10.8 K/uL (4.3-11.0)
--- NOTE | 2022-11-04 08:07 | NUR ---
RN OPENING NOTE RECEIVED PATIENT IN BED, AO X 3. ABLE TO RESPONDS ALL PHYSICAL STIMULI. RESPIRATORY EVEN AND UNLABORED WITH COOL AIR AEROSOL/TRACH. IN NO ACUTE DISTRESS OBSERVED. SKIN IS WARM TO TOUCH, KEEP CLEAN/DRY. KEPT ELEVATED HOB FOR ASPIRATION PRECAUTION/ENSURE AIRWAY, AND LOWEST BED POSITIONED. BED ALARM IS ON AT ALL THE TIME FOR SAFETY. CALL LIGHT WITHIN REACH, WILL CONTINUE TO MONITOR
[2022-11-04] MEDS: CHLORHEXIDINE GLUCONATE 15 ML UDC MM SCH ×2 (09:44→21:19)
[2022-11-04] MEDS: DOCUSATE SODIUM LIQ 100 MG/10 ML UDC GT SCH (09:44)
[2022-11-04] MEDS: LIDOCAINE 5% (PATCH) 1 EA PATCH TP SCH (09:45)
[2022-11-04] MEDS: Z GUARD REMEDY 4 OZ OINT TP SCH ×2 (09:45→21:21)
[2022-11-04] MEDS: THERAHONEY GEL 1.5 OZ TUBE TP SCH (09:45)
[2022-11-04] MEDS: VIT B CMPLX 3/FA/VIT C/BIOTIN 1 TAB TABLET GT SCH (09:47)
[2022-11-04] MEDS: BENZTROPINE MESYLATE (1 MG) 1 MG TABLET GT SCH ×3 (09:47→16:38)
[2022-11-04] MEDS: ACIDOPHILUS/BULGARICUS 1 EACH TAB.CHEW GT SCH (09:47)
[2022-11-04] MEDS: DOXAZOSIN MESYLATE (4 MG) 4 MG TABLET GT SCH ×2 (09:47→16:40)
[2022-11-04] MEDS: PROSOURCE / PROSTAT (PYXIS) 30 ML UDC GT SCH (09:48)
[2022-11-04] MEDS: VALPROIC ACID 250 MG/5 ML UDC GT SCH ×3 (09:48→16:40)
[2022-11-04 12:00] VITALS: BP 183/91
[2022-11-04 16:00] VITALS: BP 148/97
--- NOTE | 2022-11-04 17:43 | NUR ---
RN CLOSING NOTE PATIENT RESTING IN BED. IN NO ACUTE DISTRESS OBSERVED. PATIENT IS ON T PIECE, RESPIRATORY EVEN AND UNLABORED ON COOL AEROSOL AT 5Ls. SKIN IS WARM TO TOUCH KEEP CLEAN/DRY. PROVIDED SKI CARE. KEPT ELEVATED HOB FOR ENSURE AIRWAY/ASPIRATION PRECAUTION, AND LOWEST BED POSITION. BED ALARM IS ON AT ALL THE TIME FOR SAFETY. CALL LIGHT WITHIN REACH, WILL ENDORSE BOILERMAKER SHIP.
--- NOTE | 2022-11-04 19:15 | NUR ---
FREELANCE WEB DESIGNER OPENING NOTE RECEIVED PATIENT AWAKE, IN BED. PT NON-VERBAL BUT ATTEMPTS TO MOUTH WORDS IN [place]. PT STABLE ON 5 LPM 02 VIA T-PIECE, COOL AEROSOL, NO S/S OF DISTRESS OR SOB NOTED, BREATHING EVEN AND UNLABORED, SPO2: 100%. PATIENT ON TELE MONITORING READING SINUS RHYTHM, HR: 84. PATIENT NOTED WITH GT FEEDING INFUSING NEPRO @ 70 ML/HR X 18 HRS, TO BE TURNED OFF AT 2200 AND BACK ON AT 4 AM. PATIENT WITH BILATERAL SOFT WRIST RESTRAINTS . BUT PT JUST PULLED HIS TRACH. RT CALLED TO REPLACE TRACH. NEW TRACH INSERTED, AND PT SUCTIONED. IV ACCESS TO LEFT UA #20G INTACT AND SALINE LOCKED. SAFETY MEASURES IN PLACE: CALL LIGHT WITHIN REACH, SIDE RAILS UP X 2, BED LOCKED IN LOWEST POSITION, HOB ELEVATED, BED ALARM ON. WILL CONTINUE TO MONITOR PATIENT.
[2022-11-04 20:00] VITALS: BP 173/73
[2022-11-04] MEDS: ATORVASTATIN 10 MG TABLET GT SCH (21:20)
[2022-11-04] MEDS: TRAZODONE 50 MG TABLET GT SCH (21:20)
--- NOTE | 2022-11-04 21:30 | NUR ---
BUSINESS ANALYTICS INTERN NOTE PT'S BP IS HIGH, 173/73. HYDRALAZINE IS ADMINISTERED TO PT.
[2022-11-05] VITALS: BP 178/90
[2022-11-05 04:00] VITALS: BP 178/92
[2022-11-05] MEDS: MEROPENEM 500 MG in IV NS 0.9% 50 ML IV SCH ×2 (04:59→16:22)
[2022-11-05] MEDS: hydrALAZINE HCL 50 MG TABLET GT PRN ×2 (06:30→20:47)
--- NOTE | 2022-11-05 06:30 | NUR ---
VICTORIAN LITERATURE PROFESSOR NOTE PT'S BP IS 178/90. HYDRALAZINE ADMINISTERED TO PT FOR HIGH BP.
--- NOTE | 2022-11-05 07:09 | NUR ---
USER EXPERIENCE RESEARCHER CLOSING NOTE PATIENT RESTING IN BED. NO ACUTE DISTRESS OBSERVED. PATIENT IS ON T PIECE, RESPIRATORY, WITH EVEN AND UNLABORED ON COOL AEROSOL AT 5Ls. SKIN IS WARM TO TOUCH KEEP CLEAN/DRY. PROVIDED SKI CARE. KEPT ELEVATED HOB FOR ENSURE AIRWAY/ASPIRATION PRECAUTION, AND LOWEST BED POSITION. BED ALARM IS ON AT ALL THE TIME FOR SAFETY. CALL LIGHT WITHIN REACH, WILL ENDORSE AM SHIFT FOR AGAPITO.
--- NOTE | 2022-11-05 07:28 | NUR ---
ALTERNATIVE MEDICINE PRACTITIONER OPENING NOTE RECEIVED PT AWAKE AND RESTING IN BED. PT IS NON-VERBAL BUT ATTEMPTS TO MOUTH WORDS IN [place]. PT IS AT 5LPM VIA T-PIECE, COOL AEROSOLON ROOM AIR, TOLERATING WELL. NO SOB NOTED. PT IS NOT IN ANY SIGN OF RESPIRATORY DISTRESS. PT ON TELE GRAPE CRUSHER WITH CURRENT READING OF SINUS RHYTHM, HR 73. NO SIGNS OF CARDIAC DISTRESS NOTED AT THIS TIME. GTUBE IN PLACE AND PATENT WITH NEPHRO FEEDING RUNNING AT 70ML/HR, TOLERATING WELL. KEPT HOB ELEVATED AT ALL TIMES. PT'S IV ACCESS ON CHRISTA G#20 INTACT AND PATENT. PT NOTED WITH BILATERAL SOFT WRIST RESTRAINTS. NO CIRCULATION PROBLEM NOTED. SAFETY MEASURES IN PLACE: BED IN LOWEST AND LOCKED POSITION, SIDE RAILS UP X2, BED ALARM ON, AND CALL LIGHT WITHIN REACH. WILL CONTINUE TO MONITOR PT. Addendum: 11/05/22 at 0805 by RAMESH CHRISTENSEN RN DELETE ENTRY
--- NOTE | 2022-11-05 07:29 | NUR ---
SENIOR APPLICATIONS ARCHITECT OPENING NOTE RECEIVED PT AWAKE AND RESTING IN BED. PT IS NON-VERBAL BUT ATTEMPTS TO MOUTH WORDS IN [place]. PT IS AT 5LPM VIA T-PIECE, COOL AEROSOL, TOLERATING WELL. NO SOB NOTED. PT IS NOT IN ANY SIGN OF RESPIRATORY DISTRESS. PT ON TELE MAINSPRING WINDER WITH CURRENT READING OF SINUS RHYTHM, HR 73. NO SIGNS OF CARDIAC DISTRESS NOTED AT THIS TIME. GTUBE IN PLACE AND PATENT WITH NEPHRO FEEDING RUNNING AT 70ML/HR, TOLERATING WELL. KEPT HOB ELEVATED AT ALL TIMES. PT'S IV ACCESS ON CHRISTA G#20 INTACT AND PATENT. PT NOTED WITH BILATERAL SOFT WRIST RESTRAINTS. NO CIRCULATION PROBLEM NOTED. SAFETY MEASURES IN PLACE: BED IN LOWEST AND LOCKED POSITION, SIDE RAILS UP X2, BED ALARM ON, AND CALL LIGHT WITHIN REACH. WILL CONTINUE TO MONITOR PT.
[2022-11-05 08:24] VITALS: BP 176/93
[2022-11-05] MEDS: CHLORHEXIDINE GLUCONATE 15 ML UDC MM SCH ×2 (09:10→21:47)
[2022-11-05] MEDS: BENZTROPINE MESYLATE (1 MG) 1 MG TABLET GT SCH ×3 (09:10→16:17)
[2022-11-05] MEDS: LIDOCAINE 5% (PATCH) 1 EA PATCH TP SCH (09:10)
[2022-11-05] MEDS: VIT B CMPLX 3/FA/VIT C/BIOTIN 1 TAB TABLET GT SCH (09:10)
[2022-11-05] MEDS: VALPROIC ACID 250 MG/5 ML UDC GT SCH ×3 (09:10→16:17)
[2022-11-05] MEDS: DOCUSATE SODIUM LIQ 100 MG/10 ML UDC GT SCH (09:10)
[2022-11-05] MEDS: ACIDOPHILUS/BULGARICUS 1 EACH TAB.CHEW GT SCH (09:10)
[2022-11-05] MEDS: THERAHONEY GEL 1.5 OZ TUBE TP SCH (09:11)
[2022-11-05] MEDS: Z GUARD REMEDY 4 OZ OINT TP SCH ×2 (09:11→21:47)
[2022-11-05] MEDS: DOXAZOSIN MESYLATE (4 MG) 4 MG TABLET GT SCH ×2 (09:12→16:18)
[2022-11-05] MEDS: FAMOTIDINE (20 MG) 20 MG TABLET GT SCH (09:15)
[2022-11-05] MEDS: PROSOURCE / PROSTAT (PYXIS) 30 ML UDC GT SCH (09:15)
[2022-11-05 09:19] LABS: BASOPHILS % (AUTO) 0.2 % (0.0-2.0); EOSINOPHILS % (AUTO) 2.2 % (0.0-6.0); HEMATOCRIT 24 % (39-51); HEMOGLOBIN 7.6 g/dL (13.5-17.5); LYMPHOCYTES # (AUTO) 0.6 K/uL (0.8-4.8); LYMPHOCYTES % (AUTO) 5.4 % (20.0-44.0); MEAN CORPUSCULAR HGB CONC 32 g/dl (31.0-36.0); MEAN CORPUSCULAR VOLUME 101 fL (80-96); MONOCYTES # (AUTO) 0.6 K/uL (0.1-1.30); MONOCYTES % (AUTO) 5.8 % (2.0-12.0); NEUTROPHILS % (AUTO) 86.4 % (43.0-81.0); PLATELET COUNT (AUTO) 207 K/uL (150-450); RED BLOOD CELL COUNT(AUTO) 2.34 MIL/uL (4.5-6.0); WHITE BLOOD COUNT (AUTO) 10.4 K/uL (4.3-11.0)
[2022-11-05 10:14] VITALS: BP_SYST 139; BP_SYST 142; BP_DIAS 87; BP_DIAS 95
[2022-11-05 10:23] LABS: CALCIUM, SERUM 8.3 mg/dL (8.5-10.1); CREATININE 5.9 mg/dL (0.6-1.3); MAGNESIUM 2.6 mg/dL (1.8-2.4); PHOSPHORUS 4.2 mg/dL (2.5-4.9); POTASSIUM 5.1 mmol/L (3.5-5.1)
--- NOTE | 2022-11-05 11:30 | NUR ---
KERI HILL RECEIVED A CALL FROM [email or web address] REPORTING CRITICAL LAB RESULT OF BUN 111 AND CREATININE 5.9. CALLED DR. OLIVER ZELAYA AND MADE HIM AWARE OF THE CRITICAL LAB VALUES WITH NO NEW ORDERS AT THIS TIME.
--- NOTE | 2022-11-05 15:35 | NUR ---
RN NOTE PT NOTED WITH EPISODES OF RESTLESSNESS AND GRIMACING FACE. ASKED PT IF HE IS IN PAIN AND PT NODDED. CALLED DR. OLIVER ZELAYA AND MADE HIM AWARE OF PT'S CONDITION AND THAT PT HAS NO PRN PAIN MEDICATION. DR. ZELAYA ORDERED TYLENOL 650MG Q6HRS PRN VIA GTUBE FOR PAIN AND FEVER. ORDERS CARRIED OUT.
[2022-11-05] MEDS: ACETAMINOPHEN 650 MG/20.3 ML UDC GT PRN (16:18)
--- NOTE | 2022-11-05 16:18 | NUR ---
RN NOTE TYLENOL 650MG GIVEN ORDERED PRN Q6HRS VIA GTUBE FOR PAIN. WILL MONITOR AND REASSESS PT.
[2022-11-05 16:29] VITALS: BP 165/70
--- NOTE | 2022-11-05 18:41 | NUR ---
CERTIFIED DETENTION DEPUTY CLOSING NOTE PT AWAKE AND RESTING IN BED. PT IS NON-VERBAL BUT ATTEMPTS TO MOUTH WORDS IN [place]. PT IS AT 5LPM VIA T-PIECE, COOL AEROSOL, TOLERATING WELL. NO SOB NOTED. PT IS NOT IN ANY SIGN OF RESPIRATORY DISTRESS. PT ON TELE APPLIANCE COUNSELOR WITH CURRENT READING OF SINUS RHYTHM, HR 91. NO SIGNS OF CARDIAC DISTRESS NOTED AT THIS TIME. GTUBE IN PLACE AND PATENT WITH NEPHRO FEEDING RUNNING AT 70ML/HR, TOLERATING WELL. KEPT HOB ELEVATED AT ALL TIMES. PT'S IV ACCESS ON CHRISTA G#20 INTACT AND PATENT. PT REMAINS ON BILATERAL SOFT WRIST RESTRAINTS. NO CIRCULATION PROBLEM NOTED. ALL NEEDS ATTENDED. KEPT CLEAN AND COMFORTABLE AT ALL TIMES. TURNED AND REPOSITIONED Q2HRS AND NEEDED. SAFETY MEASURES IN PLACE: BED IN LOWEST AND LOCKED POSITION, SIDE RAILS UP X2, BED ALARM ON, AND CALL LIGHT WITHIN REACH. WILL ENDORSE TO AIR TRANSPORTATION PROVIDER NURSE FOR AGAPITO.
--- NOTE | 2022-11-05 19:50 | NUR ---
SOFT SUGAR CUTTER OPENING NOTES: RECEIVED PATIENT AWAKE IN BED, BE DIN LOW POSITION, CALL LIGHTS WITHIN REACH, NO COMPLAIN OF PAIN AND DISCOMFORT AT THIS TIME ON T PIECE SATURATING WELL, PATIENT ON TELE MONITOR- SR-70, ON G TUBE FEEDING OF NEPRO @75ML/HR INFUSING WELL, PATIENT IS A/OX1 NONE VERBAL, ON SOFT WRIST RESTRAINT, KEPT CLEAN AND DRY ALL NEEDS MET WILL CONTINUE TO MONITOR.
[2022-11-05 20:00] VITALS: BP 179/88
[2022-11-05] MEDS ORDERED: MUPIROCIN OINT 2% 22 GM TUBE NS SCH (21:00)
[2022-11-05] MEDS: ATORVASTATIN 10 MG TABLET GT SCH (21:47)
[2022-11-05] MEDS: TRAZODONE 50 MG TABLET GT SCH (21:47)
[2022-11-06] VITALS (8 sets, daily range): BP systolic 152–181; BP diastolic 78–101
[2022-11-06] MEDS: hydrALAZINE HCL 50 MG TABLET GT PRN ×2 (04:23→12:33)
[2022-11-06] MEDS: NEPRO 1,000 ML BOTTLE GT PRN (04:23)
--- NOTE | 2022-11-06 06:19 | NUR ---
ENVELOPE SEALER OPERATOR CLOSING NOTES: PATIENT SLEEP IN BED COMFORTABLY, AROUSABLE TO STIMULI, BED IN LOW POSITION CALL LIGHTS WITHIN REACH, NO COMPLAIN OF PAIN AND DISCOMFORT AT THIS TIME, ON TRACHE T-PIECE SATURATING AT 100%, HOB TO REMAIN AT 30- 45 DEGREE, PATIENT ON BILATERAL SOFT RESTRAIN SKIN WAS ASSESSED AND INTACT, ON G TUBE FEEDING OF NEPRO 1.8 @70 ML/HR INFUSING WELL, ON TELE MONITOR- SR-86, WEEKLY ASKIN ASSESSMENT DONE AND DOCUMENTED, PATIENT KEPT CLEAN AND DRY ALL NEEDS MET ENDORSE TO INCOMING SHIFT.
[2022-11-06 06:36] LABS: BASOPHILS % (AUTO) 0.3 % (0.0-2.0); EOSINOPHILS % (AUTO) 4.5 % (0.0-6.0); HEMATOCRIT 23 % (39-51); HEMOGLOBIN 7.3 g/dL (13.5-17.5); LYMPHOCYTES # (AUTO) 0.4 K/uL (0.8-4.8); LYMPHOCYTES % (AUTO) 4.3 % (20.0-44.0); MEAN CORPUSCULAR HGB CONC 32 g/dl (31.0-36.0); MEAN CORPUSCULAR VOLUME 101 fL (80-96); MONOCYTES # (AUTO) 0.5 K/uL (0.1-1.30); MONOCYTES % (AUTO) 5.9 % (2.0-12.0); NEUTROPHILS # (AUTO) 7.8 K/uL (1.8-8.9); PLATELET COUNT (AUTO) 202 K/uL (150-450); RED BLOOD CELL COUNT(AUTO) 2.27 MIL/uL (4.5-6.0); WHITE BLOOD COUNT (AUTO) 9.2 K/uL (4.3-11.0)
[2022-11-06 06:56] LABS: CALCIUM, SERUM 8.8 mg/dL (8.5-10.1); CREATININE 6.4 mg/dL (0.6-1.3); MAGNESIUM 3.1 mg/dL (1.8-2.4); PHOSPHORUS 4.8 mg/dL (2.5-4.9); POTASSIUM 5.7 mmol/L (3.5-5.1)
--- NOTE | 2022-11-06 07:38 | NUR ---
telesales supervisor opening notes Received patient in bed sleeping. On trach t-piece saturating at 100% hob to remain at 30-45 degree. Patient on bilateral soft restraint. On G-tube feeding of nephro 1.8@70ml/hr infusing well. Safety measures given with bed on low position and locked, call light on reach. No pain or discomfort at this time. Will continue with the plan of care.
[2022-11-06] MEDS: Z GUARD REMEDY 4 OZ OINT TP SCH ×2 (09:00→20:47)
[2022-11-06] MEDS: DOCUSATE SODIUM LIQ 100 MG/10 ML UDC GT SCH (09:21)
[2022-11-06] MEDS: VALPROIC ACID 250 MG/5 ML UDC GT SCH ×3 (09:21→17:10)
[2022-11-06] MEDS: CHLORHEXIDINE GLUCONATE 15 ML UDC MM SCH ×2 (09:21→20:47)
[2022-11-06] MEDS: VIT B CMPLX 3/FA/VIT C/BIOTIN 1 TAB TABLET GT SCH (09:21)
[2022-11-06] MEDS: ACIDOPHILUS/BULGARICUS 1 EACH TAB.CHEW GT SCH (09:22)
[2022-11-06] MEDS: LIDOCAINE 5% (PATCH) 1 EA PATCH TP SCH (09:22)
[2022-11-06] MEDS: BENZTROPINE MESYLATE (1 MG) 1 MG TABLET GT SCH ×3 (09:23→17:10)
[2022-11-06] MEDS: DOXAZOSIN MESYLATE (4 MG) 4 MG TABLET GT SCH ×2 (09:24→17:10)
[2022-11-06] MEDS: PROSOURCE / PROSTAT (PYXIS) 30 ML UDC GT SCH (10:31)
[2022-11-06] MEDS: THERAHONEY GEL 1.5 OZ TUBE TP SCH (10:35)
--- NOTE | 2022-11-06 19:05 | NUR ---
R&D ENGINEER CLOSING NOTES: PATIENT ALERT ON BED NO COMPLAIN OF PAIN AND DISCOMFORT AT THIS TIME, PATIENT ABLE TO NOD APPROPRIATELY AND MOUTH HIS NEEDS. ON TRACH TO T-PIECE COOL AEROSOL SATURATING AT 97-100%, ON HIGH BACK REST, PATIENT ON BILATERAL SOFT RESTRAIN WITH NO APPARENT MOTOR AND SENSORY DEFICIT NO BOTH HANDS, ON G TUBE FEEDING OF NEPRO 1.8 @70 ML/HR TOLERATED WELL, ON TELE MONITOR- SR-76, SAFETY MEASURES ENSURED WITH BED ON LOW, LOCKED POSITION, SIDERAILS RAISED AND CALL LIGHT WITHIN REACH AT ALL TIMES. ENDORSED TO NEXT SHIFT FOR CONTINUITY OF CARE.
--- NOTE | 2022-11-06 19:15 | NUR ---
BASKET HAND BRAIDER OPENING NOTES RECEIVED PT AWAKE IN BED. A/O X1-3, ABLE TO MAKES NEEDS KNOWN BY NODDING/SHAKING HEAD AND MOUTHING WORDS. NO C/O PAIN AND DISCOMFORT AT THIS TIME. ON TELE MONITOR READING SR 86. TRACH TO T-PIECE COOL AEROSOL SATURATING AT 97-100%, ON HIGH BACK REST, PATIENT ON BILATERAL SOFT WRIST RESTRAINTS AND MITTENS WITH NO APPARENT MOTOR AND SENSORY DEFICIT NO BOTH HANDS. G TUBE FEEDING OF NEPRO 1.8 @70 ML/HR TOLERATING WELL. SAFETY MEASURES IN PLACE: BED ON LOW, LOCKED POSITION, SIDERAILS UP X3, CALL LIGHT WITHIN REACH. WILL CONTINUE TO MONITOR AND ASSIST.
[2022-11-06] MEDS: ATORVASTATIN 10 MG TABLET GT SCH (21:32)
[2022-11-06] MEDS: TRAZODONE 50 MG TABLET GT SCH (21:32)
[2022-11-07] VITALS: BP 148/78
[2022-11-07 04:00] VITALS: BP 164/63
[2022-11-07 05:49] LABS: BASOPHILS % (AUTO) 0.3 % (0.0-2.0); HEMATOCRIT 21 % (39-51); LYMPHOCYTES # (AUTO) 0.5 K/uL (0.8-4.8); LYMPHOCYTES % (AUTO) 6.1 % (20.0-44.0); MEAN CORPUSCULAR HGB CONC 33 g/dl (31.0-36.0); MEAN CORPUSCULAR VOLUME 99 fL (80-96); MONOCYTES # (AUTO) 0.6 K/uL (0.1-1.30); MONOCYTES % (AUTO) 7.4 % (2.0-12.0); NEUTROPHILS # (AUTO) 6.2 K/uL (1.8-8.9); NEUTROPHILS % (AUTO) 83.2 % (43.0-81.0); PLATELET COUNT (AUTO) 207 K/uL (150-450); RED BLOOD CELL COUNT(AUTO) 2.13 MIL/uL (4.5-6.0); WHITE BLOOD COUNT (AUTO) 7.4 K/uL (4.3-11.0)
[2022-11-07 06:08] LABS: CALCIUM, SERUM 8.6 mg/dL (8.5-10.1); PHOSPHORUS 5.7 mg/dL (2.5-4.9); POTASSIUM 5.9 mmol/L (3.5-5.1)
[2022-11-07 06:21] LABS: HEMOGLOBIN 6.9 g/dL (13.5-17.5)
--- NOTE | 2022-11-07 06:23 | NUR ---
RN NOTES RECEIVED CRITICAL LAB VALUE REPORT FROM PRAKASH AT LAB: HGB 6.9
--- NOTE | 2022-11-07 06:52 | NUR ---
CONSULTING SALES EXECUTIVE CLOSING NOTES PT AWAKE IN BED AT THIS TIME. A/O X1-3, ABLE TO MAKES NEEDS KNOWN BY NODDING/SHAKING HEAD AND MOUTHING WORDS. NO C/O PAIN AND DISCOMFORT AT THIS TIME. ON TELE MONITOR READING SR @ 86 BPM. STABLE ON TRACH TO T-PIECE COOL AEROSOL SATURATING AT 97-100%, ON HIGH BACK REST. CRITICAL LAB VALUE REPORTED: HGB 6.9. DR LEVY BALDERRAMA NOTIFIED, PENDING RESPONSE. WILL ENDORSE TO ONCOMING NURSE. PATIENT ON BILATERAL SOFT WRIST RESTRAINTS AND MITTENS WITH NO APPARENT MOTOR AND SENSORY DEFICIT NO BOTH HANDS. G TUBE FEEDING OF NEPRO 1.8 @70 ML/HR TOLERATING WELL, STOPPED @ 2200 AND RESTARTED @ 0400 PER MD ORDERS. ALL CARE PROVIDED AND MEDICATIONS TOLERATED WELL. SAFETY MEASURES MAINTAINED: BED ON LOW, LOCKED POSITION, SIDERAILS UP X3, CALL LIGHT WITHIN REACH. WILL ENDORSE AGAPITO TO DAY SHIFT NURSE.
--- NOTE | 2022-11-07 07:10 | NUR ---
FINANCIAL ANALYST ACCOUNTANT OPENING NOTES RECEIVED PATIENT AWAKE IN BED, ALERT, ABLE TO RELAY NEEDS AND MOUTH WORDS. NO COMPLAIN OF PAIN AND DISCOMFORT AT THIS TIME. PATIENT ON COOL AEROSOL TRACH WITH OXYGEN @ 5LPM AND WITH G TUBE FEEDING OF NEPRO @75ML/HR TOLERATING WELL. PATIENT ON TELE WITH SINUS RHYTHM @ 82. HAS CHRISTA #20G IV ACCESS PATENT AND INTACT. PATIENT ON SOFT WRIST RESTRAINT WITH GOOD CIRCULATION. SAFETY MEASURES GIVEN WITH BED ON LOCKED AND LOW POSTION. SIDE RAILS UP X2. WILL CONTINUE WITH THE PLAN OF CARE.
[2022-11-07] MEDS: NEPRO 1,000 ML BOTTLE GT PRN (07:53)
[2022-11-07 08:00] VITALS: BP 159/100
--- NOTE | 2022-11-07 08:30 | NUR ---
BLANCHARD GRINDER OPERATOR NOTE MD AWARE OF LATEST HG RESULT. AWAITING ORDERS. PATIENT WITH NO SIGNS AND SYMPTOMS OF ANEMIA OR BLEEDING NOTED.
[2022-11-07] MEDS: VALPROIC ACID 250 MG/5 ML UDC GT SCH ×3 (10:03→17:18)
[2022-11-07] MEDS: CHLORHEXIDINE GLUCONATE 15 ML UDC MM SCH ×2 (10:03→20:14)
[2022-11-07] MEDS: LIDOCAINE 5% (PATCH) 1 EA PATCH TP SCH (10:03)
[2022-11-07] MEDS: DOCUSATE SODIUM LIQ 100 MG/10 ML UDC GT SCH (10:03)
[2022-11-07] MEDS: VIT B CMPLX 3/FA/VIT C/BIOTIN 1 TAB TABLET GT SCH (10:04)
[2022-11-07] MEDS: DOXAZOSIN MESYLATE (4 MG) 4 MG TABLET GT SCH ×2 (10:04→17:18)
[2022-11-07] MEDS: ACIDOPHILUS/BULGARICUS 1 EACH TAB.CHEW GT SCH (10:05)
[2022-11-07] MEDS: BENZTROPINE MESYLATE (1 MG) 1 MG TABLET GT SCH ×3 (10:05→17:17)
[2022-11-07] MEDS: FAMOTIDINE (20 MG) 20 MG TABLET GT SCH (10:05)
[2022-11-07] MEDS: THERAHONEY GEL 1.5 OZ TUBE TP SCH (10:06)
[2022-11-07] MEDS: Z GUARD REMEDY 4 OZ OINT TP SCH ×2 (10:07→20:14)
[2022-11-07] MEDS: PROSOURCE / PROSTAT (PYXIS) 30 ML UDC GT SCH (10:09)
[2022-11-07 12:00] VITALS: BP 164/84
[2022-11-07] MEDS ORDERED: SODIUM POLYSTYRENE SULF. PWD 15 GM UDC PO ONE (12:00)
[2022-11-07 12:33] LABS: BAND % (MANUAL) 4 % (0.0-5.0); EOSINOPHILS % (MANUAL) 3 % (0-4); LYMPHOCYTES % (MANUAL) 7 % (16-48); MONOCYTES % (MANUAL) 6 % (0-11.0); NEUTROPHILS % (MANUAL) 80 (42-76)
--- NOTE | 2022-11-07 13:00 | NUR ---
DATA DELIVERABLES MANAGER NOTE PER MD, HE SPOKE WITH DR. QUINTERO FOR HD ACCESS INSERTION TODAY AND PATIENT WILL HAVE BLOOD TRANSFUSION WHILE HAVING DIALYSIS.
--- NOTE | 2022-11-07 15:14 | NUR ---
PATIENT SIGNED CONSENT AND AGREED ON THE PROCEDURE WITH 2 RN'S SIGNED WITNESS.
[2022-11-07 16:00] VITALS: BP 180/89
--- NOTE | 2022-11-07 17:00 | NUR ---
PLASTIC SURGEON NOTE TANNA SHUKLA PHARMACIST REGARDING PLAN TO HAVE HD TONIGHT AFTER HD CATH INSERTION. WILL LOAD VANCO AFTER HD. WILL ENDORSE ACCORDINGLY.
--- NOTE | 2022-11-07 19:03 | NUR ---
OPTOMECHANICAL ENGINEER CLOSING NOTES PATIENT AWAKE IN BED, ALERT, ABLE TO RELAY NEEDS AND MOUTH WORDS. NO COMPLAIN OF PAIN AND DISCOMFORT AT THIS TIME. PATIENT ON COOL AEROSOL TRACH WITH OXYGEN @ 5LPM AND WITH G TUBE FEEDING OF NEPRO @75ML/HR TOLERATING WELL. PATIENT ON TELE WITH SINUS RHYTHM @ 85. HAS CHRISTA #20G IV ACCESS PATENT AND INTACT. PATIENT FOR CATHETER PLACEMENT. PATIENT ON SOFT WRIST RESTRAINT WITH GOOD CIRCULATION. SAFETY MEASURES GIVEN WITH BED ON LOCKED AND LOW POSITION. SIDE RAILS UP X2. ENDORSED TO NEXT SHIFT FOR CONTINUITY OF CARE.
--- NOTE | 2022-11-07 19:15 | NUR ---
REAL TIME ANALYST OPENING NOTES RECEIVED PT AWAKE IN BED, ALERT, ABLE TO RELAY NEEDS AND MOUTH WORDS. NO C/O PAIN AND DISCOMFORT AT THIS TIME. PATIENT ON COOL AEROSOL TRACH WITH OXYGEN @ 5LPM AND WITH G TUBE FEEDING OF NEPHRO @ 70ML/HR TOLERATING WELL. PATIENT ON TELE WITH SINUS RHYTHM @ 85. IV ACCESS CHRISTA #20G, PATENT AND INTACT. PATIENT ON SOFT WRIST RESTRAINT WITH GOOD CIRCULATION. SAFETY MEASURES IN PLACE: BED ON LOCKED AND LOW POSITION, SIDE RAILS UP X3. WILL CONTINUE TO MONITOR AND ASSIST.
[2022-11-07 20:00] VITALS: BP 141/84
[2022-11-07] MEDS: ATORVASTATIN 10 MG TABLET GT SCH (22:31)
[2022-11-07] MEDS: TRAZODONE 50 MG TABLET GT SCH (22:31)
[2022-11-08] VITALS: BP 176/92
--- NOTE | 2022-11-08 04:05 | NUR ---
RN NOTES UNABLE TO RESTART G-TUBE FEEDING DUE TO PT UNDERGOING HEMODIALYSIS. WILL RESTART FEEDING ON HD FINISH.
--- NOTE | 2022-11-08 05:15 | NUR ---
RN NOTES INFORMED BY LAB THAT BLOOD DRAW WILL BE DELAYED TO 0830 DUE TO ONGOING HEMODIALYSIS PER RECOMMENDATION BY THE DIALYSIS NURSE, KIMBERLEY.
[2022-11-08] MEDS: VANCOMYCIN POST DIALYSIS 500MG IV PRN ×2 (06:35)
--- NOTE | 2022-11-08 07:00 | NUR ---
SALES PROGRAM COORDINATOR CLOSING NOTES PT AWAKE IN BED, ALERT, ABLE TO RELAY NEEDS AND MOUTH WORDS. NO C/O PAIN AND DISCOMFORT AT THIS TIME. PATIENT ON COOL AEROSOL TRACH WITH OXYGEN @ 5LPM. G TUBE FEEDING OF NEPHRO @ 70ML/HR TOLERATING WELL. ON TELE WITH SINUS RHYTHM @ 85. IV ACCESS CHRISTA #20G, PATENT AND INTACT, RUNNING VANCOMYCIN AT THIS TIME. S/P L FEMORAL HD CATHETER PLACEMENT AND HEMODIALYSIS WITH OUTPUT OF 2L. PATIENT ON SOFT WRIST RESTRAINT WITH GOOD CIRCULATION. ALL CARE PROVIDED AND MEDICATIONS TOLERATED WELL. SAFETY MEASURES MAINTAINED: BED ON LOCKED AND LOW POSITION, SIDE RAILS UP X3. WILL ENDORSE [place] TO DAY SHIFT NURSE.
[2022-11-08 08:00] VITALS: BP 191/86
--- NOTE | 2022-11-08 08:06 | NUR ---
RN NOTE- PT AWAKE IN BED, ALERT, PATIENT ON COOL AEROSOL TRACH WITH OXYGEN @ 5LPM. G TUBE FEEDING OF NEPHRO @ 70ML/HR TOLERATING WELL. ON TELE WITH SINUS RHYTHM @ 80. IV ACCESS CHRISTA #20G, PATENT AND INTACT, RUNNING VANCOMYCIN AT THIS TIME. S/P L FEMORAL HD CATHETER PLACEMENT. DRESSING DRY / INTACT/. CLEAN. PATIENT ON SOFT WRIST RESTRAINT WITH GOOD CIRCULATION. ALL CARE PROVIDED AND MEDICATIONS TOLERATED WELL. SAFETY MEASURES MAINTAINED: BED ON LOCKED AND LOW POSITION, SIDE RAILS UP X3. MONITOR / ASSIST
[2022-11-08 08:51] LABS: BASOPHILS % (AUTO) 0.2 % (0.0-2.0); EOSINOPHILS % (AUTO) 4.5 % (0.0-6.0); HEMATOCRIT 23 % (39-51); HEMOGLOBIN 7.7 g/dL (13.5-17.5); LYMPHOCYTES # (AUTO) 0.3 K/uL (0.8-4.8); LYMPHOCYTES % (AUTO) 3.9 % (20.0-44.0); MEAN CORPUSCULAR HGB CONC 34 g/dl (31.0-36.0); MEAN CORPUSCULAR VOLUME 99 fL (80-96); MONOCYTES # (AUTO) 0.5 K/uL (0.1-1.30); MONOCYTES % (AUTO) 6.2 % (2.0-12.0); NEUTROPHILS # (AUTO) 6.4 K/uL (1.8-8.9); NEUTROPHILS % (AUTO) 85.2 % (43.0-81.0); PLATELET COUNT (AUTO) 239 K/uL (150-450); WHITE BLOOD COUNT (AUTO) 7.5 K/uL (4.3-11.0)
[2022-11-08 09:03] LABS: CALCIUM, SERUM 8.1 mg/dL (8.5-10.1); CREATININE 4.1 mg/dL (0.6-1.3); MAGNESIUM 2.4 mg/dL (1.8-2.4); PHOSPHORUS 3.4 mg/dL (2.5-4.9); POTASSIUM 3.9 mmol/L (3.5-5.1)
[2022-11-08] MEDS: CHLORHEXIDINE GLUCONATE 15 ML UDC MM SCH ×2 (09:28→20:55)
[2022-11-08] MEDS: VIT B CMPLX 3/FA/VIT C/BIOTIN 1 TAB TABLET GT SCH (09:28)
[2022-11-08] MEDS: ACIDOPHILUS/BULGARICUS 1 EACH TAB.CHEW GT SCH (09:29)
[2022-11-08] MEDS: DOXAZOSIN MESYLATE (4 MG) 4 MG TABLET GT SCH ×2 (09:29→16:33)
[2022-11-08] MEDS: BENZTROPINE MESYLATE (1 MG) 1 MG TABLET GT SCH ×3 (09:29→16:33)
[2022-11-08] MEDS: VALPROIC ACID 250 MG/5 ML UDC GT SCH ×3 (09:31→16:34)
[2022-11-08] MEDS: LIDOCAINE 5% (PATCH) 1 EA PATCH TP SCH (09:31)
[2022-11-08] MEDS: DOCUSATE SODIUM LIQ 100 MG/10 ML UDC GT SCH (09:31)
[2022-11-08] MEDS: PROSOURCE / PROSTAT (PYXIS) 30 ML UDC GT SCH (09:34)
[2022-11-08] MEDS: THERAHONEY GEL 1.5 OZ TUBE TP SCH (09:34)
[2022-11-08] MEDS: Z GUARD REMEDY 4 OZ OINT TP SCH ×2 (09:34→20:55)
[2022-11-08 12:00] VITALS: BP 155/89
--- NOTE | 2022-11-08 12:29 | NUR ---
RN NOTE PATIENT COMPLAINING FOR PAIN AT HD LEFT FEMORAL SITE. FIRM UPON PALPITATION AND WARM TO TOUCH. DR NOTIFIED.
--- NOTE | 2022-11-08 13:08 | NUR ---
RN NOTE- CONSULTED W HD RN TO ASSESS FEMORAL SITE. AWAITING RN
[2022-11-08] MEDS: NEPRO 1,000 ML BOTTLE GT PRN (14:01)
--- NOTE | 2022-11-08 14:19 | NUR ---
RN NOTE- AWAITING HD RN TO ASSESS PT FEMORAL CATH SITE
--- NOTE | 2022-11-08 14:46 | NUR ---
RN NOTE- HARSHAD PICC LINE RN PHONED, STATED THAT EDEMA OF FEMORAL CATH SITE WAS PRESENT ON INSERTION. MONITOR
--- NOTE | 2022-11-08 18:31 | NUR ---
MOTION STUDY ENGINEER CLOSING NOTE PT AWAKE IN BED, ALERT, ABLE TO RELAY NEEDS AND MOUTH WORDS. NO C/O PAIN AND DISCOMFORT AT THIS TIME. PATIENT ON COOL AEROSOL TRACH WITH OXYGEN @ 5LPM. G TUBE FEEDING OF NEPHRO @ 70ML/HR TOLERATING WELL. ON TELE WITH SINUS RHYTHM @ 76. IV ACCESS CHRISTA #20G, PATENT AND INTACT.L FEMORAL HD CATHETER IN PLACE. PATIENT WITH SOFT WRIST RESTRAINTS AND MITTENS PROVIDING INTERMITTENT BREAKS AND MAINTAINING GOOD CIRCULATION. SAFETY MEASURES MAINTAINED WITH BED ON LOCKED AND IN LOWEST POSITION, SIDE RAILS UP X3. WILL ENDORSE AGAPITO TO MOLD BLOWER NURSE.
[2022-11-08 20:00] VITALS: BP 121/79
--- NOTE | 2022-11-08 20:15 | NUR ---
BRIM RAISER OPENING NOTE PATIENT SLEEPING IN BED, EASILY AWAKENED, PT NON-VERBAL BUT ATTEMPTS TO MOUTH WORDS TO MAKE NEEDS KNOWN. PT WITH T-PIECE ON 5 L COOL AEROSOL. PATIENT ON EXTERNAL ACCOUNT MAINTENANCE REPRESENTATIVE READING SINUS RHYTHM, HR: 87. IV ACCESS ON CHRISTA #20G INTACT AND SALINE LOCKED. PATIENT ON GTUBE FEEDING INFUSING NEPRO @ 70 ML/HR X 18 HR TO BE TURNED OFF AT 2200 AND BACK ON AT 0400. PATIENT WITH BILATERAL SOFT WRIST RESTRAINTS ON. SAFETY MEASURES IN PLACE: CALL LIGHT WITHIN REACH, SIDE RAILS UP X 3, BED LOCKED IN LOWEST POSITION, HOB ELEVATED, BED ALARM ON . WILL CONTINUE TO MONITOR PATIENT
[2022-11-08] MEDS: ATORVASTATIN 10 MG TABLET GT SCH (21:39)
[2022-11-08] MEDS: TRAZODONE 50 MG TABLET GT SCH (21:39)
[2022-11-08] MEDS: ACETAMINOPHEN 650 MG/20.3 ML UDC GT PRN (21:39)
[2022-11-09] VITALS: BP 158/72
[2022-11-09 04:00] VITALS: BP 109/89
[2022-11-09 05:52] LABS: BASOPHILS % (AUTO) 0.3 % (0.0-2.0); HEMATOCRIT 23 % (39-51); HEMOGLOBIN 7.5 g/dL (13.5-17.5); LYMPHOCYTES # (AUTO) 0.6 K/uL (0.8-4.8); LYMPHOCYTES % (AUTO) 8.3 % (20.0-44.0); MEAN CORPUSCULAR HGB CONC 32 g/dl (31.0-36.0); MEAN CORPUSCULAR VOLUME 100 fL (80-96); MONOCYTES # (AUTO) 0.6 K/uL (0.1-1.30); MONOCYTES % (AUTO) 7.9 % (2.0-12.0); NEUTROPHILS # (AUTO) 5.8 K/uL (1.8-8.9); NEUTROPHILS % (AUTO) 79.5 % (43.0-81.0); PLATELET COUNT (AUTO) 242 K/uL (150-450); RED BLOOD CELL COUNT(AUTO) 2.33 MIL/uL (4.5-6.0); WHITE BLOOD COUNT (AUTO) 7.3 K/uL (4.3-11.0)
[2022-11-09 06:15] LABS: CALCIUM, SERUM 7.6 mg/dL (8.5-10.1); CREATININE 4.9 mg/dL (0.6-1.3); MAGNESIUM 2.4 mg/dL (1.8-2.4); PHOSPHORUS 4.8 mg/dL (2.5-4.9); POTASSIUM 4.1 mmol/L (3.5-5.1)
--- NOTE | 2022-11-09 06:21 | NUR ---
GREEN END DEPARTMENT SUPERVISOR CLOSING NOTE PATIENT SLEEPING IN BED, EASILY AWAKENED, PT NON-VERBAL BUT ATTEMPTS TO MOUTH WORDS AND POINT TO MAKE NEEDS KNOWN. PT WITH T-PIECE ON 5 L COOL AEROSOL. PATIENT ON EXTERNAL ENT PHYSICIAN READING SINUS RHYTHM, HR: 75. IV ACCESS ON CHRISTA #20G INTACT AND SALINE LOCKED. PATIENT ON GTUBE FEEDING INFUSING NEPRO @ 70 ML/HR X 18 HR, TURNED OFF AT 2200 AND BACK ON AT 0400. PATIENT WITH BILATERAL MITTENS IN PLACE. RIGHT FEMORAL HD INTACT, DRESSING CLEAN, DRY AND INTACT. NO SIGNIFICANT CHANGES THIS SHIFT, PT SLEPT WELL THROUGH THE NIGHT, MEDICATIONS GIVEN ORDERED, PT NEEDS MET THROUGHOUT SHIFT, PT TURNED Q2H, SACRAL OPTIFOAM IN PLACE. SAFETY MEASURES IN PLACE: CALL LIGHT WITHIN REACH, SIDE RAILS UP X 3, BED LOCKED IN LOWEST POSITION, HOB ELEVATED, BED ALARM ON. WILL ENDORSE TO DAY SHIFT RN FOR CONTINUITY OF CARE
--- NOTE | 2022-11-09 07:10 | NUR ---
ms rn received on bed, awake,alert,oriented x3-4, , trach dependent connected to aerosol, w/ adequate saturation, denies pain at this time, w/ order fo hd today, patient put on npo for placement of permacath hd. respirations even and unolabored, g tube feeding off for procedure later.
[2022-11-09 08:00] VITALS: BP 146/82
[2022-11-09] MEDS: PROSOURCE / PROSTAT (PYXIS) 30 ML UDC GT SCH (09:00)
[2022-11-09] MEDS: DOCUSATE SODIUM LIQ 100 MG/10 ML UDC GT SCH (09:00)
[2022-11-09] MEDS: BENZTROPINE MESYLATE (1 MG) 1 MG TABLET GT SCH ×3 (09:00→18:20)
[2022-11-09] MEDS: FAMOTIDINE (20 MG) 20 MG TABLET GT SCH (09:00)
[2022-11-09] MEDS: VIT B CMPLX 3/FA/VIT C/BIOTIN 1 TAB TABLET GT SCH (09:00)
[2022-11-09] MEDS: DOXAZOSIN MESYLATE (4 MG) 4 MG TABLET GT SCH ×2 (09:00→18:19)
[2022-11-09] MEDS: VALPROIC ACID 250 MG/5 ML UDC GT SCH ×3 (09:00→18:20)
[2022-11-09] MEDS: ACIDOPHILUS/BULGARICUS 1 EACH TAB.CHEW GT SCH (09:00)
[2022-11-09] MEDS: THERAHONEY GEL 1.5 OZ TUBE TP SCH (10:17)
[2022-11-09] MEDS: Z GUARD REMEDY 4 OZ OINT TP SCH ×2 (10:17→21:17)
[2022-11-09] MEDS: LIDOCAINE 5% (PATCH) 1 EA PATCH TP SCH (10:26)
[2022-11-09] MEDS: CHLORHEXIDINE GLUCONATE 15 ML UDC MM SCH ×2 (10:26→21:16)
[2022-11-09] MEDS ORDERED: ANESTHESIA TRAY IN PYXIS 1 EA TRAY MC ONE ×2 (10:38→12:22)
[2022-11-09] MEDS ORDERED: LIDOCAINE HCL/MPF 1% 30 ML VIAL IJ ONE (10:39)
[2022-11-09] MEDS ORDERED: BUPIVACAINE 0.25% 75 MG/30 ML VIAL ONE (10:39)
[2022-11-09] MEDS ORDERED: HEPARIN SODIUM, PORCINE 1,000 UNIT/ML VIAL ONE (10:39)
[2022-11-09] MEDS ORDERED: IOHEXOL 240MG/ML 50 ML IV ONE (10:40)
--- NOTE | 2022-11-09 11:20 | NUR ---
ms rn patient went down to or for procedure w/ dr. chapman.
[2022-11-09] MEDS ORDERED: FENTANYL PF 100MCG/2ML AMPUL ONE (11:35)
[2022-11-09] MEDS ORDERED: FAMOTIDINE/PF INJ 20 MG/2 ML VIAL IV ONE (11:35)
[2022-11-09 14:00] VITALS: BP 144/74
[2022-11-09] MEDS ORDERED: CELLULOSE,OXIDIZED 1 EA PACK MC ONE (14:00)
--- NOTE | 2022-11-09 14:00 | NUR ---
ms emeli felder came back, procedure was not done, w. dressing at left upper chest, bleeding w/ pressure dressing on, will monitor patient.
[2022-11-09 16:00] VITALS: BP 145/80
--- NOTE | 2022-11-09 16:30 | NUR ---
ms rn hd done w/ 2000ml out tolerated well, w/ stable vitals.
--- NOTE | 2022-11-09 18:20 | NUR ---
ms rn changed dressing ,still bleeding w/ a lot of blood lost, charge nurse is aware, patient stable w/ normal vitals,denies pain at this time, put pressure dressing w/ surgicel, will monitor further bleeding.
--- NOTE | 2022-11-09 18:49 | NUR ---
ms rn ms rn on bed, no distress noted,all needs attended, will endorse to night auditor for zachariah.
--- NOTE | 2022-11-09 19:30 | NUR ---
SOCIAL INSURANCE ADVISER OPENING NOTES RECEIVED PATIENT IN BED AWAKE. NON-VERBAL BUT RESPONSIVE TO VERBAL STIMULI. BREATHING EVEN AND NON-LABORED, ON O2 AT 5LPM 28% COOL AEROSOL VIA T-PIECE. NOT IN APPARENT DISTRESS. NO S/S OF PAIN NOTED AT THIS TIME. PATIENT KEPT SCRATCHING HIS BODY, BILATERAL MITTENS IN PLACE. TELE MONITOR ON STAND BY. HAS LEFT FOREARM IV ACCESS #22G AND SALINE LOCKED. NO S/S OF INFILTRATION NOTED. HAS G-TUBE FEEDING OF NEPRO RUNNING AT 70 ML/HR. SAFETY PRECAUTIONS IN PLACE: BED LOCKED AND IN LOW POSITION, SIDE RAILS UP X3, CALL LIGHT WITHIN REACH. WILL CONTINUE POC.
[2022-11-09 20:00] VITALS: BP 154/85
--- NOTE | 2022-11-09 20:22 | NUR ---
GEAR TESTER NOTES RE-STARTED TELE MONITOR SHOWING SINUS RHYTHM AT 80 BPM. LEFT CHEST DRESSING IN PLACE, NO ACTIVE BLEEDING NOTED.
[2022-11-09] MEDS: VANCOMYCIN POST DIALYSIS 500MG IV PRN ×2 (21:06)
[2022-11-09] MEDS: TRAZODONE 50 MG TABLET GT SCH (22:08)
[2022-11-09] MEDS: ATORVASTATIN 10 MG TABLET GT SCH (22:08)
[2022-11-10] VITALS (8 sets, daily range): BP systolic 113–180; BP diastolic 40–95
[2022-11-10] MEDS: hydrALAZINE HCL 50 MG TABLET GT PRN ×3 (01:23→22:16)
--- NOTE | 2022-11-10 01:23 | NUR ---
C D AREA SUPERVISOR NOTES BP 168/70, ADMINISTERED PRN HYDRALAZINE 50MG VIA G-TUBE.
--- NOTE | 2022-11-10 05:48 | NUR ---
BOX SPRING MAKER NOTES PER ANNEL FINN, DO NOT GIVE CLONIDINE SINCE PATIENT HAD RECEIVED HYDRALAZINE 50MG AT 0123. PATIENT IS SLEEPING AND QUIET. WILL CONTINUE TO MONITOR.
[2022-11-10 06:45] LABS: CREATININE 3.6 mg/dL (0.6-1.3)
[2022-11-10] MEDS: IV D5/ 0.9% NACL 1,000 ML IV PRN (06:50)
--- NOTE | 2022-11-10 07:31 | NUR ---
DISH CLOTH INSPECTOR CLOSING NOTES PATIENT IN BED ASLEEP, EASY TO AROUSE. ABLE TO RELAY SOME NEEDS. NOT IN CARDIAC OR RESPIRATORY DISTRESS. AFEBRILE. ON TELE MONITOR READING SINUS RHYTHM AT 84BPM. HAS LEFT FOREARM IV ACCESS #22G WITH D5NS RUNNING AT 50 ML/HR. INTACT, PATENT AND FLUSHING. OFFLOADED AND REPOSITIONED. SUCTIONED NEEDED. BILATERAL MITTENS STILL IN PLACE, PATIENT KEPT SCRATCHING HIS BODY. ALL DUE MEDS GIVEN AND NEEDS ANTICIPATED. SAFETY PRECAUTIONS MAINTAINED. WILL ENDORSE TO NEXT SHIFT FOR AGAPITO.
[2022-11-10 07:58] LABS: ALBUMIN 1.5 g/dL (3.4-5.0); BILIRUBIN,DIRECT 0.2 mg/dL (0.0-0.2); BILIRUBIN,TOTAL 0.4 mg/dL (0.2-1.0); TOTAL PROTEIN, SERUM 8.1 g/dL (6.4-8.2)
--- NOTE | 2022-11-10 08:00 | NUR ---
MS RN RECEIVED PATIENT ON BED, A/O X3-4. TRACH DEPENDENT CONNECTED TO AEROSOL W/ ADEQUATE SATURATION. DENIES PAIN AT THIS TIME. PATIENT ON NPO FOR INSERTION OF DIALYSIS CATHETER. RESPIRATIONS EVEN AND UNLABORED. G-TUBE FEEDING OFF FOR PROCEDURE LATER.
[2022-11-10] MEDS: CLONIDINE HCL 0.1 MG TABLET GT PRN (08:27)
[2022-11-10 08:32] LABS: BASOPHILS % (AUTO) 0.6 % (0.0-2.0); HEMATOCRIT 21 % (39-51); LYMPHOCYTES # (AUTO) 0.4 K/uL (0.8-4.8); LYMPHOCYTES % (AUTO) 7.5 % (20.0-44.0); MEAN CORPUSCULAR HGB CONC 32 g/dl (31.0-36.0); MEAN CORPUSCULAR VOLUME 101 fL (80-96); MONOCYTES # (AUTO) 0.5 K/uL (0.1-1.30); MONOCYTES % (AUTO) 8.1 % (2.0-12.0); NEUTROPHILS # (AUTO) 4.7 K/uL (1.8-8.9); NEUTROPHILS % (AUTO) 80.8 % (43.0-81.0); PLATELET COUNT (AUTO) 241 K/uL (150-450); RED BLOOD CELL COUNT(AUTO) 2.03 MIL/uL (4.5-6.0); WHITE BLOOD COUNT (AUTO) 5.8 K/uL (4.3-11.0)
[2022-11-10 08:55] LABS: HEMOGLOBIN 6.6 g/dL (13.5-17.5)
[2022-11-10] MEDS: CHLORHEXIDINE GLUCONATE 15 ML UDC MM SCH ×2 (09:00→21:16)
[2022-11-10] MEDS: VIT B CMPLX 3/FA/VIT C/BIOTIN 1 TAB TABLET GT SCH (09:00)
[2022-11-10] MEDS: Z GUARD REMEDY 4 OZ OINT TP SCH ×2 (09:00→21:16)
[2022-11-10] MEDS: ACIDOPHILUS/BULGARICUS 1 EACH TAB.CHEW GT SCH (09:00)
[2022-11-10] MEDS: VALPROIC ACID 250 MG/5 ML UDC GT SCH ×3 (09:00→16:57)
[2022-11-10] MEDS: BENZTROPINE MESYLATE (1 MG) 1 MG TABLET GT SCH ×3 (09:00→16:56)
[2022-11-10] MEDS: DOCUSATE SODIUM LIQ 100 MG/10 ML UDC GT SCH (09:00)
[2022-11-10] MEDS: PROSOURCE / PROSTAT (PYXIS) 30 ML UDC GT SCH (09:00)
[2022-11-10] MEDS: DOXAZOSIN MESYLATE (4 MG) 4 MG TABLET GT SCH ×2 (09:00→16:57)
[2022-11-10] MEDS: LIDOCAINE 5% (PATCH) 1 EA PATCH TP SCH (09:21)
[2022-11-10] MEDS ORDERED: IOHEXOL 0 ML IV ONE (09:26)
[2022-11-10] MEDS ORDERED: LIDOCAINE HCL/MPF 1% 30 ML VIAL IJ ONE (09:27)
[2022-11-10] MEDS ORDERED: HEPARIN SODIUM, PORCINE 1,000 UNIT/ML VIAL ONE (09:28)
[2022-11-10] MEDS: Z GUARD REMEDY 4 OZ OINT TP PRN (09:38)
[2022-11-10] MEDS: THERAHONEY GEL 1.5 OZ TUBE TP SCH (09:38)
--- NOTE | 2022-11-10 11:55 | NUR ---
MS RN DATA MANAGER CHANGE THE TRACH INNER CANULA.
--- NOTE | 2022-11-10 12:30 | NUR ---
MS RN CANCELLED PATIENT PROCEDURE BY DR. DARNELL..
[2022-11-10 14:01] LABS: BAND % (MANUAL) 3 % (0.0-5.0); EOSINOPHILS % (MANUAL) 1 % (0-4); LYMPHOCYTES % (MANUAL) 6 % (16-48); MONOCYTES % (MANUAL) 7 % (0-11.0); NEUTROPHILS % (MANUAL) 83 (42-76)
[2022-11-10] MEDS ORDERED: NEPRO 1,000 ML BOTTLE GT PRN ×2 (16:00→16:30)
[2022-11-10] MEDS: NEPRO 1,000 ML BOTTLE GT PRN (16:28)
--- NOTE | 2022-11-10 18:00 | NUR ---
ms rn blood cannot be release, form is not appropriate one for patient.
--- NOTE | 2022-11-10 18:55 | NUR ---
MS RN PATIENT ON BED. NO DISTRESS NOTED. ALL NEEDS ATTENDED. WILL ENDORSE TO COMPLETIONS ENGINEER FOR CONTINUATION OF CARE.
--- NOTE | 2022-11-10 20:30 | NUR ---
BELL NECK HAMMERER OPENING NOTES PATIENT IN BED ASLEEP, EASY TO AROUSE. ABLE TO RELAY SOME NEEDS. NOT IN CARDIAC OR RESPIRATORY DISTRESS. AFEBRILE. ON TELE MONITOR READING SINUS RHYTHM AT 84BPM. HAS LEFT FOREARM IV ACCESS #22G WITH D5NS RUNNING AT 50 ML/HR. INTACT, PATENT AND FLUSHING. NEPRO @70ML/HR TOLERATING WELL.SUCTIONED NEEDED. BILATERAL MITTENS STILL IN PLACE, PATIENT KEPT SCRATCHING HIS BODY. ALL DUE MEDS GIVEN AND NEEDS ANTICIPATED. SAFETY PRECAUTIONS MAINTAINED. PT CURRENTLY RECEIVING A BLOOD TRANSFUSION. NO SIGNS OF ADVERSE REACTION NOTED AT THIS TIME.
[2022-11-10] MEDS: ATORVASTATIN 10 MG TABLET GT SCH (22:00)
[2022-11-10] MEDS: TRAZODONE 50 MG TABLET GT SCH (22:00)
--- NOTE | 2022-11-10 22:20 | NUR ---
SAP SECURITY CONSULTANT NOTE PRN HYDRALAZINE GIVEN FOR SBP 180 TOLERATED WELL.
[2022-11-11 01:35] LABS: BASOPHILS % (AUTO) 0.5 % (0.0-2.0); EOSINOPHILS % (AUTO) 3.3 % (0.0-6.0); HEMATOCRIT 23 % (39-51); HEMOGLOBIN 7.3 g/dL (13.5-17.5); LYMPHOCYTES # (AUTO) 0.5 K/uL (0.8-4.8); LYMPHOCYTES % (AUTO) 7.1 % (20.0-44.0); MEAN CORPUSCULAR HGB CONC 32 g/dl (31.0-36.0); MEAN CORPUSCULAR VOLUME 97 fL (80-96); MONOCYTES # (AUTO) 0.4 K/uL (0.1-1.30); MONOCYTES % (AUTO) 6.5 % (2.0-12.0); NEUTROPHILS # (AUTO) 5.4 K/uL (1.8-8.9); NEUTROPHILS % (AUTO) 82.6 % (43.0-81.0); PLATELET COUNT (AUTO) 227 K/uL (150-450); RED BLOOD CELL COUNT(AUTO) 2.35 MIL/uL (4.5-6.0); WHITE BLOOD COUNT (AUTO) 6.5 K/uL (4.3-11.0)
[2022-11-11] MEDS: hydrALAZINE HCL 50 MG TABLET GT PRN ×2 (06:02→15:43)
--- NOTE | 2022-11-11 06:34 | NUR ---
AREA COUNSELOR NOTE HYDRALAZINE GIVEN FOR SBP 173 TOLERATED WELL.
--- NOTE | 2022-11-11 06:56 | NUR ---
TECHNICAL WRITER AND EDITOR CLOSING NOTES PATIENT IN BED ASLEEP, EASY TO AROUSE. ABLE TO RELAY SOME NEEDS. NOT IN CARDIAC OR RESPIRATORY DISTRESS. AFEBRILE. ON TELE MONITOR READING SINUS RHYTHM. HAS LEFT FOREARM IV ACCESS #22G INTACT, PATENT AND FLUSHING. NEPRO @70ML/HR TOLERATING WELL.SUCTIONED NEEDED. BILATERAL MITTENS STILL IN PLACE, PATIENT KEPT SCRATCHING HIS BODY. ALL DUE MEDS GIVEN AND NEEDS ANTICIPATED. SAFETY PRECAUTIONS MAINTAINED. PT CURRENTLY RECEIVING A BLOOD TRANSFUSION. NO SIGNS OF ADVERSE REACTION NOTED AT THIS TIME. WILL ENDORSE AGAPITO TO DAY SHIFT NURSE.
[2022-11-11 07:00] VITALS: BP 152/80
[2022-11-11 07:29] LABS: BASOPHILS % (AUTO) 0.4 % (0.0-2.0); HEMATOCRIT 23 % (39-51); HEMOGLOBIN 7.5 g/dL (13.5-17.5); LYMPHOCYTES # (AUTO) 0.5 K/uL (0.8-4.8); LYMPHOCYTES % (AUTO) 7.5 % (20.0-44.0); MEAN CORPUSCULAR HGB CONC 33 g/dl (31.0-36.0); MEAN CORPUSCULAR VOLUME 98 fL (80-96); MONOCYTES # (AUTO) 0.4 K/uL (0.1-1.30); MONOCYTES % (AUTO) 6.8 % (2.0-12.0); NEUTROPHILS # (AUTO) 5.2 K/uL (1.8-8.9); NEUTROPHILS % (AUTO) 81.3 % (43.0-81.0); PLATELET COUNT (AUTO) 227 K/uL (150-450); RED BLOOD CELL COUNT(AUTO) 2.36 MIL/uL (4.5-6.0); WHITE BLOOD COUNT (AUTO) 6.4 K/uL (4.3-11.0)
--- NOTE | 2022-11-11 07:30 | NUR ---
CRYPTOGRAPHY TEACHER OPENING NOTES RECEIVED PATIENT IN BED AWAKE. NON-VERBAL BUT RESPONSIVE TO VERBAL STIMULI. BREATHING EVEN AND NON-LABORED. NOT IN APPARENT DISTRESS. NO S/S OF PAIN NOTED AT THIS TIME. BILATERAL MITTENS IN PLACE. EXTERNAL BUS AND TROLLEY INSPECTING DISPATCHER NOTED. HAS LEFT FOREARM IV ACCESS #22G AND SALINE LOCKED. NO S/S OF INFILTRATION NOTED. HAS G-TUBE FEEDING OF NEPRO RUNNING AT 70 ML/HR. SAFETY PRECAUTIONS IN PLACE: BED LOCKED AND IN LOW POSITION, SIDE RAILS UP X3, CALL LIGHT WITHIN REACH. WILL CONTINUE TO MONITOR AND ASSIST.
[2022-11-11 07:34] LABS: ALBUMIN 1.5 g/dL (3.4-5.0); ALKALINE PHOSPHATASE 112 U/L (46-116); ASPARTATE AMINOTRANSFERASE 21 U/L (15-37); BILIRUBIN,TOTAL 0.4 mg/dL (0.2-1.0); CALCIUM, SERUM 8.1 mg/dL (8.5-10.1); CARBON DIOXIDE 25 mmol/L (21-32); CHLORIDE 103 mmol/L (98-107); CREATININE 4.5 mg/dL (0.6-1.3); GLUCOSE 112 mg/dL (74-106); POTASSIUM 4.1 mmol/L (3.5-5.1); SODIUM SERUM 138 mmol/L (136-145); TOTAL PROTEIN, SERUM 8.4 g/dL (6.4-8.2); UREA NITROGEN, BLOOD 61 mg/dL (7-18)
[2022-11-11 07:55] LABS: ALANINE AMINOTRANSFERASE < 6 U/L (12-78)
[2022-11-11] MEDS: LIDOCAINE 5% (PATCH) 1 EA PATCH TP SCH (09:04)
[2022-11-11] MEDS: VALPROIC ACID 250 MG/5 ML UDC GT SCH ×3 (09:04→16:05)
[2022-11-11] MEDS: CHLORHEXIDINE GLUCONATE 15 ML UDC MM SCH ×2 (09:04→21:19)
[2022-11-11] MEDS: DOCUSATE SODIUM LIQ 100 MG/10 ML UDC GT SCH (09:04)
[2022-11-11] MEDS: ACIDOPHILUS/BULGARICUS 1 EACH TAB.CHEW GT SCH (09:06)
[2022-11-11] MEDS: BENZTROPINE MESYLATE (1 MG) 1 MG TABLET GT SCH ×3 (09:06→16:05)
[2022-11-11] MEDS: VIT B CMPLX 3/FA/VIT C/BIOTIN 1 TAB TABLET GT SCH (09:06)
[2022-11-11] MEDS: FAMOTIDINE (20 MG) 20 MG TABLET GT SCH (09:07)
[2022-11-11] MEDS: DOXAZOSIN MESYLATE (4 MG) 4 MG TABLET GT SCH ×2 (09:07→16:05)
[2022-11-11] MEDS: Z GUARD REMEDY 4 OZ OINT TP SCH ×2 (09:08→21:20)
[2022-11-11] MEDS: THERAHONEY GEL 1.5 OZ TUBE TP SCH (09:08)
[2022-11-11] MEDS: PROSOURCE / PROSTAT (PYXIS) 30 ML UDC GT SCH (09:10)
[2022-11-11 12:00] VITALS: BP 152/80
[2022-11-11] MEDS: NEPRO 1,000 ML BOTTLE GT PRN (13:03)
--- NOTE | 2022-11-11 15:45 | NUR ---
RN NOTE PT HAD BP 185/89 AND HR OF 130 POST HD. ADMINISTERED HYDRALAZINE 50MG PRN. WILL CONTINUE TO MONITOR PT.
[2022-11-11 16:00] VITALS: BP 185/89
--- NOTE | 2022-11-11 18:40 | NUR ---
CERTIFIED ENDOSCOPY TECHNICIAN CLOSING NOTE PATIENT IN BED ASLEEP, EASY TO AROUSE. ABLE TO RELAY SOME NEEDS. NOT IN CARDIAC OR RESPIRATORY DISTRESS. AFEBRILE. ON EXTERNAL ZIGZAGGER READING SINUS RHYTHM @ 80S. HAS LEFT FOREARM IV ACCESS #22G WITH D5NS RUNNING AT 50 ML/HR. INTACT, PATENT AND FLUSHING. HD DONE AND REMOVED 2.5L. OFFLOADED AND REPOSITIONED. KEPT PT CLEAN AND DRY. SUCTIONED NEEDED. BILATERAL MITTENS STILL IN PLACE. ALL DUE MEDS GIVEN AND NEEDS ANTICIPATED. SAFETY PRECAUTIONS MAINTAINED. WILL ENDORSE TO NEXT SHIFT NURSE FOR AGAPITO.
[2022-11-11 20:00] VITALS: BP 163/88
--- NOTE | 2022-11-11 20:18 | NUR ---
BLINDSTITCH LAPEL PADDER OPENING NOTE PATIENT AWAKE IN BED, PT NON-VERBAL BUT ATTEMPTS TO MAKE NEEDS KNOWN BY MOUTHING WORDS AND GESTURES. PT STABLE ON T-PIECE 5 LPM OF 02 COOL AEROSOL, NO S/S OF DISTRESS OR SOB NOTED, BREATHING EVEN AND UNLABORED. PT ON EXTERNAL LICENSED NURSE PRACTITIONER READING SINUS RHYTHM, HR: 78. BILATERAL MITTENS IN PLACE D/T PATIENT SCRATCHING SELF. IV ACCESS ON LFA #22G INTACT AND SALINE LOCKED. PATIENT ON GTF NEPRO @ 70 ML/HR. SAFETY MEASURES IN PLACE: CALL LIGHT WITHIN REACH, SIDE RAILS UP X 3, BED LOCKED IN LOWEST POSITION, HOB ELEVATED, BED ALARM ON. WILL CONTINUE TO MONITOR PATIENT
[2022-11-11] MEDS: ATORVASTATIN 10 MG TABLET GT SCH (21:20)
[2022-11-11] MEDS: TRAZODONE 50 MG TABLET GT SCH (21:20)
[2022-11-12] VITALS: BP 184/88
[2022-11-12] MEDS: hydrALAZINE HCL 50 MG TABLET GT PRN ×3 (02:31→20:08)
[2022-11-12 04:00] VITALS: BP 189/85
[2022-11-12 07:00] VITALS: BP 168/89
--- NOTE | 2022-11-12 07:00 | NUR ---
TELESCOPE OPERATOR CLOSING NOTE PATIENT SLEEPING IN BED, PT NON-VERBAL BUT ATTEMPTS TO MAKE NEEDS KNOWN BY MOUTHING WORDS AND GESTURES. PT STABLE ON T-PIECE 5 LPM OF 02 COOL AEROSOL, NO S/S OF DISTRESS OR SOB NOTED, BREATHING EVEN AND UNLABORED. PT ON EXTERNAL ASSISTANT LOAN PROCESSOR READING SINUS RHYTHM, HR: 80. BILATERAL MITTENS IN PLACE D/T PATIENT SCRATCHING SELF. IV ACCESS ON LFA #22G INTACT AND SALINE LOCKED. PATIENT ON GTF NEPRO @ 70 ML/HR. MEDICATIONS GIVEN ORDERED, PT NEEDS MET THROUGHOUT SHIFT. SAFETY MEASURES IN PLACE: CALL LIGHT WITHIN REACH, SIDE RAILS UP X 3, BED LOCKED IN LOWEST POSITION, HOB ELEVATED, BED ALARM ON. WILL ENDORSE TO DAYSHIFT RN FOR CONTINUITY OF CARE
[2022-11-12 07:16] LABS: BASOPHILS % (AUTO) 0.5 % (0.0-2.0); EOSINOPHILS % (AUTO) 6.1 % (0.0-6.0); HEMATOCRIT 23 % (39-51); HEMOGLOBIN 7.3 g/dL (13.5-17.5); LYMPHOCYTES # (AUTO) 0.4 K/uL (0.8-4.8); LYMPHOCYTES % (AUTO) 8.8 % (20.0-44.0); MEAN CORPUSCULAR HGB CONC 32 g/dl (31.0-36.0); MEAN CORPUSCULAR VOLUME 98 fL (80-96); MONOCYTES # (AUTO) 0.3 K/uL (0.1-1.30); NEUTROPHILS # (AUTO) 3.9 K/uL (1.8-8.9); NEUTROPHILS % (AUTO) 77.6 % (43.0-81.0); PLATELET COUNT (AUTO) 220 K/uL (150-450); RED BLOOD CELL COUNT(AUTO) 2.32 MIL/uL (4.5-6.0)
--- NOTE | 2022-11-12 07:20 | NUR ---
PROFESSOR OF FRENCH OPENING NOTES RECEIVED PATIENT IN BED AWAKE. NON-VERBAL BUT RESPONSIVE TO VERBAL STIMULI. PT STABLE ON T-PIECE 5 LPM OF 02 COOL AEROSOL BREATHING EVEN AND NON-LABORED. NOT IN APPARENT DISTRESS. NO S/S OF PAIN NOTED AT THIS TIME. BILATERAL MITTENS IN PLACE. EXTERNAL COLLAR TAILOR READING 81 BPM. HAS LEFT FOREARM IV ACCESS #22G AND SALINE LOCKED. NO S/S OF INFILTRATION NOTED. HAS G-TUBE FEEDING OF NEPRO RUNNING AT 70 ML/HR. SAFETY PRECAUTIONS IN PLACE: BED LOCKED AND IN LOW POSITION, SIDE RAILS UP X3, CALL LIGHT WITHIN REACH. WILL CONTINUE TO MONITOR AND ASSIST.
[2022-11-12 07:27] LABS: CALCIUM, SERUM 8.8 mg/dL (8.5-10.1); CARBON DIOXIDE 27 mmol/L (21-32); CHLORIDE 104 mmol/L (98-107); CREATININE 3.5 mg/dL (0.6-1.3); GLUCOSE 129 mg/dL (74-106); POTASSIUM 3.7 mmol/L (3.5-5.1); SODIUM SERUM 139 mmol/L (136-145); UREA NITROGEN, BLOOD 41 mg/dL (7-18)
[2022-11-12 07:33] LABS: ALANINE AMINOTRANSFERASE < 6 U/L (12-78); ALBUMIN 1.5 g/dL (3.4-5.0); ALKALINE PHOSPHATASE 110 U/L (46-116); ASPARTATE AMINOTRANSFERASE 19 U/L (15-37); BILIRUBIN,TOTAL 0.4 mg/dL (0.2-1.0); TOTAL PROTEIN, SERUM 8.4 g/dL (6.4-8.2)
[2022-11-12] MEDS: CHLORHEXIDINE GLUCONATE 15 ML UDC MM SCH ×2 (08:52→20:10)
[2022-11-12] MEDS: DOCUSATE SODIUM LIQ 100 MG/10 ML UDC GT SCH (08:52)
[2022-11-12] MEDS: VALPROIC ACID 250 MG/5 ML UDC GT SCH ×3 (08:52→16:14)
[2022-11-12] MEDS: VIT B CMPLX 3/FA/VIT C/BIOTIN 1 TAB TABLET GT SCH (08:52)
[2022-11-12] MEDS: BENZTROPINE MESYLATE (1 MG) 1 MG TABLET GT SCH ×3 (08:52→16:15)
[2022-11-12] MEDS: ACIDOPHILUS/BULGARICUS 1 EACH TAB.CHEW GT SCH (08:53)
[2022-11-12] MEDS: DOXAZOSIN MESYLATE (4 MG) 4 MG TABLET GT SCH ×2 (08:53→16:15)
[2022-11-12] MEDS: LIDOCAINE 5% (PATCH) 1 EA PATCH TP SCH (08:53)
[2022-11-12] MEDS: Z GUARD REMEDY 4 OZ OINT TP SCH ×2 (08:54→20:10)
[2022-11-12] MEDS: THERAHONEY GEL 1.5 OZ TUBE TP SCH (08:55)
[2022-11-12] MEDS: PROSOURCE / PROSTAT (PYXIS) 30 ML UDC GT SCH (09:17)
[2022-11-12] MEDS: NEPRO 1,000 ML BOTTLE GT PRN (10:48)
[2022-11-12 12:00] VITALS: BP 177/85
[2022-11-12 16:00] VITALS: BP 178/88
--- NOTE | 2022-11-12 18:55 | NUR ---
MASONRY INSTALLER CLOSING NOTE PATIENT IN BED ASLEEP, EASY TO AROUSE. PT NON VERBAL ABLE TO RELAY SOME NEEDS. PT STABLE ON T-PIECE 5 LPM OF 02 COOL AEROSOL. NOT IN CARDIAC OR RESPIRATORY DISTRESS. ON EXTERNAL LOCAL TRUCK DRIVER READING SINUS RHYTHM. HAS LEFT FOREARM IV ACCESS #22G, SL. INTACT, PATENT AND FLUSHING. OFFLOADED AND REPOSITIONED. KEPT PT CLEAN AND DRY. SUCTIONED NEEDED. BILATERAL MITTENS STILL IN PLACE. ALL DUE MEDS GIVEN AND NEEDS ANTICIPATED. SAFETY MEASURES IN PLACE: CALL LIGHT WITHIN REACH, SIDE RAILS UP X 3, BED LOCKED IN LOWEST POSITION, HOB ELEVATED, BED ALARM ON. WILL ENDORSE TO ONCOMING RN FOR AGAPITO.
[2022-11-12 20:00] VITALS: BP_SYST 179; BP_SYST 181; BP_DIAS 84; BP_DIAS 86
--- NOTE | 2022-11-12 20:01 | NUR ---
INTERSTATE PLANNER OPENING NOTE PATIENT IN BED ASLEEP, EASY TO AROUSE. PT NON VERBAL ABLE TO RELAY SOME NEEDS. PT STABLE ON T-PIECE 5 LPM OF 02 COOL AEROSOL. NOT IN CARDIAC OR RESPIRATORY DISTRESS. IV ACCESS LEFT FOREARM #22G, SL. INTACT AND PATENT. OFFLOADED AND REPOSITIONED. KEPT PT CLEAN AND DRY. SUCTIONED NEEDED. BILATERAL MITTENS STILL IN PLACE. ALL DUE MEDS GIVEN AND NEEDS ANTICIPATED. SAFETY MEASURES IN PLACE: CALL LIGHT WITHIN REACH, SIDE RAILS UP X 3, BED LOCKED IN LOWEST POSITION, HOB ELEVATED, BED ALARM ON. WILL CONTINUE TO MONITOR.
[2022-11-12] MEDS: ATORVASTATIN 10 MG TABLET GT SCH (21:05)
[2022-11-12] MEDS: TRAZODONE 50 MG TABLET GT SCH (21:05)
--- NOTE | 2022-11-12 21:10 | NUR ---
RN NOTES - HIGH BP BP 179/86, HR 125. PATIENT IS RESTLESS. NO PAIN. GIVEN HYDRALAZINE PRN ORDERED. KEPT COMFORTABLE. WILL CONTINUE TO MONITOR.
[2022-11-13] VITALS (10 sets, daily range): BP systolic 151–209; BP diastolic 73–88
--- NOTE | 2022-11-13 01:00 | NUR ---
RN NOTES - HIGH BP BP 181/84, HR 79. PATIENT IS RESTLESS. NO PAIN NOTED. GIVEN CATAPRES PRN ORDERED. KEPT COMFORTABLE. WILL CONTINUE TO MONITOR.
[2022-11-13] MEDS: CLONIDINE HCL 0.1 MG TABLET GT PRN ×2 (01:02→23:41)
--- NOTE | 2022-11-13 02:00 | NUR ---
RN NOTES RE-ASSESS BP. 162/93. KEPT COMFORTABLE. WILL CONTINUE TO MONITOR
--- NOTE | 2022-11-13 05:12 | NUR ---
RN NOTES - HIGH BP BP 179/85, HR 71. GIVEN HYDRALAZINE PRN ORDERED. KEPT COMFORTABLE. WILL CONTINUE TO MONITOR.
[2022-11-13] MEDS: hydrALAZINE HCL 50 MG TABLET GT PRN (05:15)
[2022-11-13 06:43] LABS: BASOPHILS % (AUTO) 0.4 % (0.0-2.0); EOSINOPHILS % (AUTO) 7.7 % (0.0-6.0); HEMATOCRIT 21 % (39-51); LYMPHOCYTES # (AUTO) 0.4 K/uL (0.8-4.8); LYMPHOCYTES % (AUTO) 9.9 % (20.0-44.0); MEAN CORPUSCULAR HGB CONC 32 g/dl (31.0-36.0); MEAN CORPUSCULAR VOLUME 97 fL (80-96); MONOCYTES # (AUTO) 0.3 K/uL (0.1-1.30); MONOCYTES % (AUTO) 7.8 % (2.0-12.0); NEUTROPHILS # (AUTO) 3.3 K/uL (1.8-8.9); NEUTROPHILS % (AUTO) 74.2 % (43.0-81.0); PLATELET COUNT (AUTO) 218 K/uL (150-450); RED BLOOD CELL COUNT(AUTO) 2.16 MIL/uL (4.5-6.0); WHITE BLOOD COUNT (AUTO) 4.4 K/uL (4.3-11.0)
--- NOTE | 2022-11-13 06:46 | NUR ---
SEAM RUBBING MACHINE OPERATOR CLOSING NOTE PATIENT IN BED ASLEEP, EASY TO AROUSE. PT NON VERBAL ABLE TO RELAY SOME NEEDS. PT STABLE ON T-PIECE 5 LPM OF 02 COOL AEROSOL. NOT IN CARDIAC OR RESPIRATORY DISTRESS. IV ACCESS LEFT FOREARM #22G, SL. INTACT AND PATENT. OFFLOADED AND REPOSITIONED. KEPT PT CLEAN AND DRY. SUCTIONED NEEDED. BILATERAL MITTENS STILL IN PLACE AND RENEWED. ALL DUE MEDS GIVEN AND NEEDS ANTICIPATED. SAFETY MEASURES IN PLACE: CALL LIGHT WITHIN REACH, SIDE RAILS UP X 3, BED LOCKED IN LOWEST POSITION, HOB ELEVATED, BED ALARM ON. WILL ENDORSE TO NEXT SHIFT RN FOR AGAPITO.
[2022-11-13 07:00] LABS: HEMOGLOBIN 6.8 g/dL (13.5-17.5)
[2022-11-13 07:05] LABS: CALCIUM, SERUM 8.3 mg/dL (8.5-10.1); CARBON DIOXIDE 28 mmol/L (21-32); CHLORIDE 103 mmol/L (98-107); CREATININE 4.2 mg/dL (0.6-1.3); GLUCOSE 142 mg/dL (74-106); POTASSIUM 3.9 mmol/L (3.5-5.1); SODIUM SERUM 138 mmol/L (136-145); UREA NITROGEN, BLOOD 56 mg/dL (7-18)
[2022-11-13 07:10] LABS: ALKALINE PHOSPHATASE 110 U/L (46-116); ASPARTATE AMINOTRANSFERASE 18 U/L (15-37); BILIRUBIN,TOTAL 0.3 mg/dL (0.2-1.0); TOTAL PROTEIN, SERUM 8.1 g/dL (6.4-8.2)
--- NOTE | 2022-11-13 07:15 | NUR ---
BARREL TURNER OPENING NOTE PATIENT IN BED ASLEEP, WAKES UP TO CALL OR LIGHT TOUCH. PT NON VERBAL ABLE TO RELAY SOME NEEDS BY NODDING, GESTURES OR LIPPING WORDS. PT STABLE ON T-PIECE 5 LPM OF 02 COOL AEROSOL. PATIENT APPEARS COMFORTABLE AND WITH NO SIGNS OF RESPIRATORY DISTRESS. IV ACCESS LEFT FOREARM #22G, SL. INTACT AND PATENT. STILL WITH BILATERAL SOFT WRIST RESTRAINTS. WITH G-TUBE ONGOING NEPHRO AT 70ML/HR, TOLERATED WELL. SAFETY MEASURES IN PLACE: CALL LIGHT WITHIN REACH, SIDE RAILS UP X 3, BED LOCKED IN LOWEST POSITION, HOB ELEVATED, BED ALARM ON. WILL CONTINUE WITH PLAN OF CARE.
[2022-11-13 07:20] LABS: ALANINE AMINOTRANSFERASE < 6 U/L (12-78)
[2022-11-13 07:32] LABS: ALBUMIN 1.4 g/dL (3.4-5.0)
[2022-11-13] MEDS: CHLORHEXIDINE GLUCONATE 15 ML UDC MM SCH ×2 (08:27→22:01)
[2022-11-13] MEDS: DOCUSATE SODIUM LIQ 100 MG/10 ML UDC GT SCH (08:27)
[2022-11-13] MEDS: LIDOCAINE 5% (PATCH) 1 EA PATCH TP SCH (08:27)
[2022-11-13] MEDS: VALPROIC ACID 250 MG/5 ML UDC GT SCH ×3 (08:27→16:29)
[2022-11-13] MEDS: VIT B CMPLX 3/FA/VIT C/BIOTIN 1 TAB TABLET GT SCH (08:28)
[2022-11-13] MEDS: ACIDOPHILUS/BULGARICUS 1 EACH TAB.CHEW GT SCH (08:28)
[2022-11-13] MEDS: BENZTROPINE MESYLATE (1 MG) 1 MG TABLET GT SCH ×3 (08:28→16:30)
[2022-11-13] MEDS: FAMOTIDINE (20 MG) 20 MG TABLET GT SCH (08:29)
[2022-11-13] MEDS: Z GUARD REMEDY 4 OZ OINT TP SCH ×2 (08:32→22:10)
[2022-11-13] MEDS: DOXAZOSIN MESYLATE (4 MG) 4 MG TABLET GT SCH ×2 (08:42→17:25)
[2022-11-13] MEDS: PROSOURCE / PROSTAT (PYXIS) 30 ML UDC GT SCH (08:50)
[2022-11-13] MEDS: hydrALAZINE HCL 50 MG TABLET GT SCH ×3 (10:14→17:25)
[2022-11-13] MEDS: AMLODIPINE BESYLATE 10 MG TABLET PO SCH (10:24)
[2022-11-13] MEDS ORDERED: ALBUMIN 25% 25 GM in PREMIX 1 EA IV SCH (11:00)
--- NOTE | 2022-11-13 11:00 | NUR ---
PARTNERSHIP DEVELOPMENT MANAGER NOTE PATIENT SEEN BY DR. SIMS. IN STABLE CONDITION. WITH ORDER TO TRANSFUSE 1 UNIT PRBC WITH HD. ORDERS MADE AND CARRIED OUT.
[2022-11-13 11:20] LABS: BAND % (MANUAL) 5 % (0.0-5.0); BASOPHILS % (MANUAL) 0 % (0.0-2.0); EOSINOPHILS % (MANUAL) 2 % (0-4); LYMPHOCYTES % (MANUAL) 12 % (16-48); MONOCYTES % (MANUAL) 5 % (0-11.0); NEUTROPHILS % (MANUAL) 76 (42-76)
[2022-11-13] MEDS: NEPRO 1,000 ML BOTTLE GT PRN ×2 (11:38→23:43)
[2022-11-13] MEDS: THERAHONEY GEL 1.5 OZ TUBE TP SCH ×2 (12:00→12:43)
--- NOTE | 2022-11-13 15:15 | NUR ---
MARINE ENGINE MECHANIC NOTE SPOKE WITH NACHO OF BLOOD BANK. SHE SAID SHE WILL WORK ON THE BLOOD AND CALL ME IF THERE IS ANY PROBLEM. SHE SAID SHE JUST GOT THERE AND SHE WILL STILL CLEAN UP THE MESS.
--- NOTE | 2022-11-13 19:00 | NUR ---
PENCIL INSPECTOR CLOSING NOTE PATIENT IN BED AWAKE. PT NON VERBAL ABLE TO RELAY SOME NEEDS BY NODDING, GESTURES OR LIPPING WORDS. PT STABLE ON T-PIECE 5 LPM OF 02 COOL AEROSOL. PATIENT APPEARS COMFORTABLE AND WITH NO SIGNS OF RESPIRATORY DISTRESS. IV ACCESS LEFT FOREARM #22G, SL. INTACT AND PATENT. STILL WITH BILATERAL SOFT WRIST RESTRAINTS. WITH G-TUBE ONGOING NEPHRO AT 70ML/HR, TOLERATED WELL. PATIENT WITH ONGOING HD ORDERED. RECEIVED ALBUMIN ORDERED. PATIENT CURRENTLY ON BLOOD TRANSFUSION WITH HD ORDERED. NO ADVERSE REACTION NOTED. COMFORT MEASURES PROVIDED. SAFETY MEASURES IN PLACE: CALL LIGHT WITHIN REACH, SIDE RAILS UP X 3, BED LOCKED IN LOWEST POSITION, HOB ELEVATED, BED ALARM ON. WILL ENDORSE TO NEXT SHIFT FOR CONTINUITY OF CARE.
[2022-11-13] MEDS: VANCOMYCIN POST DIALYSIS 500MG IV PRN ×2 (21:46)
[2022-11-13] MEDS: ATORVASTATIN 10 MG TABLET GT SCH (21:57)
[2022-11-13] MEDS: TRAZODONE 50 MG TABLET GT SCH (21:57)
--- NOTE | 2022-11-13 22:33 | NUR ---
BLOOD TRANSFUSION 19:45 PRBC 1 unit transfused per HD. End of transfusion, no adverse side effect noted. Dialysis treatment in process. Will cont to monitor closely.
[2022-11-14] VITALS: BP 184/91
[2022-11-14 04:00] VITALS: BP 180/84
[2022-11-14] MEDS: CLONIDINE HCL 0.1 MG TABLET GT PRN ×2 (04:19→23:45)
[2022-11-14] MEDS ORDERED: ALBUMIN 25% 25 GM in PREMIX 1 EA IV SCH (06:00)
--- NOTE | 2022-11-14 06:05 | NUR ---
END OF SHIFT REPORT Patient nonverbal, restless when awake. Sinus rhythm HR 68 in the Tele monitor. Trach intact, T-piece to Humidified air. Oxygen sat high 90's. IV LFA intact. Given Vancomycin post dialysis treatment. Afebrile during the shift. R Femoral HD cath C/D/I. s/p 1 unit PRBC 11/13/2022 with no adverse side effect. Elevated BP 180's Given Clonidine PRN. Tolerating tube feeding, gastric residual 5ml. Turned and repositioned q 2h. Erwin soft wrist restraints in place, unable to dc, patient still trying to pull out IV lines/tubing. Fall/skin precaution maintained.
[2022-11-14 07:00] VITALS: BP 183/81
[2022-11-14 07:13] LABS: BASOPHILS % (AUTO) 0.5 % (0.0-2.0); EOSINOPHILS % (AUTO) 8.7 % (0.0-6.0); HEMATOCRIT 24 % (39-51); HEMOGLOBIN 7.7 g/dL (13.5-17.5); LYMPHOCYTES # (AUTO) 0.4 K/uL (0.8-4.8); LYMPHOCYTES % (AUTO) 8.9 % (20.0-44.0); MEAN CORPUSCULAR HGB CONC 33 g/dl (31.0-36.0); MEAN CORPUSCULAR VOLUME 96 fL (80-96); MONOCYTES # (AUTO) 0.3 K/uL (0.1-1.30); MONOCYTES % (AUTO) 7.3 % (2.0-12.0); NEUTROPHILS # (AUTO) 3.2 K/uL (1.8-8.9); NEUTROPHILS % (AUTO) 74.6 % (43.0-81.0); PLATELET COUNT (AUTO) 210 K/uL (150-450); RED BLOOD CELL COUNT(AUTO) 2.46 MIL/uL (4.5-6.0); WHITE BLOOD COUNT (AUTO) 4.2 K/uL (4.3-11.0)
--- NOTE | 2022-11-14 07:27 | NUR ---
RN OPENING NOTE RECEIVED PATIENT IN BED AWAKE. RESPONSIVE TO VERBAL STIMULI. ABLE TO MOUTH WORDS AT TIMES. ON O2 AT 5LPM 28% COOL AEROSOL VIA T-PIECE. BREATHING EVEN AND UNLABORED, NOT IN ACUTE RESPIRATORY DISTRESS. NO S/SX OF PAIN NOTED AT THIS TIME. ON TELE MONITOR SHOWING SINUS RHYTHM, HR @73. NOTED WITH IV ACCESS ON LEFT FOREARM #22G, INTACT AND PATENT, SALINE LOCKED. NO S/S OF INFILTRATION NOTED. WITH G-TUBE, INTACT AND PATENT, NEPRO RUNNING AT 70 ML/HR. TOLERATING WELL. NO RESIDUAL NOTED. SAFETY PRECAUTIONS IN PLACE. BED LOCKED AND IN LOWEST POSITION, SIDE RAILS UP X3, CALL LIGHT WITHIN REACH. WILL CONTINUE TO MONITOR PATIENT.
[2022-11-14 07:35] LABS: ALANINE AMINOTRANSFERASE < 6 U/L (12-78); ALBUMIN 1.9 g/dL (3.4-5.0); ALKALINE PHOSPHATASE 116 U/L (46-116); ASPARTATE AMINOTRANSFERASE 19 U/L (15-37); BILIRUBIN,TOTAL 0.5 mg/dL (0.2-1.0); CALCIUM, SERUM 8.9 mg/dL (8.5-10.1); CARBON DIOXIDE 27 mmol/L (21-32); CHLORIDE 103 mmol/L (98-107); GLUCOSE 120 mg/dL (74-106); POTASSIUM 3.8 mmol/L (3.5-5.1); SODIUM SERUM 137 mmol/L (136-145); TOTAL PROTEIN, SERUM 8.5 g/dL (6.4-8.2); UREA NITROGEN, BLOOD 54 mg/dL (7-18)
[2022-11-14] MEDS: DOCUSATE SODIUM LIQ 100 MG/10 ML UDC GT SCH (08:53)
[2022-11-14] MEDS: VALPROIC ACID 250 MG/5 ML UDC GT SCH ×3 (08:53→16:24)
[2022-11-14] MEDS: CHLORHEXIDINE GLUCONATE 15 ML UDC MM SCH ×2 (08:53→21:20)
[2022-11-14] MEDS: BENZTROPINE MESYLATE (1 MG) 1 MG TABLET GT SCH ×3 (08:54→16:23)
[2022-11-14] MEDS: ACIDOPHILUS/BULGARICUS 1 EACH TAB.CHEW GT SCH (08:54)
[2022-11-14] MEDS: VIT B CMPLX 3/FA/VIT C/BIOTIN 1 TAB TABLET GT SCH (08:54)
[2022-11-14] MEDS: AMLODIPINE BESYLATE 10 MG TABLET PO SCH (08:56)
[2022-11-14] MEDS: DOXAZOSIN MESYLATE (4 MG) 4 MG TABLET GT SCH ×2 (08:56→16:24)
[2022-11-14] MEDS: hydrALAZINE HCL 50 MG TABLET GT SCH ×3 (08:58→16:25)
[2022-11-14] MEDS: PROSOURCE / PROSTAT (PYXIS) 30 ML UDC GT SCH (08:58)
[2022-11-14] MEDS: Z GUARD REMEDY 4 OZ OINT TP SCH ×2 (08:59→21:20)
[2022-11-14] MEDS: LIDOCAINE 5% (PATCH) 1 EA PATCH TP SCH (08:59)
[2022-11-14] MEDS ORDERED: VANCOMYCIN 500 MG in IV NS 0.9% 100 ML IV PRN (11:30)
[2022-11-14 12:00] VITALS: BP 163/80
[2022-11-14 16:00] VITALS: BP 151/90
[2022-11-14] MEDS: NEPRO 1,000 ML BOTTLE GT PRN (16:30)
--- NOTE | 2022-11-14 18:50 | NUR ---
RN CLOSING NOTE PATIENT ASLEEP IN BED. RESPONSIVE TO VERBAL STIMULI. REMAINS ON T-PIECE TO O2 AT 5LPM 28% COOL AEROSOL. BREATHING EVEN AND UNLABORED, NOT IN ACUTE RESPIRATORY DISTRESS. NO S/SX OF PAIN NOTED AT THIS TIME. CONTINUE ON TELE MONITOR SHOWING SINUS RHYTHM, HR @78. IV ACCESS ON LEFT FOREARM #22G, INTACT AND PATENT, SALINE LOCKED. NO S/S OF INFILTRATION NOTED. HD CATH ON RIGHT FEMORAL C/D/I. WITH G-TUBE, INTACT AND PATENT, NEPRO RUNNING AT 70 ML/HR. TOLERATING WELL. ASPIRATION AND SAFETY PRECAUTIONS IN PLACE. HOB ELEVATED, BED LOCKED AND IN LOWEST POSITION, SIDE RAILS UP X3, CALL LIGHT WITHIN REACH. WILL ENDORSE TO NEXT SHIFT FOR CONTINUITY OF CARE.
[2022-11-14 20:00] VITALS: BP 172/82
--- NOTE | 2022-11-14 20:45 | NUR ---
RN OPENING NOTE RECEIVED PATIENT ASLEEP IN BED. RESPONSIVE TO VERBAL STIMULI. REMAINS ON T-PIECE TO O2 AT 5LPM 28% COOL AEROSOL. BREATHING EVEN AND UNLABORED, NOT IN ACUTE RESPIRATORY DISTRESS. NO S/SX OF PAIN NOTED AT THIS TIME. CONTINUE ON TELE MONITOR SHOWING SINUS RHYTHM, HR @78. IV ACCESS ON LEFT FOREARM #22G, INTACT AND PATENT, SALINE LOCKED. NO S/S OF INFILTRATION NOTED. HD CATH ON RIGHT FEMORAL C/D/I. WITH G-TUBE, INTACT AND PATENT, NEPRO RUNNING AT 70 ML/HR. TOLERATING WELL. ASPIRATION AND SAFETY PRECAUTIONS IN PLACE. HOB ELEVATED, BED LOCKED AND IN LOWEST POSITION, SIDE RAILS UP X3, CALL LIGHT WITHIN REACH. WILL CONTINUE TO MONITOR.
[2022-11-14] MEDS: ATORVASTATIN 10 MG TABLET GT SCH (21:20)
[2022-11-14] MEDS: TRAZODONE 50 MG TABLET GT SCH (21:20)
[2022-11-15] VITALS (7 sets, daily range): BP systolic 159–195; BP diastolic 79–94
--- NOTE | 2022-11-15 03:47 | NUR ---
RN NOTES - HIGH BP READING BP 195/87. NOT IN ACUTE DISTRESS. GIVEN CATAPRES TAB PRN ORDERED. WILL CONTINUE TO MONITOR.
[2022-11-15] MEDS: CLONIDINE HCL 0.1 MG TABLET GT PRN ×2 (03:51→21:29)
[2022-11-15 06:19] LABS: BASOPHILS % (AUTO) 0.6 % (0.0-2.0); EOSINOPHILS % (AUTO) 10.3 % (0.0-6.0); HEMATOCRIT 24 % (39-51); HEMOGLOBIN 7.7 g/dL (13.5-17.5); LYMPHOCYTES # (AUTO) 0.5 K/uL (0.8-4.8); LYMPHOCYTES % (AUTO) 13.3 % (20.0-44.0); MEAN CORPUSCULAR HGB CONC 33 g/dl (31.0-36.0); MEAN CORPUSCULAR VOLUME 96 fL (80-96); MONOCYTES # (AUTO) 0.3 K/uL (0.1-1.30); MONOCYTES % (AUTO) 8.6 % (2.0-12.0); NEUTROPHILS # (AUTO) 2.6 K/uL (1.8-8.9); NEUTROPHILS % (AUTO) 67.2 % (43.0-81.0); PLATELET COUNT (AUTO) 198 K/uL (150-450); RED BLOOD CELL COUNT(AUTO) 2.44 MIL/uL (4.5-6.0); WHITE BLOOD COUNT (AUTO) 3.9 K/uL (4.3-11.0)
--- NOTE | 2022-11-15 06:34 | NUR ---
RN CLOSING NOTE PATIENT ASLEEP IN BED. RESPONSIVE TO VERBAL STIMULI. REMAINS ON T-PIECE TO O2 AT 5LPM 28% COOL AEROSOL. BREATHING EVEN AND UNLABORED, NOT IN ACUTE RESPIRATORY DISTRESS. NO S/SX OF PAIN NOTED AT THIS TIME. CONTINUE ON TELE MONITOR SHOWING SINUS RHYTHM, HR @70. IV ACCESS ON LEFT FOREARM #22G, INTACT AND PATENT, SALINE LOCKED. NO S/S OF INFILTRATION NOTED. HD CATH ON RIGHT FEMORAL C/D/I. WITH G-TUBE, INTACT AND PATENT, NEPRO RUNNING AT 70 ML/HR. TOLERATING WELL. ASPIRATION AND SAFETY PRECAUTIONS IN PLACE. HOB ELEVATED, BED LOCKED AND IN LOWEST POSITION, SIDE RAILS UP X3, CALL LIGHT WITHIN REACH. WILL ENDORSE TO NEXT SHIFT RN FOR AGAPITO.
[2022-11-15 06:36] LABS: ALBUMIN 1.7 g/dL (3.4-5.0); ALKALINE PHOSPHATASE 113 U/L (46-116); ASPARTATE AMINOTRANSFERASE 15 U/L (15-37); BILIRUBIN,TOTAL 0.4 mg/dL (0.2-1.0); CALCIUM, SERUM 9.1 mg/dL (8.5-10.1); CARBON DIOXIDE 27 mmol/L (21-32); CHLORIDE 101 mmol/L (98-107); CREATININE 4.8 mg/dL (0.6-1.3); GLUCOSE 88 mg/dL (74-106); POTASSIUM 4.1 mmol/L (3.5-5.1); SODIUM SERUM 134 mmol/L (136-145); TOTAL PROTEIN, SERUM 8.3 g/dL (6.4-8.2); UREA NITROGEN, BLOOD 76 mg/dL (7-18)
[2022-11-15 06:53] LABS: ALANINE AMINOTRANSFERASE < 6 U/L (12-78)
--- NOTE | 2022-11-15 07:41 | NUR ---
EXECUTOR OF ESTATE OPENING NOTE Patient in bed, asleep. Patient is legally blind, and non-verbal. On O2 at 5 LPM via T-piece with aerosol mist. IV access on LFA #22 SL, intact and patent. G-tube in place running Nepro at 70 ml/hr. On tele monitoring showing ST, HR on the 70's. Safety precautions in place: bed in low, locked position; siderails up x 2; call light within reach. Will continue to monitor. Addendum: 11/15/22 at 0756 by QUENTIN RIGGS RN ADD: Bilateral soft wrist restraints noted.
[2022-11-15] MEDS: BENZTROPINE MESYLATE (1 MG) 1 MG TABLET GT SCH ×3 (08:30→16:24)
[2022-11-15] MEDS: CHLORHEXIDINE GLUCONATE 15 ML UDC MM SCH ×2 (08:30→20:06)
[2022-11-15] MEDS: VIT B CMPLX 3/FA/VIT C/BIOTIN 1 TAB TABLET GT SCH (08:30)
[2022-11-15] MEDS: ACIDOPHILUS/BULGARICUS 1 EACH TAB.CHEW GT SCH (08:30)
[2022-11-15] MEDS: VALPROIC ACID 250 MG/5 ML UDC GT SCH ×3 (08:30→16:24)
[2022-11-15] MEDS: FAMOTIDINE (20 MG) 20 MG TABLET GT SCH (08:30)
[2022-11-15] MEDS: DOCUSATE SODIUM LIQ 100 MG/10 ML UDC GT SCH (08:30)
[2022-11-15] MEDS: LIDOCAINE 5% (PATCH) 1 EA PATCH TP SCH (08:31)
[2022-11-15] MEDS: THERAHONEY GEL 1.5 OZ TUBE TP SCH (08:32)
[2022-11-15] MEDS: PROSOURCE / PROSTAT (PYXIS) 30 ML UDC GT SCH (08:33)
[2022-11-15] MEDS: Z GUARD REMEDY 4 OZ OINT TP SCH ×2 (08:33→20:05)
[2022-11-15] MEDS: DOXAZOSIN MESYLATE (4 MG) 4 MG TABLET GT SCH ×2 (08:34→16:24)
[2022-11-15] MEDS: hydrALAZINE HCL 50 MG TABLET GT SCH ×3 (08:34→16:24)
[2022-11-15] MEDS: AMLODIPINE BESYLATE 10 MG TABLET PO SCH (08:35)
--- NOTE | 2022-11-15 09:00 | NUR ---
RN NOTES PATIENT FOR DIALYSIS THIS AM, BP MEDS HELD PER DIALYSIS NURSE
--- NOTE | 2022-11-15 18:54 | NUR ---
SAUSAGE STRINGER CLOSING NOTES PATIENT IS IN BED EASY TO AROUSE NON-VERBAL BUT ABLE TO ANWSER YES OR NO QUESTION. WITH OXYGEN AT 5LPM VIA T-PIECE WITH AEROSOL. TELE READING OF SINUS RHYTHYM AT 74. IV ACCESS ON L FA #22 SL, INTACT AND PATENT. WITH G TUBE RUNNING NEPHRO 70ML/HR. PATIENT KEPT CLEAN AND DRY. DUE MEDS GIVEN. SAFETY MEASURE PRECAUTIONS MAINTAINED, WILL ENDORSED TO ANODIC OPERATOR NURSE FOR AGAPITO.
--- NOTE | 2022-11-15 19:10 | NUR ---
RN opening notes Pt is resting in bed comfortably. Pt is non verbal. Pt is on 5 L T-piece w/cool aerosol. O2 sat is 100%. No SOB. No S/s of distress. Tele monitor showed SR. LFA# 22 is clean, intact and flushes well. R femoral HD cath is clean, and intact. Gtube feeding is running nephro @ 70 ml/hr with 0 residual. safety precautions is maintained. bed at low position, brakes locked, side rails upX3, hob elevated, bed alarm is on and call light is within reach. will continue to monitor.
[2022-11-15] MEDS: ATORVASTATIN 10 MG TABLET GT SCH (21:06)
[2022-11-15] MEDS: TRAZODONE 50 MG TABLET GT SCH (21:06)
[2022-11-16] VITALS: BP 168/90
[2022-11-16 04:00] VITALS: BP 184/97
[2022-11-16] MEDS: CLONIDINE HCL 0.1 MG TABLET GT PRN (04:29)
--- NOTE | 2022-11-16 06:30 | NUR ---
RN closing notes Pt is resting in bed comfortably. Pt is non verbal. Pt is on 5 L T-piece w/cool aerosol. O2 sat is 100%. No SOB. No S/s of distress. Tele monitor showed SR hr at 84. LFA# 22 is clean, intact and flushes well. R femoral HD cath is clean, and intact. Gtube feeding is running nephro @ 70 ml/hr with 0 residual. Pt tolerated well. Routine meds were given as ordered. safety precautions is maintained. bed at low position, brakes locked, side rails upX3, hob elevated, bed alarm is on and call light is within reach. Will endorse to am nurse for AG[facility].
[2022-11-16 06:50] LABS: BASOPHILS % (AUTO) 0.2 % (0.0-2.0); EOSINOPHILS % (AUTO) 9.1 % (0.0-6.0); HEMATOCRIT 26 % (39-51); HEMOGLOBIN 8.6 g/dL (13.5-17.5); LYMPHOCYTES # (AUTO) 0.5 K/uL (0.8-4.8); LYMPHOCYTES % (AUTO) 10.7 % (20.0-44.0); MEAN CORPUSCULAR HGB CONC 34 g/dl (31.0-36.0); MEAN CORPUSCULAR VOLUME 95 fL (80-96); MONOCYTES # (AUTO) 0.4 K/uL (0.1-1.30); MONOCYTES % (AUTO) 9.7 % (2.0-12.0); NEUTROPHILS # (AUTO) 3.1 K/uL (1.8-8.9); NEUTROPHILS % (AUTO) 70.3 % (43.0-81.0); PLATELET COUNT (AUTO) 219 K/uL (150-450); WHITE BLOOD COUNT (AUTO) 4.5 K/uL (4.3-11.0)
--- NOTE | 2022-11-16 07:20 | NUR ---
MS RN OPENING NOTE RECEIVED PATIENT IN BED AWAKE. RESPONSIVE TO VERBAL STIMULI. NON VERBAL BUT ABLE TO GESTURE AND MOUTH WORDS TO RELAY NEEDS. ANSWERS APPROPRIATELY. PATIENT ON TRACH TO COOL AEROSOL WITH O2 AT 5LPM SATURATING AT 100%. WITH BREATHING EVEN AND UNLABORED, NOT IN ACUTE RESPIRATORY DISTRESS. NO S/SX OF PAIN NOTED AT THIS TIME. ON TELE MONITOR SHOWING SINUS RHYTHM, HR @84BPM. WITH BILATERAL SOFT WRIST RESTRAINTS, WITH GOOD CIRCULATION AND NO APPARENT SENSORY AND MOTOR DEFICIT NOTED UPON ASSESSMENT. WITH IV ACCESS ON LEFT FOREARM #22G ON SALINE LOCK, INTACT AND PATENT. WITH HD CATH ON RIGHT FEMORAL AREA WITH DRESSING, DRY AND INTACT. WITH G-TUBE, ON NEPRO RUNNING AT 70 ML/HR. TOLERATING WELL. ASPIRATION AND SAFETY PRECAUTIONS IN PLACE. HOB ELEVATED, BED LOCKED AND IN LOWEST POSITION, SIDE RAILS UP X3, CALL LIGHT WITHIN REACH. WILL CONTINUE WITH PLAN OF CARE.
[2022-11-16 07:23] LABS: CALCIUM, SERUM 9.3 mg/dL (8.5-10.1); CREATININE 3.6 mg/dL (0.6-1.3); POTASSIUM 4.2 mmol/L (3.5-5.1)
[2022-11-16 07:28] LABS: ALBUMIN 1.8 g/dL (3.4-5.0); BILIRUBIN,TOTAL 0.4 mg/dL (0.2-1.0)
[2022-11-16 08:14] VITALS: BP 168/94
[2022-11-16] MEDS: LIDOCAINE 5% (PATCH) 1 EA PATCH TP SCH (08:25)
[2022-11-16] MEDS: ACIDOPHILUS/BULGARICUS 1 EACH TAB.CHEW GT SCH (08:25)
[2022-11-16] MEDS: BENZTROPINE MESYLATE (1 MG) 1 MG TABLET GT SCH ×3 (08:26→17:10)
[2022-11-16] MEDS: DOCUSATE SODIUM LIQ 100 MG/10 ML UDC GT SCH (08:26)
[2022-11-16] MEDS: PROSOURCE / PROSTAT (PYXIS) 30 ML UDC GT SCH (08:26)
[2022-11-16] MEDS: CHLORHEXIDINE GLUCONATE 15 ML UDC MM SCH ×2 (08:26→21:13)
[2022-11-16] MEDS: VALPROIC ACID 250 MG/5 ML UDC GT SCH ×3 (08:26→17:09)
[2022-11-16] MEDS: VIT B CMPLX 3/FA/VIT C/BIOTIN 1 TAB TABLET GT SCH (08:27)
[2022-11-16] MEDS: AMLODIPINE BESYLATE 10 MG TABLET PO SCH (08:27)
[2022-11-16] MEDS: DOXAZOSIN MESYLATE (4 MG) 4 MG TABLET GT SCH ×2 (08:27→17:10)
[2022-11-16] MEDS: hydrALAZINE HCL 50 MG TABLET GT SCH ×3 (08:27→17:11)
[2022-11-16] MEDS: Z GUARD REMEDY 4 OZ OINT TP SCH ×2 (08:28→21:13)
[2022-11-16] MEDS: THERAHONEY GEL 1.5 OZ TUBE TP SCH (08:28)
[2022-11-16] MEDS: NEPRO 1,000 ML BOTTLE GT PRN (08:38)
--- NOTE | 2022-11-16 11:02 | NUR ---
WOUND CARE CONSULT: RECEIVED CONSULT FROM PMD FOR RE-EVALUATION OF SACRAL AREA. PT NOTED TO BE SCRATCHING AT HIS SACRAL/BUTTOCKS AREA AND SACRAL WOUND HAS RE-OPENED. DR SALEH NOTIFIED. OPTIFOAM DRESSING PLACED. PT IS ON REINALDO ISOFLEX LOW AIRLOSS BED. PT IS COMBATIVE AND UNCOOPERATIVE AT TIMES. SOFT RESTRAINTS IN USE BY RN. IN AGREEMENT WITH PLAN OF CARE.
--- NOTE | 2022-11-16 11:10 | NUR ---
STITCH WHEELER NOTE PATIENT GOT LOOSE FROM HIS RESTRAINTS AND SCRATCHED HIS BUTTOCKS/ SACRUM CAUSING SOME BLEEDING. WOUND CARE NURSE AWARE. OPTIFOAM PLACED AND RESTRAINTS PLACED BACK.
[2022-11-16] MEDS: ACETAMINOPHEN 650 MG/20.3 ML UDC GT PRN ×2 (12:30→21:18)
[2022-11-16 13:00] VITALS: BP 160/80
--- NOTE | 2022-11-16 18:24 | NUR ---
NURSERYPERSON NOTE RECEIVED ORDER FROM DR. NOLAND REGARDING POSSIBLE PERMACATH PLACEMENT FOR TOMORROW AROUND 0900H. TRIED TO SECURE CONSENT FROM PATIENT. WITH 3 NURSES WITNESS. PATIENT REFUSED TO SIGN CONSENT AND GESTURED/ MOUTH THAT HE WILL SIGN THE CONSENT TOMORROW. CHARGE NURSE AWARE. WILL ENDORSE ACCORDINGLY.
--- NOTE | 2022-11-16 18:48 | NUR ---
MS RN CLOSING NOTE PATIENT IN BED AWAKE. RESPONSIVE TO VERBAL STIMULI. NON VERBAL BUT ABLE TO GESTURE AND MOUTH WORDS TO RELAY NEEDS. ANSWERS APPROPRIATELY. PATIENT ON TRACH TO COOL AEROSOL WITH O2 AT 5LPM SATURATING AT 100%. WITH BREATHING EVEN AND UNLABORED, NOT IN ACUTE RESPIRATORY DISTRESS. NO S/SX OF PAIN NOTED AT THIS TIME. ON TELE MONITOR SHOWING SINUS RHYTHM, HR @78-92 BPM. WITH BILATERAL SOFT WRIST RESTRAINTS, WITH GOOD CIRCULATION AND NO APPARENT SENSORY AND MOTOR DEFICIT NOTED UPON ASSESSMENT. WITH IV ACCESS ON LEFT FOREARM #22G ON SALINE LOCK, INTACT AND PATENT. WITH HD CATH ON RIGHT FEMORAL AREA WITH DRESSING, DRY AND INTACT. WITH G-TUBE, ON NEPRO RUNNING AT 70 ML/HR. PATIENT FOR POSSIBLE PERMANENT CATHETER PLACEMENT TOMORROW, BUT DOES NOT WANT TO SIGN YET. HE SAID HE WILL SIGN TOMORROW. ASPIRATION AND SAFETY PRECAUTIONS IN PLACE. HOB ELEVATED, BED LOCKED AND IN LOWEST POSITION, SIDE RAILS UP X3, CALL LIGHT WITHIN REACH. WILL ENDORSE TO NEXT SHIFT FOR CONTINUITY OF CARE.
--- NOTE | 2022-11-16 19:44 | NUR ---
MS RN OPENING NOTE PATIENT IN BED AWAKE. RESPONSIVE TO VERBAL STIMULI. NON VERBAL BUT ABLE TO GESTURE AND MOUTH WORDS TO RELAY NEEDS. ANSWERS APPROPRIATELY. PATIENT ON TRACH TO COOL AEROSOL WITH O2 AT 5LPM SATURATING AT 100%. WITH BREATHING EVEN AND UNLABORED, NOT IN ACUTE RESPIRATORY DISTRESS. NO S/SX OF PAIN NOTED AT THIS TIME. ON TELE MONITOR SHOWING SINUS RHYTHM, HR @78-92 BPM. WITH BILATERAL SOFT WRIST RESTRAINTS, WITH GOOD CIRCULATION AND NO APPARENT SENSORY AND MOTOR DEFICIT NOTED UPON ASSESSMENT. WITH IV ACCESS ON LEFT FOREARM #22G ON SALINE LOCK, INTACT AND PATENT. WITH HD CATH ON RIGHT FEMORAL AREA WITH DRESSING, DRY AND INTACT. WITH G-TUBE, ON NEPRO RUNNING AT 70 ML/HR. PATIENT FOR POSSIBLE PERMANENT CATHETER PLACEMENT TOMORROW, BUT DOES NOT WANT TO SIGN YET. HE SAID HE WILL SIGN TOMORROW. ASPIRATION AND SAFETY PRECAUTIONS IN PLACE. HOB ELEVATED, BED LOCKED AND IN LOWEST POSITION, SIDE RAILS UP X3, CALL LIGHT WITHIN REACH.
[2022-11-16 20:00] VITALS: BP_SYST 113; BP_SYST 137; BP_DIAS 53; BP_DIAS 80
[2022-11-16] MEDS: ATORVASTATIN 10 MG TABLET GT SCH (21:13)
[2022-11-16] MEDS: TRAZODONE 50 MG TABLET GT SCH (21:13)
--- NOTE | 2022-11-16 22:22 | NUR ---
rn note prn Tylenol given for pain tolerated well.
[2022-11-17] VITALS: BP 139/60
[2022-11-17 04:00] VITALS: BP 143/79
--- NOTE | 2022-11-17 06:36 | NUR ---
MS RN CLOSING NOTE PATIENT IN BED AWAKE. RESPONSIVE TO VERBAL STIMULI. NON VERBAL BUT ABLE TO GESTURE AND MOUTH WORDS TO RELAY NEEDS. ANSWERS APPROPRIATELY. PATIENT ON TRACH TO COOL AEROSOL WITH O2 AT 5LPM SATURATING AT 100%. WITH BREATHING EVEN AND UNLABORED, NOT IN ACUTE RESPIRATORY DISTRESS. NO S/SX OF PAIN NOTED AT THIS TIME. ON TELE MONITOR SHOWING SINUS RHYTHM. WITH BILATERAL SOFT WRIST RESTRAINTS, WITH GOOD CIRCULATION AND NO APPARENT SENSORY AND MOTOR DEFICIT NOTED UPON ASSESSMENT. WITH IV ACCESS ON LEFT FOREARM #22G ON SALINE LOCK, INTACT AND PATENT. WITH HD CATH ON RIGHT FEMORAL AREA WITH DRESSING, DRY AND INTACT. WITH G-TUBE FLUSHED WITH NO RESIDUAL PT NPO FOR FOR POSSIBLE PERMANENT CATHETER PLACEMENT TODAY, BUT DOES NOT WANT TO SIGN YET DR NOLAND MADE AWARE BY CHARGE NURSE. ASPIRATION AND SAFETY PRECAUTIONS IN PLACE. HOB ELEVATED, BED LOCKED AND IN LOWEST POSITION, SIDE RAILS UP X3, CALL LIGHT WITHIN REACH. WILL ENDORSE CARE TO DAY SHIFT NURSE.
--- NOTE | 2022-11-17 07:10 | NUR ---
ms rn received flor bed, awake,alert,oriented x3,not in any form of distress, respirations even and unlabored,no sob noted, lungs are diminished ,abdomen soft,positive bowel sounds, denies pain at this time, on trach connected to aerosol, trialysis cath on right groin , intact,all ,needs attended.
[2022-11-17 07:25] LABS: BASOPHILS % (AUTO) 0.2 % (0.0-2.0); EOSINOPHILS % (AUTO) 7.2 % (0.0-6.0); HEMATOCRIT 27 % (39-51); HEMOGLOBIN 8.8 g/dL (13.5-17.5); LYMPHOCYTES # (AUTO) 0.5 K/uL (0.8-4.8); LYMPHOCYTES % (AUTO) 11.6 % (20.0-44.0); MEAN CORPUSCULAR HGB CONC 33 g/dl (31.0-36.0); MEAN CORPUSCULAR VOLUME 95 fL (80-96); MONOCYTES # (AUTO) 0.5 K/uL (0.1-1.30); MONOCYTES % (AUTO) 11.4 % (2.0-12.0); NEUTROPHILS # (AUTO) 2.9 K/uL (1.8-8.9); NEUTROPHILS % (AUTO) 69.6 % (43.0-81.0); PLATELET COUNT (AUTO) 208 K/uL (150-450); RED BLOOD CELL COUNT(AUTO) 2.81 MIL/uL (4.5-6.0); WHITE BLOOD COUNT (AUTO) 4.1 K/uL (4.3-11.0)
[2022-11-17 07:46] LABS: ALBUMIN 1.8 g/dL (3.4-5.0); BILIRUBIN,TOTAL 0.3 mg/dL (0.2-1.0); CALCIUM, SERUM 9.3 mg/dL (8.5-10.1); CREATININE 4.3 mg/dL (0.6-1.3); POTASSIUM 4.2 mmol/L (3.5-5.1); TOTAL PROTEIN, SERUM 9.1 g/dL (6.4-8.2)
[2022-11-17] MEDS ORDERED: LIDOCAINE HCL/PF 1% 30 ML SDV ONE (08:37)
[2022-11-17] MEDS ORDERED: IOHEXOL 240MG/ML 0 ML IV ONE (08:38)
[2022-11-17] MEDS ORDERED: HEPARIN SODIUM, PORCINE 1,000 UNIT/ML VIAL ONE (08:38)
--- NOTE | 2022-11-17 08:40 | NUR ---
ms rn patient refusing consent for placement of permacatmd akin signed it, good to go for procedure
[2022-11-17] MEDS: hydrALAZINE HCL 50 MG TABLET GT SCH ×3 (08:45→17:44)
[2022-11-17] MEDS ORDERED: FENTANYL PF 100MCG/2ML AMPUL ONE (08:45)
[2022-11-17] MEDS: VALPROIC ACID 250 MG/5 ML UDC GT SCH ×3 (08:52→17:44)
[2022-11-17] MEDS: DOCUSATE SODIUM LIQ 100 MG/10 ML UDC GT SCH ×2 (08:52→11:35)
[2022-11-17] MEDS: BENZTROPINE MESYLATE (1 MG) 1 MG TABLET GT SCH ×3 (08:52→17:44)
[2022-11-17] MEDS: LIDOCAINE 5% (PATCH) 1 EA PATCH TP SCH (09:00)
[2022-11-17 09:01] VITALS: BP 154/72
--- NOTE | 2022-11-17 09:26 | NUR ---
RT NOTE Pt went out for procedure. Sxn done and DIC changed before leaving. Pt is on 28% FiO2 via T-Mask.
--- NOTE | 2022-11-17 09:30 | NUR ---
ms rn pateint went down for cath placement.
--- NOTE | 2022-11-17 11:22 | NUR ---
RT NOTE Pt has returned to room and placed back on CA via T-Mask at 28% FiO2. Sxn done, respirations normal and unlabored. Airway is patent and secured.
[2022-11-17] MEDS: NEPRO 1,000 ML BOTTLE GT PRN (11:25)
[2022-11-17] MEDS: CHLORHEXIDINE GLUCONATE 15 ML UDC MM SCH (11:34)
[2022-11-17] MEDS: ACIDOPHILUS/BULGARICUS 1 EACH TAB.CHEW GT SCH (11:35)
[2022-11-17] MEDS: FAMOTIDINE (20 MG) 20 MG TABLET GT SCH (11:36)
[2022-11-17] MEDS: VIT B CMPLX 3/FA/VIT C/BIOTIN 1 TAB TABLET GT SCH (11:36)
[2022-11-17] MEDS: AMLODIPINE BESYLATE 10 MG TABLET PO SCH (11:37)
[2022-11-17] MEDS: PROSOURCE / PROSTAT (PYXIS) 30 ML UDC GT SCH (11:38)
[2022-11-17] MEDS: DOXAZOSIN MESYLATE (4 MG) 4 MG TABLET GT SCH ×2 (11:38→17:44)
[2022-11-17] MEDS: THERAHONEY GEL 1.5 OZ TUBE TP SCH (11:39)
[2022-11-17] MEDS: Z GUARD REMEDY 4 OZ OINT TP SCH (11:39)
--- NOTE | 2022-11-17 13:05 | NUR ---
ms rn patient came back from procedure, new hd permacath inserted by dr. cummings at left groin, dressing dry and intact, patient is awake, denies pain at this time. all orders resumed, feeding restarted, tolerating well,will monitor patient,
[2022-11-17] MEDS ORDERED: CEFA1PIG IV (13:40)
[2022-11-17 16:16] VITALS: BP 131/76
[2022-11-17] MEDS ORDERED: ANCEF 1 GM/50 ML D5W IV SCH ×2 (17:00)
--- NOTE | 2022-11-17 17:25 | NUR ---
MS RN PATIENT ON BED, PM CARE DONE, PATIENT IS READY TO GO BACK TO SNF, PER ORDER.
[2022-11-17 17:44] VITALS: BP 142/71
--- NOTE | 2022-11-17 19:00 | NUR ---
MS RN PATIENT TRANSFERRED TO [facility], REPORT GIVEN TO MAYRA,ALL NEEDS ATTENDED.
== END 2022-11-17 19:00 | DRG 721 ==
LOC: ER 14:24 → TELE 20:55
PROVIDERS: ADMIT Internal Medicine Nephrology; ATTEND Nurse Practitioner Acute Care
PROC: 5A1935Z Respiratory Ventilation, Less than 24 Consecutive Hours (ICD-10-PCS; principal; 2022-10-25)
PROC: 5A1D70Z Performance of Urinary Filtration, Intermittent, Less than 6 Hours Per Day (ICD-10-PCS; 2022-10-27)
PROC: 0W9B3ZZ Drainage of Left Pleural Cavity, Percutaneous Approach (ICD-10-PCS; 2022-10-27)
PROC: 0JPT3XZ Removal of Tunneled Vascular Access Device from Trunk Subcutaneous Tissue and Fascia, Percutaneous Approach (ICD-10-PCS; 2022-11-03)
PROC: 05PYX3Z Removal of Infusion Device from Upper Vein, External Approach (ICD-10-PCS; 2022-11-03)
PROC: 06HY33Z Insertion of Infusion Device into Lower Vein, Percutaneous Approach (ICD-10-PCS; 2022-11-08)
PROC: B504YZZ Plain Radiography of Left Jugular Veins using Other Contrast (ICD-10-PCS; 2022-11-09)
PROC: B548ZZA Ultrasonography of Superior Vena Cava, Guidance (ICD-10-PCS; 2022-11-09)
PROC: 0JHM3XZ Insertion of Tunneled Vascular Access Device into Left Upper Leg Subcutaneous Tissue and Fascia, Percutaneous Approach (ICD-10-PCS; 2022-11-17)
PROC: 06HN33Z Insertion of Infusion Device into Left Femoral Vein, Percutaneous Approach (ICD-10-PCS; 2022-11-17)
PROC: B51CYZA Fluoroscopy of Left Lower Extremity Veins using Other Contrast, Guidance (ICD-10-PCS; 2022-11-17)
DX: T80.211A Bloodstream infection due to central venous catheter, initial encounter (principal); A41.02 Sepsis due to Methicillin resistant Staphylococcus aureus; G92.8 Other toxic encephalopathy; J15.6 Pneumonia due to other Gram-negative bacteria; L89.153 Pressure ulcer of sacral region, stage 3; R53.2 Functional quadriplegia; D68.59 Other primary thrombophilia; E11.41 Type 2 diabetes mellitus with diabetic mononeuropathy; J15.9 Unspecified bacterial pneumonia; J90 Pleural effusion, not elsewhere classified; I12.0 Hypertensive chronic kidney disease with stage 5 chronic kidney disease or end stage renal disease; I95.3 Hypotension of hemodialysis; J96.10 Chronic respiratory failure, unspecified whether with hypoxia or hypercapnia; N18.6 End stage renal disease; Z93.0 Tracheostomy status; E11.22 Type 2 diabetes mellitus with diabetic chronic kidney disease; E11.51 Type 2 diabetes mellitus with diabetic peripheral angiopathy without gangrene; Z99.2 Dependence on renal dialysis; Z20.822 Contact with and (suspected) exposure to COVID-19; Z93.1 Gastrostomy status; R13.10 Dysphagia, unspecified; Z99.11 Dependence on respirator [ventilator] status; Z89.512 Acquired absence of left leg below knee; M62.50 Muscle wasting and atrophy, not elsewhere classified, unspecified site; M10.9 Gout, unspecified; E78.00 Pure hypercholesterolemia, unspecified; Z91.018 Allergy to other foods; Z79.4 Long term (current) use of insulin; Z79.51 Long term (current) use of inhaled steroids; Z79.899 Other long term (current) drug therapy; H54.8 Legal blindness, as defined in USA; D53.9 Nutritional anemia, unspecified; N40.0 Benign prostatic hyperplasia without lower urinary tract symptoms; Z74.09 Other reduced mobility; F32.9 Major depressive disorder, single episode, unspecified; F29 Unspecified psychosis not due to a substance or known physiological condition; K21.9 Gastro-esophageal reflux disease without esophagitis; J98.11 Atelectasis; J81.1 Chronic pulmonary edema; E88.09 Other disorders of plasma-protein metabolism, not elsewhere classified; E87.5 Hyperkalemia; E87.6 Hypokalemia
CPT/HCPCS: 31720; 36415; 71045-TC; 71250-TC; 74018; 80048-TC; 80053-TC; 80076-TC; 80202-TC; 82607-TC; 82728-TC; 82962-TC; 83540-TC; 83605-TC; 83735-TC; 84100-TC; 84155-TC; 84484-TC; 85025-TC; 85730-TC; 86850-TC; 87040-TC; 87081-TC; 87102-TC; 89051-TC; 90935-TC; 93307-TC; 94640-TC; 94664-TC; 94760-TC; 94762-TC; 94799-TC; A4216; A4623; A6253; A6403; A7526; A9563; C1750; C1757; C1769; C1894; C9803; G0378; J0690; J0692; J0885; J1644; J2060; J2185; J2405; J2704; J2765; J3010; J3370; J3490; J7030; J7040; J7042; J7050; J7060; P9016; P9047; Q9963; Q9966; Q9967